=== PATIENT | male | born 1955 | race Caucasian/White ===

== ENCOUNTER 2016-08-04 17:09 | Inpatient (IN) | payer MEDICARE, OTHER ==
[~2016-08-04] VITALS: Ht 185.4 cm; Wt 84.8 kg
[~2016-08-04 17:09] MED LIST: CLIN150 PO; DIABETIC SHOES; LISI2.5T55 PO; LORA-474 PO; METF500 PO; [UNRECOGNIZED DRUG - SUPPLY]
[2016-08-04 18:15] VITALS: BP 148/81; PULSE 92; RESP 17; TEMP 97.8; O2SAT 97
[2016-08-04 18:53] LABS: AUTOMATED NEUTROPHIL # 4.1 TH/MM3 (1.8-7.7); BASOPHIL # 0.1 TH/MM3 (0-0.2); BASOPHIL % 1.7 % (0.0-2.0); EOSINOPHIL # 0.1 TH/MM3 (0-0.4); EOSINOPHIL % 1.7 % (0.0-4.0); HEMATOCRIT 39.1 % (39.0-51.0); HEMO FLAGS DIFF FINAL; LYMPH % 12.2 % (9.0-44.0); LYMPHOCYTE # 0.8 TH/MM3 (1.0-4.8); MEAN CELL VOLUME 94.2 FL (80.0-100.0); MEAN CORPUSCULAR HEMOGLOBIN 32.7 PG (27.0-34.0); MEAN CORPUSCULAR HGB CONC 34.7 % (32.0-36.0); MONO % 18.4 % (0.0-8.0); PLATELET COUNT 149 TH/MM3 (150-450); RED BLOOD COUNT 4.15 MIL/MM3 (4.50-5.90); RED CELL DISTRIBUTION WIDTH 15.3 % (11.6-17.2); WHITE BLOOD COUNT 6.2 TH/MM3 (4.0-11.0)
[2016-08-04 18:57] LABS: AMPHETAMINE, URINE NEG (NEG); BARBITURATES, URINE NEG (NEG); COCAINE, URINE NEG (NEG)
[2016-08-04 19:15] LABS: ANION GAP 9 MEQ/L (5-15)
[2016-08-04 19:20] LABS: ALKALINE PHOSPHATASE 64 U/L (45-117); ALT (GPT) 87 U/L (12-78); AST (GOT) 135 U/L (15-37); BICARBONATE 30.9 MEQ/L (21.0-32.0); BLOOD UREA NITROGEN 19 MG/DL (7-18); CHLORIDE 99 MEQ/L (98-107); GLOMERULAR FILTRATION RATE 84 ML/MIN (>89); POTASSIUM 4.2 MEQ/L (3.5-5.1); SODIUM (NA) 139 MEQ/L (136-145); TOTAL BILIRUBIN ADULT 0.4 MG/DL (0.2-1.0)
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
[2016-08-04 22:42] VITALS: BP 161/78; PULSE 101; RESP 18; O2SAT 97
[2016-08-05] VITALS (10 sets, daily range): BP systolic 123–193; BP diastolic 78–97; PULSE 104–117; RESP 16–20; TEMP 98.2–99; O2SAT 94–98
[2016-08-05] MEDS ORDERED: LORazepam 2 MG/ML VIAL IM ONE (05:45)
[2016-08-05] MEDS ORDERED: LORazepam 2 MG/ML VIAL IV PUSH ONE (06:00)
[2016-08-05] MEDS ORDERED: SODIUM CHLOR 0.9% 1000 ML INJ 1,000 ML IV ONE (06:00)
--- NOTE | 2016-08-05 06:10 | PD ---
Physical Exam Date Seen by Provider: Aug 05, 2016 Time Seen by Provider: 06:07 Narrative GENERAL: This is a well-nourished, well-developed patient, in no apparent distress. SKIN: No rashes, ecchymoses or lesions. Patient was mildly diaphoretic. HEAD: Patient has a small soft tissue hematoma to the right posterior occiput. No bony step off. EYES: PERRL, EOMI, no discharge or injection. No scleral icterus. EARS: Clear NOSE: Nasal turbinates appear normal. THROAT: Mucosa pink and moist. Airway patent. NECK: Trachea midline. supple, moves head freely. LUNGS: Clear to auscultation. CV: Regular in rhythm. Mildly tacky. ABDOMEN: Soft nontender. EXT: No clubbing cyanosis or edema. Neuro: Patient alert and oriented 3. He is not recall the precipitating event. He is moving all extremities well and according fashion. No evidence of incontinence. No pain. No postictal state. Data Data Last Documented VS Vital Signs Date Time Temp Pulse Resp B/P Pulse Ox O2 Delivery O2 Flow Rate FiO2 08/05/16 06:32 107 20 123/80 95 Room Air 08/04/16 18:15 97.8 Orders Complete Blood Count With Diff (08/04/16 18:27) Comprehensive Metabolic Panel (08/04/16 18:27) Drug Screen, Random Urine (08/04/16 18:27) Alcohol (Ethanol) (08/04/16 18:27) Psych Screen (08/04/16 18:27) Diet Diabetic (08/05/16 Breakfast) Lorazepam Inj (Ativan Inj) (08/05/16 05:45) Iv Access Insert/Monitor (08/05/16 05:49) Ecg Monitoring (08/05/16 05:49) Sodium Chlor 0.9% 1000 Ml Inj (Ns 1000 M (08/05/16 06:00) Lorazepam Inj (Ativan Inj) (08/05/16 06:00) Alcohol Withdrawal Asmt-Ciwa ONCE (08/05/16 06:14) Flumazenil Inj (Romazicon Inj) (08/05/16 06:15) Lorazepam (Ativan) (08/05/16 06:15) Lorazepam Inj (Ativan Inj) (08/05/16 06:15) Lorazepam (Ativan) (08/05/16 06:15) Lorazepam Inj (Ativan Inj) (08/05/16 06:15) Lorazepam Inj (Ativan Inj) (08/05/16 06:15) Lorazepam Inj (Ativan Inj) (08/05/16 06:15) Ct Brain W/O Iv Contrast(Rout) (08/05/16 06:14) Labs Laboratory Tests Test 08/04/16 08/04/16 18:20 18:30 White Blood Count 6.2 TH/MM3 Red Blood Count 4.15 MIL/MM3 Hemoglobin 13.6 GM/DL Hematocrit 39.1 % Mean Corpuscular Volume 94.2 FL Mean Corpuscular Hemoglobin 32.7 PG Mean Corpuscular Hemoglobin 34.7 % Concent Red Cell Distribution Width 15.3 % Platelet Count 149 TH/MM3 Mean Platelet Volume 7.7 FL Neutrophils (%) (Auto) 66.0 % Lymphocytes (%) (Auto) 12.2 % Monocytes (%) (Auto) 18.4 % Eosinophils (%) (Auto) 1.7 % Basophils (%) (Auto) 1.7 % Neutrophils # (Auto) 4.1 TH/MM3 Lymphocytes # (Auto) 0.8 TH/MM3 Monocytes # (Auto) 1.1 TH/MM3 Eosinophils # (Auto) 0.1 TH/MM3 Basophils # (Auto) 0.1 TH/MM3 CBC Comment DIFF FINAL Differential Comment Sodium Level 139 MEQ/L Potassium Level 4.2 MEQ/L Chloride Level 99 MEQ/L Carbon Dioxide Level 30.9 MEQ/L Anion Gap 9 MEQ/L Blood Urea Nitrogen 19 MG/DL Creatinine 0.91 MG/DL Estimat Glomerular Filtration 84 ML/MIN Rate Random Glucose 128 MG/DL Calcium Level 9.0 MG/DL Total Bilirubin 0.4 MG/DL Aspartate Amino Transf 135 U/L (AST/SGOT) Alanine Aminotransferase 87 U/L (ALT/SGPT) Alkaline Phosphatase 64 U/L Total Protein 8.6 GM/DL Albumin 3.5 GM/DL Urine Opiates Screen NEG Urine Barbiturates Screen NEG Urine Amphetamines Screen NEG Urine Benzodiazepines Screen NEG Urine Cocaine Screen NEG Urine Cannabinoids Screen NEG Ethyl Alcohol Level 290 MG/DL [facility] Medical Record Reviewed: Yes Supervised Visit with ANGEL: Yes Interpretation(s) CT brain: Negative for acute bony injury. No acute intracerebral injury. Chronic ischemic changes Laboratory Tests Test 08/04/16 08/04/16 18:20 18:30 White Blood Count 6.2 TH/MM3 Red Blood Count 4.15 MIL/MM3 Hemoglobin 13.6 GM/DL Hematocrit 39.1 % Mean Corpuscular Volume 94.2 FL Mean Corpuscular Hemoglobin 32.7 PG Mean Corpuscular Hemoglobin 34.7 % Concent Red Cell Distribution Width 15.3 % Platelet Count 149 TH/MM3 Mean Platelet Volume 7.7 FL Neutrophils (%) (Auto) 66.0 % Lymphocytes (%) (Auto) 12.2 % Monocytes (%) (Auto) 18.4 % Eosinophils (%) (Auto) 1.7 % Basophils (%) (Auto) 1.7 % Neutrophils # (Auto) 4.1 TH/MM3 Lymphocytes # (Auto) 0.8 TH/MM3 Monocytes # (Auto) 1.1 TH/MM3 Eosinophils # (Auto) 0.1 TH/MM3 Basophils # (Auto) 0.1 TH/MM3 CBC Comment DIFF FINAL Differential Comment Sodium Level 139 MEQ/L Potassium Level 4.2 MEQ/L Chloride Level 99 MEQ/L Carbon Dioxide Level 30.9 MEQ/L Anion Gap 9 MEQ/L Blood Urea Nitrogen 19 MG/DL Creatinine 0.91 MG/DL Estimat Glomerular Filtration 84 ML/MIN Rate Random Glucose 128 MG/DL Calcium Level 9.0 MG/DL Total Bilirubin 0.4 MG/DL Aspartate Amino Transf 135 U/L (AST/SGOT) Alanine Aminotransferase 87 U/L (ALT/SGPT) Alkaline Phosphatase 64 U/L Total Protein 8.6 GM/DL Albumin 3.5 GM/DL Urine Opiates Screen NEG Urine Barbiturates Screen NEG Urine Amphetamines Screen NEG Urine Benzodiazepines Screen NEG Urine Cocaine Screen NEG Urine Cannabinoids Screen NEG Ethyl Alcohol Level 290 MG/DL Differential Diagnosis Differential diagnoses: Alcohol intoxication, substance abuse, electrolyte abnormality, malingering, withdrawal seizure Narrative Course This is a 61-year-old white male with a history of alcoholism and alcohol withdrawal seizures. He came to the emergency department under Mathias act over 12 hours ago. At that time he had a blood alcohol over 290. He subsequently went into the bathroom this morning approximately 30 minutes ago and had what appears to be a alcohol withdrawal seizure. The patient was noted to be having an active tonic seizure in the bathroom. This lasted for less than a minute. The patient only had a very momentary postictal state. No evidence of tongue bite. He did sustain a small posterior occiput contusion. The patient now is alert and oriented. He does not complain of any pain. No numbness, tingling or focal weakness. IV access is obtained. He is given a liter bolus of normal saline, 1 mg of Ativan IV. CIWA protocol is initiated. The case has been discussed with who has requested a CT of the brain. CT of the brain is negative for acute intercranial injury or bony injury. The patient has been resting comfortable. He is consider medically cleared. This is alcohol dependence, alcohol withdrawal seizure Diagnosis Primary Impression: Alcohol dependence Qualified Code: F10.24 - Alcohol dependence with alcohol-induced mood disorder Additional Impression: Alcohol withdrawal seizure Qualified Code: F10.239 - Alcohol withdrawal seizure, with unspecified complication Condition: Stable Alex Vasquez Aug 05, 2016 06:10
[2016-08-05] MEDS ORDERED: FLUMAZENIL 1 MG/10 ML VIAL IV PUSH PRN (06:15)
[2016-08-05] MEDS ORDERED: LORazepam 2 MG/ML VIAL IV PUSH PRN (06:15)
--- NOTE | 2016-08-05 06:59 | RADRPT ---
EXAM DATE/TIME: 08/05/2016 06:38 [facility] COMPARISON: CT BRAIN W/O CONTRAST, December 23, 2013, 19:55. INDICATIONS : Post ictal; posterior occipital laceration RADIATION DOSE: 56.35 CTDIvol (mGy) MEDICAL HISTORY : Seizures. Hypertension. Prior head trauma. SURGICAL HISTORY : None. ENCOUNTER: Initial ACUITY: 1 day PAIN SCALE: 5/10 LOCATION: occipital TECHNIQUE: Multiple contiguous axial images were obtained of the head. Using automated exposure control and adj ustment of the mA and/or kV according to patient size, radiation dose was kept as low as reasonably a chievable to obtain optimal diagnostic quality images. FINDINGS: CEREBRUM: Scattered areas of low attenuation throughout the white matter. 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 T he ventricles are normal for age. No evidence of midline shift, mass lesion, hemorrhage or acute inf arction. No extra-axial fluid collections are seen. POSTERIOR FOSSA: The cerebellum is intact. Chronic ischemic changes left terrie. The 4th ventricle is midline. The cer ebellopontine angle is unremarkable. EXTRACRANIAL: The visualized portion of the orbits is intact. SKULL: The calvaria is intact. No evidence of skull fracture. CONCLUSION: Chronic ischemic changes. No acute intracranial abnormality. Oscar Dominique MD on August 05, 2016 at 6:56 Board Certified Radiologist. This report was verified electronically.
[2016-08-05] MEDS: LORazepam 2 MG/ML VIAL IV PUSH PRN ×5 (08:52→18:28)
[2016-08-05] MEDS ORDERED: LORazepam 2 MG/ML VIAL ONE (11:26)
[2016-08-05] MEDS ORDERED: MAGNESIUM HYDROXIDE SUSP 30 ML CUP PO PRN (16:15)
[2016-08-05] MEDS ORDERED: ACETAMINOPHEN 325 MG TAB PO PRN (16:15)
[2016-08-05] MEDS ORDERED: PILL SPLITTER OTHER PRN (16:30)
[2016-08-05] MEDS ORDERED: metFORMIN HCL 500 MG TAB PO SCH (18:00)
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
[2016-08-05] MEDS: INSULIN ASPART SUPPLEMENTAL SCALE SQ SCH (20:42)
[2016-08-06] MEDS: LORazepam 2 MG/ML VIAL IV PUSH PRN ×2 (00:52→16:43)
[2016-08-06 01:34] VITALS: BP 187/100; PULSE 111; RESP 17; TEMP 98.4; O2SAT 95
[2016-08-06] MEDS ORDERED: ENALAPRILAT 1.25 MG/ML VIAL IV PRN (03:15)
[2016-08-06] MEDS ORDERED: cloNIDine HCL 0.1 MG TAB PO PRN (03:30)
[2016-08-06] MEDS: TEMAZEPAM 15 MG CAP PO PRN ×2 (03:38→23:30)
[2016-08-06 05:47] VITALS: BP 142/82; PULSE 97; RESP 20; TEMP 98.1; O2SAT 96
[2016-08-06] MEDS: INSULIN ASPART SUPPLEMENTAL SCALE SQ SCH ×4 (06:16→20:30)
[2016-08-06 08:05] LABS: ALKALINE PHOSPHATASE 62 U/L (45-117); ALT (GPT) 79 U/L (12-78); ANION GAP 9 MEQ/L (5-15); AST (GOT) 108 U/L (15-37); BICARBONATE 30.2 MEQ/L (21.0-32.0); BLOOD UREA NITROGEN 20 MG/DL (7-18); CHLORIDE 98 MEQ/L (98-107); GLOMERULAR FILTRATION RATE 93 ML/MIN (>89); HDL CHOLESTEROL 157.4 MG/DL (40.0-60.0); LDL CHOLESTEROL 82 MG/DL (0-99); POTASSIUM 3.1 MEQ/L (3.5-5.1); SODIUM (NA) 137 MEQ/L (136-145); TOTAL BILIRUBIN ADULT 0.9 MG/DL (0.2-1.0)
[2016-08-06] MEDS: NICOTINE 21 MG/24 HR PATCH T-DERMAL SCH (09:00)
[2016-08-06] MEDS: REMOVE OLD NICOTINE PATCH T-DERMAL SCH (09:00)
[2016-08-06] MEDS ORDERED: chlordiazePOXIDE 25 MG CAP PO SCH (09:00)
[2016-08-06] MEDS ORDERED: LISINOPRIL 5 MG TAB PO SCH (09:00)
[2016-08-06] MEDS: THIAMINE HCL 100 MG TAB PO SCH (09:45)
[2016-08-06] MEDS: MULTIVITAMIN TAB PO SCH (09:45)
[2016-08-06 10:48] LABS: HEMOGLOBIN A1a 1.4 %; HEMOGLOBIN A1b 0.8 %; HEMOGLOBIN Ao 83.7 %; HEMOGLOBIN F 0.8 %; HEMOGLOBIN LA1C 2.3 %; HEMOGLOBIN P3 3.9 %
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
[2016-08-06] MEDS: chlordiazePOXIDE 25 MG CAP PO SCH ×3 (12:00→23:31)
--- NOTE | 2016-08-06 12:05 | HHI.HP ---
Provisional Diagnosis Admission Date Aug 05, 2016 at 15:38 [place] I. Alcohol-induced mood disorder, alcohol use disorder, rule out major depressive disorder [place] II. Deferred [place] III. DM, HTN, history of DT [place] IV. Poor family support, continuous use of alcohol [place] V. 45 Certification of Person's Competence To Provide Express and Informed Consent I have personally examined Sheng Light , a person being served at [facility] on, Aug 06, 2016 11:45. Express and informed consent means consent voluntarily given in writing, by a competent person, after sufficient explanation and disclosure of the subject matter involved to enable the person to make a knowing and willful decision without any element of force, fraud, deceit, duress, or other form of constraint or coercion. This person is 18 years of age or older, is not now known to be incompetent to consent to treatment with a guardian advocate, and does not have a health care surrogate or proxy currently making medical treatment decisions. I have found this person to be one of the following: [] Competent to provide express and informed consent, as defined above, for voluntary admission to this facility and is competent to provide express and informed consent for treatment. He/she has the consistent capacity to make well reasoned, willful, and knowing decisions concerning his or her medical or mental health treatment. The person fully and consistently understands the purpose of the admission for examination/placement and is fully capable of personally exercising all rights assured under [place] [] Incompetent to provide express and informed consent to voluntary admission, and this is incompetent to provide express and informed consent to treatment. The person must be transferred to involuntary status and a petition for a guardian advocate filed with the Circuit Court. [X] Refusing to provide express and informed consent to voluntary admission but is competent to provide express and informed consent for treatment. The person must be discharged or transferred to involuntary status. Form shall be completed within 24 hours of a person's arrival at the receiving facility and filed in the clinical record of each person: 1. Admitted on a voluntary basis 2. Permitted to provide express and informed consent to his/her own treatment 3. Allowed to transfer from involuntary to voluntary status 4. Prior to permitting a person to consent to his or her own treatment after having been previously found incompetent to consent to treatment. History of Present Illness Capacity: Has Capacity HPI The patient is 61-year-old man, , domiciled alone, he has 4 adult kids, he is retired, with past psychiatric history of depression, anxiety, alcohol related disorders, history of withdrawal, known by this service, multiple psychiatric hospitalizations in the past, suicidal attempts, medical history of diabetes mellitus, hypertension, who presents to the emergency department under a Mathias act for psychiatric evaluation. As per Er note "Patient states that he has prefers and they were making a lot of noise so he went outside and yelled at them. He states that they contact the police an alleged that he pointed a gun at them. In the ER patient had a breakthrough seizure. Chart was extensively review, no collateral information available at this moment, the case was discussed with nursing in charge who states that patient has been mostly sleeping in the unit. On psychiatric evaluation today patient was found sleeping, but easily arousable, he was superficially cooperative, distant and detached, he states that he doesn't know where he is in the hospital, he remembered that he had a seizure in the ER, but he doesn't remember the circumstances that brought into the hospital, when he was confronted about this stating of the police in Mathias act document history often an added "I was drunk remember". Patient reports sad mood since his a year ago, also reports several financial and social stressors, not being in the moment with his kids. He reports feeling alone, empty appetite, with no reasons to live, however he denies suicidal or homicidal ideation. Patient says that the way he cope with his depression is drinking alcohol, he says that he drink alcohol almost every day, 1 or 2 pints of whisky. He has history of seizures before, and DTs. Patient denies visual and auditory hallucinations, confusion, paranoia , delusions. No aggressive behavior, agitation, poor cognitive impairment is observed at this moment. Patient is oriented 3. Patient is unable to provide any information from collateral at this moment. He reports daily use of alcohol , but denies illicit drugs. Patient denies withdrawal symptoms at this moment such as nausea, vomiting, tremors, anxiety. Review of Systems Constitutional: DENIES: Diaphoretic episodes, Fatigue, Fever, Weight gain, Weight loss, Chills, Dizziness, Change in appetite, Night Sweats Endocrine: DENIES: Heat/cold intolerance, Polydipsia, Polyuria, Polyphagia Eyes: DENIES: Blurred vision, Diplopia, Eye inflammation, Eye pain, Vision loss , Photosensitivity, Double Vision Ears, nose, mouth, throat: DENIES: Tinnitus, Hearing loss, Vertigo, Nasal discharge, Oral lesions, Throat pain, Hoarseness, Ear Pain, Running Nose, Epistaxis, Sinus Pain, Toothache, Odynophagia Respiratory: DENIES: Apneas, Cough, Snoring, Wheezing, Hemoptysis, Sputum production, Shortness of breath Cardiovascular: DENIES: Chest pain, Palpitations, Syncope, Dyspnea on Exertion , PND, Lower Extremity Edema, Orthopnea, Claudication Gastrointestinal: DENIES: Abdominal pain, Black stools, Bloody stools, Constipation, Diarrhea, Nausea, Vomiting, Difficulty Swallowing, Anorexia Musculoskeletal: DENIES: Joint pain, Muscle aches, Stiffness, Joint Swelling, Back pain, Neck pain Integumentary: DENIES: Abnormal pigmentation, Nail changes, Pruritus, Rash Hematologic/lymphatic: DENIES: Bruising, Lymphadenopathy Immunologic/allergic: DENIES: Eczema, Urticaria Neurologic: DENIES: Abnormal gait, Headache, Localized weakness, Paresthesias, Seizures, Speech Problems, Tremor, Poor Balance Psychiatric: COMPLAINS OF: Mood changes, Depression Past Psych History Violence risk - self (6 mos) Slightly elevated Substance Abuse History Drugs/Alcohol past 12 months Daily use of alcohol, 1-2 pints per day of whiskey, he denies illicit drugs Past Family Social History Coded Allergies: Sulfa (Verified Allergy, Intermediate, MADE FINGERS SWELL, 05/15/16) Keflex (Verified Allergy, Mild, Diarrhea, 05/15/16) Tetracyclines (Verified Allergy, Unknown, TROUBLE BREATHING?, 05/15/16) Active Scripts [Diabetic shoe insert] No Conflict Check #3 Units Please dispense three pairs of diabetic shoe inserts Prov:Sonia Sanchez MD 04/27/16 [Diabetic shoes] No Conflict Check #1 Units Please dispense one pair of custom-fitted diabetic shoes Prov:Sonia Sanchez MD 04/27/16 Lorazepam (Ativan)1 Mg Tab1 Mg PO Q6H #5 TAB Ref 0 Prov:Sonia Sanchez MD 04/27/16 Metformin 500 mg (Glucophage 500 mg)500 Mg Sts999 Mg PO BIDPC #60 TAB Ref 5 Prov:Sonia Sanchez MD 04/27/16 Reported Medications Lisinopril 2.5 mg 2.5 Mg TabUnknown Dose PO DAILY 01/03/16 Discontinued Scripts Clindamycin Hcl (Cleocin)150 Mg Gix837 Mg PO Q6 #28 CAP Ref 0 Prov:Cinda Rivas MD R3 05/15/16 Current Medications Medications (Trade) Dose Ordered Sig/Kiran Route Start Time Stop Time Status Last Admin (Ativan) 1 mg Q4H PRN PO 08/05/16 06:15 (Ativan Inj) 1 mg Q4H PRN IV PUSH 08/05/16 06:15 08/05/16 15:46 (Ativan) 2 mg Q2H PRN PO 08/05/16 06:15 (Ativan Inj) 2 mg Q2H PRN IV PUSH 08/05/16 06:15 08/06/16 00:52 (Ativan Inj) 2 mg Q1H PRN IV PUSH 08/05/16 06:15 08/05/16 14:17 (Ativan Inj) 2 mg Q15M PRN IV PUSH 08/05/16 06:15 (Tylenol) 650 mg Q4H PRN PO 08/05/16 16:15 (Milk Of Magnesia Liq) 30 ml DAILY PRN PO 08/05/16 16:15 (Mag-Al Plus Susp Liq) 30 ml Q6H PRN PO 08/05/16 16:15 (Habitrol 21 Mg Patch.24 Hr) 1 patch DAILY T-DERMAL 08/06/16 09:00 Miscellaneous Information 1 DAILY T-DERMAL 08/06/16 09:00 (Pill Splitter) 1 ea UNSCH PRN OTHER 08/05/16 16:30 (Librium) 25 mg TID PO 08/06/16 09:00 08/06/16 09:45 (Vitamin B1) 100 mg DAILY PO 08/06/16 09:00 08/06/16 09:45 (Theragran) 1 tab DAILY PO 08/06/16 09:00 08/06/16 09:45 (Restoril) 30 mg HS PRN PO 08/05/16 16:30 08/06/16 03:38 (Catapres) 0.1 mg Q6H PRN PO 08/06/16 03:30 08/06/16 03:38 (Prinivil) 20 mg DAILY PO 08/07/16 09:00 Family History He denies Social History Patient was born and raised in [place], he has been living in [place] for 4 years, he is , his a year ago, he has 4 adult kids, they all live in [place], he is retired, used to work for the city [employer], his highest level of education is high school Patient's Strengths (min. 2) Verbal communication Physical Exam Vital Signs Vital Signs Date Time Temp Pulse Resp B/P Pulse Ox O2 Delivery O2 Flow Rate FiO2 08/06/16 05:47 98.1 97 20 142/82 96 08/05/16 15:05 Room Air I/O 08/05/16 08/05/16 08/06/16 08:00 16:00 00:00 Intake Total 180 ml Balance 180 ml Mental Status Examination Appearance man, what appears older than his stated age, disheveled, superficially cooperative, distant Speech: Hesitant, Slow Orientation: x3 Memory: Unremarkable Thought Process: Logical Thought Content: Unremarkable Attention and Concentration: Good Suicidal Ideation: No Previous Suicide Attempts: Yes Homicidal Ideation: No Previous Homicide Attempts: No Insight: Fair Judgement: Poor Affect: Sad Mood: Sad Motor Activity: Normal gait Assessment & Plan Problem List: (1) Alcohol abuse with alcohol-induced mood disorder Assessment & Plan: The patient is 61-year-old man, with past psychiatric history of depression, anxiety, alcohol related disorders, history of withdrawal , known by this service, multiple psychiatric hospitalizations in the past, suicidal attempts, medical history of diabetes mellitus, hypertension, who presents to the emergency department under a Mathias act for psychiatric evaluation for erratic behavior. On psychiatric evaluation today the patient presents superficially cooperative, distant, visibly vulnerable, endorses sad mood since his , continues sense of emptiness, generalized pessimism, inability to enjoy life and keep relationships, continues use of alcohol as a coping mechanism, but denies suicidal or homicidal ideation, denies visual and auditory hallucinations. At the moment of this evaluation no gross cognitive impairment is observed. No withdrawal symptoms are present at this time. He is unable to remember and clarify circumstances that brought into the hospital, no collateral information is available at this moment to complete psychiatric assessment, so patient will be Kept for psychiatric admission for safety and stabilization of depressive symptoms. Since patient represented a high risk for withdrawal and DTs, we'll start CIWA protocol and we'll start Librium 25 mg 4 times a day, to be tapered down by 25% per day as patient-controlled. Also will start Effexor 37.5 mg for depression. Extensive support, motivation and psychoeducation provided. mission worker intervention for counseling and to start discharge planning. ICD Code: F10.14 Assessment & Plan Estimated LOS: days Obey Davila MD Aug 06, 2016 12:05
--- NOTE | 2016-08-06 16:19 | HHI.FPPN ---
Subjective Subjective Patient seen and examined. Case reviewed and discussed Please refer to resident H&P for further details regarding HPI, ROS, PMH, SurgHx , FH and SocHx In summary, patient is a 61yoM with a history of DM, HTN, alcohol dependence presenting under Mathias Act. He was admitted to the med psych floor and the Family Medicine Service was consulted for assistance with medical management. Patient is seen sitting in a chair in the hallway. Currently offers no complaints. He denies chest pain, shortness of breath, LE edema, tremulousness, hallucinations currently. [facility] Objective Objective Last Impressions Head CT 08/05/16613 Signed Impressions: Service Date/Time: Wednesday, August 05, 2016 06:38 - CONCLUSION: Chronic ischemic changes. No acute intracranial abnormality. Oscar Dominique MD Laboratory Tests - Abnormals Test 08/06/16 06:55 Erythrocyte Sedimentation Rate 63 mm/hr Potassium Level 3.1 MEQ/L Blood Urea Nitrogen 20 MG/DL Random Glucose 137 MG/DL Aspartate Amino Transf 108 U/L (AST/SGOT) Alanine Aminotransferase 79 U/L (ALT/SGPT) Albumin 3.1 GM/DL Cholesterol Level 254 MG/DL HDL Cholesterol 157.4 MG/DL Vitamin B12 Level 1492 PG/ML Folate 19.5 NG/ML Vital Signs 08/05/16 08/05/16 08/05/16 08/06/16 16:47 19:19 22:53 01:34 Temp 99.0 98.3 98.3 98.4 Pulse 115 113 109 111 Resp 16 16 17 17 B/P 142/90 164/89 172/94 187/100 Pulse Ox 94 94 95 08/06/16 05:47 Temp 98.1 Pulse 97 Resp 20 B/P 142/82 Pulse Ox 96 INTAKE & OUTPUT 08/06/16 06:59 Intake Total 420 ml Balance 420 ml Physical exam GENERAL: Disheveled male, sitting up in chair. wdwn, NAD SKIN: Warm and dry. No rashes. HEAD: Normocephalic. AT EYES: No scleral icterus. No injection or drainage. ENT: OP Clear. MMM NECK: Supple, trachea midline. No JVD or lymphadenopathy. CARDIOVASCULAR: Regular rate and rhythm without audible murmurs, gallops, or rubs. RESPIRATORY: Breath sounds equal and clear to auscultation bilaterally. No accessory muscle use. GASTROINTESTINAL: Abdomen soft, non-tender, nondistended. Hepatic edge palpable 1cm below costal margin. MUSCULOSKELETAL: No cyanosis, or edema. No calf tenderness BACK: Nontender without obvious deformity. No CVA tenderness. NEURO: Awake and alert. Normal speech. Mild tremulousness. Assessment Assessment 61yoM admitted with: Mathias Act Alcohol withdrawal seizure Alcohol dependence HTN DM Hypokalemia Transaminitis- suspect alcoholic hepatitis Thrombocytopenia Hx TBI PLAN PLAN CIVT protocol Seizure precautions Neuro checks Further care by psychiatry Resume home metformin Titrate anti-hypertensive therapy as needed Replete electrolytes as needed Trend CMP, obtain RUQ ultrasound if persists Accu-checks, A1c, SSI as needed Patient seen and examined. Case reviewed and discussed Agree with plan of care as discussed with me and documented in the resident note. Vanna Mares MD Aug 06, 2016 16:19
[2016-08-06] MEDS ORDERED: POTASSIUM CHLORIDE 20 MEQ CONTROLLED RELEASE TAB PO ONE (17:30)
[2016-08-06 18:02] VITALS: BP 127/75; PULSE 103; RESP 18; TEMP 97.9; O2SAT 96
[2016-08-06 21:00] VITALS: BP 102/56; PULSE 99; TEMP 99.5; O2SAT 97
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
[2016-08-06] MEDS: LORazepam 1 MG TAB PO PRN (23:30)
[2016-08-07 01:08] VITALS: BP 122/72; PULSE 92; TEMP 99.2; O2SAT 95
[2016-08-07] MEDS: LORazepam 2 MG/ML VIAL IV PUSH PRN ×3 (06:21→23:38)
[2016-08-07] MEDS: INSULIN ASPART SUPPLEMENTAL SCALE SQ SCH (06:21)
[2016-08-07 06:27] VITALS: BP 141/82; PULSE 103; RESP 17; TEMP 99.1; O2SAT 96
[2016-08-07 07:46] LABS: BICARBONATE 31.9 MEQ/L (21.0-32.0); POTASSIUM 3.6 MEQ/L (3.5-5.1)
[2016-08-07] MEDS: NICOTINE 21 MG/24 HR PATCH T-DERMAL SCH (09:00)
[2016-08-07] MEDS: VENLAFAXINE HCL XR 37.5 MG CAP PO SCH (09:00)
[2016-08-07] MEDS: REMOVE OLD NICOTINE PATCH T-DERMAL SCH (09:00)
--- NOTE | 2016-08-07 09:25 | HHI.FPPN ---
Subjective Remarks Patient seen this morning. No acute events overnight. SBP up to the 140s with pulses in the 110s. Other vitals WNL. Per nursing, patient remains confused but not combative overnight. Patient says he is not in any pain. Appetite good. Denies N/V. He denies visual or auditory hallucination. (Jorge Crockett MD R3) Objective Vitals Vital Signs Date Time Temp Pulse Resp B/P Pulse Ox O2 Delivery O2 Flow Rate FiO2 08/07/16 06:27 99.1 103 17 141/82 96 08/07/16 01:08 99.2 92 122/72 95 08/06/16 21:00 99.5 99 102/56 97 08/06/16 18:02 97.9 103 18 127/75 96 I/O 08/06/16 08/06/16 08/06/16 08/07/16 08/07/16 08/07/16 07:00 15:00 23:00 07:00 15:00 23:00 Intake Total 240 ml 1920 ml 240 ml Balance 240 ml 1920 ml 240 ml Intake Oral 240 ml 1920 ml 240 ml # Voids 2 4 1 # Bowel Movements 0 (Jorge Crockett MD R3) Result Diagram: 08/04/16 1820 08/07/16 0705 Objective Remarks Gen.: No acute distress. Mildly tremulous. In NAD. Cardiovascular: Regular rate and rhythm. No murmurs, rubs or gallops. Respiratory: Lungs clear to auscultation bilaterally. No wheezes or rhonchi. Abdomen: Soft, nontender, nondistended. No peritoneal signs. Musculoskeletal: No gross deformities. No edema. Skin: No obvious rashes or erythema. Neuro: Sensory and motor grossly intact. Patient awake and alert. Oriented to self only. Mild, fine tremor in both hands, improved compared to yesterday. Doesn't appear to be responding to internal stimuli at present. (Jorge Crockett MD R3) A/P Assessment and Plan 61-year-old male with a past medical history significant for diabetes admitted under Mathias act and status post alcohol withdrawal seizure. 1. Alcohol withdrawal Patient on scheduled Librium and CIWA protocol per psychiatry Transaminitis improving and likely secondary to alcohol ingestion, continue to monitor 2. Diabetes mellitus relatively well controlled. Fasting sugar was 196 this morning. Patient refused insulin. Restart metformin 1000mg BID at this time. A1c 6.0 3. Hypertension control improving. SBP in the 140s. -continue lisinopril to 20mg daily -PRN clonidine 4. Mathias act Per psychiatry 5. FEN Fluids: Hep-Lock IV Nutrition: Regular diet Electrolytes: potassium 3.1 yesterday. Improved to 3.6 today. Dispo - likely DC to psych facility today. (Jorge Crockett MD R3) Attending Attestation Patient seen and examined. Case reviewed and discussed with Dr. Crockett, resident physician. Agree with plan of care as discussed with me and documented in the resident note. (Vanna Mares MD) Problem List: (1) Diabetes mellitus, type 2 Status: Chronic (2) Alcohol withdrawal seizure Status: Acute (3) HTN (hypertension) Status: Chronic (Jorge Crockett MD R3) Problem Qualifiers (1) Alcohol withdrawal seizure: Qualified Code: F10.239 - Alcohol withdrawal seizure, with unspecified complication Jorge Crockett MD R3 Aug 07, 2016 09:25 Vanna Mares MD Aug 10, 2016 09:31
[2016-08-07] MEDS: metFORMIN HCL 500 MG TAB PO SCH ×2 (09:45→18:00)
[2016-08-07] MEDS: LORazepam 2 MG TAB PO PRN ×2 (10:07→14:54)
[2016-08-07] MEDS: MULTIVITAMIN TAB PO SCH (10:08)
[2016-08-07] MEDS: THIAMINE HCL 100 MG TAB PO SCH (10:09)
[2016-08-07] MEDS: LISINOPRIL 20 MG TAB PO SCH (10:09)
[2016-08-07] MEDS: chlordiazePOXIDE 25 MG CAP PO SCH ×2 (12:00→18:00)
[2016-08-07 19:35] VITALS: BP 110/61; PULSE 83; RESP 18; TEMP 97.7; O2SAT 96
[2016-08-08] MEDS: LORazepam 2 MG/ML VIAL IV PUSH PRN ×2 (04:54)
[2016-08-08] MEDS: chlordiazePOXIDE 25 MG CAP PO SCH ×4 (05:25→21:15)
[2016-08-08 06:13] VITALS: BP 143/90; PULSE 100; RESP 18; TEMP 97.1; O2SAT 97
[2016-08-08] MEDS: REMOVE OLD NICOTINE PATCH T-DERMAL SCH (09:00)
[2016-08-08] MEDS: NICOTINE 21 MG/24 HR PATCH T-DERMAL SCH (09:00)
[2016-08-08] MEDS: VENLAFAXINE HCL XR 37.5 MG CAP PO SCH ×2 (09:00→09:27)
[2016-08-08] MEDS: MULTIVITAMIN TAB PO SCH (09:26)
[2016-08-08] MEDS: THIAMINE HCL 100 MG TAB PO SCH (09:27)
[2016-08-08] MEDS: LORazepam 2 MG TAB PO PRN ×2 (09:27→14:46)
[2016-08-08] MEDS: metFORMIN HCL 500 MG TAB PO SCH ×2 (09:27→18:37)
[2016-08-08] MEDS: LISINOPRIL 20 MG TAB PO SCH (09:27)
[2016-08-08 09:33] LABS: POTASSIUM 3.3 MEQ/L (3.5-5.1)
[2016-08-08] MEDS: TEMAZEPAM 15 MG CAP PO PRN (21:15)
[2016-08-09 05:55] VITALS: BP 110/52; PULSE 95; RESP 18; TEMP 97.4; O2SAT 96
[2016-08-09] MEDS: metFORMIN HCL 500 MG TAB PO SCH ×2 (09:00→17:40)
[2016-08-09] MEDS: NICOTINE 21 MG/24 HR PATCH T-DERMAL SCH (09:00)
[2016-08-09] MEDS: THIAMINE HCL 100 MG TAB PO SCH (09:00)
[2016-08-09] MEDS: MULTIVITAMIN TAB PO SCH (09:00)
[2016-08-09] MEDS: REMOVE OLD NICOTINE PATCH T-DERMAL SCH (09:00)
[2016-08-09] MEDS: LISINOPRIL 20 MG TAB PO SCH (09:00)
[2016-08-09] MEDS: chlordiazePOXIDE 25 MG CAP PO SCH (09:00)
--- NOTE | 2016-08-09 10:38 | HHI.FPPN ---
Subjective Remarks Patient seen this morning. No acute events overnight. Vitals overnight essentially WNL. Per nursing, patient improving clinically. No reports of behavior issues overnight. Patient denies any pain. Denies any visual/auditory hallucination. Objective Vitals Vital Signs Date Time Temp Pulse Resp B/P Pulse Ox O2 Delivery O2 Flow Rate FiO2 08/09/16 05:55 97.4 95 18 110/52 96 I/O 08/08/16 08/08/16 08/08/16 08/09/16 08/09/16 08/09/16 07:00 15:00 23:00 07:00 15:00 23:00 Intake Total 480 ml 1200 ml 0 ml Balance 480 ml 1200 ml 0 ml Intake Oral 480 ml 1200 ml 0 ml # Voids 1 2 1 # Bowel Movements 2 Result Diagram: 08/08/16 0826 Objective Remarks Gen.: No acute distress. Mildly tremulous. In NAD. Cardiovascular: Regular rate and rhythm. No murmurs, rubs or gallops. Respiratory: Lungs clear to auscultation bilaterally. No wheezes or rhonchi. Abdomen: Soft, nontender, nondistended. No peritoneal signs. Musculoskeletal: No gross deformities. No edema. Skin: No obvious rashes or erythema. Neuro: Sensory and motor grossly intact. Patient awake and much more alert compared to previous exam. Oriented to self only. Mild, fine tremor in both hands, improved compared to yesterday. Doesn't appear to be responding to internal stimuli at present. A/P Assessment and Plan 61-year-old male with a past medical history significant for diabetes admitted under Mathias act and status post alcohol withdrawal seizure. 1. Alcohol withdrawal Patient on scheduled Librium and CIWA protocol per psychiatry 2. Diabetes mellitus metformin 1000mg BID at this time. A1c 6.0 3. Hypertension control improving. SBP WNL. -continue lisinopril to 20mg daily -PRN clonidine 4. Mathias act Per psychiatry 5. FEN Fluids: Hep-Lock IV Nutrition: Regular diet Electrolytes: potassium 3.3 yesterday. Replace with 40 MeQ today and repeat lab tomorrow. Dispo - per psych. *Family Medicine teaching service will sign off today. Please do not hesitate to re-consult if any issues.* Problem List: (1) Diabetes mellitus, type 2 Status: Chronic (2) Alcohol withdrawal seizure Status: Acute (3) HTN (hypertension) Status: Chronic Problem Qualifiers (1) Alcohol withdrawal seizure: Qualified Code: F10.239 - Alcohol withdrawal seizure, with unspecified complication Jorge Crockett MD R3 Aug 09, 2016 10:38
[2016-08-09] MEDS ORDERED: POTASSIUM CHLORIDE 20 MEQ CONTROLLED RELEASE TAB PO ONE (11:00)
[2016-08-09 18:00] VITALS: BP 115/61; PULSE 82; RESP 18; TEMP 98.2; O2SAT 96
[2016-08-10 05:46] VITALS: BP 126/68; PULSE 85; RESP 18; TEMP 98.2; O2SAT 97
[2016-08-10 08:09] LABS: BICARBONATE 26.6 MEQ/L (21.0-32.0); POTASSIUM 3.9 MEQ/L (3.5-5.1)
[2016-08-10] MEDS: ESCITALOPRAM OXALATE 10 MG TAB PO SCH (08:18)
[2016-08-10] MEDS: LISINOPRIL 20 MG TAB PO SCH (08:18)
[2016-08-10] MEDS: metFORMIN HCL 500 MG TAB PO SCH ×2 (08:18→18:00)
[2016-08-10] MEDS: THIAMINE HCL 100 MG TAB PO SCH (08:19)
[2016-08-10] MEDS: REMOVE OLD NICOTINE PATCH T-DERMAL SCH (08:19)
[2016-08-10] MEDS: NICOTINE 21 MG/24 HR PATCH T-DERMAL SCH (08:19)
[2016-08-10] MEDS: MULTIVITAMIN TAB PO SCH (08:19)
[2016-08-10 12:40] VITALS: BP 127/60; PULSE 78; RESP 18; TEMP 98
[2016-08-10 18:35] VITALS: BP 105/58; PULSE 85; RESP 18; TEMP 98.7; O2SAT 98
[2016-08-11 06:41] VITALS: BP 92/52; PULSE 89; RESP 18; TEMP 97.6
[2016-08-11] MEDS: ESCITALOPRAM OXALATE 10 MG TAB PO SCH (09:00)
[2016-08-11] MEDS: REMOVE OLD NICOTINE PATCH T-DERMAL SCH (09:00)
[2016-08-11] MEDS: MULTIVITAMIN TAB PO SCH (09:00)
[2016-08-11] MEDS: metFORMIN HCL 500 MG TAB PO SCH ×2 (09:00→18:00)
[2016-08-11] MEDS: LISINOPRIL 20 MG TAB PO SCH (09:00)
[2016-08-11] MEDS: THIAMINE HCL 100 MG TAB PO SCH (09:00)
[2016-08-11] MEDS: NICOTINE 21 MG/24 HR PATCH T-DERMAL SCH (09:00)
--- NOTE | 2016-08-11 13:46 | HHI.FPPN ---
Objective Vitals Vital Signs Date Time Temp Pulse Resp B/P Pulse Ox O2 Delivery O2 Flow Rate FiO2 08/11/16 06:41 97.6 89 18 92/52 08/10/16 18:35 98.7 85 18 105/58 98 I/O 08/10/16 08/10/16 08/10/16 08/11/16 08/11/16 08/11/16 07:00 15:00 23:00 07:00 15:00 23:00 Intake Total 0 ml 840 ml 960 ml 600 ml Balance 0 ml 840 ml 960 ml 600 ml Intake Oral 0 ml 840 ml 960 ml 600 ml # Voids 2 2 1 1 # Bowel Movements 0 Result Diagram: 08/10/16 0702 Objective Remarks Gen.: No acute distress. not tremulous. In NAD. Cardiovascular: Regular rate and rhythm. No murmurs, rubs or gallops. Respiratory: Lungs clear to auscultation bilaterally. No wheezes or rhonchi. Abdomen: Soft, nontender, nondistended. No peritoneal signs. Musculoskeletal: No gross deformities. No edema. Skin: No obvious rashes or erythema. Neuro: Sensory and motor grossly intact. Patient awake and alert . Oriented to situation only. 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 1. Alcohol withdrawal Patient on scheduled Librium and CIWA protocol per psychiatry, doing well 2. Diabetes mellitus metformin 1000mg BID at this time. A1c 6.0, glucoses adequately controlled in the hospital. he reports eating a different diet in the hospital where "they give me too much bread" 3. Hypertension control improving. SBP WNL. -continue lisinopril to 20mg daily -PRN clonidine 4. Mathias act Per psychiatry 5. FEN Fluids: Hep-Lock IV Nutrition: Regular diet Electrolytes: potassium was low but replaced. he is eating well now. Dispo - per psych. *Family Medicine teaching service will sign off today. Please do not hesitate to re-consult if any issues.* Discharge Planning He states he has his meds at home for DM and HTN however, he is not the most reliable historian. Problem List: (1) Diabetes mellitus, type 2 Status: Chronic (2) Alcohol withdrawal seizure Status: Acute (3) HTN (hypertension) Status: Chronic Problem Qualifiers (1) Diabetes mellitus, type 2: Qualified Code: E11.42 - Type 2 diabetes mellitus with diabetic polyneuropathy , unspecified buttermilk drier operator insulin use status (2) Alcohol withdrawal seizure: Qualified Code: F10.239 - Alcohol withdrawal seizure, with unspecified complication (3) HTN (hypertension): Qualified Code: I10 - Essential hypertension Jessica Noe MD Aug 11, 2016 13:46
[2016-08-11 19:31] VITALS: BP 101/56; PULSE 76; RESP 18; TEMP 98.7; O2SAT 98
[2016-08-11] MEDS ORDERED: LORazepam 2 MG/ML VIAL IV PUSH PRN (21:45)
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
[2016-08-12] MEDS: levETIRAcetam 500 MG TAB PO SCH ×3 (00:01→20:56)
[2016-08-12 06:04] VITALS: BP 106/57; PULSE 78; RESP 18; TEMP 98.5
[2016-08-12] MEDS: NICOTINE 21 MG/24 HR PATCH T-DERMAL SCH (09:00)
[2016-08-12] MEDS: REMOVE OLD NICOTINE PATCH T-DERMAL SCH (09:00)
[2016-08-12] MEDS: LISINOPRIL 20 MG TAB PO SCH (09:13)
[2016-08-12] MEDS: metFORMIN HCL 500 MG TAB PO SCH ×2 (09:13→18:04)
[2016-08-12] MEDS: MULTIVITAMIN TAB PO SCH (09:13)
[2016-08-12] MEDS: ESCITALOPRAM OXALATE 10 MG TAB PO SCH (09:13)
[2016-08-12] MEDS: THIAMINE HCL 100 MG TAB PO SCH (09:14)
[2016-08-12] MEDS: LORazepam 1 MG TAB PO PRN (11:15)
--- NOTE | 2016-08-12 11:59 | RADRPT ---
EXAM DATE/TIME: 08/12/2016 11:28 [facility] COMPARISON: CT BRAIN W/O CONTRAST, August 05, 2016, 6:38. MRI BRAIN W/O CONTRAST, December 26, 2013, 12:22. INDICATIONS : Seizures. MEDICAL HISTORY : Diabetes mellitus type 2. Hypertension. SURGICAL HISTORY : Cataract sx ENCOUNTER: Subsequent ACUITY: 1 week PAIN SCORE: 0/10 LOCATION: cranial TECHNIQUE: Multiplanar, multisequence MRI of the brain was performed without contrast. FINDINGS: CEREBRUM: The ventricles are normal for age. No evidence of midline shift, mass lesion, hemorrha ge or acute infarction. No extraaxial fluid collections are seen. The pituitary gland and suprasell ar cistern are normal in configuration. WHITE MATTER: Stable areas of multifocal increased signal within the white matter with a focal ar ea of new encephalomalacia within the frontal lobe on series 6 image 19. Stable old lacunar infarcts identified within the region of the terrie. No areas of restricted diffusion. POSTERIOR FOSSA: The cerebellum and brainstem are intact. The 4th ventricle is midline. The cere bellopontine angle is unremarkable. The cerebellar tonsils are normal in position. DIFFUSION IMAGING: No focal areas of restricted diffusion are seen. No evidence of acute infarct ion. EXTRACRANIAL: The visualized portions of the orbits and paranasal sinuses are unremarkable. CONCLUSION: No evidence of acute abnormality. Alaina Lott MD on August 12, 2016 at 11:51 Board Certified Radiologist. This report was verified electronically.
--- NOTE | 2016-08-12 18:09 | HHI.PR ---
Review/Management Diagnosis history of head injury with post traumatic sz Plan cherelle murray will follow up EEG Diagnosis/Plan: Subjective Subjective Comments No acute events reported No sz reported Active Medications Current Medications Medications (Trade) Dose Ordered Sig/Kiran Route Start Time Stop Time Status Last Admin (Ativan) 1 mg Q4H PRN PO 08/05/16 06:15 08/12/16 11:15 (Ativan Inj) 1 mg Q4H PRN IV PUSH 08/05/16 06:15 08/06/16 16:43 (Ativan) 2 mg Q2H PRN PO 08/05/16 06:15 08/08/16 14:46 (Ativan Inj) 2 mg Q2H PRN IV PUSH 08/05/16 06:15 08/07/16 23:38 (Ativan Inj) 2 mg Q1H PRN IV PUSH 08/05/16 06:15 08/05/16 14:17 (Ativan Inj) 2 mg Q15M PRN IV PUSH 08/05/16 06:15 (Tylenol) 650 mg Q4H PRN PO 08/05/16 16:15 (Milk Of Magnesia Liq) 30 ml DAILY PRN PO 08/05/16 16:15 (Mag-Al Plus Susp Liq) 30 ml Q6H PRN PO 08/05/16 16:15 (Habitrol 21 Mg Patch.24 Hr) 1 patch DAILY T-DERMAL 08/06/16 09:00 08/08/16 09:00 Miscellaneous Information 1 DAILY T-DERMAL 08/06/16 09:00 (Pill Splitter) 1 ea UNSCH PRN OTHER 08/05/16 16:30 (Vitamin B1) 100 mg DAILY PO 08/06/16 09:00 08/12/16 09:14 (Theragran) 1 tab DAILY PO 08/06/16 09:00 08/12/16 09:13 (Restoril) 30 mg HS PRN PO 08/05/16 16:30 08/08/16 21:15 (Catapres) 0.1 mg Q6H PRN PO 08/06/16 03:30 08/06/16 03:38 (Prinivil) 20 mg DAILY PO 08/07/16 09:00 08/12/16 09:13 (Glucophage) 1,000 mg BIDPC PO 08/07/16 09:45 08/12/16 18:04 (Lexapro) 10 mg DAILY PO 08/10/16 09:00 08/12/16 09:13 (Keppra) 500 mg Q12HR PO 08/11/16 21:45 08/12/16 09:13 (Ativan Inj) 1 mg Q4H PRN IV PUSH 08/11/16 21:45 Allergies Allergies Coded Allergies Sulfa (Verified Allergy, Intermediate, MADE FINGERS SWELL, 05/15/16) Keflex (Verified Allergy, Mild, Diarrhea, 05/15/16) Tetracyclines (Verified Allergy, Unknown, TROUBLE BREATHING?, 05/15/16) Exam I&O / VS 08/11/16 08/11/16 08/12/16 15:00 23:00 07:00 Intake Total 600 ml 1560 ml Balance 600 ml 1560 ml Intake Oral 600 ml 1560 ml # Voids 4 1 # Bowel Movements 1 Vital Signs Date Time Temp Pulse Resp B/P Pulse Ox O2 Delivery O2 Flow Rate FiO2 08/12/16 06:04 98.5 78 18 106/57 08/11/16 19:31 98.7 76 18 101/56 98 Exam Comments exam without change Objective Radiology Results mri brain normal Diagnostic Tests EEG--pending Nitesh Tovar PhD Aug 12, 2016 18:09
[2016-08-12 19:02] VITALS: BP 106/64; PULSE 88; RESP 16; TEMP 98.2; O2SAT 97
--- NOTE | 2016-08-12 20:21 | MG ---
cc: MERCED VELEZ MD Lab No: Date: 08/12/2016 Age: Sex: M Race: ELECTROENCEPHALOGRAM RECORD NUMBER [id number] DATE OF 1955 INDICATION A 61-year-old history of Mathias Act, psychosis. DESCRIPTION OF RECORDING 8-9 frequency EEG with beta, alpha frequencies in the background, 8-13 Hz, 10-40 microvolts. Good EEG variability reactivity. On and off mild frontal myogenic artifact noted. Attenuation generalized slowing of background suggestive of drowsy state. Driving with photic stimulation. Single lead EKG showing sinus rhythm. INTERPRETATION Normal awake, drowsy EEG. Excessive beta frequencies likely secondary to psychotropic medication effect. Clinical correlation. Merced Velez MD MG/KK /8:11 PM /8:17 PM MTDD
[2016-08-12] MEDS: ALUMINUM/MAGNESIUM/SIMETH 30 ML CUP PO PRN (21:06)
[2016-08-13] MEDS: TEMAZEPAM 15 MG CAP PO PRN (01:30)
[2016-08-13 06:33] VITALS: BP 119/74; PULSE 81; RESP 16; TEMP 97.6; O2SAT 100
[2016-08-13] MEDS: THIAMINE HCL 100 MG TAB PO SCH (09:00)
[2016-08-13] MEDS: metFORMIN HCL 500 MG TAB PO SCH ×2 (09:00→18:00)
[2016-08-13] MEDS: ESCITALOPRAM OXALATE 10 MG TAB PO SCH (09:00)
[2016-08-13] MEDS: NICOTINE 21 MG/24 HR PATCH T-DERMAL SCH (09:00)
[2016-08-13] MEDS: LISINOPRIL 20 MG TAB PO SCH (09:00)
[2016-08-13] MEDS: MULTIVITAMIN TAB PO SCH (09:00)
[2016-08-13] MEDS: REMOVE OLD NICOTINE PATCH T-DERMAL SCH (09:00)
[2016-08-13] MEDS: levETIRAcetam 500 MG TAB PO SCH ×2 (09:00→20:28)
[2016-08-13 18:58] VITALS: BP 93/55; PULSE 82; RESP 18; TEMP 98.6; O2SAT 98
[2016-08-13 19:37] VITALS: BP 93/55; PULSE 82; RESP 18; TEMP 98.6; O2SAT 98
[2016-08-13] MEDS: ALUMINUM/MAGNESIUM/SIMETH 30 ML CUP PO PRN (20:33)
[2016-08-14 06:41] VITALS: BP 107/55; PULSE 82; RESP 20; TEMP 97.2; O2SAT 98
[2016-08-14] MEDS: LISINOPRIL 20 MG TAB PO SCH (08:56)
[2016-08-14] MEDS: MULTIVITAMIN TAB PO SCH (08:57)
[2016-08-14] MEDS: levETIRAcetam 500 MG TAB PO SCH (08:57)
[2016-08-14] MEDS: THIAMINE HCL 100 MG TAB PO SCH (08:57)
[2016-08-14] MEDS: ESCITALOPRAM OXALATE 10 MG TAB PO SCH (08:57)
[2016-08-14] MEDS: metFORMIN HCL 500 MG TAB PO SCH (08:57)
[2016-08-14] MEDS: REMOVE OLD NICOTINE PATCH T-DERMAL SCH (09:00)
[2016-08-14] MEDS: NICOTINE 21 MG/24 HR PATCH T-DERMAL SCH (09:00)
[2016-08-14] MEDS ORDERED: METF500 PO (13:22)
[2016-08-14] MEDS ORDERED: ESCI10TA PO (13:22)
[2016-08-14] MEDS ORDERED: LEVE500 PO (13:22)
[2016-08-14] MEDS ORDERED: LISI-515 PO (13:30)
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
[2016-08-25] MEDS ORDERED: LISI-515 PO (16:39)
[2016-10-13] MEDS ORDERED: LISI2.5T3 PO (13:35)
[2016-12-31] MEDS ORDERED: METF500T PO (16:07)
== END 2016-08-14 16:30 | disposition home or self-care (01) | DRG 882 ==
LOC: NEPJ 17:09 → NEDA 08-05 15:38 → H250 08-05 16:45 → H4EA 08-05 17:45 → H250 08-07 13:55
PROVIDERS: ADMIT Psychiatry & Neurology Psychiatry; ATTEND Psychiatry & Neurology Psychiatry
DX: F43.23 Adjustment disorder with mixed anxiety and depressed mood (principal); E11.42 Type 2 diabetes mellitus with diabetic polyneuropathy; D69.6 Thrombocytopenia, unspecified; R56.9 Unspecified convulsions; F32.1 Major depressive disorder, single episode, moderate; F10.24 Alcohol dependence with alcohol-induced mood disorder; I10 Essential (primary) hypertension; F60.9 Personality disorder, unspecified; F60.89 Other specific personality disorders; Z87.820 Personal history of traumatic brain injury; E87.6 Hypokalemia; G47.00 Insomnia, unspecified; Y90.8 Blood alcohol level of 240 mg/100 ml or more; Z79.4 Long term (current) use of insulin; Z87.891 Personal history of nicotine dependence; Z91.19 Patient's noncompliance with other medical treatment and regimen
CPT/HCPCS: 70450; 70551; 80048; 80053; 80061; 80307; 80320; 82607; 82652; 82746; 82948; 83036; 83520; 85025; 85652; 95819; 96361; 96374; 96376; J1815; J2060; J7030

== ENCOUNTER 2016-09-03 21:47 | Inpatient (IN) | payer MEDICARE ==
[~2016-09-03] VITALS: Ht 182.9 cm; Wt 83.0 kg
[~2016-09-03 21:47] MED LIST changes: -CLIN150 PO; +ESCI10TA PO; +LEVE500 PO; +LISI-515 PO; -LISI2.5T55 PO; -LORA-474 PO
[2016-09-03 21:52] VITALS: BP 102/56; PULSE 96; RESP 16; TEMP 98.8; O2SAT 97
[2016-09-03] MEDS ORDERED: TYLETAB34 PO (22:49)
[2016-09-03] MEDS ORDERED: LORA1TAB12 PO (22:49)
[2016-09-03] MEDS ORDERED: LISI2.5T3 PO (22:49)
[2016-09-03] MEDS ORDERED: CLIN1CAP5 PO (22:49)
[2016-09-03] MEDS ORDERED: METF500T PO (22:49)
[2016-09-03] MEDS ORDERED: VANCOMYCIN INJ 1,500 MG in SODIUM CHLORID 0.9% 500 ML INJ 500 ML IV ONE (23:00)
[2016-09-03 23:54] LABS: AUTOMATED NEUTROPHIL # 15.8 TH/MM3 (1.8-7.7); BASOPHIL # 0.2 TH/MM3 (0-0.2); BASOPHIL % 1.1 % (0.0-2.0); EOSINOPHIL # 0.5 TH/MM3 (0-0.4); EOSINOPHIL % 2.7 % (0.0-4.0); HEMATOCRIT 32.8 % (39.0-51.0); LYMPH % 4.1 % (9.0-44.0); LYMPHOCYTE # 0.8 TH/MM3 (1.0-4.8); MEAN CELL VOLUME 94.7 FL (80.0-100.0); MEAN CORPUSCULAR HEMOGLOBIN 32.2 PG (27.0-34.0); MEAN CORPUSCULAR HGB CONC 33.9 % (32.0-36.0); MONO % 10.3 % (0.0-8.0); NEUT % 81.8 % (16.0-70.0); PLATELET COUNT 188 TH/MM3 (150-450); RED BLOOD COUNT 3.46 MIL/MM3 (4.50-5.90); RED CELL DISTRIBUTION WIDTH 13.1 % (11.6-17.2); WHITE BLOOD COUNT 19.4 TH/MM3 (4.0-11.0)
[2016-09-03 23:55] LABS: HEMO FLAGS AUTO DIFF
[2016-09-04] VITALS (8 sets, daily range): BP systolic 101–125; BP diastolic 45–72; PULSE 78–94; RESP 16–18; TEMP 98.4–99.1; O2SAT 94–100
[2016-09-04 00:17] LABS: ALT (GPT) 31 U/L (12-78); ANION GAP 10 MEQ/L (5-15); AST (GOT) 23 U/L (15-37); BICARBONATE 25.2 MEQ/L (21.0-32.0); BLOOD UREA NITROGEN 53 MG/DL (7-18); CHLORIDE 102 MEQ/L (98-107); GLOMERULAR FILTRATION RATE 35 ML/MIN (>89); POTASSIUM 3.7 MEQ/L (3.5-5.1); SODIUM (NA) 137 MEQ/L (136-145)
[2016-09-04 00:19] LABS: ALKALINE PHOSPHATASE 58 U/L (45-117); TOTAL BILIRUBIN ADULT 0.4 MG/DL (0.2-1.0)
[2016-09-04 00:22] LABS: BANDS 17 % (0-6); BASOPHILS 1 % (0-2); EOSINOPHILS 3 % (0-4); NEUTROPHIL # MANUAL DIFF 15.9 TH/MM3 (1.8-7.7); POLYS (SEG NEUTROPHILS) 65 % (16-70); WBC DIFF SAMPLE 100
[2016-09-04 00:23] LABS: SCAN/DIFF FINAL DIFF MANUAL
--- NOTE | 2016-09-04 00:23 | PD ---
HPI Chief Complaint: Skin Problem Time Seen by Provider: 22:14 Travel History International Travel<30 days: No Contact w/Intl Traveler<30days: No Traveled to known affect area: No History of Present Illness HPI Is a 61-year-old man who presents to the emergency department complaining of worsening left leg pain redness and swelling. States he first noticed any pain in the left knee, anterior skin, L4 5 days ago. 7 aggressive pain redness swelling of the leg and knee since that time. He saw his primary physician yesterday who gave him a shot of clindamycin pills. It is not improved any worsening symptoms today and so he was referred to the emergency department. His a history of diabetes. He otherwise has been feeling well and healthy. He has several other small skin scrape sedative gotten minor infections but nothing this severe. No fevers or chills. No other associated symptoms. No other complaints. History Past Medical History Narrative Medical Diabetes Tetanus Vaccination: Unknown Influenza Vaccination: Yes Social History Alcohol Use: Yes (occasionally) Tobacco Use: No Allergies-Medications (Allergen,Severity, Reaction): Coded Allergies: Escitalopram Oxalate (Verified Allergy, Severe, ITCHY, TREMORS, CONFUSION , 09/03/16) Keppra (Verified Allergy, Intermediate, DIARRHEA, 09/03/16) Sulfa (Verified Allergy, Intermediate, MADE FINGERS SWELL, 09/03/16) Keflex (Verified Allergy, Mild, Diarrhea, 09/03/16) Tetracyclines (Verified Allergy, Unknown, TROUBLE BREATHING?, 09/03/16) Reported Meds & Prescriptions Reported Meds & Active Scripts Active [Diabetic shoe insert] Units Please dispense three pairs of diabetic shoe inserts [Diabetic shoes] Units Please dispense one pair of custom-fitted diabetic shoes Reported Lorazepam 1 Mg Tab 1 Mg PO Q6H PRN Tylenol-Codeine #3 (Acetaminophen-Codeine) 300-30 mg Tab 1-2 Tab PO Q6H PRN Clindamycin (Clindamycin HCl) 150 Mg Cap 150 Mg PO Q6H Lisinopril 2.5 Mg Tab 2.5 Mg PO DAILY Metformin (Metformin HCl) 500 Mg Tab 500 Mg PO TIDPC With meals Review of Systems Except as stated in HPI: all other systems reviewed are Neg Physical Exam Narrative GENERAL: Well-appearing 61-year-old man, no acute distress. SKIN: Warm and dry. NECK: Trachea midline. No JVD. CARDIOVASCULAR: Regular rate and rhythm. No murmur appreciated. RESPIRATORY: No accessory muscle use. Clear to auscultation. Breath sounds equal bilaterally. GASTROINTESTINAL: Abdomen soft, non-tender, nondistended. Hepatic and splenic margins not palpable. MUSCULOSKELETAL: No obvious deformities. Pain redness swelling to the anterior knee into the skin radiating up to the proximal thigh about midway, more on the medial side, as well as somewhat down the calf. There is no obvious fluctuance to the knee itself. He is able to range the knee to about 45 with some discomfort. No micromotion tenderness, effusion, evidence of obvious septic arthritis. NEUROLOGICAL: Awake and alert. No obvious cranial nerve deficits. Motor grossly within normal limits. Normal speech. Data Data Last Documented VS Vital Signs Date Time Temp Pulse Resp B/P Pulse Ox O2 Delivery O2 Flow Rate FiO2 09/03/16 21:52 98.8 96 16 102/56 97 Room Air Orders Complete Blood Count With Diff (09/03/16 22:58) Comprehensive Metabolic Panel (09/03/16 22:58) Lactic Acid Sepsis Protocol (09/03/16 22:58) Blood Culture (09/03/16 22:58) Blood Glucose (09/03/16 22:58) Ecg Monitoring (09/03/16 22:58) Iv Access Insert/Monitor (09/03/16 22:58) Oximetry (09/03/16 22:58) Oxygen Administration (09/03/16 22:58) Vancomycin Inj (Vancomycin Inj) (09/03/16 23:00) Admit Order (Ed Use Only) (09/04/16 ) Labs Laboratory Tests Test 09/03/16 23:35 White Blood Count 19.4 TH/MM3 Red Blood Count 3.46 MIL/MM3 Hemoglobin 11.1 GM/DL Hematocrit 32.8 % Mean Corpuscular Volume 94.7 FL Mean Corpuscular Hemoglobin 32.2 PG Mean Corpuscular Hemoglobin 33.9 % Concent Red Cell Distribution Width 13.1 % Platelet Count 188 TH/MM3 Mean Platelet Volume 8.5 FL Neutrophils (%) (Auto) 81.8 % Lymphocytes (%) (Auto) 4.1 % Monocytes (%) (Auto) 10.3 % Eosinophils (%) (Auto) 2.7 % Basophils (%) (Auto) 1.1 % Neutrophils # (Auto) 15.8 TH/MM3 Lymphocytes # (Auto) 0.8 TH/MM3 Monocytes # (Auto) 2.0 TH/MM3 Eosinophils # (Auto) 0.5 TH/MM3 Basophils # (Auto) 0.2 TH/MM3 CBC Comment AUTO DIFF Sodium Level 137 MEQ/L Potassium Level 3.7 MEQ/L Chloride Level 102 MEQ/L Carbon Dioxide Level 25.2 MEQ/L Anion Gap 10 MEQ/L Blood Urea Nitrogen 53 MG/DL Creatinine 1.94 MG/DL Estimat Glomerular Filtration 35 ML/MIN Rate Random Glucose 118 MG/DL Calcium Level 9.3 MG/DL Total Bilirubin 0.4 MG/DL Aspartate Amino Transf 23 U/L (AST/SGOT) Alanine Aminotransferase 31 U/L (ALT/SGPT) Alkaline Phosphatase 58 U/L Total Protein 7.0 GM/DL Albumin 2.8 GM/DL [facility] Medical Decision Making Medical Screen Exam Complete: Yes Emergency Medical Condition: Yes Interpretation(s) LABS: CBC remarkable for leukocytosis. CMP remarkable for elevated BUN and creatinine Differential Diagnosis Cellulitis, abscess, septic arthritis, DVT, other Narrative Course Medical decision-making new 61-year-old man with worsening left leg cellulitis and infection. I don't think he has actual joint infection. He received parenteral clindamycin without improvement over 24 hours. He said worsening pain redness and swelling. We'll recommend IV antibiotics, labs, fluids, and admission. Diagnosis Primary Impression: Left leg cellulitis Miky Sue MD Sep 04, 2016 00:23
[2016-09-04 00:24] LABS: DOHLE BODIES PRESENT (NONE SEEN); PLATELET ESTIMATE SMEAR NORMAL (NORMAL); PLATELET MORPHOLOGY NORMAL (NORMAL)
[2016-09-04] MEDS ORDERED: Vancomycin Consult Pharmacy 1 EA OTHER SCH (01:00)
[2016-09-04] MEDS ORDERED: BISACODYL 10 MG SUPP PR PRN (01:00)
[2016-09-04] MEDS ORDERED: SODIUM CHLORIDE 0.9% FLUSH 5 ML FLUSH FLUSH PRN (01:00)
[2016-09-04] MEDS ORDERED: NALOXONE HCL 0.4 MG/ML AMP IV PRN (01:00)
[2016-09-04] MEDS ORDERED: ENOXAPARIN SODIUM 30 MG/0.3 ML SYRINGE SQ SCH (01:00)
[2016-09-04] MEDS ORDERED: ONDANSETRON HCL 4 MG/2 ML VIAL IVP PRN (01:00)
[2016-09-04] MEDS ORDERED: ACETAMINOPHEN/CODEINE 300 MG/30 MG TAB PO PRN (01:00)
[2016-09-04 04:19] LABS: AUTOMATED NEUTROPHIL # 16.4 TH/MM3 (1.8-7.7); BASOPHIL # 0.1 TH/MM3 (0-0.2); BASOPHIL % 0.5 % (0.0-2.0); EOSINOPHIL # 0.6 TH/MM3 (0-0.4); EOSINOPHIL % 3.3 % (0.0-4.0); HEMATOCRIT 30.2 % (39.0-51.0); HEMO FLAGS DIFF FINAL; LYMPH % 4.8 % (9.0-44.0); LYMPHOCYTE # 0.9 TH/MM3 (1.0-4.8); MEAN CELL VOLUME 93.7 FL (80.0-100.0); MEAN CORPUSCULAR HEMOGLOBIN 32.4 PG (27.0-34.0); MEAN CORPUSCULAR HGB CONC 34.6 % (32.0-36.0); MONO % 7.4 % (0.0-8.0); PLATELET COUNT 185 TH/MM3 (150-450); RED BLOOD COUNT 3.23 MIL/MM3 (4.50-5.90); RED CELL DISTRIBUTION WIDTH 13.1 % (11.6-17.2); WHITE BLOOD COUNT 19.5 TH/MM3 (4.0-11.0)
[2016-09-04 04:45] LABS: ALT (GPT) 28 U/L (12-78); ANION GAP 13 MEQ/L (5-15); AST (GOT) 22 U/L (15-37); BICARBONATE 21.8 MEQ/L (21.0-32.0); BLOOD UREA NITROGEN 46 MG/DL (7-18); CHLORIDE 104 MEQ/L (98-107); GLOMERULAR FILTRATION RATE 49 ML/MIN (>89); POTASSIUM 3.5 MEQ/L (3.5-5.1); SODIUM (NA) 139 MEQ/L (136-145)
[2016-09-04 04:47] LABS: ALKALINE PHOSPHATASE 70 U/L (45-117); TOTAL BILIRUBIN ADULT 0.5 MG/DL (0.2-1.0)
[2016-09-04] MEDS ORDERED: SODIUM CHLORIDE 0.9% FLUSH 5 ML FLUSH IV PRN (07:00)
[2016-09-04] MEDS ORDERED: ACETAMINOPHEN 500 MG CPLT PO PRN (07:00)
[2016-09-04] MEDS ORDERED: DEXTROSE 50% IN WATER 50 ML VIAL(D50) IV PUSH PRN (07:30)
[2016-09-04] MEDS ORDERED: GLUCAGON 1 MG/ML VIAL OTHER PRN (07:30)
[2016-09-04] MEDS ORDERED: LORazepam 1 MG TAB PO PRN (07:30)
[2016-09-04] MEDS ORDERED: LORazepam 2 MG TAB PO PRN (07:30)
[2016-09-04] MEDS ORDERED: FLUMAZENIL 0.5 MG/5 ML VIAL IV PUSH PRN (07:30)
[2016-09-04] MEDS ORDERED: LORazepam 2 MG/ML VIAL IV PUSH PRN ×4 (07:30)
[2016-09-04] MEDS ORDERED: ONDANSETRON HCL 4 MG/2 ML VIAL IV PRN (07:45)
[2016-09-04] MEDS ORDERED: DOCUSATE SODIUM 50 MG/SENNA 8.6 MG TAB PO PRN (07:45)
--- NOTE | 2016-09-04 07:46 | HHI.HP ---
[facility] Service Family Medicine Primary Care Physician Non-Staff Admission Diagnosis Cellulitis, Sepsis Diagnoses: International Travel<30 Days: No Contact w/Intl Traveler<30days: No Known Affected Area: No History of Present Illness 61-year-old male with past medical history of diabetes, several admissions for alcohol intoxication, seizure without need for antiseizure medication presenting with erythema and swelling of the left knee beginning on Wednesday. After symptoms hold resolved, he sought urgent care was given clindamycin. After 2 days of therapy with clindamycin, symptoms failed to resolve prompting visit to ER. He had fevers when the rash first started, but no fevers or chills since that time. The swelling is associated with some pain and difficulty bearing weight, especially difficulty bending his knee (keeping it straight relieves pain). He denies recent sexual activity or IV drug use. Review of systems otherwise negative. Review of Systems Constitutional: COMPLAINS OF: Fever, DENIES: Chills Endocrine: DENIES: Polyuria Eyes: DENIES: Blurred vision Ears, nose, mouth, throat: DENIES: Hearing loss Respiratory: DENIES: Cough, Shortness of breath Cardiovascular: DENIES: Chest pain Gastrointestinal: DENIES: Abdominal pain, Constipation, Diarrhea, Nausea Genitourinary: DENIES: Urinary frequency Musculoskeletal: COMPLAINS OF: Joint pain, Joint Swelling Integumentary: COMPLAINS OF: Nail changes (onychomycosis), Rash Hematologic/lymphatic: DENIES: Bruising Immunologic/allergic: DENIES: Eczema Neurologic: DENIES: Headache, Seizures (none in last 72 hours) Psychiatric: DENIES: Mood changes Past Family Social History Past Medical History Diabetes Hypertension-resolved after weight loss and quitting cigarette smoking Seizures Alcohol-induced mood disorder Neuropathy Cataracts Past Surgical History Left eye cataract surgery Reported Medications Reported Meds & Active Scripts Active [Diabetic shoe insert] Units Please dispense three pairs of diabetic shoe inserts [Diabetic shoes] Units Please dispense one pair of custom-fitted diabetic shoes Reported Lorazepam 1 Mg Tab 1 Mg PO Q6H PRN Clindamycin (Clindamycin HCl) 150 Mg Cap 150 Mg PO Q6H Metformin (Metformin HCl) 500 Mg Tab 500 Mg PO TIDPC With meals Also takes many dietary supplements, uncertain specific names Allergies: Coded Allergies: Escitalopram Oxalate (Verified Allergy, Severe, ITCHY, TREMORS, CONFUSION , 09/03/16) Keppra (Verified Allergy, Intermediate, DIARRHEA, 09/03/16) Sulfa (Verified Allergy, Intermediate, MADE FINGERS SWELL, 09/03/16) Keflex (Verified Allergy, Mild, Diarrhea, 09/03/16) Tetracyclines (Verified Allergy, Unknown, TROUBLE BREATHING?, 09/03/16) Family History Mother at 96, had dementia Father at 55 from heart attack Social History Tobacco: [id number] smoking history, quit 2012 Alcohol: No use since previous "nervous breakdown" Other drugs: Used any different substances in the 70s, but nothing since then Other social: , lives alone in a house Physical Exam Vital Signs Vital Signs Date Time Temp Pulse Resp B/P Pulse Ox O2 Delivery O2 Flow Rate FiO2 09/04/16 06:49 94 18 106/53 94 Room Air 09/04/16 04:30 78 18 101/62 98 Room Air 09/04/16 00:31 82 18 108/55 98 Room Air 09/03/16 21:52 98.8 96 16 102/56 97 Room Air Physical Exam GENERAL: Well-developed, well-nourished adult white male resting comfortably in no acute distress SKIN: No rashes, ecchymoses or lesions. Cool and dry. HEAD: NC/AT EYES: PERRL. EOMI. No conjunctival injection or drainage. ENT: MMM, OP without erythema, tonsillar swelling, or exudate. NECK: Supple, no lymphadenopathy. No JVD. CARDIOVASCULAR: NRRR. Normal S1/S2. Blowing holosystolic 2/6 murmur heard best in the aortic area. 1-2/6 systolic murmur also heard in mitral area. RESPIRATORY: CTAB. No crackles or wheezes. GASTROINTESTINAL: Abdomen soft, non-distended, non-tender. No hepato- splenomegaly or palpable masses. MUSCULOSKELETAL: Extremities without clubbing, cyanosis. Left knee with significant erythema extending to just above the ankle and about 6 cm above the knee. Left knee joint effusion is noted. Active and passive range of motion fall of left knee though somewhat painful. NEUROLOGICAL: Awake and alert. Cranial nerves II through XII grossly intact. Moves all extremities without difficulty. Normal speech. Laboratory Laboratory Tests Test 09/03/16 09/04/16 23:35 04:04 White Blood Count 19.4 19.5 Red Blood Count 3.46 3.23 Hemoglobin 11.1 10.5 Hematocrit 32.8 30.2 Mean Corpuscular Volume 94.7 93.7 Mean Corpuscular Hemoglobin 32.2 32.4 Mean Corpuscular Hemoglobin 33.9 34.6 Concent Red Cell Distribution Width 13.1 13.1 Platelet Count 188 185 Mean Platelet Volume 8.5 8.3 Neutrophils (%) (Auto) 81.8 84.0 Lymphocytes (%) (Auto) 4.1 4.8 Monocytes (%) (Auto) 10.3 7.4 Eosinophils (%) (Auto) 2.7 3.3 Basophils (%) (Auto) 1.1 0.5 Neutrophils # (Auto) 15.8 16.4 Lymphocytes # (Auto) 0.8 0.9 Monocytes # (Auto) 2.0 1.5 Eosinophils # (Auto) 0.5 0.6 Basophils # (Auto) 0.2 0.1 CBC Comment AUTO DIFF DIFF FINAL Differential Total Cells 100 Counted Neutrophils % (Manual) 65 Band Neutrophils % 17 Lymphocytes % 6 Monocytes % 8 Eosinophils % 3 Basophils % 1 Neutrophils # (Manual) 15.9 Differential Comment FINAL DIFF MANUAL Dohle Bodies PRESENT Platelet Estimate NORMAL Platelet Morphology Comment NORMAL Red Cell Morphology Comment NORMAL Sodium Level 137 139 Potassium Level 3.7 3.5 Chloride Level 102 104 Carbon Dioxide Level 25.2 21.8 Anion Gap 10 13 Blood Urea Nitrogen 53 46 Creatinine 1.94 1.47 Estimat Glomerular Filtration 35 49 Rate Random Glucose 118 121 Lactic Acid Level 1.0 Calcium Level 9.3 9.3 Total Bilirubin 0.4 0.5 Aspartate Amino Transf 23 22 (AST/SGOT) Alanine Aminotransferase 31 28 (ALT/SGPT) Alkaline Phosphatase 58 70 Total Protein 7.0 6.7 Albumin 2.8 2.5 Date/Time Procedure Status Source Growth 09/03/16 23:40 Aerobic Blood Culture Received Blood Peripheral Pending 09/03/16 23:40 Anaerobic Blood Culture Received Blood Peripheral Pending Result Diagram: 09/04/1640309/04/16403 Assessment and Plan Assessment and Plan 61-year-old male with history of diabetes presenting with: #1 cellulitis left knee Extensive cellulitis in the setting of diabetic patient with associated knee effusion. Recent antibiotic use of clindamycin for 2 days. Meeting sepsis criteria due to leukocytosis and initial tachycardia Leukocytosis 19.5 * Vancomycin 20 mg/kg with pharmacy consult * Levaquin 750 mg IV every day * Knee x-ray to assess for presence of osteomyelitis * ESR * Lactic acid * Pain control with Tylenol and [place] #2 acute kidney injury Likely due to some dehydration versus infection. * Normal saline at 125 ML per hour * Creatinine clearance greater than 50, no need at this time to renal dose medications * Monitor renal function #3 diabetes mellitus Stable * Hold home metformin, start medium dose sliding scale #4 history of alcohol use/abuse Denies current use * [facility]WA protocol #5 unspecified seizure disorder not on antiseizure medication * Monitor clinically #6 Cataract left eye s/p surgery Dispo: Admit to inpatient sdw Dr. Kimi Jolly Code Status Full Code Problem List: (1) Left leg cellulitis Status: Acute (2) Diabetes mellitus, type 2 Status: Chronic (3) Fungal nail infection Status: Acute (4) Cataract Status: Resolved (5) Seizure Status: Acute Physician Certification 2 Midnight Certification Type: Admission for Inpatient Services Order for Inpatient Services The services are ordered in accordance with Medicare regulations or non- Medicare payer requirements, as applicable. In the case of services not specified as inpatient-only, they are appropriately provided as inpatient services in accordance with the 2-midnight benchmark. Estimated LOS (days): 2 days is the estimated time the patient will need to remain in the hospital, assuming treatment plan goals are met and no additional complications. Post-Hospital Plan: Home Problem Qualifiers (1) Diabetes mellitus, type 2: Qualified Code: E11.9 - Type 2 diabetes mellitus without complication, without long-term current use of insulin (2) Cataract: Qualified Code: H25.9 - Senile cataract of left eye, unspecified age-related cataract type Ambrocio Hernandez MD R1 Sep 04, 2016 07:46
[2016-09-04] MEDS: LEVOFLOXACIN 750 MG TAB PO SCH (08:42)
[2016-09-04] MEDS: SODIUM CHLOR 0.9% 1000 ML INJ 1,000 ML IV SCH ×3 (08:42→20:51)
[2016-09-04] MEDS: HEPARIN SODIUM - SQ 10,000 UNITS/ML VIAL SQ SCH ×3 (08:42→22:54)
[2016-09-04] MEDS ORDERED: SODIUM CHLORIDE 0.9% FLUSH 5 ML FLUSH IV SCH (09:00)
[2016-09-04] MEDS ORDERED: LISINOPRIL 5 MG TAB PO SCH (09:00)
[2016-09-04] MEDS ORDERED: SODIUM CHLORIDE 0.9% FLUSH 5 ML FLUSH FLUSH SCH (09:00)
--- NOTE | 2016-09-04 09:55 | RADRPT ---
EXAM DATE/TIME: 09/04/2016 07:56 [place] COMPARISON: No previous studies available for comparison. INDICATIONS: Pain and swelling. MEDICAL HISTORY: Diabetes mellitus type II. SURGICAL HISTORY: None. ENCOUNTER: Initial ACUITY: 4 - 6 days PAIN SCORE: 5/10 LOCATION: Left knee. FINDINGS: Mild to moderate osteoarthritis is noted involving the femoral tibial joint particularly medially. M ild to moderate osteoarthritis is also noted involving the patellofemoral joint. There is soft tissu e anterior to the patella. No acute fracture or dislocation is noted. Spurring is noted at the inse rtion of the quadriceps tendon on the patella as well as the origin of insertion of the patella ligam ent. No knee joint effusion is noted. CONCLUSION: 1. Mild to moderate osteoarthritis involving the medial femoral tibial joint and the patellofemoral joint. 2. Prepatellar soft tissue swelling. 3. Osteophytic spurring at the insertion of the quadriceps tendon in the origin and insertion of the patella ligament. 4. No acute fracture, dislocation or knee joint effusion. Rafi Mireles MD on September 04, 2016 at 9:49 Board Certified Radiologist. This report was verified electronically.
[2016-09-04] MEDS: INSULIN ASPART SUPPLEMENTAL SCALE SQ SCH ×3 (11:00→20:53)
--- NOTE | 2016-09-04 11:09 | HHI.HP ---
[facility] Service Family Medicine Primary Care Physician Non-Staff Admission Diagnosis Cellulitis, Sepsis Diagnoses: (1) Left leg cellulitis Diagnosis: [place] (2) Diabetes mellitus, type 2 Diagnosis: Principal (3) Fungal nail infection Diagnosis: Principal (4) Cataract Diagnosis: Principal (5) Seizure Diagnosis: Secondary International Travel<30 Days: No Contact w/Intl Traveler<30days: No Known Affected Area: No History of Present Illness Mr Light is a 61-year-old male with past medical history of diabetes, several admissions for alcohol intoxication, seizure without need for antiseizure medication presenting with erythema and swelling of the left knee beginning on Wednesday. After symptoms hold resolved, he sought urgent care and was given clindamycin. After 2 days of therapy with clindamycin, symptoms failed to resolve prompting visit to ER. He had fevers when the rash first started for two days, but no fevers or chills since that time. The swelling is associated with some pain and difficulty bearing weight, especially difficulty bending his knee (keeping it straight relieves pain). He denies recent sexual activity or IV drug use. Review of systems otherwise negative. Review of Systems Constitutional: COMPLAINS OF: Fever, DENIES: Weight gain Respiratory: DENIES: Shortness of breath Cardiovascular: DENIES: Chest pain Gastrointestinal: DENIES: Abdominal pain Musculoskeletal: COMPLAINS OF: Joint pain, Muscle aches, Stiffness, Joint Swelling Integumentary: COMPLAINS OF: Rash (cellulitis) Psychiatric: COMPLAINS OF: Depression, DENIES: Suicidal Ideation, Homicidal Ideation, Delusions Other Constitutional: COMPLAINS OF: Fever, DENIES: Chills Endocrine: DENIES: Polyuria Eyes: DENIES: Blurred vision Ears, nose, mouth, throat: DENIES: Hearing loss Respiratory: DENIES: Cough, Shortness of breath Cardiovascular: DENIES: Chest pain Gastrointestinal: DENIES: Abdominal pain, Constipation, Diarrhea, Nausea Genitourinary: DENIES: Urinary frequency Musculoskeletal: COMPLAINS OF: Joint pain, Joint Swelling Integumentary: COMPLAINS OF: Nail changes (onychomycosis), Rash Hematologic/lymphatic: DENIES: Bruising Immunologic/allergic: DENIES: Eczema Neurologic: DENIES: Headache, Seizures (none in last 72 hours) Psychiatric: DENIES: Mood changes Past Family Social History Past Medical History Diabetes Hypertension-resolved after weight loss and quitting cigarette smoking Seizures Alcohol-induced mood disorder Neuropathy Cataracts multiple Psychiatric admissions Past Surgical History Left eye cataract surgery Allergies: Coded Allergies: Escitalopram Oxalate (Verified Allergy, Severe, ITCHY, TREMORS, CONFUSION , 09/03/16) Keppra (Verified Allergy, Intermediate, DIARRHEA, 09/03/16) Sulfa (Verified Allergy, Intermediate, MADE FINGERS SWELL, 09/03/16) Keflex (Verified Allergy, Mild, Diarrhea, 09/03/16) Tetracyclines (Verified Allergy, Unknown, TROUBLE BREATHING?, 09/03/16) Family History Mother at 96, had dementia Father at 55 from heart attack Social History Tobacco: [id number] smoking history, quit 2012 Alcohol: No use since previous "nervous breakdown" Other drugs: Used many different substances in the 70s, but nothing since then Other social: , lives alone in a house Physical Exam Vital Signs Vital Signs Date Time Temp Pulse Resp B/P Pulse Ox O2 Delivery O2 Flow Rate FiO2 09/04/16 08:52 80 18 125/69 98 Room Air 09/04/16 07:28 88 09/04/16 06:49 94 18 106/53 94 Room Air 09/04/16 04:30 78 18 101/62 98 Room Air 09/04/16 00:31 82 18 108/55 98 Room Air 09/03/16 21:52 98.8 96 16 102/56 97 Room Air Physical Exam GENERAL: Well-developed, well-nourished adult white male resting comfortably in no acute distress SKIN: No rashes, ecchymoses or lesions. Cool and dry. HEAD: NC/AT EYES: PERRL. EOMI. No conjunctival injection or drainage. ENT: MMM, OP without erythema, tonsillar swelling, or exudate. NECK: Supple, no lymphadenopathy. No JVD. CARDIOVASCULAR: NRRR. Normal S1/S2. Blowing holosystolic 2/6 murmur heard best in the aortic area. 1-2/6 systolic murmur also heard in mitral area. RESPIRATORY: CTAB. No crackles or wheezes. GASTROINTESTINAL: Abdomen soft, non-distended, non-tender. No hepato- splenomegaly or palpable masses. MUSCULOSKELETAL: Extremities without clubbing, cyanosis. Left knee with significant erythema extending to just above the ankle and about 6 cm above the knee. Left knee joint effusion is noted. Active and passive range of motion full of left knee though somewhat painful. Not able to appreciate any abscess. NEUROLOGICAL: Awake and alert. Cranial nerves II through XII grossly intact. Moves all extremities without difficulty. Normal speech. Laboratory Laboratory Tests Test 09/03/16 09/04/16 09/04/16 23:35 04:04 04:40 White Blood Count 19.4 19.5 Red Blood Count 3.46 3.23 Hemoglobin 11.1 10.5 Hematocrit 32.8 30.2 Mean Corpuscular Volume 94.7 93.7 Mean Corpuscular Hemoglobin 32.2 32.4 Mean Corpuscular Hemoglobin 33.9 34.6 Concent Red Cell Distribution Width 13.1 13.1 Platelet Count 188 185 Mean Platelet Volume 8.5 8.3 Neutrophils (%) (Auto) 81.8 84.0 Lymphocytes (%) (Auto) 4.1 4.8 Monocytes (%) (Auto) 10.3 7.4 Eosinophils (%) (Auto) 2.7 3.3 Basophils (%) (Auto) 1.1 0.5 Neutrophils # (Auto) 15.8 16.4 Lymphocytes # (Auto) 0.8 0.9 Monocytes # (Auto) 2.0 1.5 Eosinophils # (Auto) 0.5 0.6 Basophils # (Auto) 0.2 0.1 CBC Comment AUTO DIFF DIFF FINAL Differential Total Cells 100 Counted Neutrophils % (Manual) 65 Band Neutrophils % 17 Lymphocytes % 6 Monocytes % 8 Eosinophils % 3 Basophils % 1 Neutrophils # (Manual) 15.9 Differential Comment FINAL DIFF MANUAL Dohle Bodies PRESENT Platelet Estimate NORMAL Platelet Morphology Comment NORMAL Red Cell Morphology Comment NORMAL Sodium Level 137 139 Potassium Level 3.7 3.5 Chloride Level 102 104 Carbon Dioxide Level 25.2 21.8 Anion Gap 10 13 Blood Urea Nitrogen 53 46 Creatinine 1.94 1.47 Estimat Glomerular Filtration 35 49 Rate Random Glucose 118 121 Lactic Acid Level 1.0 Calcium Level 9.3 9.3 Total Bilirubin 0.4 0.5 Aspartate Amino Transf 23 22 (AST/SGOT) Alanine Aminotransferase 31 28 (ALT/SGPT) Alkaline Phosphatase 58 70 Total Protein 7.0 6.7 Albumin 2.8 2.5 Ethyl Alcohol Level LESS THAN 3 Erythrocyte Sedimentation Rate 74 Date/Time Procedure Status Source Growth 09/03/16 23:40 Aerobic Blood Culture Received Blood Peripheral Pending 09/03/16 23:40 Anaerobic Blood Culture Received Blood Peripheral Pending Result Diagram: 09/04/1640309/04/16403 Septic Shock Reassessment Heart: Regular rate and rhythm Lungs: Clear Skin: Warm, Dry, [place] Assessment and Plan Assessment and Plan 61-year-old male with history of diabetes presenting with: #1 cellulitis left knee Extensive cellulitis in the setting of diabetic patient with associated knee effusion. Recent antibiotic use of clindamycin for 2 days. Meeting sepsis criteria due to leukocytosis and initial tachycardia Leukocytosis 19.5 * Vancomycin 20 mg/kg with pharmacy consult * Levaquin 750 mg IV every day * Knee x-ray to assess for presence of osteomyelitis * ESR * Lactic acid * Pain control with Tylenol and [place] #2 acute kidney injury Likely due to some dehydration versus infection. * Normal saline at 125 ML per hour * Creatinine clearance greater than 50, no need at this time to renal dose medications * Monitor renal function #3 diabetes mellitus Stable * Hold home metformin, start medium dose sliding scale #4 history of alcohol use/abuse Denies current use * [facility] protocol #5 unspecified seizure disorder not on antiseizure medication * Monitor clinically #6 Cataract left eye s/p surgery Dispo: Admit to inpatient Problem List: (1) Left leg cellulitis Status: Acute (2) Diabetes mellitus, type 2 Status: Chronic (3) Fungal nail infection Status: Acute (4) Cataract Status: Resolved (5) Seizure Status: Acute Physician Certification 2 Midnight Certification Type: Admission for Inpatient Services Order for Inpatient Services The services are ordered in accordance with Medicare regulations or non- Medicare payer requirements, as applicable. In the case of services not specified as inpatient-only, they are appropriately provided as inpatient services in accordance with the 2-midnight benchmark. Estimated LOS (days): 3 3 days is the estimated time the patient will need to remain in the hospital, assuming treatment plan goals are met and no additional complications. Post-Hospital Plan: Not yet determined Problem Qualifiers (1) Diabetes mellitus, type 2: Qualified Code: E11.9 - Type 2 diabetes mellitus without complication, without long-term current use of insulin (2) Cataract: Qualified Code: H25.9 - Senile cataract of left eye, unspecified age-related cataract type Jessica Noe MD Sep 04, 2016 11:09
[2016-09-04] MEDS: ACETAMINOPHEN/HYDROcodone 325 MG/7.5 MG TAB PO PRN ×2 (14:30→20:51)
[2016-09-04 19:16] LABS: AMPHETAMINE, URINE NEG (NEG); BARBITURATES, URINE NEG (NEG); COCAINE, URINE NEG (NEG)
[2016-09-04] MEDS ORDERED: LISI2.5T3 PO (20:50)
[2016-09-04] MEDS: LORazepam 1 MG TAB PO PRN (20:50)
[2016-09-04] MEDS: VANCOMYCIN INJ 1,500 MG in SODIUM CHLORID 0.9% 500 ML INJ 500 ML IV SCH (22:55)
[2016-09-05] VITALS: BP 106/65; PULSE 86; RESP 17; TEMP 99.2; O2SAT 97
[2016-09-05] MEDS: LORazepam 1 MG TAB PO PRN ×2 (02:44→16:43)
[2016-09-05] MEDS: ACETAMINOPHEN/HYDROcodone 325 MG/7.5 MG TAB PO PRN ×2 (02:44→16:44)
[2016-09-05 05:05] LABS: AUTOMATED NEUTROPHIL # 12.9 TH/MM3 (1.8-7.7); BASOPHIL # 0.1 TH/MM3 (0-0.2); BASOPHIL % 0.5 % (0.0-2.0); EOSINOPHIL # 0.5 TH/MM3 (0-0.4); EOSINOPHIL % 2.9 % (0.0-4.0); HEMATOCRIT 29.4 % (39.0-51.0); HEMO FLAGS DIFF FINAL; LYMPH % 9.2 % (9.0-44.0); LYMPHOCYTE # 1.5 TH/MM3 (1.0-4.8); MEAN CELL VOLUME 94.2 FL (80.0-100.0); MEAN CORPUSCULAR HEMOGLOBIN 31.8 PG (27.0-34.0); MEAN CORPUSCULAR HGB CONC 33.8 % (32.0-36.0); MONO % 10.1 % (0.0-8.0); NEUT % 77.3 % (16.0-70.0); PLATELET COUNT 198 TH/MM3 (150-450); RED BLOOD COUNT 3.12 MIL/MM3 (4.50-5.90); WHITE BLOOD COUNT 16.7 TH/MM3 (4.0-11.0)
[2016-09-05 05:24] LABS: BICARBONATE 22.8 MEQ/L (21.0-32.0); POTASSIUM 3.4 MEQ/L (3.5-5.1)
[2016-09-05] MEDS: INSULIN ASPART SUPPLEMENTAL SCALE SQ SCH ×4 (05:31→21:00)
[2016-09-05 05:43] LABS: WESTERGREN SEDIMENTATION RATE 79 mm/hr (0-20)
[2016-09-05 08:00] VITALS: BP 105/55; PULSE 79; RESP 17; TEMP 97.6; O2SAT 96
[2016-09-05] MEDS ORDERED: POTASSIUM CHLORIDE 20 MEQ CONTROLLED RELEASE TAB PO ONE (08:00)
[2016-09-05] MEDS: HEPARIN SODIUM - SQ 10,000 UNITS/ML VIAL SQ SCH ×2 (08:48→16:43)
[2016-09-05] MEDS: LEVOFLOXACIN 750 MG TAB PO SCH (08:48)
[2016-09-05] MEDS: SODIUM CHLOR 0.9% 1000 ML INJ 1,000 ML IV SCH (08:49)
--- NOTE | 2016-09-05 09:02 | HHI.FPPN ---
Subjective Remarks Patient seen and examined. No acute events overnight. VSS. Afebrile. Patient denies any complaints this morning. Thinks that redness and swelling in his left knee/leg has improved slightly. States that his knee feels better when he keeps it bent. He is able to ambulate around the room. Tolerating diet. No diarrhea. (Cinda Rivas MD R3) Objective Vitals Vital Signs Date Time Temp Pulse Resp B/P Pulse Ox O2 Delivery O2 Flow Rate FiO2 09/05/16 08:00 97.6 79 17 105/55 96 09/05/16 00:00 99.2 86 17 106/65 97 09/04/16 20:00 98.4 81 16 117/45 100 09/04/16 15:30 16 09/04/16 14:45 99.1 79 16 111/60 99 09/04/16 14:30 92 16 114/72 98 Room Air 09/04/16 11:28 90 16 115/56 99 Room Air I/O 09/04/16 09/04/16 09/04/16 09/05/16 09/05/16 09/05/16 07:00 15:00 23:00 07:00 15:00 23:00 Intake Total 1692 ml Balance 1692 ml Intake Oral 600 ml IV Total 1092 ml # Voids 2 # Bowel Movements 0 (Cinda Rivas MD R3) Result Diagram: 09/05/16 0340 09/05/16 0340 Imaging Knee X-Ray 09/04/16 0000 Signed Impressions: Service Date/Time: Sunday, September 04, 2016 07:56 - CONCLUSION: 1. Mild to moderate osteoarthritis involving the medial femoral tibial joint and the patellofemoral joint. 2. Prepatellar soft tissue swelling. 3. Osteophytic spurring at the insertion of the quadriceps tendon in the origin and insertion of the patella ligament. 4. No acute fracture, dislocation or knee joint effusion. Rafi Mireles MD Objective Remarks GENERAL: Well-developed, well-nourished male resting comfortably in no acute distress. SKIN: Left leg and knee with significant erythema, somewhat improved since admission. However there is also significant effusion of left knee. Active and passive range of motion full of left knee though somewhat painful. HEAD: NC/AT EYES: PERRL. EOMI. No conjunctival injection or drainage. ENT: MMM, OP without erythema, tonsillar swelling, or exudate. NECK: Supple, no lymphadenopathy. No JVD. CARDIOVASCULAR: NRRR. Normal S1/S2. Blowing holosystolic 2/6 murmur heard best in the aortic area. 1-2/6 systolic murmur also heard in mitral area. RESPIRATORY: CTAB. No crackles or wheezes. GASTROINTESTINAL: Abdomen soft, non-distended, non-tender. No hepato- splenomegaly or palpable masses. MUSCULOSKELETAL: See above NEUROLOGICAL: Awake and alert. Cranial nerves II through XII grossly intact. Moves all extremities without difficulty. Normal speech. (Cinda Rivas MD R3) A/P Assessment and Plan 61-year-old male with history of diabetes presenting with left leg cellulitis/ knee abscess and failed outpatient antibiotics Discharge Planning Discharge timeframe unclear pending further workup. (Cinda Rivas MD R3) Attending Attestation Patient seen and examined. Case reviewed and discussed with the resident team. Agree with plan of care as discussed with me and documented in the resident note. his leg overall is improved. the warmth is much less than yesterday and the erythema is less. He does have a yellow pocket of fluid very superficially that I poked with a sterile needle after wiping the skin with alcohol. A culture was sent. It did not look like pus it was more yellow and clearer. Pt agreed to the very minor puncture after examining the needle. He does have good movement in his knee today. (Jessica Noe MD) Problem List: (1) Left leg cellulitis Status: Acute Plan: -Extensive cellulitis of left leg and knee in the setting of diabetic patient. -Leukocytosis 19.5 on admission but trending down to 16.7. ESR 74-->79. -Knee x-ray prepatellar soft tissue swelling. Mild to moderate osteoarthritis involving medial for moral tibial joint and patellofemoral joint. Osteophytic spurring at the insertion of quadriceps in the origin and insertion of the patellar ligament. No fracture, dislocation, or knee joint effusion -Concern for underlying abscess vs. osteomyelitis Plan: -Orthopedic consult for further evaluation and possible I/D. Appreciate assistance -MRI pending. If osteomyelitis, will consult ID -Pain control with Tylenol and [place] -BCx 09/03: NGTD -Wound culture of left knee pending (2) Diabetes mellitus, type 2 Status: Chronic Plan: Stable -Hold home metformin -Low dose SSI (3) ENRRIQUE (acute kidney injury) Status: Resolved Plan: Likely due to some dehydration versus infection. ENRRIQUE resolved s/p IVF -Decrease IVFs as patient is tolerating po -Continue to monitor renal function (4) Seizure Status: Chronic Plan: Unspecified seizure disorder not on antiseizure medication. No seizure activity noted since admission -Monitor clinically -Seizure precaution (5) Alcohol dependence Status: Acute Plan: History of alcohol use/abuse Denies current use -WA protocol (6) Nutrition, metabolism, and development symptoms Status: Acute Plan: Diet: Diabetic Fluid: NS at 90mls/hr. Can discontinue as long as patient can tolerate po Electrolytes: K 3.4. Will replete. Check Mg level. (7) Prophylactic measure Status: Acute Plan: Heparin 5000 units Q8hrs (Cinda Rivas MD R3) Problem Qualifiers (1) Diabetes mellitus, type 2: Qualified Code: E11.9 - Type 2 diabetes mellitus without complication, without long-term current use of insulin Cinda Rivas MD R3 Sep 05, 2016 09:02 Jessica Noe MD Sep 05, 2016 12:05
[2016-09-05] MEDS: LACTOBACILLUS ACIDOPHILUS TAB PO SCH ×2 (10:03→21:54)
[2016-09-05 12:00] VITALS: BP 112/53; PULSE 83; RESP 17; TEMP 97.5; O2SAT 97
--- NOTE | 2016-09-05 13:04 | PD.CONS ---
cc: Castro Casas MD [facility] Service Orthopedic Surgeons Consult Requested By Dr. Rivas Reason for Consult "Abscess of left knee" Primary Care Physician Non-Staff Admission Diagnosis Cellulitis, Sepsis Diagnoses: (1) Septic prepatellar bursitis of left knee (2) Left leg cellulitis (3) HTN (hypertension) (4) Alcoholism (5) Hx of seizure disorder (6) Diabetes mellitus, type 2 Chief Complaint: Left leg pain and swelling History of Present Illness 61-year-old male with past medical history of diabetes, several admissions for alcohol intoxication, seizure without need for antiseizure medication presenting with erythema and swelling of the left knee beginning on Wednesday. After symptoms hold resolved, he sought urgent care was given clindamycin. After 2 days of therapy with clindamycin, symptoms failed to resolve prompting visit to ER. He had fevers when the rash first started, but no fevers or chills since that time. The swelling is associated with some pain and difficulty bearing weight, especially difficulty bending his knee (keeping it straight relieves pain). He denies recent sexual activity or IV drug use. The patient was placed on vancomycin and Levaquin. According to nursing staff and physicians also punctured an area of swelling over the anterior aspect of the knee with mild drainage present. Cultures were sent. An MRI has been ordered. The patient does feel some improvement since admission. Review of Systems Reviewed and well outlined in the medical record Past Family Social History Past Medical History Past Family Social History Past Medical History Diabetes Hypertension-resolved after weight loss and quitting cigarette smoking Seizures Alcohol-induced mood disorder Neuropathy Cataracts Past Surgical History Left eye cataract surgery Reported Medications Reported Meds & Active Scripts Active [Diabetic shoe insert] Units Please dispense three pairs of diabetic shoe inserts [Diabetic shoes] Units Please dispense one pair of custom-fitted diabetic shoes Reported Lorazepam 1 Mg Tab 1 Mg PO Q6H PRN Clindamycin (Clindamycin HCl) 150 Mg Cap 150 Mg PO Q6H Metformin (Metformin HCl) 500 Mg Tab 500 Mg PO TIDPC With meals Also takes many dietary supplements, uncertain specific names Allergies: Coded Allergies: Escitalopram Oxalate (Verified Allergy, Severe, ITCHY, TREMORS, CONFUSION , 09/03/16) Keppra (Verified Allergy, Intermediate, DIARRHEA, 09/03/16) Sulfa (Verified Allergy, Intermediate, MADE FINGERS SWELL, 09/03/16) Keflex (Verified Allergy, Mild, Diarrhea, 09/03/16) Tetracyclines (Verified Allergy, Unknown, TROUBLE BREATHING?, 09/03/16) Family History Mother at 96, had dementia Father at 55 from heart attack Social History Tobacco: [id number] smoking history, quit 2012 Alcohol: No use since previous "nervous breakdown" Other drugs: Used any different substances in the 70s, but nothing since then Other social: , lives alone in a house Allergies: Coded Allergies: Escitalopram Oxalate (Verified Allergy, Severe, ITCHY, TREMORS, CONFUSION , 09/03/16) Keppra (Verified Allergy, Intermediate, DIARRHEA, 09/03/16) Sulfa (Verified Allergy, Intermediate, MADE FINGERS SWELL, 09/03/16) Keflex (Verified Allergy, Mild, Diarrhea, 09/03/16) Tetracyclines (Verified Allergy, Unknown, TROUBLE BREATHING?, 09/03/16) Active Ordered Medications Current Medications Medications (Trade) Dose Ordered Sig/Kiran Route Start Time Stop Time Status Last Admin (Vancomycin Consult Pharmacy) 0 ml @ 0 mls/hr UNSCH OTHER 09/04/16 01:00 (Ativan) 1 mg Q6H PRN PO 09/04/16 01:00 09/05/16 02:44 (Tylenol) 500 mg Q4H PRN PO 09/04/16 07:00 ([place] 5-325 Mg) 1 tab Q4H PRN PO 09/04/16 07:00 ([place] 7.5-325 Mg) 1 tab Q4H PRN PO 09/04/16 07:00 09/05/16 02:44 (Heparin Inj) 5,000 units Q8H SQ 09/04/16 08:00 09/05/16 08:48 (Levaquin) 750 mg DAILY PO 09/04/16 09:00 09/05/16 08:48 (Romazicon Inj) 0.2 mg Q1M PRN IV PUSH 09/04/16 07:30 (Ativan) 1 mg Q4H PRN PO 09/04/16 07:30 (Ativan Inj) 1 mg Q4H PRN IV PUSH 09/04/16 07:30 (Ativan) 2 mg Q2H PRN PO 09/04/16 07:30 (Ativan Inj) 2 mg Q2H PRN IV PUSH 09/04/16 07:30 (Ativan Inj) 2 mg Q1H PRN IV PUSH 09/04/16 07:30 (Ativan Inj) 2 mg Q15M PRN IV PUSH 09/04/16 07:30 (D50w (Vial) Inj) 25 ml UNSCH PRN IV PUSH 09/04/16 07:30 Glucagon 1 mg 1 mg UNSCH PRN OTHER 09/04/16 07:30 (Vancomycin Inj/ NS 500 ml Inj) 515 ml @ 257.5 mls/ hr Q24H IV 09/04/16 23:00 09/04/16 22:55 (Zofran Inj) 4 mg Q6H PRN IV 09/04/16 07:45 Senna/Docusate Sodium 1 tab 1 tab BID PRN PO 09/04/16 07:45 09/05/16 08:51 (NS 1000 ml Inj) 1,000 ml @ 90 mls/hr Q11H7M IV 09/04/16 08:00 09/05/16 08:49 (Lactinex) 1 tab Q12HR PO 09/05/16 10:00 09/05/16 10:03 Reported Meds & Active Scripts Active [Diabetic shoe insert] Units Please dispense three pairs of diabetic shoe inserts [Diabetic shoes] Units Please dispense one pair of custom-fitted diabetic shoes Reported Lisinopril 2.5 Mg Tab 2.5 Mg PO DAILY Lorazepam 1 Mg Tab 1 Mg PO Q6H PRN Clindamycin (Clindamycin HCl) 150 Mg Cap 150 Mg PO Q6H Metformin (Metformin HCl) 500 Mg Tab 500 Mg PO TIDPC With meals Physical Exam Vital Signs Vital Signs Date Time Temp Pulse Resp B/P Pulse Ox O2 Delivery O2 Flow Rate FiO2 09/05/16 12:00 97.5 83 17 112/53 97 09/05/16 08:00 97.6 79 17 105/55 96 09/05/16 00:00 99.2 86 17 106/65 97 09/04/16 20:00 98.4 81 16 117/45 100 09/04/16 15:30 16 09/04/16 14:45 99.1 79 16 111/60 99 09/04/16 14:30 92 16 114/72 98 Room Air Physical Exam Upon entering the room and the patient is sitting on the couch across the room. He is fully closed. He is able to ambulate back to the hospital bed for examination. He has a slight antalgic gait. The left lower extremity has markings to determine erythematous change. There is mild swelling. There is slight wrinkling of the skin consistent with decreasing swelling. He has a fullness of the prepatellar bursa with mild erythema. There is no fluctuance. There is a Vaseline over the knee limiting any drainage. There is a small effusion. There is no erythema medially laterally or posteriorly. He has restricted active range of motion although painless from 0-90. There is no instability. He has satisfactory mobility of the hip without pain. He moves his ankle freely. There is no calf discomfort. He has a negative Homans sign. Laboratory Laboratory Tests Test 09/04/16 09/05/16 18:50 03:40 Urine Opiates Screen POS Urine Barbiturates Screen NEG Urine Amphetamines Screen NEG Urine Benzodiazepines Screen NEG Urine Cocaine Screen NEG Urine Cannabinoids Screen NEG White Blood Count 16.7 Red Blood Count 3.12 Hemoglobin 9.9 Hematocrit 29.4 Mean Corpuscular Volume 94.2 Mean Corpuscular Hemoglobin 31.8 Mean Corpuscular Hemoglobin 33.8 Concent Red Cell Distribution Width 13.0 Platelet Count 198 Mean Platelet Volume 8.5 Neutrophils (%) (Auto) 77.3 Lymphocytes (%) (Auto) 9.2 Monocytes (%) (Auto) 10.1 Eosinophils (%) (Auto) 2.9 Basophils (%) (Auto) 0.5 Neutrophils # (Auto) 12.9 Lymphocytes # (Auto) 1.5 Monocytes # (Auto) 1.7 Eosinophils # (Auto) 0.5 Basophils # (Auto) 0.1 CBC Comment DIFF FINAL Differential Comment Erythrocyte Sedimentation Rate 79 Sodium Level 139 Potassium Level 3.4 Chloride Level 106 Carbon Dioxide Level 22.8 Anion Gap 10 Blood Urea Nitrogen 31 Creatinine 0.99 Estimat Glomerular Filtration 77 Rate Random Glucose 113 Calcium Level 8.6 Magnesium Level 1.3 Date/Time Procedure Status Source Growth 09/05/16 10:15 Gram Stain Received Wound Knee Pending 09/05/16 10:15 Wound Culture Received Wound Knee Pending 09/03/16 23:40 Aerobic Blood Culture - Preliminary Resulted Blood Peripheral NO GROWTH IN 2 DAYS 09/03/16 23:40 Anaerobic Blood Culture - Preliminary Resulted Blood Peripheral NO GROWTH IN 2 DAYS Result Diagram: 09/05/16 0340 09/05/16 0340 Imaging Last 48 hours Impressions Knee X-Ray 09/04/16 0000 Signed Impressions: Service Date/Time: Sunday, September 04, 2016 07:56 - CONCLUSION: 1. Mild to moderate osteoarthritis involving the medial femoral tibial joint and the patellofemoral joint. 2. Prepatellar soft tissue swelling. 3. Osteophytic spurring at the insertion of the quadriceps tendon in the origin and insertion of the patella ligament. 4. No acute fracture, dislocation or knee joint effusion. Rafi Mireles MD Assessment & Plan Problem List: (1) Septic prepatellar bursitis of left knee (2) Left leg cellulitis (3) Diabetes mellitus, type 2 (4) Alcoholism (5) HTN (hypertension) (6) Hx of seizure disorder Assessment and Plan The findings were discussed. Apparently a MRI scan is pending. The patient appears to be improving slowly clinically with IV antibiotics. The most likely course will be to continue same. It does not appear that he has a septic arthritic knee however the possibility was discussed t as well as the implications of same. If not, recommendations will be for continuation of IV antibiotics and monitor his clinical course. The possibility of surgical management for the prepatellar bursitis was also discussed. I will follow the patient with you until orthopedic disposition completed. Castro Casas MD Sep 05, 2016 13:04
[2016-09-05] MEDS ORDERED: GADODIAMIDE PF 287 MG/ML 20 ML VIAL (for RAD MRI) IV ONE (15:16)
[2016-09-05 16:00] VITALS: BP 122/58; PULSE 78; RESP 16; TEMP 98.7; O2SAT 96
--- NOTE | 2016-09-05 16:31 | RADRPT ---
EXAM DATE/TIME: 09/05/2016 14:59 [facility] COMPARISON: No previous studies available for comparison. INDICATIONS : Abscess. CONTRAST: 17 cc Omniscan (gadodiamide) IV MEDICAL HISTORY : Diabetes mellitus type 2. Seizures. SURGICAL HISTORY : None. ENCOUNTER: Subsequent ACUITY: 2 day PAIN SCORE: 2/10 LOCATION: Left knee TECHNIQUE: Multiplanar multisequence MRI examination of the knee was performed with and without contrast. FINDINGS: There is a rim enhancing pre-patella fluid collection extending over a length of about 3.8 cm with a thickness of about 1 cm. This could represent an infected prepatellar bursitis or a subcutaneous absc ess. There is surrounding cellulitis and edema. A small knee joint effusion is also present. The patella tendon appears intact. Anterior and posterio r cruciate ligaments and lateral and medial collateral ligaments appear intact. There is a linear tea r posterior horn medial meniscus, nondisplaced. No acute bony abnormality. CONCLUSION: 1. Rim-enhancing prepatellar fluid collection characteristic of either an infected bursitis or subcut aneous abscess with surrounding cellulitis. Small knee joint effusion. 2. Cruciate and collateral ligaments intact. Nondisplaced linear tear posterior horn medial meniscus. Alex Krause MD on September 05, 2016 at 16:26 Board Certified Radiologist. This report was verified electronically.
[2016-09-05 20:00] VITALS: BP 128/60; PULSE 77; RESP 19; TEMP 99.3; O2SAT 98
[2016-09-05] MEDS: ACETAMINOPHEN/HYDROcodone 325 MG/5 MG TAB PO PRN (21:54)
[2016-09-06] VITALS: BP 109/51; PULSE 76; RESP 21; TEMP 98.2; O2SAT 98
[2016-09-06] MEDS: VANCOMYCIN INJ 1,500 MG in SODIUM CHLORID 0.9% 500 ML INJ 500 ML IV SCH (00:51)
[2016-09-06] MEDS: HEPARIN SODIUM - SQ 10,000 UNITS/ML VIAL SQ SCH ×3 (00:51→16:39)
[2016-09-06] MEDS: ACETAMINOPHEN/HYDROcodone 325 MG/5 MG TAB PO PRN (05:36)
[2016-09-06] MEDS: INSULIN ASPART SUPPLEMENTAL SCALE SQ SCH ×4 (05:41→21:00)
[2016-09-06 07:04] LABS: AUTOMATED NEUTROPHIL # 10.3 TH/MM3 (1.8-7.7); BASOPHIL # 0.2 TH/MM3 (0-0.2); BASOPHIL % 1.1 % (0.0-2.0); EOSINOPHIL # 0.6 TH/MM3 (0-0.4); HEMATOCRIT 31.4 % (39.0-51.0); LYMPH % 12.5 % (9.0-44.0); LYMPHOCYTE # 1.8 TH/MM3 (1.0-4.8); MEAN CELL VOLUME 93.9 FL (80.0-100.0); MEAN CORPUSCULAR HEMOGLOBIN 31.7 PG (27.0-34.0); MEAN CORPUSCULAR HGB CONC 33.8 % (32.0-36.0); MONO % 11.8 % (0.0-8.0); NEUT % 70.6 % (16.0-70.0); PLATELET COUNT 223 TH/MM3 (150-450); RED BLOOD COUNT 3.34 MIL/MM3 (4.50-5.90); WHITE BLOOD COUNT 14.6 TH/MM3 (4.0-11.0)
[2016-09-06 07:11] LABS: HEMO FLAGS AUTO DIFF
[2016-09-06 07:30] LABS: BICARBONATE 25.4 MEQ/L (21.0-32.0); POTASSIUM 3.8 MEQ/L (3.5-5.1)
[2016-09-06] MEDS ORDERED: MAGNESIUM SULFATE 1 GM PREMIX 100 ML IV ONE (07:45)
[2016-09-06 08:00] VITALS: BP 131/72; PULSE 69; RESP 18; TEMP 97; O2SAT 97
[2016-09-06 08:33] LABS: BASOPHILS 1 % (0-2); EOSINOPHILS 4 % (0-4); METAMYELOCYTES 2 % (0-1); MYELOCYTES 3 % (0-0); NEUTROPHIL # MANUAL DIFF 11.4 TH/MM3 (1.8-7.7); PLATELET ESTIMATE SMEAR NORMAL (NORMAL); PLATELET MORPHOLOGY NORMAL (NORMAL); POLYS (SEG NEUTROPHILS) 73 % (16-70); SCAN/DIFF FINAL DIFF MANUAL; WBC DIFF SAMPLE 100
--- NOTE | 2016-09-06 08:44 | HHI.FPPN ---
Subjective Remarks Patient seen and examined. No acute events overnight. VSSAF. Endorses burning sensation and pain in left leg and knee when he ambulates. States that swelling is also a little bit worse compared to yesterday. (Cinda Rivas MD R3) Objective Vitals Vital Signs Date Time Temp Pulse Resp B/P Pulse Ox O2 Delivery O2 Flow Rate FiO2 09/06/16 00:00 98.2 76 21 109/51 98 09/05/16 20:00 99.3 77 19 128/60 98 09/05/16 16:00 98.7 78 16 122/58 96 09/05/16 12:00 97.5 83 17 112/53 97 I/O 09/05/16 09/05/16 09/05/16 09/06/16 09/06/16 09/06/16 07:00 15:00 23:00 07:00 15:00 23:00 Intake Total 1692 ml 720 ml 240 ml 240 ml Balance 1692 ml 720 ml 240 ml 240 ml Intake Oral 600 ml 480 ml 240 ml 240 ml IV Total 1092 ml 240 ml 0 ml # Voids 2 4 1 2 # Bowel Movements 0 0 0 0 (Cinda Rivas MD R3) Result Diagram: 09/06/16 0537 09/06/16 0537 Imaging Knee MRI 09/05/16 0000 Signed Impressions: Service Date/Time: Monday, September 05, 2016 14:59 - CONCLUSION: 1. Rim-enhancing prepatellar fluid collection characteristic of either an infected bursitis or subcutaneous abscess with surrounding cellulitis. Small knee joint effusion. 2. Cruciate and collateral ligaments intact. Nondisplaced linear tear posterior horn medial meniscus. Alex Krause MD Knee X-Ray 09/04/16 0000 Signed Impressions: Service Date/Time: Sunday, September 04, 2016 07:56 - CONCLUSION: 1. Mild to moderate osteoarthritis involving the medial femoral tibial joint and the patellofemoral joint. 2. Prepatellar soft tissue swelling. 3. Osteophytic spurring at the insertion of the quadriceps tendon in the origin and insertion of the patella ligament. 4. No acute fracture, dislocation or knee joint effusion. Rafi Mireles MD Objective Remarks GENERAL: Well-developed, well-nourished male resting comfortably in no acute distress. SKIN: Left leg and knee with significant erythema, improved since admission. HEAD: NC/AT EYES: PERRL. EOMI. No conjunctival injection or drainage. ENT: MMM, OP without erythema, tonsillar swelling, or exudate. NECK: Supple, no lymphadenopathy. No JVD. CARDIOVASCULAR: NRRR. Normal S1/S2. Blowing holosystolic 2/6 murmur heard best in the aortic area. 1-2/6 systolic murmur also heard in mitral area. RESPIRATORY: CTAB. No crackles or wheezes. GASTROINTESTINAL: Abdomen soft, non-distended, non-tender. No hepato- splenomegaly or palpable masses. MUSCULOSKELETAL: 2+ pitting edema of of left LE, small amount of effusion of left knee. Active and passive range of motion full of left knee though somewhat painful. No calf tenderness. NEUROLOGICAL: Awake and alert. Cranial nerves II through XII grossly intact. Moves all extremities without difficulty. Normal speech. (Cinda Rivas MD R3) A/P Assessment and Plan 61-year-old male with history of diabetes presenting with left leg cellulitis that failed outpatient antibiotics. Discharge Planning Discharge timeframe unclear pending further workup. (Cinda Rivas MD R3) Attending Attestation Patient seen and examined. Case reviewed and discussed with the resident team. Agree with plan of care as discussed with me and documented in the resident note. his wound culture was done after he was on abx for a few days. he was improving so it may be sterile despite his infection and cellulitis. However, there was nothing to culture earlier as he had no abscess or break in the skin (Jessica Noe MD) Problem List: (1) Left leg cellulitis Status: Acute Plan: -Extensive cellulitis of left leg and knee in the setting of diabetic patient. -Leukocytosis 19.5 on admission but trending down. ESR 74-->79. Imaging: -Knee x-ray: prepatellar soft tissue swelling. Mild to moderate osteoarthritis involving medial for moral tibial joint and patellofemoral joint. Osteophytic spurring at the insertion of quadriceps in the origin and insertion of the patellar ligament. No fracture, dislocation, or knee joint effusion -MRI: Rim enhancing prepatellar fluid collection of either infected bursitis or subcutaneous abscess with surrounding cellulitis. Small joint effusion. Displaced linear tear posterior horn medial meniscus Plan: -Orthopedic consult. Appreciate assistance * Continue IV antibiotics * Possibility of surgical management were prepatellar bursitis discussed with patient. -Pain control with Tylenol and [place] -BCx 09/03: NGTD -Wound culture of left knee pending (2) Lower extremity edema Status: Acute Plan: Likely secondary to underlying cellulitis; however will obtain Doppler u/ s to rule out DVT -Keep leg elevated (3) Diabetes mellitus, type 2 Status: Chronic Plan: Stable -Hold home metformin -Low dose SSI (4) ENRRIQUE (acute kidney injury) Status: Resolved Plan: Likely due to some dehydration versus infection. ENRRIQUE resolved s/p IVF -Continue to monitor renal function (5) Seizure Status: Chronic Plan: Unspecified seizure disorder not on antiseizure medication. No seizure activity noted since admission -Monitor clinically -Seizure precaution (6) Alcohol dependence Status: Acute Plan: History of alcohol use/abuse Denies current use -WA protocol (7) Nutrition, metabolism, and development symptoms Status: Acute Plan: Diet: Diabetic Fluid: HLIV. Encourage oral fluid hydationa Electrolytes: Mg 1.3. Will replete. Continue to monitor (8) Prophylactic measure Status: Acute Plan: Heparin 5000 units Q8hrs (Cinda Rivas MD R3) Problem Qualifiers (1) Diabetes mellitus, type 2: Qualified Code: E11.9 - Type 2 diabetes mellitus without complication, without long-term current use of insulin Cinda Rivas MD R3 Sep 06, 2016 08:44 Jessica Noe MD Sep 07, 2016 12:28
[2016-09-06] MEDS: LACTOBACILLUS ACIDOPHILUS TAB PO SCH ×2 (08:57→20:26)
[2016-09-06] MEDS: LEVOFLOXACIN 750 MG TAB PO SCH (08:57)
[2016-09-06] MEDS: ACETAMINOPHEN/HYDROcodone 325 MG/7.5 MG TAB PO PRN ×2 (11:06→20:30)
--- NOTE | 2016-09-06 11:13 | RADRPT ---
EXAM DATE/TIME: 09/06/2016 09:59 [facility] COMPARISON: No previous studies available for comparison. INDICATIONS : Left leg edema. MEDICAL HISTORY : Skin cancer. Seizure. Closed head injury. Diabetes. Depression. Anxiety. Substance use. Anticoagulant therapy. SURGICAL HISTORY : None. Left cataract surgery. Skin cancer removed. ENCOUNTER: Initial ACUITY: 4 - 6 days PAIN SCORE: 9/10 LOCATION: Left leg. TECHNIQUE: Venous ultrasound of the leg was performed from the inguinal ligament to the proximal calf. Real-halie e, color Doppler and spectral tracing, compression and augmentation techniques were used. FINDINGS: There is normal compressibility of the deep venous system from the inguinal region to the proximal ca lf. No echogenic clot is seen in the lumen of the common femoral, femoral, popliteal, and posterior tibial veins. There is a normal response of the venous system to proximal and distal augmentation an d respiration. There is a benign-appearing lymph node in the left groin measuring 2.8 cm. There is s ome edema in the subcutaneous tissues. CONCLUSION: No evidence of DVT. Richard Bowling MD on September 06, 2016 at 11:10 Board Certified Radiologist. This report was verified electronically.
[2016-09-06 12:00] VITALS: BP 130/73; PULSE 53; RESP 17; TEMP 97.3; O2SAT 98
[2016-09-06 16:00] VITALS: BP 136/73; PULSE 61; RESP 18; TEMP 95.4; O2SAT 98
[2016-09-06] MEDS: LORazepam 1 MG TAB PO PRN (16:44)
[2016-09-06 20:00] VITALS: BP 123/56; PULSE 83; RESP 20; TEMP 99.3; O2SAT 98
[2016-09-07] VITALS: BP 107/51; PULSE 96; RESP 20; TEMP 99.4; O2SAT 93
[2016-09-07] MEDS: HEPARIN SODIUM - SQ 10,000 UNITS/ML VIAL SQ SCH ×4 (00:28→22:40)
[2016-09-07] MEDS: VANCOMYCIN INJ 1,500 MG in SODIUM CHLORID 0.9% 500 ML INJ 500 ML IV SCH ×2 (00:29→22:41)
[2016-09-07 05:05] LABS: AUTOMATED NEUTROPHIL # 9.4 TH/MM3 (1.8-7.7); BASOPHIL # 0.2 TH/MM3 (0-0.2); BASOPHIL % 1.3 % (0.0-2.0); EOSINOPHIL # 0.5 TH/MM3 (0-0.4); EOSINOPHIL % 3.8 % (0.0-4.0); HEMATOCRIT 31.8 % (39.0-51.0); LYMPH % 15.7 % (9.0-44.0); LYMPHOCYTE # 2.2 TH/MM3 (1.0-4.8); MEAN CELL VOLUME 93.3 FL (80.0-100.0); MEAN CORPUSCULAR HEMOGLOBIN 31.9 PG (27.0-34.0); MEAN CORPUSCULAR HGB CONC 34.2 % (32.0-36.0); MONO % 11.4 % (0.0-8.0); NEUT % 67.8 % (16.0-70.0); PLATELET COUNT 271 TH/MM3 (150-450); RED BLOOD COUNT 3.41 MIL/MM3 (4.50-5.90); RED CELL DISTRIBUTION WIDTH 13.3 % (11.6-17.2); WHITE BLOOD COUNT 13.8 TH/MM3 (4.0-11.0)
[2016-09-07 05:09] LABS: HEMO FLAGS AUTO DIFF
[2016-09-07 05:24] LABS: MAGNESIUM 1.5 MG/DL (1.5-2.5); POTASSIUM 4.3 MEQ/L (3.5-5.1)
[2016-09-07] MEDS: ACETAMINOPHEN/HYDROcodone 325 MG/7.5 MG TAB PO PRN ×4 (06:09→22:40)
[2016-09-07] MEDS: INSULIN ASPART SUPPLEMENTAL SCALE SQ SCH ×4 (06:09→21:00)
--- NOTE | 2016-09-07 07:06 | HHI.FPPN ---
Subjective Remarks Patient seen and examined. No acute events overnight. VSSAF. Endorses pain when he walks but otherwise feels comfortable. Edema is slightly better. No other complaints (Cinda Rivas MD R3) Objective Vitals Vital Signs Date Time Temp Pulse Resp B/P Pulse Ox O2 Delivery O2 Flow Rate FiO2 09/07/16 00:00 99.4 96 20 107/51 93 09/06/16 20:00 99.3 83 20 123/56 98 09/06/16 16:00 95.4 61 18 136/73 98 09/06/16 12:00 97.3 53 17 130/73 98 09/06/16 08:00 97.0 69 18 131/72 97 I/O 09/06/16 09/06/16 09/06/16 09/07/16 09/07/16 09/07/16 07:00 15:00 23:00 07:00 15:00 23:00 Intake Total 240 ml 841 ml 240 ml 740 ml Output Total 700 ml Balance 240 ml 141 ml 240 ml 740 ml Intake Oral 240 ml 240 ml 240 ml 240 ml IV Total 0 ml 601 ml 0 ml 500 ml Output Urine Total 700 ml # Voids 2 1 2 # Bowel Movements 0 1 0 0 (Cinda Rivas MD R3) Result Diagram: 09/07/16 0353 09/07/16 0353 Imaging Lower Extremity Ultrasound 09/06/16 0000 Signed Impressions: Service Date/Time: Tuesday, September 06, 2016 09:59 - CONCLUSION: No evidence of DVT. Richard Bowling MD Knee MRI 09/05/16 0000 Signed Impressions: Service Date/Time: Monday, September 05, 2016 14:59 - CONCLUSION: 1. Rim-enhancing prepatellar fluid collection characteristic of either an infected bursitis or subcutaneous abscess with surrounding cellulitis. Small knee joint effusion. 2. Cruciate and collateral ligaments intact. Nondisplaced linear tear posterior horn medial meniscus. Alex Krause MD Knee X-Ray 09/04/16 0000 Signed Impressions: Service Date/Time: Sunday, September 04, 2016 07:56 - CONCLUSION: 1. Mild to moderate osteoarthritis involving the medial femoral tibial joint and the patellofemoral joint. 2. Prepatellar soft tissue swelling. 3. Osteophytic spurring at the insertion of the quadriceps tendon in the origin and insertion of the patella ligament. 4. No acute fracture, dislocation or knee joint effusion. Rafi Mireles MD Objective Remarks GENERAL: Well-developed, well-nourished male resting comfortably in no acute distress. SKIN: Left leg and knee with significant erythema, improved since admission. HEAD: NC/AT EYES: PERRL. EOMI. No conjunctival injection or drainage. ENT: MMM, OP without erythema, tonsillar swelling, or exudate. NECK: Supple, no lymphadenopathy. No JVD. CARDIOVASCULAR: RRR. Blowing holosystolic 2/6 murmur heard best in the aortic area. 1-2/6 systolic murmur also heard in mitral area. RESPIRATORY: CTAB. No crackles or wheezes. GASTROINTESTINAL: Abdomen soft, non-distended, non-tender. No hepato- splenomegaly or palpable masses. MUSCULOSKELETAL: 2+ pitting edema of of left LE, small amount of effusion of left knee. Active and passive range of motion full of left knee though somewhat painful. No calf tenderness. NEUROLOGICAL: Awake and alert. Cranial nerves II through XII grossly intact. Moves all extremities without difficulty. Normal speech. (Cinda Rivas MD R3) A/P Assessment and Plan 61-year-old male with history of diabetes presenting with left leg cellulitis that failed outpatient antibiotics. Discharge Planning Discharge timeframe unclear pending further workup. (Cinda Rivas MD R3) Attending Attestation Patient seen and examined. Case reviewed and discussed with the resident team. Agree with plan of care as discussed with me and documented in the resident note. will make sure he has some hemorrhoid cream at bedside as that is his main complaint today and he considered leaving AMA to go home and get his cream. ( Jessica Noe MD) Problem List: (1) Left leg cellulitis Status: Acute Plan: -Extensive cellulitis of left leg and knee in the setting of diabetic patient. -Leukocytosis 19.5 on admission but trending down. ESR 74-->79. Imaging: -Knee x-ray: prepatellar soft tissue swelling. Mild to moderate osteoarthritis involving medial for moral tibial joint and patellofemoral joint. Osteophytic spurring at the insertion of quadriceps in the origin and insertion of the patellar ligament. No fracture, dislocation, or knee joint effusion -MRI: Rim enhancing prepatellar fluid collection of either infected bursitis or subcutaneous abscess with surrounding cellulitis. Small joint effusion. Displaced linear tear posterior horn medial meniscus Plan: -Orthopedic consult. Appreciate assistance * Continue IV antibiotics * Possibility of surgical management were prepatellar bursitis discussed with patient. -Pain control with Tylenol and [place] -BCx 09/03: NGTD -Wound culture of left knee pending (2) Lower extremity edema Status: Acute Plan: Likely secondary to underlying cellulitis -Keep leg elevated and compression stocking -U/S: Negative for DVT (3) Diabetes mellitus, type 2 Status: Chronic Plan: Stable -Hold home metformin -Low dose SSI (4) ENRRIQUE (acute kidney injury) Status: Resolved Plan: Likely due to some dehydration versus infection. ENRRIQUE resolved s/p IVF -Continue to monitor renal function (5) Seizure Status: Chronic Plan: Unspecified seizure disorder not on antiseizure medication. No seizure activity noted since admission -Monitor clinically -Seizure precaution (6) Alcohol dependence Status: Acute Plan: History of alcohol use/abuse Denies current use -[facility] protocol (7) Nutrition, metabolism, and development symptoms Status: Acute Plan: Diet: Diabetic Fluid: HLIV. Encourage oral fluid hydration Electrolytes: WNL. Continue to monitor (8) Prophylactic measure Status: Acute Plan: Heparin 5000 units Q8hrs (Cinda Rivas MD R3) Problem Qualifiers (1) Diabetes mellitus, type 2: Qualified Code: E11.9 - Type 2 diabetes mellitus without complication, without long-term current use of insulin Cinda Rivas MD R3 Sep 07, 2016 07:06 Jessica Noe MD Sep 07, 2016 12:31
[2016-09-07 07:11] LABS: BANDS 17 % (0-6); EOSINOPHILS 3 % (0-4); METAMYELOCYTES 1 % (0-1); MYELOCYTES 2 % (0-0); NEUTROPHIL # MANUAL DIFF 8.7 TH/MM3 (1.8-7.7); POLYS (SEG NEUTROPHILS) 43 % (16-70); WBC DIFF SAMPLE 100
[2016-09-07 07:12] LABS: PLATELET ESTIMATE SMEAR NORMAL (NORMAL); PLATELET MORPHOLOGY NORMAL (NORMAL); SCAN/DIFF FINAL DIFF MANUAL
[2016-09-07 07:31] VITALS: BP 121/61; PULSE 97; RESP 20; TEMP 98.6; O2SAT 93
[2016-09-07] MEDS: LEVOFLOXACIN 750 MG TAB PO SCH (09:10)
[2016-09-07] MEDS: LACTOBACILLUS ACIDOPHILUS TAB PO SCH ×2 (09:10→21:00)
--- NOTE | 2016-09-07 09:39 | PD.ORT.PN ---
Subjective Subjective Remarks Patient is sitting upright at the end of his bed, fully clothed. He admits his left knee pain and redness has improved. He states it continues to cause controlled pain with standings. No new complaints. Objective Vitals Vital Signs Date Time Temp Pulse Resp B/P Pulse Ox O2 Delivery O2 Flow Rate FiO2 09/07/16 07:31 98.6 97 20 121/61 93 09/07/16 00:00 99.4 96 20 107/51 93 09/06/16 20:00 99.3 83 20 123/56 98 09/06/16 16:00 95.4 61 18 136/73 98 09/06/16 12:00 97.3 53 17 130/73 98 I/O 09/06/16 09/06/16 09/06/16 09/07/16 09/07/16 09/07/16 07:00 15:00 23:00 07:00 15:00 23:00 Intake Total 240 ml 841 ml 240 ml 740 ml Output Total 700 ml Balance 240 ml 141 ml 240 ml 740 ml Intake Oral 240 ml 240 ml 240 ml 240 ml IV Total 0 ml 601 ml 0 ml 500 ml Output Urine Total 700 ml # Voids 2 1 2 # Bowel Movements 0 1 0 0 Result Diagram: 09/07/16 0353 09/07/16 0353 Imaging Last 48 hours Impressions Lower Extremity Ultrasound 09/06/16 0000 Signed Impressions: Service Date/Time: Tuesday, September 06, 2016 09:59 - CONCLUSION: No evidence of DVT. Richard Bowling MD Objective Remarks He is able to ambulate back and stand on the extremity without significant pain. He has a slight antalgic gait. The left lower extremity has markings to determine erythematous change. There is mild swelling. There is slight wrinkling of the skin consistent with decreasing swelling. He has a fullness of the prepatellar bursa with mild erythema, upon palpation it is soft. There is no fluctuance. There is a Vaseline and dressing over the knee limiting any drainage. There is a small effusion. There is no erythema medially laterally or posteriorly. He has restricted active range of motion although painless from 0-90. There is no instability. He has satisfactory mobility of the hip without pain. He moves his ankle freely. There is no calf discomfort. He has a negative Hom[place] sign. Assessment & Plan Problem List: (1) Septic prepatellar bursitis of left knee (2) Left leg cellulitis (3) Diabetes mellitus, type 2 (4) Alcoholism (5) HTN (hypertension) (6) Hx of seizure disorder Assessment and Plan The findings were discussed. MRI showed pre patellar bursitis vs abscess, as expected. Culture, G/S continues to show no growth. The patient appears to be improving slowly clinically with IV antibiotics. The most likely course will be to continue same. It does not appear that he has a septic arthritic knee however the possibility was discussed t as well as the implications of same. If not, recommendations will be for continuation of IV antibiotics and monitor his clinical course. The possibility of surgical management for the prepatellar bursitis was also discussed. Ortho status stable at this point. Orthopedic will continue to follow. Stacey Orellana Sep 07, 2016 09:39
[2016-09-07 12:00] VITALS: BP 112/57; PULSE 76; RESP 18; TEMP 98.9; O2SAT 97
[2016-09-07] MEDS ORDERED: PETROLEUM/SHARK LIVER OIL 60 GM TUBE RECTAL PRN (13:00)
[2016-09-07 16:00] VITALS: BP 113/58; PULSE 72; RESP 22; TEMP 97.7; O2SAT 96
[2016-09-07 20:00] VITALS: BP 116/60; PULSE 70; RESP 20; TEMP 88; O2SAT 95
[2016-09-07] MEDS: LORazepam 1 MG TAB PO PRN (22:40)
[2016-09-07] MEDS ORDERED: PHARMACY ORDERED LAB XX ONE (22:45)
[2016-09-08] VITALS: BP 112/64; PULSE 66; RESP 18; TEMP 97.4; O2SAT 96
[2016-09-08] MEDS: INSULIN ASPART SUPPLEMENTAL SCALE SQ SCH ×4 (05:22→19:46)
[2016-09-08 07:07] LABS: AUTOMATED NEUTROPHIL # 10.1 TH/MM3 (1.8-7.7); BASOPHIL # 0.2 TH/MM3 (0-0.2); BASOPHIL % 1.2 % (0.0-2.0); EOSINOPHIL # 0.5 TH/MM3 (0-0.4); EOSINOPHIL % 3.2 % (0.0-4.0); HEMATOCRIT 33.5 % (39.0-51.0); LYMPH % 15.7 % (9.0-44.0); LYMPHOCYTE # 2.3 TH/MM3 (1.0-4.8); MEAN CELL VOLUME 93.8 FL (80.0-100.0); MEAN CORPUSCULAR HEMOGLOBIN 31.8 PG (27.0-34.0); MEAN CORPUSCULAR HGB CONC 33.9 % (32.0-36.0); MONO % 9.9 % (0.0-8.0); PLATELET COUNT 308 TH/MM3 (150-450); RED BLOOD COUNT 3.57 MIL/MM3 (4.50-5.90); RED CELL DISTRIBUTION WIDTH 13.3 % (11.6-17.2); WHITE BLOOD COUNT 14.4 TH/MM3 (4.0-11.0)
[2016-09-08 07:12] LABS: HEMO FLAGS AUTO DIFF
[2016-09-08 08:00] VITALS: BP 118/60; PULSE 81; RESP 17; TEMP 97.2; O2SAT 93
[2016-09-08] MEDS: LACTOBACILLUS ACIDOPHILUS TAB PO SCH ×2 (08:25→19:45)
[2016-09-08] MEDS: HEPARIN SODIUM - SQ 10,000 UNITS/ML VIAL SQ SCH ×2 (08:25→16:00)
[2016-09-08] MEDS: LEVOFLOXACIN 750 MG TAB PO SCH (08:25)
[2016-09-08] MEDS: ACETAMINOPHEN/HYDROcodone 325 MG/7.5 MG TAB PO PRN ×3 (08:28→21:45)
[2016-09-08 09:07] LABS: BANDS 2 % (0-6); BASOPHILS 1 % (0-2); EOSINOPHILS 4 % (0-4); METAMYELOCYTES 1 % (0-1); MYELOCYTES 3 % (0-0); NEUTROPHIL # MANUAL DIFF 9.8 TH/MM3 (1.8-7.7); POLYS (SEG NEUTROPHILS) 62 % (16-70); SCAN/DIFF FINAL DIFF MANUAL; WBC DIFF SAMPLE 100
[2016-09-08 09:09] LABS: PLATELET ESTIMATE SMEAR NORMAL (NORMAL); PLATELET MORPHOLOGY NORMAL (NORMAL)
--- NOTE | 2016-09-08 09:46 | HHI.FPPN ---
Subjective Remarks Patient seen and examined. No acute events overnight. VSSAF. Patient reports severe pain in his left leg last night but pain is better this morning. Has some worsening edema in left foot because he was up and walking more yesterday. No other complaints. Denies diarrhea, nausea, vomiting, or chest pain. (Cinda Rivas MD R3) Objective Vitals Vital Signs Date Time Temp Pulse Resp B/P Pulse Ox O2 Delivery O2 Flow Rate FiO2 09/08/16 00:00 97.4 66 18 112/64 96 09/07/16 20:00 88.0 70 20 116/60 95 09/07/16 16:00 97.7 72 22 113/58 96 09/07/16 12:00 98.9 76 18 112/57 97 I/O 09/07/16 09/07/16 09/07/16 09/08/16 09/08/16 09/08/16 07:00 15:00 23:00 07:00 15:00 23:00 Intake Total 740 ml 600 ml 340 ml 714 ml Output Total 500 ml 550 ml Balance 740 ml 600 ml -160 ml 164 ml Intake Oral 240 ml 600 ml 340 ml 360 ml IV Total 500 ml 354 ml Output Urine Total 500 ml 550 ml # Voids 2 6 # Bowel Movements 0 0 0 0 (Cinda Rivas MD R3) Result Diagram: 09/08/16 0432 09/07/16 0353 Imaging Lower Extremity Ultrasound 09/06/16 0000 Signed Impressions: Service Date/Time: Tuesday, September 06, 2016 09:59 - CONCLUSION: No evidence of DVT. Richard Bowling MD Knee MRI 09/05/16 0000 Signed Impressions: Service Date/Time: Monday, September 05, 2016 14:59 - CONCLUSION: 1. Rim-enhancing prepatellar fluid collection characteristic of either an infected bursitis or subcutaneous abscess with surrounding cellulitis. Small knee joint effusion. 2. Cruciate and collateral ligaments intact. Nondisplaced linear tear posterior horn medial meniscus. Alex Krause MD Knee X-Ray 09/04/16 0000 Signed Impressions: Service Date/Time: Sunday, September 04, 2016 07:56 - CONCLUSION: 1. Mild to moderate osteoarthritis involving the medial femoral tibial joint and the patellofemoral joint. 2. Prepatellar soft tissue swelling. 3. Osteophytic spurring at the insertion of the quadriceps tendon in the origin and insertion of the patella ligament. 4. No acute fracture, dislocation or knee joint effusion. Rafi Mireles MD Objective Remarks GENERAL: Well-developed, well-nourished male resting comfortably in no acute distress. SKIN: Left leg and knee with significant erythema, improved since admission. Ecchymosis on left knee HEAD: NC/AT EYES:No conjunctival injection or drainage. ENT: MMM, OP without erythema, tonsillar swelling, or exudate. NECK: Supple, no lymphadenopathy. CARDIOVASCULAR: RRR. Blowing holosystolic 2/6 murmur heard best in the aortic area. 1-2/6 systolic murmur also heard in mitral area. RESPIRATORY: CTAB. No crackles or wheezes. GASTROINTESTINAL: Abdomen soft, non-distended, non-tender. No hepato- splenomegaly or palpable masses. MUSCULOSKELETAL: 2+ pitting edema of of left LE, especially left foot. Small amount of effusion of left knee. Active and passive range of motion full of left knee though somewhat painful. No calf tenderness. NEUROLOGICAL: Awake and alert. Moves all extremities without difficulty. Normal speech. (Cinda Rivas MD R3) A/P Assessment and Plan 61-year-old male with history of diabetes presenting with left leg cellulitis and knee bursitis that failed outpatient antibiotics with Clindamycin. Discharge Planning Discharge pending clinical improvement, likely in 2-3 days. (Cinda Rivas MD R3) Attending Attestation Patient seen and examined. Case reviewed and discussed Agree with plan of care as discussed with me and documented in the resident note. (Vanna Mares MD) Problem List: (1) Left leg cellulitis Status: Acute Plan: -Extensive cellulitis of left leg and knee in the setting of diabetic patient. -Leukocytosis 19.5 on admission but trending down. ESR 74-->79. Imaging: -Knee x-ray: prepatellar soft tissue swelling. Mild to moderate osteoarthritis involving medial for moral tibial joint and patellofemoral joint. Osteophytic spurring at the insertion of quadriceps in the origin and insertion of the patellar ligament. No fracture, dislocation, or knee joint effusion -MRI: Rim enhancing prepatellar fluid collection of either infected bursitis or subcutaneous abscess with surrounding cellulitis. Small joint effusion. Displaced linear tear posterior horn medial meniscus Plan: -Vancomycin 1.25g IV BID and Levaquin 750mg po daily (09/04-). -Consider ID consult given slow improvement of symptoms -Orthopedic consulted. Appreciate assistance * Continue IV antibiotics * Possibility of surgical management were prepatellar bursitis discussed with patient. -Pain control with Tylenol and [place] -BCx 09/03: NGTD -Wound culture: negative (2) Lower extremity edema Status: Acute Plan: Likely secondary to underlying cellulitis -Keep leg elevated and compression stocking -U/S: Negative for DVT (3) Diabetes mellitus, type 2 Status: Chronic Plan: Stable -Hold home metformin -Low dose SSI (4) ENRRIQUE (acute kidney injury) Status: Resolved Plan: Likely due to some dehydration versus infection. ENRRIQUE resolved s/p IVF -Continue to monitor renal function (5) Seizure Status: Chronic Plan: Unspecified seizure disorder not on antiseizure medication. No seizure activity noted since admission -Monitor clinically -Seizure precaution (6) Alcohol dependence Status: Acute Plan: History of alcohol use/abuse Denies current use -[facility] protocol (7) Nutrition, metabolism, and development symptoms Status: Acute Plan: Diet: Diabetic Fluid: HLIV. Encourage oral fluid hydration Electrolytes: WNL. Continue to monitor (8) Prophylactic measure Status: Acute Plan: Heparin 5000 units Q8hrs (Cinda Rivas MD R3) Problem Qualifiers (1) Diabetes mellitus, type 2: Qualified Code: E11.9 - Type 2 diabetes mellitus without complication, without long-term current use of insulin Cinda Rivas MD R3 Sep 08, 2016 09:45 Vanna Mares MD Sep 08, 2016 17:09
[2016-09-08] MEDS: VANCOMYCIN INJ 1,250 MG in SODIUM CHLOR 0.9% 250 ML INJ 250 ML IV SCH ×2 (10:10→21:45)
[2016-09-08 12:00] VITALS: BP 112/61; PULSE 73; RESP 16; TEMP 97.5; O2SAT 98
[2016-09-08 16:00] VITALS: BP 123/59; PULSE 77; RESP 17; TEMP 96.8; O2SAT 96
[2016-09-08] MEDS: LORazepam 1 MG TAB PO PRN (19:45)
[2016-09-08 20:00] VITALS: BP 118/58; PULSE 74; RESP 20; TEMP 98; O2SAT 96
[2016-09-09] VITALS: BP 120/62; PULSE 68; RESP 20; TEMP 97.4; O2SAT 97
[2016-09-09] MEDS: HEPARIN SODIUM - SQ 10,000 UNITS/ML VIAL SQ SCH ×4 (01:07→22:03)
[2016-09-09] MEDS: INSULIN ASPART SUPPLEMENTAL SCALE SQ SCH ×4 (05:38→21:00)
[2016-09-09] MEDS: ACETAMINOPHEN/HYDROcodone 325 MG/7.5 MG TAB PO PRN ×5 (05:41→23:11)
[2016-09-09 08:00] VITALS: BP 112/55; PULSE 73; RESP 18; TEMP 96.9; O2SAT 93
[2016-09-09] MEDS: LACTOBACILLUS ACIDOPHILUS TAB PO SCH ×2 (09:10→22:02)
[2016-09-09] MEDS: LEVOFLOXACIN 750 MG TAB PO SCH (09:10)
[2016-09-09] MEDS ORDERED: PHARMACY ORDERED LAB XX ONE (09:45)
[2016-09-09] MEDS ORDERED: EUCERIN CREAM 120 GM JAR TOPICAL PRN (10:00)
--- NOTE | 2016-09-09 10:01 | HHI.FPPN ---
Subjective Remarks Patient seen and examined. No acute events overnight. Vital signs stable. Afebrile. Patient denies any specific complaints this morning. Pain is controlled. Has not ambulated much because of swelling in his left leg but is able to get to and from the bathroom without difficulties. (Cinda Rivas MD R3) Objective Vitals Vital Signs Date Time Temp Pulse Resp B/P Pulse Ox O2 Delivery O2 Flow Rate FiO2 09/09/16 00:00 97.4 68 20 120/62 97 09/08/16 22:45 18 09/08/16 20:00 98.0 74 20 118/58 96 09/08/16 16:00 96.8 77 17 123/59 96 09/08/16 12:00 97.5 73 16 112/61 98 I/O 09/08/16 09/08/16 09/08/16 09/09/16 09/09/16 09/09/16 07:00 15:00 23:00 07:00 15:00 23:00 Intake Total 714 ml 2140 ml 640 ml 480 ml Output Total 550 ml 700 ml 700 ml Balance 164 ml 2140 ml -60 ml -220 ml Intake Oral 360 ml 2140 ml 640 ml 480 ml IV Total 354 ml Output Urine Total 550 ml 700 ml 700 ml # Voids 6 # Bowel Movements 0 1 0 0 (Cinda Rivas MD R3) Result Diagram: 09/08/16 0432 09/09/16 0630 Imaging Last Impressions Lower Extremity Ultrasound 09/06/16 0000 Signed Impressions: Service Date/Time: Tuesday, September 06, 2016 09:59 - CONCLUSION: No evidence of DVT. Richard Bowling MD Knee MRI 09/05/16 0000 Signed Impressions: Service Date/Time: Monday, September 05, 2016 14:59 - CONCLUSION: 1. Rim-enhancing prepatellar fluid collection characteristic of either an infected bursitis or subcutaneous abscess with surrounding cellulitis. Small knee joint effusion. 2. Cruciate and collateral ligaments intact. Nondisplaced linear tear posterior horn medial meniscus. Alex Krause MD Knee X-Ray 09/04/16 0000 Signed Impressions: Service Date/Time: Sunday, September 04, 2016 07:56 - CONCLUSION: 1. Mild to moderate osteoarthritis involving the medial femoral tibial joint and the patellofemoral joint. 2. Prepatellar soft tissue swelling. 3. Osteophytic spurring at the insertion of the quadriceps tendon in the origin and insertion of the patella ligament. 4. No acute fracture, dislocation or knee joint effusion. Rafi Mireles MD Objective Remarks GENERAL: Well-developed, well-nourished male resting comfortably in no acute distress. SKIN: Left leg and knee with significant erythema, improved since admission. Ecchymosis on left knee. Erythematous papules on both temples and side of nose HEAD: NC/AT EYES:No conjunctival injection or drainage. ENT: MMM, OP without erythema, tonsillar swelling, or exudate. NECK: Supple, no lymphadenopathy. CARDIOVASCULAR: RRR. Blowing holosystolic 2/6 murmur heard best in the aortic area. 1-2/6 systolic murmur also heard in mitral area. RESPIRATORY: CTAB. No crackles or wheezes. GASTROINTESTINAL: Abdomen soft, non-distended, non-tender. No hepato- splenomegaly or palpable masses. MUSCULOSKELETAL: 2+ pitting edema of of left LE, especially left foot ( unchanged from yesterday) Small amount of effusion of left knee. Active and passive range of motion full of left knee though somewhat painful. No calf tenderness. NEUROLOGICAL: Awake and alert. Moves all extremities without difficulty. Normal speech. (Cinda Rivas MD R3) A/P Assessment and Plan 61-year-old male with history of diabetes presenting with left leg cellulitis and knee bursitis that failed outpatient antibiotics with Clindamycin. Slowly improving with Levaquin and Vancomycin. ID has been consulted for further assistance. d/w Dr. Mares Discharge Planning Discharge pending clinical improvement, likely in 2-3 days. (Cinda Rivas MD R3) Attending Attestation Patient seen and examined. Case reviewed and discussed with the resident team Agree with plan of care as discussed with me and documented in the resident note. Appreciate antibiotic adjustments by ID (Vanna Mares MD) Problem List: (1) Left leg cellulitis Status: Acute Plan: -Extensive cellulitis of left leg and knee in the setting of diabetic patient. -Leukocytosis 19.5 on admission but trending down. ESR 74-->79. Imaging: -Knee x-ray: prepatellar soft tissue swelling. Mild to moderate osteoarthritis involving medial for moral tibial joint and patellofemoral joint. Osteophytic spurring at the insertion of quadriceps in the origin and insertion of the patellar ligament. No fracture, dislocation, or knee joint effusion -MRI: Rim enhancing prepatellar fluid collection of either infected bursitis or subcutaneous abscess with surrounding cellulitis. Small joint effusion. Displaced linear tear posterior horn medial meniscus Plan: -Vancomycin 1.25g IV BID and Levaquin 750mg po daily (09/04-). -ID consulted given slow improvement of symptoms. Appreciate expertise. -Orthopedic consulted. Appreciate assistance * Continue IV antibiotics * Possibility of surgical management were prepatellar bursitis discussed with patient. -Pain control with Tylenol and [place] -BCx 09/03: negative -Wound culture: negative (2) Lower extremity edema Status: Acute Plan: Likely secondary to underlying cellulitis -Keep leg elevated and compression stocking -U/S: Negative for DVT (3) Diabetes mellitus, type 2 Status: Chronic Plan: Stable -Hold home metformin -Low dose SSI (4) ENRRIQUE (acute kidney injury) Status: Resolved Plan: Likely due to some dehydration versus infection. ENRRIQUE resolved s/p IVF -Continue to monitor renal function while on antibiotics (5) Dermatitis Status: Acute Plan: Patient with area of erythematous rash on both temples as well as side of his nose. States that he intermittently gets a similar rash at home. ? atrophic dermatitis -Eucerin cream -If no improvement, will try Hydrocortisone topical cream (6) Seizure Status: Chronic Plan: Unspecified seizure disorder not on antiseizure medication. No seizure activity noted since admission -Monitor clinically -Seizure precaution (7) Alcohol dependence Status: Acute Plan: History of alcohol use/abuse Denies current use -[facility] protocol (8) Nutrition, metabolism, and development symptoms Status: Acute Plan: Diet: Diabetic Fluid: HLIV. Encourage oral fluid hydration Electrolytes: WNL. Continue to monitor (9) Prophylactic measure Status: Acute Plan: Heparin 5000 units Q8hrs (Cinda Rivas MD R3) Problem Qualifiers (1) Diabetes mellitus, type 2: Qualified Code: E11.9 - Type 2 diabetes mellitus without complication, without long-term current use of insulin Cinda Rivas MD R3 Sep 09, 2016 10:01 Vanna Mares MD Sep 10, 2016 15:21
[2016-09-09] MEDS: VANCOMYCIN INJ 1,250 MG in SODIUM CHLOR 0.9% 250 ML INJ 250 ML IV SCH (10:54)
[2016-09-09 12:00] VITALS: BP 120/59; PULSE 75; RESP 17; TEMP 97.8; O2SAT 100
[2016-09-09 13:02] LABS: AUTOMATED NEUTROPHIL # 12.4 TH/MM3 (1.8-7.7); BASOPHIL # 0.2 TH/MM3 (0-0.2); EOSINOPHIL # 0.2 TH/MM3 (0-0.4); EOSINOPHIL % 1.5 % (0.0-4.0); HEMATOCRIT 35.1 % (39.0-51.0); LYMPH % 13.1 % (9.0-44.0); LYMPHOCYTE # 2.1 TH/MM3 (1.0-4.8); MEAN CELL VOLUME 94.1 FL (80.0-100.0); MEAN CORPUSCULAR HEMOGLOBIN 32.5 PG (27.0-34.0); MEAN CORPUSCULAR HGB CONC 34.5 % (32.0-36.0); MONO % 7.2 % (0.0-8.0); NEUT % 77.2 % (16.0-70.0); PLATELET COUNT 368 TH/MM3 (150-450); RED BLOOD COUNT 3.73 MIL/MM3 (4.50-5.90); RED CELL DISTRIBUTION WIDTH 13.1 % (11.6-17.2); WHITE BLOOD COUNT 16.1 TH/MM3 (4.0-11.0)
[2016-09-09 13:13] LABS: HEMO FLAGS AUTO DIFF
[2016-09-09 14:11] LABS: BANDS 10 % (0-6); BASOPHILS 2 % (0-2); EOSINOPHILS 1 % (0-4); MYELOCYTES 2 % (0-0); POLYS (SEG NEUTROPHILS) 69 % (16-70); TOXIC GRANULATION 1+ (NORMAL); WBC DIFF SAMPLE 100
[2016-09-09 14:12] LABS: PLATELET ESTIMATE SMEAR NORMAL (NORMAL); PLATELET MORPHOLOGY NORMAL (NORMAL); SCAN/DIFF FINAL DIFF MANUAL
[2016-09-09 16:00] VITALS: BP 113/56; PULSE 82; RESP 17; TEMP 98.2; O2SAT 100
--- NOTE | 2016-09-09 17:22 | MB ---
cc: CHERI DONATO MD DATE OF CONSULTATION 09/09/[address] Rivas. REASON FOR CONSULTATION Left leg cellulitis with left knee bursitis. Please assist with antibiotic treatment. The patient slow to respond to antibiotics. HISTORY OF PRESENT ILLNESS This is a 61-year-old white male who presented to the emergency department on 09/04 with worsening left leg redness and swelling and also left knee swelling and redness as well. This began approximately 5 days prior. The patient's left knee was markedly swollen. He was evaluated by his primary physician and was given clindamycin and it was not improving and therefore he was sent to the emergency department for evaluation. After evaluation the left knee was aspirated and the culture was sent. The gram stain showed no white cells and no organisms and the culture was negative at 72 hours. Blood cultures have no growth. The patient was given antibiotics in the form of Levaquin and vancomycin. The swelling of the knee has improved, but he still has very significant redness involving the knee and also the left leg. He denies chills and denies nausea or vomiting. He states that the pain is worse when he gets up and tries to ambulate. PAST MEDICAL HISTORY 1. Diabetes mellitus. 2. Hypertension. 3. Seizure disorder. 4. Neuropathy. 5. History of cataract surgery. ALLERGIES KEFLEX, TETRACYCLINE, SULFA, KEPPRA, ESCITALOPRAM OXYLATE. MEDICATIONS 1. Vancomycin. 2. Levaquin. 3. Lactinex. 4. Shark liver oil. 5. Insulin. 6. Sumi-Colace. 7. [place] 5 p.r.n. 8. Ativan. SOCIAL HISTORY No tobacco use. Occasional alcohol. No illicit drugs. FAMILY HISTORY Noncontributory. The patient's mother had dementia and his father of a heart attack. REVIEW OF SYSTEMS Negative on 10-point review except for pain in the left knee and the left leg. PHYSICAL EXAMINATION GENERAL: This is a well-developed male who is in no acute distress. He is awake and alert and oriented. VITAL SIGNS: Include a temperature of 97.8, blood pressure 120/59, respiratory rate 18, heart rate 75. HEENT: The head is atraumatic. Extraocular movements grossly intact. Pupils are reactive to light without icterus. Oropharynx no visible lesions. NECK: Supple. No adenopathy. LUNGS: Clear breath sounds. HEART: Regular rate and rhythm without any murmurs, rubs, or gallops. ABDOMEN: Flat, soft. Nontender. Bowel sounds present. RECTAL: Not performed. EXTREMITIES: The left leg is markedly swollen and so is the left knee. There is an area of flattened, shaggy area of skin over the anterior knee with yellowish discoloration and surrounding redness. There is a streak of serous yellow fluid down the anterior tibia which appeared to have originated from the anterior aspect of the knee. The left leg has approximately 2+ edema and is very warm to touch and the redness courses down the entire left tibia to the ankle region. There is also redness at the lateral aspect of the left foot just beneath the ankle and 2+ edema of the left foot. The other extremities have no clubbing, cyanosis or edema. SKIN: The patient has a macular rash at the nasolabial area and also the bilateral temporal areas of the face. NEUROLOGICAL: Nonfocal. PSYCHIATRIC: The patient is calm and cooperative. LABORATORY DATA WBC 16.1, platelets 368, hemoglobin 12.1, 77% neutrophils, 13% lymphocytes, 10% bands. Creatinine 0.89, BUN 22, sodium 137. Vancomycin trough 15.6. IMAGING MRI of the knee reveals a nondisplaced linear tear at the posterior horn of the medial meniscus. And also rim enhancing prepatellar fluid collection characteristic of either an abscess or infected bursitis with surrounding cellulitis at the knee. Ultrasound of the left leg showed no evidence of DVT. IMPRESSION 1. Severe left lower extremity cellulitis, slow to respond to current IV antibiotics. 2. Left knee bursitis. 3. Leukocytosis secondary to infection. 4. Multiple antibiotic allergies. RECOMMENDATIONS 1. Discontinue vancomycin. 2. Begin daptomycin to cover possible MRSA or other gram-positive organisms. 3. Continue Levaquin. 4. Elevate the left leg on at least three pillow level. 5. Monitor white blood cell count. 6. Monitor response to antibiotic treatment. Thank you for this consultation. I will follow the patient's progress and make further recommendations on followup if necessary. Cheri Donato MD FD/ILDA /4:33 PM /4:56 PM MICHAEL
[2016-09-09] MEDS: DAPTOmycin INJ 500 MG in SODIUM CHLORIDE 0.9% INJ 100 ML IV SCH (18:08)
[2016-09-09 20:00] VITALS: BP 126/55; PULSE 90; RESP 18; TEMP 99.4; O2SAT 97
[2016-09-09] MEDS ORDERED: VANCOMYCIN 1,000 MG/NS 250 ML IV SCH ×2 (22:00)
[2016-09-09] MEDS: LORazepam 1 MG TAB PO PRN (23:11)
[2016-09-10] VITALS: BP 115/56; PULSE 81; RESP 16; TEMP 97.9; O2SAT 96
[2016-09-10] MEDS: ACETAMINOPHEN/HYDROcodone 325 MG/7.5 MG TAB PO PRN ×5 (04:31→21:16)
[2016-09-10] MEDS: INSULIN ASPART SUPPLEMENTAL SCALE SQ SCH ×4 (04:37→20:32)
[2016-09-10 05:47] LABS: AUTOMATED NEUTROPHIL # 11.6 TH/MM3 (1.8-7.7); BASOPHIL # 0.2 TH/MM3 (0-0.2); BASOPHIL % 1.1 % (0.0-2.0); EOSINOPHIL # 0.2 TH/MM3 (0-0.4); EOSINOPHIL % 1.3 % (0.0-4.0); HEMATOCRIT 32.7 % (39.0-51.0); LYMPH % 14.4 % (9.0-44.0); LYMPHOCYTE # 2.2 TH/MM3 (1.0-4.8); MEAN CELL VOLUME 94.4 FL (80.0-100.0); MEAN CORPUSCULAR HEMOGLOBIN 31.9 PG (27.0-34.0); MEAN CORPUSCULAR HGB CONC 33.8 % (32.0-36.0); MONO % 8.1 % (0.0-8.0); NEUT % 75.1 % (16.0-70.0); PLATELET COUNT 367 TH/MM3 (150-450); RED BLOOD COUNT 3.46 MIL/MM3 (4.50-5.90); RED CELL DISTRIBUTION WIDTH 13.2 % (11.6-17.2); WHITE BLOOD COUNT 15.4 TH/MM3 (4.0-11.0)
[2016-09-10 05:49] LABS: HEMO FLAGS AUTO DIFF
[2016-09-10 06:21] LABS: BICARBONATE 26.1 MEQ/L (21.0-32.0); POTASSIUM 4.4 MEQ/L (3.5-5.1)
[2016-09-10] MEDS: LEVOFLOXACIN 750 MG TAB PO SCH (07:59)
[2016-09-10] MEDS: LACTOBACILLUS ACIDOPHILUS TAB PO SCH ×2 (07:59→20:29)
[2016-09-10] MEDS: HEPARIN SODIUM - SQ 10,000 UNITS/ML VIAL SQ SCH ×3 (07:59→22:59)
[2016-09-10 08:00] VITALS: BP 97/54; PULSE 66; RESP 16; TEMP 96.8; O2SAT 97
[2016-09-10 08:01] LABS: BANDS 17 % (0-6); EOSINOPHILS 1 % (0-4); METAMYELOCYTES 4 % (0-1); NEUTROPHIL # MANUAL DIFF 12.3 TH/MM3 (1.8-7.7); PLATELET ESTIMATE SMEAR NORMAL (NORMAL); PLATELET MORPHOLOGY NORMAL (NORMAL); POLYS (SEG NEUTROPHILS) 59 % (16-70); WBC DIFF SAMPLE 100
[2016-09-10 08:02] LABS: SCAN/DIFF FINAL DIFF MANUAL
[2016-09-10] MEDS: LORazepam 1 MG TAB PO PRN ×3 (08:42→21:15)
--- NOTE | 2016-09-10 09:27 | HHI.FPPN ---
Subjective Remarks Patient seen and examined. No acute events overnight. VSSAF. No complaints this morning. States that redness and swelling have improved slightly since yesterday. Tolerating Daptomycin. Denies diarrhea. (Cinda Rivas MD R3) Objective Vitals Vital Signs Date Time Temp Pulse Resp B/P Pulse Ox O2 Delivery O2 Flow Rate FiO2 09/10/16 08:00 96.8 66 16 97/54 97 09/10/16 00:00 97.9 81 16 115/56 96 09/09/16 20:00 99.4 90 18 126/55 97 09/09/16 16:00 98.2 82 17 113/56 100 09/09/16 12:00 97.8 75 17 120/59 100 I/O 09/09/16 09/09/16 09/09/16 09/10/16 09/10/16 09/10/16 07:00 15:00 23:00 07:00 15:00 23:00 Intake Total 480 ml 2160 ml 883 ml 240 ml Output Total 700 ml Balance -220 ml 2160 ml 883 ml 240 ml Intake Oral 480 ml 2160 ml 480 ml 240 ml IV Total 403 ml Output Urine Total 700 ml # Voids 8 2 1 # Bowel Movements 0 1 0 0 (Cinda Rivas MD R3) Result Diagram: 09/10/16 0430 09/10/16 0430 Imaging Lower Extremity Ultrasound 09/06/16 0000 Signed Impressions: Service Date/Time: Tuesday, September 06, 2016 09:59 - CONCLUSION: No evidence of DVT. Richard Bowling MD Knee MRI 09/05/16 0000 Signed Impressions: Service Date/Time: Monday, September 05, 2016 14:59 - CONCLUSION: 1. Rim-enhancing prepatellar fluid collection characteristic of either an infected bursitis or subcutaneous abscess with surrounding cellulitis. Small knee joint effusion. 2. Cruciate and collateral ligaments intact. Nondisplaced linear tear posterior horn medial meniscus. Alex Krause MD Knee X-Ray 09/04/16 0000 Signed Impressions: Service Date/Time: Sunday, September 04, 2016 07:56 - CONCLUSION: 1. Mild to moderate osteoarthritis involving the medial femoral tibial joint and the patellofemoral joint. 2. Prepatellar soft tissue swelling. 3. Osteophytic spurring at the insertion of the quadriceps tendon in the origin and insertion of the patella ligament. 4. No acute fracture, dislocation or knee joint effusion. Rafi Mireles MD Objective Remarks GENERAL: Well-developed, well-nourished male resting comfortably in no acute distress. SKIN: Left leg and knee some erythema, improving. Erythematous papules on both temples and side of nose HEAD: NC/AT EYES:No conjunctival injection or drainage. ENT: MMM, OP without erythema, tonsillar swelling, or exudate. NECK: Supple, no lymphadenopathy. CARDIOVASCULAR: RRR. Blowing holosystolic 2/6 murmur heard best in the aortic area. 1-2/6 systolic murmur also heard in mitral area. RESPIRATORY: CTAB. No crackles or wheezes. GASTROINTESTINAL: Abdomen soft, non-distended, non-tender. No hepato- splenomegaly or palpable masses. MUSCULOSKELETAL: 2+ pitting edema of of left LE, especially left foot, improving. Small amount of effusion of left knee. Active and passive range of motion full of left knee though somewhat painful. No calf tenderness. NEUROLOGICAL: Awake and alert. Moves all extremities without difficulty. Normal speech. (Cinda Rivas MD R3) A/P Assessment and Plan 61-year-old male with history of diabetes presenting with left leg cellulitis and knee bursitis that failed outpatient antibiotics with Clindamycin. Currently on Levaquin and Daptomycin per ID. Clinically improving. d/w Dr. Mares Discharge Planning Discharge pending clinical improvement, likely in 2-3 days. (Cinda Rivas MD R3) Attending Attestation Patient seen and examined. Case reviewed and discussed Agree with plan of care as discussed with me and documented in the resident note. (Vanna Mares MD) Problem List: (1) Left leg cellulitis Status: Acute Plan: -Extensive cellulitis of left leg and knee in the setting of diabetic patient. -Still has leukocytosis but it is trending down. VSSAF. ESR 74-->79. Imaging: -Knee x-ray: prepatellar soft tissue swelling. Mild to moderate osteoarthritis involving medial for moral tibial joint and patellofemoral joint. Osteophytic spurring at the insertion of quadriceps in the origin and insertion of the patellar ligament. No fracture, dislocation, or knee joint effusion -MRI: Rim enhancing prepatellar fluid collection of either infected bursitis or subcutaneous abscess with surrounding cellulitis. Small joint effusion. Displaced linear tear posterior horn medial meniscus Plan: -ID consulted. Appreciate expertise. * Discontinue Vancomycin. Start Daptomycin 500mg daily (09/09-). Continue Levaquin 750mg po daily (09/04-) -Orthopedic consulted. Appreciate assistance * Continue antibiotics * Possibility of surgical management were prepatellar bursitis discussed with patient. -Pain control with Tylenol and [place] -BCx 09/03: negative -Wound culture: negative (2) Lower extremity edema Status: Acute Plan: Likely secondary to underlying cellulitis -Keep leg elevated and compression stocking -U/S: Negative for DVT (3) Diabetes mellitus, type 2 Status: Chronic Plan: Stable -Hold home metformin -Low dose SSI -Continue Lisinopril 2.5mg (4) ENRRIQUE (acute kidney injury) Status: Resolved Plan: Likely due to some dehydration versus infection. ENRRIQUE resolved s/p IVF -Continue to monitor renal function while on antibiotics (5) Dermatitis Status: Resolved Plan: Patient with area of erythematous rash on both temples as well as side of his nose. States that he intermittently gets a similar rash at home. ? atrophic dermatitis -Eucerin cream -If no improvement, will try Hydrocortisone topical cream (6) Seizure Status: Chronic Plan: Unspecified seizure disorder not on antiseizure medication. No seizure activity noted since admission -Monitor clinically -Seizure precaution (7) Alcohol dependence Status: Chronic Plan: History of alcohol use/abuse Denies current use -[facility] protocol (8) Nutrition, metabolism, and development symptoms Status: Acute Plan: Diet: Diabetic Fluid: HLIV. Encourage oral fluid hydration Electrolytes: WNL. Continue to monitor (9) Prophylactic measure Status: Acute Plan: Heparin 5000 units Q8hrs (Cinda Rivas MD R3) Problem Qualifiers (1) Diabetes mellitus, type 2: Qualified Code: E11.9 - Type 2 diabetes mellitus without complication, without long-term current use of insulin Cinda Rivas MD R3 Sep 10, 2016 09:27 Vanna Mares MD Sep 14, 2016 09:12
[2016-09-10] MEDS ORDERED: PILL SPLITTER OTHER PRN (09:45)
[2016-09-10] MEDS: LISINOPRIL 5 MG TAB PO SCH (10:35)
[2016-09-10 12:00] VITALS: BP 108/53; PULSE 67; RESP 17; TEMP 97.5; O2SAT 96
--- NOTE | 2016-09-10 13:44 | HHI.IDPN ---
Note Infectious Disease Note Patient feels a little better from standpoint of pain. Still with significant erythema at the LLE. Knee still swollen. PAST MEDICAL HISTORY 1. Diabetes mellitus. 2. Hypertension. 3. Seizure disorder. 4. Neuropathy. 5. History of cataract surgery. ALLERGIES KEFLEX, TETRACYCLINE, SULFA, KEPPRA, ESCITALOPRAM OXYLATE. MEDICATIONS 1. daptomycin. 2. Levaquin. OBJECTIVE: Vital Signs Date Time Temp Pulse Resp B/P Pulse Ox O2 Delivery O2 Flow Rate FiO2 09/10/16 12:00 97.5 67 17 108/53 96 09/10/16 08:00 96.8 66 16 97/54 97 09/10/16 00:00 97.9 81 16 115/56 96 09/09/16 20:00 99.4 90 18 126/55 97 09/09/16 16:00 98.2 82 17 113/56 100 09/09/16 09/09/16 09/10/16 15:00 23:00 07:00 Intake Total 2160 ml 883 ml 240 ml Balance 2160 ml 883 ml 240 ml Intake Oral 2160 ml 480 ml 240 ml IV Total 403 ml # Voids 8 2 1 # Bowel Movements 1 0 0 Laboratory Tests Test 09/09/16 09/10/16 12:25 04:30 White Blood Count 16.1 TH/MM3 15.4 TH/MM3 Red Blood Count 3.73 MIL/MM3 3.46 MIL/MM3 Hemoglobin 12.1 GM/DL 11.0 GM/DL Hematocrit 35.1 % 32.7 % Mean Corpuscular Volume 94.1 FL 94.4 FL Mean Corpuscular Hemoglobin 32.5 PG 31.9 PG Mean Corpuscular Hemoglobin 34.5 % 33.8 % Concent Red Cell Distribution Width 13.1 % 13.2 % Platelet Count 368 TH/MM3 367 TH/MM3 Mean Platelet Volume 8.2 FL 8.6 FL Neutrophils (%) (Auto) 77.2 % 75.1 % Lymphocytes (%) (Auto) 13.1 % 14.4 % Monocytes (%) (Auto) 7.2 % 8.1 % Eosinophils (%) (Auto) 1.5 % 1.3 % Basophils (%) (Auto) 1.0 % 1.1 % Neutrophils # (Auto) 12.4 TH/MM3 11.6 TH/MM3 Lymphocytes # (Auto) 2.1 TH/MM3 2.2 TH/MM3 Monocytes # (Auto) 1.2 TH/MM3 1.2 TH/MM3 Eosinophils # (Auto) 0.2 TH/MM3 0.2 TH/MM3 Basophils # (Auto) 0.2 TH/MM3 0.2 TH/MM3 CBC Comment AUTO DIFF AUTO DIFF Differential Total Cells 100 100 Counted Neutrophils % (Manual) 69 % 59 % Band Neutrophils % 10 % 17 % Lymphocytes % 10 % 13 % Monocytes % 6 % 6 % Eosinophils % 1 % 1 % Basophils % 2 % Neutrophils # (Manual) 13.0 TH/MM3 12.3 TH/MM3 Myelocytes 2 % Differential Comment FINAL DIFF FINAL DIFF MANUAL MANUAL Toxic Granulation 1+ Platelet Estimate NORMAL NORMAL Platelet Morphology Comment NORMAL NORMAL Metamyelocytes 4 % Atypical Lymphocytes % Red Cell Morphology Comment NORMAL Laboratory Tests Test 09/09/16 09/10/16 06:30 04:30 Creatinine 1.07 MG/DL 1.05 MG/DL Estimat Glomerular Filtration 70 ML/MIN 72 ML/MIN Rate Sodium Level 140 MEQ/L Potassium Level 4.4 MEQ/L Chloride Level 106 MEQ/L Carbon Dioxide Level 26.1 MEQ/L Anion Gap 8 MEQ/L Blood Urea Nitrogen 26 MG/DL Random Glucose 102 MG/DL Calcium Level 8.3 MG/DL PHYSICAL EXAMINATION GENERAL: No acute distress. . HEENT: No icterus. Oropharynx no visible lesions. LUNGS: Clear breath sounds. HEART: Regular rate and rhythm without any murmurs, rubs, or gallops. ABDOMEN: Flat, soft. Nontender. Bowel sounds present. RECTAL: Not performed. EXTREMITIES: The left leg is markedly swollen and so is the left knee. There is an area of flattened, shaggy area of skin over the anterior knee with yellowish discoloration and surrounding redness. 2+ edema. SKIN: Macular rash at the nasolabial area and also the bilateral temporal areas of the face. NEUROLOGICAL: Nonfocal. PSYCHIATRIC: The patient is calm and cooperative. IMAGING: Lower Extremity Ultrasound 09/06/16 0000 Signed Impressions: Service Date/Time: Tuesday, September 06, 2016 09:59 - CONCLUSION: No evidence of DVT. Richard Bowling MD Knee MRI 09/05/16 0000 Signed Impressions: Service Date/Time: Monday, September 05, 2016 14:59 - CONCLUSION: 1. Rim-enhancing prepatellar fluid collection characteristic of either an infected bursitis or subcutaneous abscess with surrounding cellulitis. Small knee joint effusion. 2. Cruciate and collateral ligaments intact. Nondisplaced linear tear posterior horn medial meniscus. Alex Krause MD Knee X-Ray 09/04/16 0000 Signed Impressions: Service Date/Time: Sunday, September 04, 2016 07:56 - CONCLUSION: 1. Mild to moderate osteoarthritis involving the medial femoral tibial joint and the patellofemoral joint. 2. Prepatellar soft tissue swelling. 3. Osteophytic spurring at the insertion of the quadriceps tendon in the origin and insertion of the patella ligament. 4. No acute fracture, dislocation or knee joint effusion. Rafi Mireles MD IMPRESSION 1. Severe left lower extremity cellulitis, slow to respond to IV antibiotics. 2. Left knee bursitis. 3. Leukocytosis secondary to infection. 4. Multiple antibiotic allergies. RECOMMENDATIONS 1. Continue daptomycin to cover possible MRSA or other gram-positive organisms. 2. Continue Levaquin. 3. Elevate the left leg. 4. Monitor white blood cell count. Omero Jean MD Sep 10, 2016 13:44
[2016-09-10 16:00] VITALS: BP 113/62; PULSE 75; RESP 17; TEMP 97; O2SAT 97
[2016-09-10] MEDS: DAPTOmycin INJ 500 MG in SODIUM CHLORIDE 0.9% INJ 100 ML IV SCH (16:50)
[2016-09-10 20:00] VITALS: BP 119/58; PULSE 82; RESP 14; TEMP 97.1; O2SAT 100
[2016-09-11] VITALS: BP 101/50; PULSE 71; RESP 16; TEMP 97.4; O2SAT 96
[2016-09-11] MEDS: ACETAMINOPHEN/HYDROcodone 325 MG/7.5 MG TAB PO PRN ×4 (03:57→22:24)
[2016-09-11] MEDS: INSULIN ASPART SUPPLEMENTAL SCALE SQ SCH ×4 (04:01→19:37)
[2016-09-11] MEDS: LORazepam 1 MG TAB PO PRN ×3 (04:01→19:36)
[2016-09-11 05:16] LABS: AUTOMATED NEUTROPHIL # 8.1 TH/MM3 (1.8-7.7); BASOPHIL # 0.1 TH/MM3 (0-0.2); BASOPHIL % 0.8 % (0.0-2.0); EOSINOPHIL # 0.2 TH/MM3 (0-0.4); EOSINOPHIL % 1.6 % (0.0-4.0); HEMATOCRIT 32.7 % (39.0-51.0); LYMPH % 17.5 % (9.0-44.0); MEAN CELL VOLUME 94.4 FL (80.0-100.0); MEAN CORPUSCULAR HGB CONC 33.9 % (32.0-36.0); MONO % 8.4 % (0.0-8.0); NEUT % 71.7 % (16.0-70.0); PLATELET COUNT 347 TH/MM3 (150-450); RED BLOOD COUNT 3.47 MIL/MM3 (4.50-5.90); RED CELL DISTRIBUTION WIDTH 13.4 % (11.6-17.2); WHITE BLOOD COUNT 11.3 TH/MM3 (4.0-11.0)
[2016-09-11 05:36] LABS: HEMO FLAGS AUTO DIFF
[2016-09-11 07:04] LABS: BANDS 5 % (0-6); BASOPHILS 3 % (0-2); EOSINOPHILS 1 % (0-4); METAMYELOCYTES 3 % (0-1); MYELOCYTES 2 % (0-0); NEUTROPHIL # MANUAL DIFF 7.8 TH/MM3 (1.8-7.7); PLATELET ESTIMATE SMEAR NORMAL (NORMAL); PLATELET MORPHOLOGY NORMAL (NORMAL); POLYS (SEG NEUTROPHILS) 59 % (16-70); WBC DIFF SAMPLE 100
[2016-09-11 07:05] LABS: SCAN/DIFF FINAL DIFF MANUAL
[2016-09-11 08:00] VITALS: BP 91/50; PULSE 65; RESP 16; TEMP 95.8; O2SAT 98
[2016-09-11] MEDS: LISINOPRIL 5 MG TAB PO SCH (09:30)
[2016-09-11] MEDS: LACTOBACILLUS ACIDOPHILUS TAB PO SCH ×2 (09:30→20:11)
[2016-09-11] MEDS: LEVOFLOXACIN 750 MG TAB PO SCH (09:30)
[2016-09-11] MEDS: HEPARIN SODIUM - SQ 10,000 UNITS/ML VIAL SQ SCH ×3 (09:30→23:27)
--- NOTE | 2016-09-11 09:48 | HHI.FPPN ---
Subjective Remarks Patient seen and examined. No acute events overnight. VSSAF. Patient denies any complaints this morning. Had more pain in his left leg yesterday but it is controlled this morning. Ambulating and tolerating regular diet. Denies diarrhea. (Cinda Rivas MD R3) Objective Vitals Vital Signs Date Time Temp Pulse Resp B/P Pulse Ox O2 Delivery O2 Flow Rate FiO2 09/11/16 08:00 95.8 65 16 91/50 98 09/11/16 00:00 97.4 71 16 101/50 96 09/10/16 20:00 97.1 82 14 119/58 100 09/10/16 16:00 97.0 75 17 113/62 97 09/10/16 12:00 97.5 67 17 108/53 96 I/O 09/10/16 09/10/16 09/10/16 09/11/16 09/11/16 09/11/16 07:00 15:00 23:00 07:00 15:00 23:00 Intake Total 240 ml 240 ml 480 ml 365 ml Balance 240 ml 240 ml 480 ml 365 ml Intake Oral 240 ml 240 ml 480 ml 240 ml IV Total 125 ml # Voids 1 3 2 1 # Bowel Movements 0 0 0 0 (Cinda Rivas MD R3) Result Diagram: 09/11/16 0341 09/11/16 0341 Imaging Lower Extremity Ultrasound 09/06/16 0000 Signed Impressions: Service Date/Time: Tuesday, September 06, 2016 09:59 - CONCLUSION: No evidence of DVT. Richard Bowling MD Knee MRI 09/05/16 0000 Signed Impressions: Service Date/Time: Monday, September 05, 2016 14:59 - CONCLUSION: 1. Rim-enhancing prepatellar fluid collection characteristic of either an infected bursitis or subcutaneous abscess with surrounding cellulitis. Small knee joint effusion. 2. Cruciate and collateral ligaments intact. Nondisplaced linear tear posterior horn medial meniscus. Alex Krause MD Knee X-Ray 09/04/16 0000 Signed Impressions: Service Date/Time: Sunday, September 04, 2016 07:56 - CONCLUSION: 1. Mild to moderate osteoarthritis involving the medial femoral tibial joint and the patellofemoral joint. 2. Prepatellar soft tissue swelling. 3. Osteophytic spurring at the insertion of the quadriceps tendon in the origin and insertion of the patella ligament. 4. No acute fracture, dislocation or knee joint effusion. Rafi Mireles MD Objective Remarks GENERAL: Well-developed, well-nourished male resting comfortably in no acute distress. SKIN: Left leg and knee some erythema, improving. Desquamation of the skin around his left knee. HEAD: NC/AT EYES:No conjunctival injection or drainage. ENT: MMM, OP without erythema, tonsillar swelling, or exudate. NECK: Supple, no lymphadenopathy. CARDIOVASCULAR: RRR. Blowing holosystolic 2/6 murmur heard best in the aortic area. 1-2/6 systolic murmur also heard in mitral area. RESPIRATORY: CTAB. No crackles or wheezes. GASTROINTESTINAL: Abdomen soft, non-distended, non-tender. No hepato- splenomegaly or palpable masses. MUSCULOSKELETAL: 1+ pitting edema of of left LE, especially left foot, improving. Moderate amount of effusion of left knee. Active and passive range of motion full of left knee though somewhat painful. No calf tenderness. NEUROLOGICAL: Awake and alert. Moves all extremities without difficulty. Normal speech. (Cinda Rivas MD R3) A/P Assessment and Plan 61-year-old male with history of diabetes presenting with left leg cellulitis and knee bursitis that failed outpatient antibiotics with Clindamycin. Currently on Levaquin and Daptomycin per ID. Clinically improving. d/w Dr. Mares Discharge Planning Discharge pending clinical improvement, likely in 2-3 days. Still on IV antibiotics. (Cinda Rivas MD R3) Attending Attestation Patient seen and examined. Case reviewed and discussed with the resident physician, Dr. Rivas and ID, Dr. Jean. Agree with plan of care as discussed with me and documented in the resident note. (Vanna Mares MD) Problem List: (1) Left leg cellulitis Status: Acute Plan: -Extensive cellulitis of left leg and knee in the setting of diabetic patient. ESR 74-->79. -Leukocytosis trending down. VSSAF. Imaging: -Knee x-ray: prepatellar soft tissue swelling. Mild to moderate osteoarthritis involving medial for moral tibial joint and patellofemoral joint. Osteophytic spurring at the insertion of quadriceps in the origin and insertion of the patellar ligament. No fracture, dislocation, or knee joint effusion -MRI: Rim enhancing prepatellar fluid collection of either infected bursitis or subcutaneous abscess with surrounding cellulitis. Small joint effusion. Displaced linear tear posterior horn medial meniscus Plan: -ID consulted. Appreciate expertise. * Daptomycin 500mg daily (09/09-). Continue Levaquin 750mg po daily (09/04-) -Orthopedic consulted. Appreciate assistance * Continue antibiotics * No plans for surgical intervention -Pain control with Tylenol and [place] -BCx 09/03: negative -Wound culture: negative (2) Lower extremity edema Status: Acute Plan: Likely secondary to underlying cellulitis -Keep leg elevated and compression stocking -U/S: Negative for DVT (3) Diabetes mellitus, type 2 Status: Chronic Plan: Stable -Hold home metformin -Low dose SSI -Continue Lisinopril 2.5mg (4) ENRRIQUE (acute kidney injury) Status: Resolved Plan: Likely due to some dehydration versus infection. ENRRIQUE resolved s/p IVF -Continue to monitor renal function while on antibiotics (5) Dermatitis Status: Resolved Plan: Patient with area of erythematous rash on both temples as well as side of his nose. States that he intermittently gets a similar rash at home. ? atrophic dermatitis -Eucerin cream (6) Seizure Status: Chronic Plan: Unspecified seizure disorder not on antiseizure medication. No seizure activity noted since admission -Monitor clinically -Seizure precaution (7) Alcohol dependence Status: Chronic Plan: History of alcohol use/abuse Denies current use -[facility] protocol (8) Nutrition, metabolism, and development symptoms Status: Acute Plan: Diet: Diabetic Fluid: HLIV. Encourage oral fluid hydration Electrolytes: WNL. Continue to monitor (9) Prophylactic measure Status: Acute Plan: Heparin 5000 units Q8hrs (Cinda Rivas MD R3) Problem Qualifiers (1) Diabetes mellitus, type 2: Qualified Code: E11.9 - Type 2 diabetes mellitus without complication, without long-term current use of insulin Cinda Rivas MD R3 Sep 11, 2016 09:48 Vanna Mares MD Sep 11, 2016 13:43
[2016-09-11 12:00] VITALS: BP 99/56; PULSE 71; RESP 17; TEMP 96.8; O2SAT 98
--- NOTE | 2016-09-11 12:19 | HHI.IDPN ---
Note Infectious Disease Note Patient notes severe pain in the L. knee. Still with significant erythema at the left knee. Afebrile. No chills. PAST MEDICAL HISTORY 1. Diabetes mellitus. 2. Hypertension. 3. Seizure disorder. 4. Neuropathy. 5. History of cataract surgery. ALLERGIES KEFLEX, TETRACYCLINE, SULFA, KEPPRA, ESCITALOPRAM OXYLATE. MEDICATIONS 1. daptomycin. 2. Levaquin. OBJECTIVE: Vital Signs Date Time Temp Pulse Resp B/P Pulse Ox O2 Delivery O2 Flow Rate FiO2 09/11/16 08:00 95.8 65 16 91/50 98 09/11/16 00:00 97.4 71 16 101/50 96 09/10/16 20:00 97.1 82 14 119/58 100 09/10/16 16:00 97.0 75 17 113/62 97 09/10/16 09/10/16 09/11/16 15:00 23:00 07:00 Intake Total 240 ml 480 ml 365 ml Balance 240 ml 480 ml 365 ml Intake Oral 240 ml 480 ml 240 ml IV Total 125 ml # Voids 3 2 1 # Bowel Movements 0 0 0 Laboratory Tests Test 09/09/16 09/10/16 09/11/16 12:25 04:30 03:41 White Blood Count 16.1 TH/MM3 15.4 TH/MM3 11.3 TH/MM3 Red Blood Count 3.73 MIL/MM3 3.46 MIL/MM3 3.47 MIL/MM3 Hemoglobin 12.1 GM/DL 11.0 GM/DL 11.1 GM/DL Hematocrit 35.1 % 32.7 % 32.7 % Mean Corpuscular Volume 94.1 FL 94.4 FL 94.4 FL Mean Corpuscular Hemoglobin 32.5 PG 31.9 PG 32.0 PG Mean Corpuscular Hemoglobin 34.5 % 33.8 % 33.9 % Concent Red Cell Distribution Width 13.1 % 13.2 % 13.4 % Platelet Count 368 TH/MM3 367 TH/MM3 347 TH/MM3 Mean Platelet Volume 8.2 FL 8.6 FL 8.6 FL Neutrophils (%) (Auto) 77.2 % 75.1 % 71.7 % Lymphocytes (%) (Auto) 13.1 % 14.4 % 17.5 % Monocytes (%) (Auto) 7.2 % 8.1 % 8.4 % Eosinophils (%) (Auto) 1.5 % 1.3 % 1.6 % Basophils (%) (Auto) 1.0 % 1.1 % 0.8 % Neutrophils # (Auto) 12.4 TH/MM3 11.6 TH/MM3 8.1 TH/MM3 Lymphocytes # (Auto) 2.1 TH/MM3 2.2 TH/MM3 2.0 TH/MM3 Monocytes # (Auto) 1.2 TH/MM3 1.2 TH/MM3 0.9 TH/MM3 Eosinophils # (Auto) 0.2 TH/MM3 0.2 TH/MM3 0.2 TH/MM3 Basophils # (Auto) 0.2 TH/MM3 0.2 TH/MM3 0.1 TH/MM3 CBC Comment AUTO DIFF AUTO DIFF AUTO DIFF Differential Total Cells 100 100 100 Counted Neutrophils % (Manual) 69 % 59 % 59 % Band Neutrophils % 10 % 17 % 5 % Lymphocytes % 10 % 13 % 22 % Monocytes % 6 % 6 % 5 % Eosinophils % 1 % 1 % 1 % Basophils % 2 % 3 % Neutrophils # (Manual) 13.0 TH/MM3 12.3 TH/MM3 7.8 TH/MM3 Myelocytes 2 % 2 % Differential Comment FINAL DIFF FINAL DIFF FINAL DIFF MANUAL MANUAL MANUAL Toxic Granulation 1+ Platelet Estimate NORMAL NORMAL NORMAL Platelet Morphology Comment NORMAL NORMAL NORMAL Metamyelocytes 4 % 3 % Atypical Lymphocytes % Red Cell Morphology Comment NORMAL NORMAL Laboratory Tests Test 09/10/16 09/11/16 04:30 03:41 Sodium Level 140 MEQ/L Potassium Level 4.4 MEQ/L Chloride Level 106 MEQ/L Carbon Dioxide Level 26.1 MEQ/L Anion Gap 8 MEQ/L Blood Urea Nitrogen 26 MG/DL Creatinine 1.05 MG/DL 1.00 MG/DL Estimat Glomerular Filtration 72 ML/MIN 76 ML/MIN Rate Random Glucose 102 MG/DL Calcium Level 8.3 MG/DL PHYSICAL EXAMINATION GENERAL: No acute distress. . LUNGS: Clear breath sounds. HEART: Regular rate and rhythm without murmurs, rubs, or gallops. ABDOMEN: Flat, soft. Nontender. Bowel sounds present. EXTREMITIES: The left leg remains swollen but erythema is improved. The left knee remain swollen and has more erythema. There is an area of flattened, shaggy area of skin over the anterior knee with yellowish discoloration and surrounding redness. 2+ edema at the left leg. SKIN: Macular rash at the nasolabial area and also the bilateral temporal areas of the face. NEUROLOGICAL: Nonfocal. PSYCHIATRIC: Calm and cooperative. IMAGING: Lower Extremity Ultrasound 09/06/16 0000 Signed Impressions: Service Date/Time: Tuesday, September 06, 2016 09:59 - CONCLUSION: No evidence of DVT. Richard Bowling MD Knee MRI 09/05/16 0000 Signed Impressions: Service Date/Time: Monday, September 05, 2016 14:59 - CONCLUSION: 1. Rim-enhancing prepatellar fluid collection characteristic of either an infected bursitis or subcutaneous abscess with surrounding cellulitis. Small knee joint effusion. 2. Cruciate and collateral ligaments intact. Nondisplaced linear tear posterior horn medial meniscus. Alex Krause MD Knee X-Ray 09/04/16 0000 Signed Impressions: Service Date/Time: Sunday, September 04, 2016 07:56 - CONCLUSION: 1. Mild to moderate osteoarthritis involving the medial femoral tibial joint and the patellofemoral joint. 2. Prepatellar soft tissue swelling. 3. Osteophytic spurring at the insertion of the quadriceps tendon in the origin and insertion of the patella ligament. 4. No acute fracture, dislocation or knee joint effusion. Rafi Mireles MD IMPRESSION 1. Severe left lower extremity cellulitis, slow to respond to IV antibiotics. 2. Left knee bursitis, May have effusion. 3. Leukocytosis secondary to infection. 4. Multiple antibiotic allergies. RECOMMENDATIONS 1. Continue daptomycin to cover possible MRSA or other gram-positive organisms. 2. Continue Levaquin. 3. Elevate the left leg. 4. Monitor white blood cell count. 5. Agree with orthopedic evaluation. 6. May wrap left leg with alejo wrap to the mid tibia. Omero Jean MD Sep 11, 2016 12:19
[2016-09-11] MEDS ORDERED: HYDROmorphone HCL PF 1 MG/ML VIAL IV PUSH ONE (14:00)
--- NOTE | 2016-09-11 14:31 | HHI.FPPN ---
Addendum to progress note ADDENDUM Reason for addendum: Additonal documentation Additional information Primary performer: Angelo Rivas Supervising attending: Dr. Mares After the risks and benefits were discussed the following procedure was performed: INCISION AND DRAINAGE LEFT KNEE PREPATELLAR BURSITIS: The area was prepped and sterilely cleaned with Betadine. A number 15 scalpel was used to make a 0.5 cm incision across the area. Moderate amount of bloody fluid was expressed from the area. Dressing applied. Patient tolerated procedure well. EBL<20cc (Cinda Rivas MD R3) Cinda Rivas MD R3 Sep 11, 2016 14:31 Vanna Mares MD Sep 14, 2016 09:14
--- NOTE | 2016-09-11 15:00 | HHI.FPPN ---
Addendum to progress note ADDENDUM Reason for addendum: Additonal documentation Additional information FPTS OFF SERVICE NOTE: Mr. Light is a 61 year old male who was admitted on 09/04/16 for sepsis secondary left leg cellulitis. Vancomycin and Levaquin were started on admission. Knee x-ray showed mild to moderate osteoarthritis and prepatellar soft tissue swelling. MRI was negative for osteomyelitis but showed prepatellar fluid collection consistent with either infected bursitis or subcutaneous abscess with surrounding cellulitis as well as nondisplaced linear tear in posterior horn of medial meniscus. Orthopedic was consulted and recommended medical management and deferred surgical intervention. Wound culture and blood cultures were negative. Infectious disease was consulted on 09/09/16 given slow response to Vanc/Levaquin. Patient was switched to Daptomycin per ID. He is currently on day 8 of Levaquin (09/04-) and day 3 of Daptomycin (09/09-). Medicine team also performed bedside I&D of bursitis on 09/11. Moderate amount of bloody fluid was expressed from the knee. Patient tolerated procedure well. Per ID, patient will likely be able to go home on Wednesday pending further clinical improvement. (Cinda Rivas MD R3) Cinda Rivas MD R3 Sep 11, 2016 15:00 Vanna Mares MD Sep 14, 2016 09:14
[2016-09-11 16:00] VITALS: BP 92/51; PULSE 60; RESP 17; TEMP 94.3; O2SAT 98
[2016-09-11] MEDS: DAPTOmycin INJ 500 MG in SODIUM CHLORIDE 0.9% INJ 100 ML IV SCH (17:38)
[2016-09-11 20:00] VITALS: BP 118/58; PULSE 78; RESP 20; TEMP 97.8; O2SAT 100
[2016-09-12] VITALS: BP 120/64; PULSE 80; RESP 20; TEMP 98.2; O2SAT 97
[2016-09-12] MEDS: ACETAMINOPHEN/HYDROcodone 325 MG/7.5 MG TAB PO PRN ×5 (02:38→22:56)
[2016-09-12] MEDS: LORazepam 1 MG TAB PO PRN ×4 (02:44→21:05)
[2016-09-12 05:06] LABS: AUTOMATED NEUTROPHIL # 6.9 TH/MM3 (1.8-7.7); BASOPHIL # 0.1 TH/MM3 (0-0.2); BASOPHIL % 0.8 % (0.0-2.0); EOSINOPHIL # 0.2 TH/MM3 (0-0.4); HEMATOCRIT 31.9 % (39.0-51.0); HEMO FLAGS DIFF FINAL; LYMPH % 21.3 % (9.0-44.0); LYMPHOCYTE # 2.2 TH/MM3 (1.0-4.8); MEAN CELL VOLUME 94.3 FL (80.0-100.0); MEAN CORPUSCULAR HEMOGLOBIN 32.1 PG (27.0-34.0); MEAN CORPUSCULAR HGB CONC 34.1 % (32.0-36.0); MONO % 9.7 % (0.0-8.0); NEUT % 66.2 % (16.0-70.0); PLATELET COUNT 387 TH/MM3 (150-450); RED BLOOD COUNT 3.39 MIL/MM3 (4.50-5.90); WHITE BLOOD COUNT 10.5 TH/MM3 (4.0-11.0)
[2016-09-12] MEDS: INSULIN ASPART SUPPLEMENTAL SCALE SQ SCH ×4 (07:00→21:00)
[2016-09-12 08:00] VITALS: BP 110/58; PULSE 62; RESP 19; TEMP 97.2; O2SAT 97
[2016-09-12] MEDS: LACTOBACILLUS ACIDOPHILUS TAB PO SCH ×2 (08:29→21:04)
[2016-09-12] MEDS: LEVOFLOXACIN 750 MG TAB PO SCH (08:29)
[2016-09-12] MEDS: LISINOPRIL 5 MG TAB PO SCH (08:30)
[2016-09-12] MEDS: HEPARIN SODIUM - SQ 10,000 UNITS/ML VIAL SQ SCH ×3 (08:31→22:55)
--- NOTE | 2016-09-12 10:44 | HHI.FPPN ---
Subjective Remarks Mr. Light is doing well over the past 24 hours. He is status post left knee incision and drainage on 09/11/2016. He tolerated this procedure well. He denies any worsening pain, erythema, or warmth in the joint. He denies any chest pain, shortness breath, fevers or chills. He reports that his left knee pain has gotten better after switching antibiotics to gentamicin. He has been afebrile, vital signs have been stable over the past 24 hours. (Sandor Bobby MD R2) Objective Vitals Vital Signs Date Time Temp Pulse Resp B/P Pulse Ox O2 Delivery O2 Flow Rate FiO2 09/12/16 08:00 97.2 62 19 110/58 97 09/12/16 00:00 98.2 80 20 120/64 97 09/11/16 20:00 97.8 78 20 118/58 100 09/11/16 19:36 18 09/11/16 16:00 94.3 60 17 92/51 98 09/11/16 12:00 96.8 71 17 99/56 98 I/O 09/11/16 09/11/16 09/11/16 09/12/16 09/12/16 09/12/16 07:00 15:00 23:00 07:00 15:00 23:00 Intake Total 365 ml 200 ml 480 ml 240 ml 120 ml Output Total 550 ml 450 ml Balance 365 ml 200 ml -70 ml -210 ml 120 ml Intake Oral 240 ml 200 ml 480 ml 240 ml 120 ml IV Total 125 ml 0 ml Output Urine Total 550 ml 450 ml # Voids 1 3 # Bowel Movements 0 0 0 0 (Sandor Bobby MD R2) Result Diagram: 09/12/16 0415 09/11/16 0341 Objective Remarks GENERAL: Well-developed, well-nourished male resting comfortably in no acute distress. SKIN: Left leg and knee some erythema, improving. Desquamation of the skin around his left knee. HEAD: NC/AT EYES:No conjunctival injection or drainage. ENT: MMM, OP without erythema, tonsillar swelling, or exudate. NECK: Supple, no lymphadenopathy. CARDIOVASCULAR: RRR. Blowing holosystolic 2/6 murmur heard best in the aortic area. 1-2/6 systolic murmur also heard in mitral area. RESPIRATORY: CTAB. No crackles or wheezes. GASTROINTESTINAL: Abdomen soft, non-distended, non-tender. No hepato- splenomegaly or palpable masses. MUSCULOSKELETAL: 1+ pitting edema of of left LE, especially left foot, improving. Minimal amount of effusion of left knee approximately 3 cm round x 0.5 cm height. Active and passive range of motion full of left knee though somewhat painful. No calf tenderness. NEUROLOGICAL: Awake and alert. Moves all extremities without difficulty. Normal speech. (Sandor Bobby MD R2) A/P Assessment and Plan 61-year-old male with history of diabetes presenting with left leg cellulitis and knee bursitis that failed outpatient antibiotics with Clindamycin. Currently on Levaquin and Daptomycin per ID. Clinically improving. d/w Dr. Mares Discharge Planning Discharge pending clinical improvement, likely in 2-3 days. Still on IV antibiotics. (Sandor Bobby MD R2) Attending Attestation Patient seen and examined. Case reviewed and discussed Agree with plan of care as discussed with me and documented in the resident note. (Vanna Mares MD) Problem List: (1) Left leg cellulitis Status: Acute Plan: -Extensive cellulitis of left leg and knee in the setting of diabetic patient. ESR 74-->79. -Leukocytosis trending down. VSSAF. Imaging: -Knee x-ray: prepatellar soft tissue swelling. Mild to moderate osteoarthritis involving medial for moral tibial joint and patellofemoral joint. Osteophytic spurring at the insertion of quadriceps in the origin and insertion of the patellar ligament. No fracture, dislocation, or knee joint effusion -MRI: Rim enhancing prepatellar fluid collection of either infected bursitis or subcutaneous abscess with surrounding cellulitis. Small joint effusion. Displaced linear tear posterior horn medial meniscus Plan: -ID consulted. Appreciate expertise. * Daptomycin 500mg daily (09/09-). Continue Levaquin 750mg po daily (09/04-) -Orthopedic consulted. Appreciate assistance * Continue antibiotics * No plans for surgical intervention -Pain control with Tylenol and [place] -BCx 09/03: negative -Wound culture: negative (2) Lower extremity edema Status: Acute Plan: Likely secondary to underlying cellulitis -Keep leg elevated and compression stocking -U/S: Negative for DVT (3) Diabetes mellitus, type 2 Status: Chronic Plan: Stable -Hold home metformin -Low dose SSI -Continue Lisinopril 2.5mg (4) ENRRIQUE (acute kidney injury) Status: Resolved Plan: Likely due to some dehydration versus infection. ENRRIQUE resolved s/p IVF -Continue to monitor renal function while on antibiotics (5) Dermatitis Status: Resolved Plan: Patient with area of erythematous rash on both temples as well as side of his nose. States that he intermittently gets a similar rash at home. ? atrophic dermatitis -Eucerin cream (6) Seizure Status: Chronic Plan: Unspecified seizure disorder not on antiseizure medication. No seizure activity noted since admission -Monitor clinically -Seizure precaution (7) Alcohol dependence Status: Chronic Plan: History of alcohol use/abuse Denies current use -[facility] protocol (8) Nutrition, metabolism, and development symptoms Status: Acute Plan: Diet: Diabetic Fluid: HLIV. Encourage oral fluid hydration Electrolytes: WNL. Continue to monitor (9) Prophylactic measure Status: Acute Plan: Heparin 5000 units Q8hrs (Sandor Bobby MD R2) Problem Qualifiers (1) Diabetes mellitus, type 2: Qualified Code: E11.9 - Type 2 diabetes mellitus without complication, without long-term current use of insulin Sandor Bobby MD R2 Sep 12, 2016 10:43 Vanna Mares MD Sep 14, 2016 09:14
[2016-09-12 11:46] VITALS: BP 92/53; PULSE 62; RESP 19; TEMP 97.8; O2SAT 96
[2016-09-12 16:00] VITALS: BP 122/60; PULSE 73; RESP 19; TEMP 97.4; O2SAT 98
[2016-09-12] MEDS: DAPTOmycin INJ 500 MG in SODIUM CHLORIDE 0.9% INJ 100 ML IV SCH (17:41)
[2016-09-12 20:23] VITALS: BP 114/56; PULSE 60; RESP 17; TEMP 97.6; O2SAT 97
[2016-09-13 00:08] VITALS: BP 121/56; PULSE 79; RESP 17; TEMP 98.9; O2SAT 97
[2016-09-13] MEDS: ACETAMINOPHEN/HYDROcodone 325 MG/7.5 MG TAB PO PRN (04:59)
[2016-09-13] MEDS: LORazepam 1 MG TAB PO PRN ×5 (04:59→23:48)
[2016-09-13] MEDS: INSULIN ASPART SUPPLEMENTAL SCALE SQ SCH ×4 (05:00→21:00)
[2016-09-13 08:00] VITALS: BP 91/55; PULSE 66; RESP 18; TEMP 96.6; O2SAT 96
--- NOTE | 2016-09-13 08:31 | HHI.FPPN ---
Subjective Remarks Sheng was resting comfortably on the sofa. Overall he feels well. He reports worsening left knee pain, mostly at nighttime. He says it takes him 5- 10 minutes to use the restroom, secondary to his pain. He is concerned that at discharge the pain will be too much to bear. He also says it will be difficult to ambulate because his bathroom is on the other side of the house. He also says that he will have difficulty obtaining transportation. He did have an episode of sweating through the covers last night, however did not feel like he had a fever at that time. He says that his leg "looks much better." He denies any chest pain, new cough, or abdominal pain. (Sandor Bobby MD R2) Objective Vitals Vital Signs Date Time Temp Pulse Resp B/P Pulse Ox O2 Delivery O2 Flow Rate FiO2 09/13/16 00:08 98.9 79 17 121/56 97 09/12/16 20:23 97.6 60 17 114/56 97 09/12/16 16:00 97.4 73 19 122/60 98 09/12/16 11:46 97.8 62 19 92/53 96 I/O 09/12/16 09/12/16 09/12/16 09/13/16 09/13/16 09/13/16 07:00 15:00 23:00 07:00 15:00 23:00 Intake Total 240 ml 1520 ml 580 ml 480 ml Output Total 450 ml 900 ml Balance -210 ml 620 ml 580 ml 480 ml Intake Oral 240 ml 1520 ml 380 ml 480 ml IV Total 200 ml Output Urine Total 450 ml 900 ml # Voids 2 2 # Bowel Movements 0 0 (Sandor Bobby MD R2) Result Diagram: 09/12/16 0415 09/13/16 0457 Objective Remarks GENERAL: Well-developed, well-nourished male resting comfortably in no acute distress. SKIN: Left leg and knee some erythema, improving. Desquamation of the skin around his left knee. HEAD: NC/AT EYES:No conjunctival injection or drainage. ENT: MMM, OP without erythema, tonsillar swelling, or exudate. NECK: Supple, no lymphadenopathy. CARDIOVASCULAR: RRR. Blowing holosystolic 2/6 murmur heard best in the aortic area. 1-2/6 systolic murmur also heard in mitral area. RESPIRATORY: CTAB. No crackles or wheezes. GASTROINTESTINAL: Abdomen soft, non-distended, non-tender. No hepato- splenomegaly or palpable masses. MUSCULOSKELETAL: 1+ pitting edema of of left LE, especially left foot, improving. Minimal amount of effusion of left knee approximately 3 cm round x 0.5 cm height. Active and passive range of motion full of left knee though somewhat painful. No calf tenderness. NEUROLOGICAL: Awake and alert. Moves all extremities without difficulty. Normal speech. (Sandor Bobby MD R2) A/P Assessment and Plan 61-year-old male with history of diabetes presenting with left leg cellulitis and knee bursitis that failed outpatient antibiotics with Clindamycin. Currently on Levaquin and Daptomycin per ID. Clinically improving. d/w Dr. Mares Discharge Planning Discharge pending clinical improvement, likely in 2-3 days. Still on IV antibiotics. (Sandor Bobby MD R2) Problem List: (1) Left leg cellulitis Status: Acute Plan: -Extensive cellulitis of left leg and knee in the setting of diabetic patient. ESR 74-->79. -Leukocytosis trending down. VSSAF. Imaging: -Knee x-ray: prepatellar soft tissue swelling. Mild to moderate osteoarthritis involving medial for moral tibial joint and patellofemoral joint. Osteophytic spurring at the insertion of quadriceps in the origin and insertion of the patellar ligament. No fracture, dislocation, or knee joint effusion -MRI: Rim enhancing prepatellar fluid collection of either infected bursitis or subcutaneous abscess with surrounding cellulitis. Small joint effusion. Displaced linear tear posterior horn medial meniscus Plan: -ID consulted. Appreciate expertise. * Daptomycin 500mg daily (09/09-). Continue Levaquin 750mg po daily (09/04-) -Orthopedic consulted. Appreciate assistance * Continue antibiotics * No plans for surgical intervention -Pain control with Tylenol and [place] -BCx 09/03: negative -Wound culture: negative (2) Lower extremity edema Status: Acute Plan: Likely secondary to underlying cellulitis -Keep leg elevated and compression stocking -U/S: Negative for DVT (3) Diabetes mellitus, type 2 Status: Chronic Plan: Stable -Hold home metformin -Low dose SSI -Continue Lisinopril 2.5mg (4) ENRRIQUE (acute kidney injury) Status: Resolved Plan: Likely due to some dehydration versus infection. ENRRIQUE resolved s/p IVF -Continue to monitor renal function while on antibiotics (5) Dermatitis Status: Resolved Plan: Patient with area of erythematous rash on both temples as well as side of his nose. States that he intermittently gets a similar rash at home. ? atrophic dermatitis -Eucerin cream (6) Seizure Status: Chronic Plan: Unspecified seizure disorder not on antiseizure medication. No seizure activity noted since admission -Monitor clinically -Seizure precaution (7) Alcohol dependence Status: Chronic Plan: History of alcohol use/abuse Denies current use -[facility] protocol (8) Nutrition, metabolism, and development symptoms Status: Acute Plan: Diet: Diabetic Fluid: HLIV. Encourage oral fluid hydration Electrolytes: WNL. Continue to monitor (9) Prophylactic measure Status: Acute Plan: Heparin 5000 units Q8hrs (Sandor Bobby MD R2) Problem Qualifiers (1) Diabetes mellitus, type 2: Qualified Code: E11.9 - Type 2 diabetes mellitus without complication, without long-term current use of insulin Sandor Bobby MD R2 Sep 13, 2016 08:31 Vanna Mares MD Sep 14, 2016 17:10 long-term current use of insulin Sandor Bobby MD R2 Sep 13, 2016 08:31 Vanna Mares MD Sep 14, 2016 17:10
[2016-09-13] MEDS: LISINOPRIL 5 MG TAB PO SCH (08:33)
[2016-09-13] MEDS: LEVOFLOXACIN 750 MG TAB PO SCH (08:34)
[2016-09-13] MEDS: HEPARIN SODIUM - SQ 10,000 UNITS/ML VIAL SQ SCH ×3 (08:35→23:49)
[2016-09-13] MEDS: LACTOBACILLUS ACIDOPHILUS TAB PO SCH ×2 (08:37→19:57)
[2016-09-13] MEDS: ACETAMINOPHEN/HYDROcodone 325 MG/10 MG TAB PO PRN ×4 (10:49→23:48)
[2016-09-13 12:00] VITALS: BP 100/50; PULSE 68; RESP 17; TEMP 97.6; O2SAT 98
[2016-09-13 16:00] VITALS: BP 101/54; PULSE 79; RESP 18; TEMP 96.7; O2SAT 99
[2016-09-13] MEDS: DAPTOmycin INJ 500 MG in SODIUM CHLORIDE 0.9% INJ 100 ML IV SCH (17:24)
[2016-09-13 20:28] VITALS: BP 105/56; PULSE 84; RESP 20; TEMP 97.8; O2SAT 94
[2016-09-14 00:33] VITALS: BP 95/51; PULSE 72; RESP 18; TEMP 97.3; O2SAT 94
[2016-09-14] MEDS: INSULIN ASPART SUPPLEMENTAL SCALE SQ SCH ×4 (06:04→20:52)
[2016-09-14 06:12] LABS: AUTOMATED NEUTROPHIL # 4.4 TH/MM3 (1.8-7.7); BASOPHIL # 0.1 TH/MM3 (0-0.2); BASOPHIL % 0.8 % (0.0-2.0); EOSINOPHIL # 0.1 TH/MM3 (0-0.4); EOSINOPHIL % 1.5 % (0.0-4.0); HEMATOCRIT 32.2 % (39.0-51.0); HEMO FLAGS DIFF FINAL; LYMPH % 31.4 % (9.0-44.0); LYMPHOCYTE # 2.5 TH/MM3 (1.0-4.8); MEAN CORPUSCULAR HEMOGLOBIN 32.4 PG (27.0-34.0); MEAN CORPUSCULAR HGB CONC 34.4 % (32.0-36.0); MONO % 11.1 % (0.0-8.0); NEUT % 55.2 % (16.0-70.0); PLATELET COUNT 407 TH/MM3 (150-450); RED BLOOD COUNT 3.42 MIL/MM3 (4.50-5.90); RED CELL DISTRIBUTION WIDTH 13.4 % (11.6-17.2); WHITE BLOOD COUNT 7.9 TH/MM3 (4.0-11.0)
[2016-09-14 06:35] LABS: BICARBONATE 26.6 MEQ/L (21.0-32.0); POTASSIUM 4.2 MEQ/L (3.5-5.1)
[2016-09-14] MEDS: HEPARIN SODIUM - SQ 10,000 UNITS/ML VIAL SQ SCH ×2 (07:54→16:19)
[2016-09-14] MEDS: LISINOPRIL 5 MG TAB PO SCH (07:54)
[2016-09-14] MEDS: LACTOBACILLUS ACIDOPHILUS TAB PO SCH ×2 (07:54→20:50)
[2016-09-14] MEDS: ACETAMINOPHEN/HYDROcodone 325 MG/10 MG TAB PO PRN ×3 (07:54→20:50)
[2016-09-14] MEDS: LEVOFLOXACIN 750 MG TAB PO SCH (07:54)
[2016-09-14] MEDS: LORazepam 1 MG TAB PO PRN (07:54)
[2016-09-14 08:00] VITALS: BP 87/51; PULSE 70; RESP 16; TEMP 97.2; O2SAT 98
--- NOTE | 2016-09-14 10:26 | HHI.FPPN ---
Subjective Remarks Pt seen and examined this morning. AFVSS. No acute events overnight. Patient reports pain is improving on [place] 10 and finds it easier to get up and go on his left leg. Denies drainage from his knee, chest pain, SOB, cough, abdominal pain, N/V. He is agreeable to tapering the Ativan and starting something daily for his anxiety/depression. He states he was unaware of the addictive properties of Ativan and thought it would help him heal if he felt more calm. (Sonia Sanchez MD) Objective Vitals Vital Signs Date Time Temp Pulse Resp B/P Pulse Ox O2 Delivery O2 Flow Rate FiO2 09/14/16 08:00 97.2 70 16 87/51 98 09/14/16 00:33 97.3 72 18 95/51 94 09/13/16 20:28 97.8 84 20 105/56 94 09/13/16 16:00 96.7 79 18 101/54 99 09/13/16 12:00 97.6 68 17 100/50 98 I/O 09/13/16 09/13/16 09/13/16 09/14/16 09/14/16 09/14/16 07:00 15:00 23:00 07:00 15:00 23:00 Intake Total 480 ml 670 ml 780 ml 360 ml Balance 480 ml 670 ml 780 ml 360 ml Intake Oral 480 ml 670 ml 780 ml 360 ml IV Total 0 ml # Voids 2 10 2 2 # Bowel Movements 1 0 (Sonia Sanchez MD) Result Diagram: 09/14/16 0505 09/14/16 0505 Objective Remarks GENERAL: WN, WD male sitting on side of bed in [facility]. SKIN: Warm and dry. HEENT: AT/NC. Pupils equal and round. MMM. NECK: Supple, no JVD. HEART: RRR with 2/6 systolic murmur. LUNGS: CTAB without wheezes or crackles. EXTREMITIES: Left knee with erythema and swelling and a 4-5 cm area of dark scabbing over the anterior knee with no drainage. Erythema distally has improved from area of demarcation. Desquamation of the skin around his left knee. Bilateral calves are supple. NEURO: Awake and alert. Normal speech. PSYCH: Poor eye contact. Flat affect. (Sonia Sanchez MD) A/P Assessment and Plan 61-year-old male with well-controlled DM and depression admitted for left leg cellulitis and left knee bursitis that failed outpatient treatment with Clindamycin. He is currently on Levaquin and Daptomycin. Infectious disease is following the patient. He is clinically improving and if ID changes him to PO antibiotics today then he will be clear for discharge. Discharge Planning Pending recommendation by ID; if switched to PO antibiotics today then can go home today. (Sonia Sanchez MD) Attending Attestation Patient seen and examined. Case reviewed and discussed Agree with plan of care as discussed with me and documented in the resident note. (Vanna Mares MD) Problem List: (1) Left leg cellulitis Status: Acute Plan: Patient admitted for L knee bursitis with associated cellulitis extending distally after failing outpatient treatment with Clindamycin. Initially he had a white count of 19.4 with elevated ESR of 74. Lactic acid WNL. - AFVSS - Leukocytosis resolved - Knee XR showed prepatellar soft tissue swelling and MRI showed rim-enhancing prepatellar fluid collection of either infected bursitis or subcutaneous abscess with surrounding cellulitis and small joint effusion - ID consulted. Appreciate expertise. * Daptomycin 500mg daily (09/09-). Continue Levaquin 750mg po daily (09/04-) * Will await recommendations today to see if patient can be discharged on PO medications - Orthopedic consulted. Appreciate assistance * Continue antibiotics * No plans for surgical intervention - Pain control with Tylenol and [place] - BCx 09/03: negative - Wound culture: negative (2) Septic prepatellar bursitis of left knee Status: Acute Plan: See plan above. (3) Depression Status: Chronic Plan: Patient has been getting Ativan every 6 hours but discussed with him this medication should be reserved for just when needed and we should try and taper off. He is allergic to Escitalopram (SSRI) and did not like Effexor (SNRI) . He has a history of alcohol associated seizure so will avoid Wellbutrin. Will start on Amitriptyline 25 mg PO at bedtime. Decrease Ativan to Q8H but avoid abrupt discontinuation since patient has been getting it around the clock. (4) Diabetes mellitus, type 2 Status: Chronic Plan: Well-controlled. Holding home metformin. - Low-dose SSI per protocol - Continue Lisinopril 2.5 mg (5) Alcohol dependence Status: Chronic Plan: History of alcohol abuse with associated mood disorder. Denies current use. No signs of withdrawal. - [facility] protocol (6) Nutrition, metabolism, and development symptoms Status: Acute Plan: - Fluids: Tolerating PO - Electrolytes: WNL - Nutrition: Diabetic diet - DVT prophylaxis: Heparin [address] Mares (Sonia Sanchez MD) Problem Qualifiers (1) Diabetes mellitus, type 2: Qualified Code: E11.9 - Type 2 diabetes mellitus without complication, without long-term current use of insulin Sonia Sanchez MD Sep 14, 2016 10:26 Vanna Mares MD Sep 14, 2016 17:10
--- NOTE | 2016-09-14 10:32 | HHI.IDPN ---
Note Infectious Disease Note Patient notes severe pain in the L. knee when he ambulates. Still has erythema at the left knee. Afebrile. No chills. PAST MEDICAL HISTORY 1. Diabetes mellitus. 2. Hypertension. 3. Seizure disorder. 4. Neuropathy. 5. History of cataract surgery. ALLERGIES KEFLEX, TETRACYCLINE, SULFA, KEPPRA, ESCITALOPRAM OXYLATE. MEDICATIONS 1. daptomycin. 2. Levaquin. OBJECTIVE: Vital Signs Date Time Temp Pulse Resp B/P Pulse Ox O2 Delivery O2 Flow Rate FiO2 09/14/16 08:00 97.2 70 16 87/51 98 09/14/16 00:33 97.3 72 18 95/51 94 09/13/16 20:28 97.8 84 20 105/56 94 09/13/16 16:00 96.7 79 18 101/54 99 09/13/16 12:00 97.6 68 17 100/50 98 09/13/16 09/13/16 09/14/16 15:00 23:00 07:00 Intake Total 670 ml 780 ml 360 ml Balance 670 ml 780 ml 360 ml Intake Oral 670 ml 780 ml 360 ml IV Total 0 ml # Voids 10 2 2 # Bowel Movements 1 0 Laboratory Tests Test 09/14/16 05:05 White Blood Count 7.9 TH/MM3 Red Blood Count 3.42 MIL/MM3 Hemoglobin 11.1 GM/DL Hematocrit 32.2 % Mean Corpuscular Volume 94.0 FL Mean Corpuscular Hemoglobin 32.4 PG Mean Corpuscular Hemoglobin 34.4 % Concent Red Cell Distribution Width 13.4 % Platelet Count 407 TH/MM3 Mean Platelet Volume 8.0 FL Neutrophils (%) (Auto) 55.2 % Lymphocytes (%) (Auto) 31.4 % Monocytes (%) (Auto) 11.1 % Eosinophils (%) (Auto) 1.5 % Basophils (%) (Auto) 0.8 % Neutrophils # (Auto) 4.4 TH/MM3 Lymphocytes # (Auto) 2.5 TH/MM3 Monocytes # (Auto) 0.9 TH/MM3 Eosinophils # (Auto) 0.1 TH/MM3 Basophils # (Auto) 0.1 TH/MM3 CBC Comment DIFF FINAL Differential Comment Laboratory Tests Test 09/13/16 09/14/16 04:57 05:05 Creatinine 1.20 MG/DL 1.35 MG/DL Estimat Glomerular Filtration 61 ML/MIN 54 ML/MIN Rate Sodium Level 137 MEQ/L Potassium Level 4.2 MEQ/L Chloride Level 103 MEQ/L Carbon Dioxide Level 26.6 MEQ/L Anion Gap 7 MEQ/L Blood Urea Nitrogen 35 MG/DL Random Glucose 106 MG/DL Calcium Level 8.5 MG/DL PHYSICAL EXAMINATION GENERAL: No acute distress. LUNGS: Breath sounds clear. HEART: Regular rate and rhythm without murmurs, rubs, or gallops. ABDOMEN: Flat, soft. Nontender. Bowel sounds present. EXTREMITIES: The left leg erythema is improved. The left knee remain swollen and has erythema. Scab at the anterior knee.Decreased edema at the left leg. 2+ at the R. ankle. SKIN: Macular rash at the nasolabial area and also the bilateral temporal areas of the face looks better. NEUROLOGICAL: Nonfocal. PSYCHIATRIC: Calm and cooperative. IMAGING: Lower Extremity Ultrasound 09/06/16 0000 Signed Impressions: Service Date/Time: Tuesday, September 06, 2016 09:59 - CONCLUSION: No evidence of DVT. Richard Bowling MD Knee MRI 09/05/16 0000 Signed Impressions: Service Date/Time: Monday, September 05, 2016 14:59 - CONCLUSION: 1. Rim-enhancing prepatellar fluid collection characteristic of either an infected bursitis or subcutaneous abscess with surrounding cellulitis. Small knee joint effusion. 2. Cruciate and collateral ligaments intact. Nondisplaced linear tear posterior horn medial meniscus. Alex Krause MD Knee X-Ray 09/04/16 0000 Signed Impressions: Service Date/Time: Sunday, September 04, 2016 07:56 - CONCLUSION: 1. Mild to moderate osteoarthritis involving the medial femoral tibial joint and the patellofemoral joint. 2. Prepatellar soft tissue swelling. 3. Osteophytic spurring at the insertion of the quadriceps tendon in the origin and insertion of the patella ligament. 4. No acute fracture, dislocation or knee joint effusion. Rafi Mireles MD IMPRESSION 1. Severe left lower extremity cellulitis. Improving. 2. Left knee bursitis, May have effusion. 3. Leukocytosis secondary to infection. Improved. 4. Multiple antibiotic allergies. RECOMMENDATIONS 1. Continue Daptomycin another 3 days. 2. Continue Levaquin x 7 days more. 3. Elevate the left leg. I will sign off now. Please reconsult if further input is needed. Omero Jean MD Sep 14, 2016 10:32
[2016-09-14 12:00] VITALS: BP 83/54; PULSE 81; RESP 16; TEMP 96.1; O2SAT 97
[2016-09-14 16:00] VITALS: BP 101/55; PULSE 69; RESP 17; TEMP 97.5; O2SAT 99
[2016-09-14] MEDS ORDERED: LORazepam 1 MG TAB PO PRN (16:00)
[2016-09-14] MEDS: DAPTOmycin INJ 500 MG in SODIUM CHLORIDE 0.9% INJ 100 ML IV SCH (17:52)
[2016-09-14 20:00] VITALS: BP 121/64; PULSE 77; RESP 20; TEMP 98.3; O2SAT 97
[2016-09-14] MEDS ORDERED: AMITRIPTYLINE HCL 25 MG TAB PO SCH (21:00)
[2016-09-15] VITALS: BP 96/55; PULSE 70; RESP 20; TEMP 97.7; O2SAT 97
[2016-09-15] MEDS: HEPARIN SODIUM - SQ 10,000 UNITS/ML VIAL SQ SCH ×3 (00:46→15:24)
[2016-09-15 04:00] VITALS: BP 97/50; PULSE 64; RESP 20; TEMP 97.8; O2SAT 98
[2016-09-15] MEDS: INSULIN ASPART SUPPLEMENTAL SCALE SQ SCH ×4 (06:21→20:20)
[2016-09-15] MEDS: LEVOFLOXACIN 750 MG TAB PO SCH (07:57)
[2016-09-15] MEDS: LISINOPRIL 5 MG TAB PO SCH (07:57)
[2016-09-15] MEDS: LACTOBACILLUS ACIDOPHILUS TAB PO SCH ×2 (07:57→20:16)
[2016-09-15] MEDS: ACETAMINOPHEN/HYDROcodone 325 MG/10 MG TAB PO PRN ×3 (07:58→20:16)
[2016-09-15 08:00] VITALS: BP 115/56; PULSE 63; RESP 17; TEMP 97; O2SAT 97
--- NOTE | 2016-09-15 08:31 | PD.ORT.PN ---
Subjective Pain Scale: 4 Subjective Remarks Patient seen while ambulating in hallway. He is utilizing a cane and walking with an alternating gait. He is somewhat vague about his complaints. It is uncomfortable. Objective Vitals Vital Signs Date Time Temp Pulse Resp B/P Pulse Ox O2 Delivery O2 Flow Rate FiO2 09/15/16 04:00 97.8 64 20 97/50 98 09/15/16 00:00 97.7 70 20 96/55 97 09/14/16 20:00 98.3 77 20 121/64 97 09/14/16 16:00 97.5 69 17 101/55 99 09/14/16 12:00 96.1 81 16 83/54 97 I/O 09/14/16 09/14/16 09/14/16 09/15/16 09/15/16 09/15/16 07:00 15:00 23:00 07:00 15:00 23:00 Intake Total 360 ml 240 ml 580 ml 240 ml Balance 360 ml 240 ml 580 ml 240 ml Intake Oral 360 ml 240 ml 480 ml 240 ml IV Total 100 ml 0 ml # Voids 2 3 2 3 # Bowel Movements 0 0 Result Diagram: 09/14/16 0505 09/15/16 0412 Imaging Last 48 hours Impressions Lower Extremity Ultrasound 09/06/16 0000 Signed Impressions: Service Date/Time: Tuesday, September 06, 2016 09:59 - CONCLUSION: No evidence of DVT. Richard Bowling MD Objective Remarks The left knee prepatellar bursa has more swelling than previously noted. There is erythema. There is a fullness to the bursal tissue. There is no active drainage. There is an eschar over the anterior aspect. He has a painless range of motion. He is angling forward weightbearing. There is moderate edema distally although appears improved. He has no calf discomfort and a negative Homans sign. Neurologically no focal deficit. Assessment & Plan Problem List: (1) Septic prepatellar bursitis of left knee (2) Left leg cellulitis (3) Diabetes mellitus, type 2 (4) Alcoholism (5) HTN (hypertension) (6) Hx of seizure disorder Assessment and Plan The findings were discussed. The patient's examination of the prepatellar bursa reveals what appears to worsening of the bursitis. Recommendation is given for surgical management. This would include irrigation and debridement. The nature of the procedure, risks, benefits, and postoperative expectations were discussed with him in detail. It was explained I do feel this would improve his clinical course faster. Given this alternative however the patient refused. It was explained it could be treated successfully with antibiotics although less predictable. Since the patient is refusing my recommendation, he can continue medical management. I will sign off. Reconsult as needed. Castro Casas MD Sep 15, 2016 08:30
--- NOTE | 2016-09-15 10:23 | HHI.FPPN ---
Subjective Remarks Pt seen and examined this morning. AFVSS. No acute events overnight. Pt reports he is ready to get out of the hospital and wants to go to a rehab facility. He is ambulating with a cane and working with PT. His pain is controlled on Lortab and he reports the swelling of his L knee has improved. Denies fever, chills, or drainage. Ortho reevaluated patient today and recommended irrigation and debridement in the OR but the patient adamantly refuses. He also states he no longer wants to take the Amitriptyline that was started yesterday evening; yesterday the patient was agreeable and willing to start something for his anxiety/depression but today he states "I'm not depressed" and doesn't want to take anything. (Sonia Sanchez MD) Objective Vitals Vital Signs Date Time Temp Pulse Resp B/P Pulse Ox O2 Delivery O2 Flow Rate FiO2 09/15/16 08:00 97.0 63 17 115/56 97 09/15/16 04:00 97.8 64 20 97/50 98 09/15/16 00:00 97.7 70 20 96/55 97 09/14/16 20:00 98.3 77 20 121/64 97 09/14/16 16:00 97.5 69 17 101/55 99 09/14/16 12:00 96.1 81 16 83/54 97 I/O 09/14/16 09/14/16 09/14/16 09/15/16 09/15/16 09/15/16 07:00 15:00 23:00 07:00 15:00 23:00 Intake Total 360 ml 240 ml 580 ml 240 ml Balance 360 ml 240 ml 580 ml 240 ml Intake Oral 360 ml 240 ml 480 ml 240 ml IV Total 100 ml 0 ml # Voids 2 3 2 3 # Bowel Movements 0 0 (Sonia Sanchez MD) Result Diagram: 09/14/16 0505 09/15/16 0412 Objective Remarks GENERAL: WN, WD male sitting on side of bed in NAD. SKIN: Warm and dry. HEENT: AT/NC. Pupils equal and round. MMM. HEART: RRR with 2/6 systolic murmur. LUNGS: CTAB without wheezes or crackles. EXTREMITIES: Left knee with erythema and swelling and a 4-5 cm area of dark scabbing over the anterior knee with no drainage. Erythema distally has improved from area of demarcation. Desquamation of the skin around his left knee. Bilateral calves are supple. LLE edematous. NEURO: Awake and alert. Normal speech. PSYCH: Poor eye contact. Flat affect. (Sonia Sanchez MD) A/P Assessment and Plan 61-year-old male with well-controlled DM and depression admitted for left leg cellulitis and left knee bursitis that failed outpatient treatment with Clindamycin. He is currently on Levaquin and Daptomycin. ID and orthopedic surgery consulted; ID recommending daptomycin until 09/16 and Levaquin until . Ortho recommended irrigation and debridement but patient refuses surgery. He is medically stable and if accepted into a rehab facility today he may be discharged home. Discharge Planning Patient will need two more days of IV daptomycin (last dose tomorrow evening). If accepted by a rehab facility he will be able to complete the IV antibiotics there. Case management assisting with D/C needs and patient may possibly be discharged today. (Sonia Sanchez MD) Attending Attestation Patient seen and examined. Case reviewed and discussed with the resident team. Agree with plan of care as discussed with me and documented in the resident note. he is doing very well and eager for D/C (Jessica Noe MD) Problem List: (1) Left leg cellulitis Status: Acute Plan: Patient admitted for L knee bursitis with associated cellulitis extending distally after failing outpatient treatment with Clindamycin. Initially he had a white count of 19.4 with elevated ESR of 74. Lactic acid WNL. - AFVSS - Leukocytosis resolved - Knee XR showed prepatellar soft tissue swelling and MRI showed rim-enhancing prepatellar fluid collection of either infected bursitis or subcutaneous abscess with surrounding cellulitis and small joint effusion - ID consulted. Appreciate expertise. * Daptomycin 500 mg IV daily (09/09-) with end date 09/16. Continue Levaquin 750 mg PO daily (09/04-) with end date 09/22. - Pain control with Tylenol and Anderson - BCx 09/03: negative - Wound culture: negative (2) Septic prepatellar bursitis of left knee Status: Acute Plan: Patient was reevaluated today by ortho who recommended surgical irrigation and debridement but the patient refused. Continue with antibiotics and plan as stated above. - PT recommending rehab vs. home health and case management assisting with D/C needs (3) Depression Status: Chronic Plan: Patient had been getting Ativan every 6 hours during this hospitalization but discussed with him this medication should be reserved for just when needed and we should try and taper off. He is allergic to Escitalopram (SSRI), did not like Effexor (SNRI), and has a history of alcohol associated seizure so Wellbutrin contraindicated. Yesterday it was agreed upon to start Amitriptyline 25 mg PO at bedtime but today patient states he is not depressed and doesn't want to be on anything. Ativan was decreased to Q8H yesterday and will decreased to Q12H today to avoid abrupt discontinuation. - Recommend outpatient psych follow-up (4) Diabetes mellitus, type 2 Status: Chronic Plan: Well-controlled. Holding home metformin. - Low-dose SSI per protocol - Continue Lisinopril 2.5 mg (5) Alcohol dependence Status: Chronic Plan: History of alcohol abuse with associated mood disorder. Denies current use. No signs of withdrawal. - CIWA protocol (6) Nutrition, metabolism, and development symptoms Status: Acute Plan: - Fluids: Tolerating PO - Electrolytes: WNL - Nutrition: Diabetic diet - DVT prophylaxis: Heparin [address] Noe (Sonia Sanchez MD) Problem Qualifiers (1) Diabetes mellitus, type 2: Qualified Code: E11.9 - Type 2 diabetes mellitus without complication, without long-term current use of insulin Sonia Sanchez MD Sep 15, 2016 10:23 Jessica Noe MD Sep 18, 2016 11:10
[2016-09-15] MEDS ORDERED: LORazepam 1 MG TAB PO PRN (10:30)
[2016-09-15] MEDS ORDERED: LEVA750T PO (10:53)
[2016-09-15] MEDS ORDERED: HYDR-3583 PO (10:53)
--- NOTE | 2016-09-15 10:54 | HHI.DCPOC ---
Discharge Care Plan Diagnosis: (1) Septic prepatellar bursitis of left knee (2) Left leg cellulitis Goals to Promote Your Health * To prevent worsening of your condition and complications * To maintain your health at the optimal level Directions to Meet Your Goals Take your medications as prescribed Follow your dietary instruction Follow activity as directed Keep your appointments as scheduled Take your immunizations and boosters as scheduled If your symptoms worsen call your PCP, if no PCP go to Urgent Care Center or Emergency Room Smoking is Dangerous to Your Health. Avoid second hand smoke Call the 24-hour hour crisis hotline for domestic abuse at Sonia Sanchez MD Sep 15, 2016 10:54
[2016-09-15 12:00] VITALS: BP 131/88; PULSE 101; RESP 18; TEMP 98; O2SAT 97
[2016-09-15 16:00] VITALS: BP 130/73; PULSE 93; RESP 17; TEMP 99; O2SAT 97
[2016-09-15] MEDS: DAPTOmycin INJ 500 MG in SODIUM CHLORIDE 0.9% INJ 100 ML IV SCH (18:26)
[2016-09-15 20:00] VITALS: BP 113/55; PULSE 82; RESP 17; TEMP 96.9; O2SAT 97
[2016-09-16] VITALS: BP 102/54; PULSE 75; RESP 17; TEMP 98.6; O2SAT 96
[2016-09-16] MEDS: HEPARIN SODIUM - SQ 10,000 UNITS/ML VIAL SQ SCH ×4 (01:15→23:28)
[2016-09-16] MEDS: INSULIN ASPART SUPPLEMENTAL SCALE SQ SCH ×4 (05:39→20:39)
[2016-09-16] MEDS: ACETAMINOPHEN/HYDROcodone 325 MG/5 MG TAB PO PRN (05:39)
[2016-09-16 08:00] VITALS: BP 104/53; PULSE 73; RESP 16; TEMP 98.4; O2SAT 100
[2016-09-16] MEDS: LACTOBACILLUS ACIDOPHILUS TAB PO SCH ×2 (09:00→20:38)
--- NOTE | 2016-09-16 09:46 | HHI.FF ---
Face to Face Verification Diagnosis: (1) Septic prepatellar bursitis of left knee (2) Left leg cellulitis Physical Therapy Order: Evaluate and Treat, Improve ambulation, Strength and gait training Home Health Nursing Order: Wound care and dressing changes Nursing assessment with vital signs I have seen patient Sheng Light on 09/16/16. My clinical findings support the need for the requested home health care services because: Deconditioned w/ increased weakness Limited ability to care for self High risk of falls I certify that my clinical findings support that this patient is homebound because: Unsteady gait/balance Sonia Sanchez MD Sep 16, 2016 09:46
--- NOTE | 2016-09-16 09:52 | HHI.FPPN ---
Subjective Remarks Pt seen and examined this morning. AFVSS. No acute events overnight. Case management found a SNF for patient to be discharged to yesterday per patient's request but got a "bad vibe" so refused going. He is agreeable to going home with home health but states he cannot get a ride until tomorrow morning. He states he cannot go home today after his last dose of daptomycin this evening because his house is out of order and there are boxes everywhere since he just moved in. His granddaughter will be picking him up tomorrow morning and helping him get situated. He reports his pain is well-controlled. Ambulating better. Denies fever, chills, CP, SOB. (Sonia Sanchez MD) Objective Vitals Vital Signs Date Time Temp Pulse Resp B/P Pulse Ox O2 Delivery O2 Flow Rate FiO2 09/16/16 08:00 98.4 73 16 104/53 100 09/16/16 00:00 98.6 75 17 102/54 96 09/15/16 20:00 96.9 82 17 113/55 97 09/15/16 16:00 99.0 93 17 130/73 97 09/15/16 12:00 98.0 101 18 131/88 97 I/O 09/15/16 09/15/16 09/15/16 09/16/16 09/16/16 09/16/16 07:00 15:00 23:00 07:00 15:00 23:00 Intake Total 240 ml 240 ml 580 ml 240 ml Output Total 900 ml Balance 240 ml -660 ml 580 ml 240 ml Intake Oral 240 ml 240 ml 480 ml 240 ml IV Total 0 ml 100 ml 0 ml Output Urine Total 900 ml # Voids 3 5 2 # Bowel Movements 0 (Sonia Sanchez MD) Result Diagram: 09/14/16 0505 09/15/16 0412 Objective Remarks GENERAL: WN, WD male laying comfortably in bed in note acute distress. SKIN: Warm and dry. HEENT: AT/NC. Pupils equal and round. MMM. HEART: RRR with 2/6 systolic murmur. LUNGS: CTAB without wheezes or crackles. EXTREMITIES: Left knee with erythema and swelling and a 4-5 cm area of dark scabbing over the anterior knee with no drainage. Erythema distally and proximally has improved from area of demarcation. Overall exam improved from yesterday. Bilateral calves are supple. LLE edematous but better than yesterday. NEURO: Awake and alert. Normal speech. PSYCH: Poor eye contact. Flat affect. (Sonia Sanchez MD) A/P Assessment and Plan 61-year-old male with well-controlled DM and depression admitted for left leg cellulitis and left knee bursitis that failed outpatient treatment with Clindamycin. He is currently on Levaquin and Daptomycin. ID and orthopedic surgery consulted; ID recommending daptomycin until 09/16 (today) and Levaquin until 09/21. Ortho recommended irrigation and debridement but patient refuses surgery. He is medically stable and can be discharged once last dose of daptomycin is complete. Discharge Planning Discharge home tomorrow with home health; case management assisting with D/C needs. (Sonia Sanchez MD) Attending Attestation Patient seen and examined. Case reviewed and discussed with the resident team. Agree with plan of care as discussed with me and documented in the resident note. Mr Light said, "I can see into people's souls and the woman from [facility] had something wrong." So unfortunately, he did not want to go there but does feel comfortable going home with [facility]. (Jessica Noe MD) Problem List: (1) Left leg cellulitis Status: Acute Plan: Patient admitted for L knee bursitis with associated cellulitis extending distally after failing outpatient treatment with Clindamycin. Initially he had a white count of 19.4 with elevated ESR of 74. Lactic acid WNL. - AFVSS - Leukocytosis resolved - Knee XR showed prepatellar soft tissue swelling and MRI showed rim-enhancing prepatellar fluid collection of either infected bursitis or subcutaneous abscess with surrounding cellulitis and small joint effusion - ID consulted. Appreciate expertise. * Daptomycin 500 mg IV daily (09/09-) with end date 09/16 (last dose this evening) . Continue Levaquin 750 mg PO daily (09/04-) with end date 09/22. - Pain control with Tylenol and Jesse - BCx 09/03: negative - Wound culture: negative (2) Septic prepatellar bursitis of left knee Status: Acute Plan: Patient was reevaluated yesterday by ortho who recommended surgical irrigation and debridement but the patient refused. Continue with antibiotics and plan as stated above. - PT recommending rehab vs. home health and case management assisting with D/C needs (3) Depression Status: Chronic Plan: Patient had been getting Ativan every 6 hours during this hospitalization but discussed with him this medication should be reserved for just when needed and we should try and taper off. He is allergic to Escitalopram (SSRI), did not like Effexor (SNRI), and has a history of alcohol associated seizure so Wellbutrin contraindicated. He agreed to start Amitriptyline 25 mg PO at bedtime but immediately after he took it he decided he was no longer depressed and didn't want to continue taking it. Ativan being weaned and since patient hasn't had any in the past two days will discontinue. - Recommend outpatient psych follow-up (4) Diabetes mellitus, type 2 Status: Chronic Plan: Well-controlled. Holding home metformin. - Low-dose SSI per protocol - Continue Lisinopril 2.5 mg (5) Alcohol dependence Status: Chronic Plan: History of alcohol abuse with associated mood disorder. Denies current use. No signs of withdrawal. - CIWA protocol (6) Nutrition, metabolism, and development symptoms Status: Acute Plan: - Fluids: Tolerating PO - Electrolytes: WNL - Nutrition: Diabetic diet - DVT prophylaxis: Heparin [address] Noe (Sonia Sanchez MD) Problem Qualifiers (1) Diabetes mellitus, type 2: Qualified Code: E11.9 - Type 2 diabetes mellitus without complication, without long-term current use of insulin Sonia Sanchez MD Sep 16, 2016 09:52 Jessica Noe MD Sep 18, 2016 11:13
[2016-09-16] MEDS: LISINOPRIL 5 MG TAB PO SCH (10:07)
[2016-09-16] MEDS: ACETAMINOPHEN/HYDROcodone 325 MG/10 MG TAB PO PRN ×3 (10:07→23:29)
[2016-09-16] MEDS: LEVOFLOXACIN 750 MG TAB PO SCH (10:08)
[2016-09-16 12:00] VITALS: BP 121/61; PULSE 79; RESP 17; TEMP 98.6; O2SAT 100
[2016-09-16 16:00] VITALS: BP 116/70; PULSE 99; RESP 17; TEMP 98.1; O2SAT 99
[2016-09-16] MEDS: DAPTOmycin INJ 500 MG in SODIUM CHLORIDE 0.9% INJ 100 ML IV SCH (18:47)
[2016-09-16 20:00] VITALS: BP 125/60; PULSE 83; RESP 17; TEMP 98.2; O2SAT 98
[2016-09-17] VITALS: BP 119/60; PULSE 80; RESP 17; TEMP 98; O2SAT 98
[2016-09-17] MEDS: INSULIN ASPART SUPPLEMENTAL SCALE SQ SCH ×2 (07:00→11:00)
[2016-09-17] MEDS: ACETAMINOPHEN/HYDROcodone 325 MG/10 MG TAB PO PRN (07:03)
[2016-09-17 08:00] VITALS: BP 109/61; PULSE 68; RESP 17; TEMP 98; O2SAT 98
[2016-09-17 08:03] VITALS: RESP 17
[2016-09-17] MEDS ORDERED: LEVO750T33 PO (08:28)
--- NOTE | 2016-09-17 08:31 | HHI.FPPN ---
Subjective Remarks Pt seen and examined this morning. AFVSS. No acute events overnight. Reports he is feeling well. He is anxious though ready to go home; requests one time dose of Ativan prior to discharge since he states he feels like he is going to be overwhelmed when he gets home since he just moved into his house prior to admission and there are unpacked boxes everywhere. He is ambulating and pain is well-controlled. States swelling of his knee has gone down since yesterday. Tolerating PO; denies N/V, abdominal pain, CP, SOB. (Sonia Sanchez MD) Objective Vitals Vital Signs Date Time Temp Pulse Resp B/P Pulse Ox O2 Delivery O2 Flow Rate FiO2 09/17/16 00:00 98.0 80 17 119/60 98 09/16/16 21:41 18 09/16/16 20:00 98.2 83 17 125/60 98 09/16/16 16:00 98.1 99 17 116/70 99 09/16/16 12:00 98.6 79 17 121/61 100 I/O 09/16/16 09/16/16 09/16/16 09/17/16 09/17/16 09/17/16 07:00 15:00 23:00 07:00 15:00 23:00 Intake Total 240 ml 1620 ml 240 ml 240 ml Output Total 60 ml Balance 240 ml 1560 ml 240 ml 240 ml Intake Oral 240 ml 1620 ml 240 ml 240 ml IV Total 0 ml Output Urine Total 60 ml # Voids 2 2 2 # Bowel Movements 1 (Sonia Sanchez MD) Result Diagram: 09/14/16 0505 09/17/16 0513 Objective Remarks GENERAL: WN, WD male laying comfortably in bed in note acute distress. SKIN: Warm and dry. HEENT: AT/NC. Pupils equal and round. MMM. HEART: RRR with 2/6 systolic murmur. LUNGS: CTAB without wheezes or crackles. EXTREMITIES: Left knee with mild erythema and swelling, much improved from prior exam. No fluctuance or abscess appreciated. Surrounding cellulitis nearly resolved. Bilateral calves are supple. Left ankle and pedal edema much improved with just trace swelling. NEURO: Awake and alert. Normal speech. PSYCH: Flat affect. (Sonia Sanchez MD) A/P Assessment and Plan 61-year-old male with well-controlled DM and depression admitted for left leg cellulitis and left knee bursitis that failed outpatient treatment with Clindamycin. ID and orthopedic surgery consulted; ID recommended IV daptomycin ( last dose yesterday evening) and Levaquin until 09/21. Ortho recommended irrigation and debridement but patient refuses surgery. His cellulitis and knee swelling/erythema has greatly improved. He is off IV antibiotics and is medically clear for discharge with home health. Discharge Planning Discharge home with home health; CM assisting with D/C needs. (Sonia Sanchez MD) Attending Attestation Patient seen and examined. Case reviewed and discussed with the resident team. Agree with plan of care as discussed with me and documented in the resident note. agree with D/C (Jessica Noe MD) Problem List: (1) Left leg cellulitis Status: Acute Plan: Patient admitted for L knee bursitis with associated cellulitis after failing outpatient treatment with Clindamycin. Initially he had a white count of 19.4 with elevated ESR of 74. Lactic acid WNL. - AFVSS - Leukocytosis resolved - Knee XR showed prepatellar soft tissue swelling and MRI showed rim-enhancing prepatellar fluid collection of either infected bursitis or subcutaneous abscess with surrounding cellulitis and small joint effusion - ID consulted. Appreciate expertise. * Completed Daptomycin 500 mg IV daily (09/09-09/16) * Continue Levaquin 750 mg PO daily (09/04-) until 09/22 - Pain control with Tylenol and [place] - BCx 09/03: negative - Wound culture: negative (2) Septic prepatellar bursitis of left knee Status: Acute Plan: Ortho recommended surgical irrigation and debridement but the patient refused. Continue with antibiotics and plan as stated above. - Medicine team also performed bedside I&D of bursitis on 09/11. Moderate amount of bloody fluid was expressed from the knee - PT home health and case management assisting with D/C needs (3) Depression Status: Chronic Plan: Patient had been getting Ativan every 6 hours during this hospitalization but discussed with him this medication should be reserved for just when needed. He is allergic to Escitalopram (SSRI), did not like Effexor ( SNRI), and has a history of alcohol associated seizure so Wellbutrin contraindicated. He agreed to start Amitriptyline 25 mg PO at bedtime but immediately after he took it he decided he was no longer depressed and didn't want to continue taking it. Ativan was weaned and the patient hasn't received any in the last three days. He requests one dose prior to discharge since he is overwhelmed with going home. - Recommend outpatient psych follow-up (4) Diabetes mellitus, type 2 Status: Chronic Plan: Well-controlled. Holding home metformin. - Low-dose SSI per protocol - Continue Lisinopril 2.5 mg (5) Alcohol dependence Status: Chronic Plan: History of alcohol abuse with associated mood disorder. Denies current use. No signs of withdrawal. - CIWA protocol (6) Nutrition, metabolism, and development symptoms Status: Acute Plan: - Fluids: Tolerating PO - Electrolytes: WNL - Nutrition: Diabetic diet dw Dr. Noe (Sonia Sanchez MD) Problem Qualifiers (1) Diabetes mellitus, type 2: Qualified Code: E11.9 - Type 2 diabetes mellitus without complication, without long-term current use of insulin Sonia Sanchez MD Sep 17, 2016 08:31 Jessica Noe MD Sep 18, 2016 11:13
[2016-09-17] MEDS: LACTOBACILLUS ACIDOPHILUS TAB PO SCH (09:00)
[2016-09-17] MEDS: HEPARIN SODIUM - SQ 10,000 UNITS/ML VIAL SQ SCH (09:03)
[2016-09-17] MEDS: LEVOFLOXACIN 750 MG TAB PO SCH (09:03)
[2016-09-17] MEDS: LISINOPRIL 5 MG TAB PO SCH (09:03)
--- NOTE | 2016-09-17 09:24 | HHI.DS ---
Discharge Summary Admission Date Sep 04, 2016 at 00:16 Discharge Date: Sep 17, 2016 Admitting Diagnosis Cellulitis, Sepsis (1) Left leg cellulitis Plan: Patient admitted for L knee bursitis with associated cellulitis after failing outpatient treatment with Clindamycin. Initially he had a white count of 19.4 with elevated ESR of 74. Lactic acid WNL. - AFVSS - Leukocytosis resolved - Knee XR showed prepatellar soft tissue swelling and MRI showed rim-enhancing prepatellar fluid collection of either infected bursitis or subcutaneous abscess with surrounding cellulitis and small joint effusion - ID consulted. Appreciate expertise. * Completed Daptomycin 500 mg IV daily (09/09-09/16) * Continue Levaquin 750 mg PO daily (09/04-) until 09/22 - Pain control with Tylenol and [place] - BCx 09/03: negative - Wound culture: negative (2) Septic prepatellar bursitis of left knee Plan: Ortho recommended surgical irrigation and debridement but the patient refused. Continue with antibiotics and plan as stated above. - Medicine team performed bedside I&D of bursitis on 09/11 yielding a moderate amount of bloody fluid - PT home health and case management assisting with D/C needs (3) Depression Plan: Patient had been getting Ativan every 6 hours during this hospitalization but discussed with him this medication should be reserved for just when needed. He is allergic to Escitalopram (SSRI), did not like Effexor ( SNRI), and has a history of alcohol associated seizure so Wellbutrin contraindicated. He agreed to start Amitriptyline 25 mg PO at bedtime but immediately after he took it he decided he was no longer depressed and didn't want to continue taking it. Ativan was weaned and the patient hasn't received any in the last three days. He requests one dose prior to discharge since he is overwhelmed with going home. - Recommend outpatient psych follow-up (4) Diabetes mellitus, type 2 Plan: Well-controlled. Holding home metformin. - Low-dose SSI per protocol - Continue Lisinopril 2.5 mg (5) Alcohol dependence Plan: History of alcohol abuse with associated mood disorder. Denies current use. No signs of withdrawal. - [facility] protocol Consultants Infectious disease (Dr. Jean) Orthopedic surgery (Dr. Casas) Procedures Bedside I&D 09/11/16 Brief History Mr Light is a 61-year-old male with past medical history of diabetes, several admissions for alcohol intoxication, seizure without need for antiseizure medication presenting with erythema and swelling of the left knee beginning on Wednesday. After symptoms hold resolved, he sought urgent care and was given clindamycin. After 2 days of therapy with clindamycin, symptoms failed to resolve prompting visit to ER. He had fevers when the rash first started for two days, but no fevers or chills since that time. The swelling is associated with some pain and difficulty bearing weight, especially difficulty bending his knee (keeping it straight relieves pain). He denies recent sexual activity or IV drug use. Review of systems otherwise negative. CBC/BMP: 09/14/16 0505 09/17/16 0513 Significant Findings Laboratory Tests Test 09/15/16 09/17/16 04:12 05:13 Estimat Glomerular Filtration 64 ML/MIN (>89) 76 ML/MIN (>89) Rate Imaging Lower Extremity Ultrasound 09/06/16 0000 Signed Impressions: Service Date/Time: Tuesday, September 06, 2016 09:59 - CONCLUSION: No evidence of DVT. Richard Bowling MD Knee MRI 09/05/16 0000 Signed Impressions: Service Date/Time: Monday, September 05, 2016 14:59 - CONCLUSION: 1. Rim-enhancing prepatellar fluid collection characteristic of either an infected bursitis or subcutaneous abscess with surrounding cellulitis. Small knee joint effusion. 2. Cruciate and collateral ligaments intact. Nondisplaced linear tear posterior horn medial meniscus. Alex Krause MD Knee X-Ray 09/04/16 0000 Signed Impressions: Service Date/Time: Sunday, September 04, 2016 07:56 - CONCLUSION: 1. Mild to moderate osteoarthritis involving the medial femoral tibial joint and the patellofemoral joint. 2. Prepatellar soft tissue swelling. 3. Osteophytic spurring at the insertion of the quadriceps tendon in the origin and insertion of the patella ligament. 4. No acute fracture, dislocation or knee joint effusion. Rafi Mireles MD PE at Discharge GENERAL: WN, WD male laying comfortably in bed in note acute distress. SKIN: Warm and dry. HEENT: AT/NC. Pupils equal and round. MMM. HEART: RRR with 2/6 systolic murmur. LUNGS: CTAB without wheezes or crackles. EXTREMITIES: Left knee with mild erythema and swelling, much improved from prior exam. No fluctuance or abscess appreciated. Surrounding cellulitis nearly resolved. Bilateral calves are supple. Left ankle and pedal edema much improved with just trace swelling. NEURO: Awake and alert. Normal speech. PSYCH: Flat affect. Hospital Course 61-year-old male with well-controlled DM and depression admitted on 09/04/16 for left leg cellulitis and left knee bursitis that failed outpatient treatment with Clindamycin. Vancomycin and Levaquin were started on admission. Knee x-ray showed mild to moderate osteoarthritis and prepatellar soft tissue swelling. MRI was negative for osteomyelitis but showed prepatellar fluid collection consistent with either infected bursitis or subcutaneous abscess with surrounding cellulitis. Orthopedic was consulted and initially recommended medical management but reevaluated patient at a later date and recommended surgical I&D which the patient refused. Infectious disease was consulted on 09/09 given slow response to Vanc/Levaquin. Patient was switched to Daptomycin per ID which was completed on 09/16. He was continued on Levaquin () with recommendation to discontinue on 09/22. Medicine team also performed bedside I&D of bursitis on 09/11. Moderate amount of bloody fluid was expressed from the knee. His infection greatly improved and he was discharged in stable condition on 09/17 with home health services. Pt Condition on Discharge: Stable Discharge Disposition: Disch w/ Home Health Serv Discharge Instructions DIET: Follow Instructions for: As Tolerated, No Restrictions Activities you can perform: Regular-No Restrictions Follow up Referrals: Physician - 1 Week with Sonia Sanchez MD New Medications: Levofloxacin (Levofloxacin) 750 Mg Tab 750 MG PO DAILY Infection #5 Ref 0 TAB Hydrocodone-Acetaminophen (Hydrocodone-Acetaminophen) 10-325 mg Tab 1 TAB PO Q4H PRN PAIN 6-10 #30 Ref 0 TAB Continued Medications: Lisinopril (Lisinopril) 2.5 Mg Tab 2.5 MG PO DAILY #30 Ref 0 TAB Metformin (Metformin) 500 Mg Tab 500 MG PO TIDPC With meals Blood Sugar Management #90 Ref 0 TAB ([Diabetic shoe insert]) UNITS Please dispense three pairs of diabetic shoe inserts #3 ([Diabetic shoes]) UNITS Please dispense one pair of custom-fitted diabetic shoes #1 Discontinued Medications: Clindamycin (Clindamycin) 150 Mg Cap 150 MG PO Q6H Infection Ref 0 CAP Lorazepam (Lorazepam) 1 Mg Tab 1 MG PO Q6H PRN ANXIETY Ref 0 TAB Sonia Sanchez MD Sep 17, 2016 09:24
[2016-09-17] MEDS ORDERED: LORazepam 1 MG TAB PO ONE (09:30)
[2016-10-13] MEDS ORDERED: LISI2.5T3 PO (13:35)
[2016-12-31] MEDS ORDERED: METF500T PO (16:07)
== END 2016-09-17 11:49 | disposition home health service (06) | DRG 872 ==
LOC: NEPC 21:47 → NEDA 09-04 00:16 → NEDH 09-04 04:16 → NEDA 09-04 12:39 → N07A 09-04 16:40
PROVIDERS: ADMIT Family Medicine; ATTEND Family Medicine
PROC: 0M9P3ZZ Drainage of Left Knee Bursa and Ligament, Percutaneous Approach (ICD-10-PCS; principal; 2016-09-11)
DX: A41.9 Sepsis, unspecified organism (principal); N17.9 Acute kidney failure, unspecified; E11.40 Type 2 diabetes mellitus with diabetic neuropathy, unspecified; L03.116 Cellulitis of left lower limb; M71.162 Other infective bursitis, left knee; E86.0 Dehydration; M17.12 Unilateral primary osteoarthritis, left knee; F10.20 Alcohol dependence, uncomplicated; L30.9 Dermatitis, unspecified; Z87.891 Personal history of nicotine dependence; Z79.84 Long term (current) use of oral hypoglycemic drugs
CPT/HCPCS: 73564; 73723; 80048; 80053; 80202; 80307; 80320; 82565; 82948; 83605; 83735; 85007; 85025; 85027; 85652; 87040; 87070; 87205; 93971; 99284; A9579; J0878; J1170; J1644; J1650; J1815; J3370; J3475; J7030; J7040; J7050

== ENCOUNTER 2017-03-18 10:41 | Emergency (ER) | payer MEDICARE ==
[~2017-03-18] VITALS: Ht 185.4 cm; Wt 90.0 kg
[~2017-03-18 10:41] MED LIST changes: -DIABETIC SHOES; -ESCI10TA PO; +HYDR-3583 PO; -LEVE500 PO; -LISI-515 PO; +LISI2.5T3 PO; -METF500 PO; +METF500T PO; -[UNRECOGNIZED DRUG - SUPPLY]
[2017-03-18 10:45] VITALS: BP 150/91; PULSE 113; RESP 15; TEMP 98.9; O2SAT 98
[2017-03-18] MEDS ORDERED: SODIUM CHLOR 0.9% 1000 ML INJ 1,000 ML IV ONE (11:13)
[2017-03-18] MEDS ORDERED: SODIUM CHLORIDE 0.9% FLUSH 10 ML FLUSH IVF PRN (11:15)
[2017-03-18 11:40] LABS: AUTOMATED NEUTROPHIL # 7.1 TH/MM3 (1.8-7.7); BASOPHIL % 0.3 % (0.0-2.0); EOSINOPHIL % 0.2 % (0.0-4.0); HEMATOCRIT 41.7 % (39.0-51.0); HEMO FLAGS DIFF FINAL; LYMPH % 8.7 % (9.0-44.0); LYMPHOCYTE # 0.8 TH/MM3 (1.0-4.8); MEAN CELL VOLUME 97.5 FL (80.0-100.0); MEAN CORPUSCULAR HEMOGLOBIN 32.8 PG (27.0-34.0); MEAN CORPUSCULAR HGB CONC 33.6 % (32.0-36.0); MONO % 14.5 % (0.0-8.0); NEUT % 76.3 % (16.0-70.0); PLATELET COUNT 138 TH/MM3 (150-450); RED BLOOD COUNT 4.27 MIL/MM3 (4.50-5.90); RED CELL DISTRIBUTION WIDTH 15.6 % (11.6-17.2); WHITE BLOOD COUNT 9.3 TH/MM3 (4.0-11.0)
[2017-03-18 12:00] VITALS: BP 161/78; PULSE 90; RESP 16; O2SAT 97
[2017-03-18 12:01] LABS: ALKALINE PHOSPHATASE 81 U/L (45-117); ALT (GPT) 75 U/L (12-78); ANION GAP 21 MEQ/L (5-15); AST (GOT) 92 U/L (15-37); BICARBONATE 27.3 MEQ/L (21.0-32.0); BLOOD UREA NITROGEN 25 MG/DL (7-18); CHLORIDE 84 MEQ/L (98-107); GLOMERULAR FILTRATION RATE 39 ML/MIN (>89); SODIUM (NA) 132 MEQ/L (136-145); TOTAL BILIRUBIN ADULT 1.6 MG/DL (0.2-1.0)
[2017-03-18 12:29] LABS: POTASSIUM 2.8 MEQ/L (3.5-5.1)
--- NOTE | 2017-03-18 12:39 | RADRPT ---
EXAM DATE/TIME: 03/18/2017 12:10 [place] COMPARISON: CT BRAIN W/O CONTRAST, August 05, 2016, 6:38. INDICATIONS : Seizure RADIATION DOSE: 56.4 CTDIvol (mGy) MEDICAL HISTORY : Seizures. SURGICAL HISTORY : None. ENCOUNTER: Initial ACUITY: 1 day PAIN SCALE: 0/10 LOCATION: cranial TECHNIQUE: Multiple contiguous axial images were obtained of the head. Using automated exposure control and adj ustment of the mA and/or kV according to patient size, radiation dose was kept as low as reasonably a chievable to obtain optimal diagnostic quality images. DICOM format image data is available electro nically for review and comparison. FINDINGS: CEREBRUM: Mild diffuse cerebral atrophy. Stable subinsular hypodensity on the right. Moderate periventricular a nd scattered white matter hypodensities consistent with ischemic white matter demyelination. The vent ricles are normal for degree of atrophy. No evidence of midline shift, mass lesion, hemorrhage or ac minto infarction. No extra-axial fluid collections are seen. POSTERIOR FOSSA: The cerebellum and brainstem are intact. The 4th ventricle is midline. The cerebellopontine angle i s unremarkable. EXTRACRANIAL: The visualized portion of the orbits is intact. SKULL: The calvaria is intact. No evidence of skull fracture. CONCLUSION: 1. Senescent changes with chronic small vessel ischemic periventricular white matter demyelination. 2. No acute intracranial abnormality. Zach Moncada MD on March 18, 2017 at 12:35 Board Certified Radiologist. This report was verified electronically.
[2017-03-18] MEDS ORDERED: PHEN100C PO (13:29)
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
[2017-03-18] MEDS ORDERED: FOSPHENYTOIN INJ 1,000 MGPE in SODIUM CHLORIDE 0.9% INJ 50 ML IV ONE (13:30)
[2017-03-18] MEDS ORDERED: THIAMINE INJ 100 MG in SODIUM CHLORIDE 0.9% INJ 100 ML IV ONE (13:30)
[2017-03-18] MEDS ORDERED: POTASSIUM CHLORIDE 20 MEQ CONTROLLED RELEASE TAB PO ONE (13:30)
[2017-03-18 15:08] LABS: BLOOD, URINE SMALL (NEG); GLUCOSE,URINE NEG (NEG); KETONE, URINE 10 mg/dL (NEG); NITRITE,URINE NEG (NEG); SQUAMOUS EPITHELIAL CELL URINE 1 /hpf (0-5); URINE COLOR YELLOW (YELLW/STRAW)
== END 2017-03-18 15:40 | disposition home or self-care (01) ==
LOC: NEPE 10:41
DX: R56.9 Unspecified convulsions (principal); E87.6 Hypokalemia; R00.0 Tachycardia, unspecified; N28.9 Disorder of kidney and ureter, unspecified; F41.9 Anxiety disorder, unspecified; F32.9 Major depressive disorder, single episode, unspecified; E11.9 Type 2 diabetes mellitus without complications; Z79.899 Other long term (current) drug therapy; Z88.2 Allergy status to sulfonamides
CPT/HCPCS: 70450; 80053; 81001; 85025; 96361; 96365; 96368; 99285; J3411; J7030; Q2009

== ENCOUNTER 2017-04-27 21:53 | Inpatient (IN) | payer MEDICARE ==
[~2017-04-27] VITALS: Ht 185.4 cm; Wt 66.5 kg
[~2017-04-27 21:53] MED LIST changes: +PHEN100C PO
[2017-04-27 22:01] VITALS: BP 165/112; PULSE 121; RESP 18; TEMP 98.6; O2SAT 100
[2017-04-27] MEDS ORDERED: SODIUM CHLOR 0.9% 1000 ML INJ 1,000 ML IV SCH (22:04)
[2017-04-27] MEDS ORDERED: SODIUM CHLOR 0.9% 1000 ML INJ 1,000 ML IV ONE (22:15)
[2017-04-27] MEDS ORDERED: SODIUM CHLORIDE 0.9% FLUSH 5 ML FLUSH IV FLUSH PRN (22:15)
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
[2017-04-27] MEDS ORDERED: LORazepam 2 MG/ML VIAL IV PUSH ONE (22:45)
--- NOTE | 2017-04-27 23:19 | RADRPT ---
EXAM DATE/TIME: 04/27/2017 22:10 [facility] COMPARISON: CHEST SINGLE AP, December 23, 2013, 23:23. INDICATIONS : Syncopal episode. MEDICAL HISTORY : Diabetes mellitus type II. Seizures. SURGICAL HISTORY : None. ENCOUNTER: Initial ACUITY: 1 day PAIN SCORE: 0/10 LOCATION: Bilateral chest FINDINGS: The heart size is normal. The lungs are free of focal consolidation. There is a focal density seen in the lateral left mid chest. This could be related to the left sixth rib. No effusion is seen. Spurs are seen in the thoracic spine. CONCLUSION: 1. No acute abnormality is seen. 2. Focal density seen in the lateral mid chest. A pulmonary nodule or abnormality related to the left sixth rib needs to be suspected. This area could be further evaluated with a noncontrast CT examinat ion of the chest. Sixto Harris MD on April 27, 2017 at 23:16 Board Certified Radiologist. This report was verified electronically.
[2017-04-27 23:27] LABS: AUTOMATED NEUTROPHIL # 10.6 TH/MM3 (1.8-7.7); BASOPHIL % 0.2 % (0.0-2.0); HEMO FLAGS DIFF FINAL; LYMPH % 4.1 % (9.0-44.0); LYMPHOCYTE # 0.5 TH/MM3 (1.0-4.8); MEAN CELL VOLUME 99.4 FL (80.0-100.0); MEAN CORPUSCULAR HEMOGLOBIN 33.3 PG (27.0-34.0); MEAN CORPUSCULAR HGB CONC 33.5 % (32.0-36.0); MONO % 13.3 % (0.0-8.0); NEUT % 82.4 % (16.0-70.0); PLATELET COUNT 136 TH/MM3 (150-450); RED BLOOD COUNT 4.53 MIL/MM3 (4.50-5.90); RED CELL DISTRIBUTION WIDTH 14.2 % (11.6-17.2); WHITE BLOOD COUNT 12.9 TH/MM3 (4.0-11.0)
[2017-04-27 23:45] LABS: APTT (PATIENT) 23.5 SEC (24.3-30.1); PROTHROMBIN TIME - PATIENT 11.5 SEC (9.8-11.6)
[2017-04-28] VITALS (12 sets, daily range): BP systolic 119–163; BP diastolic 67–100; PULSE 90–111; RESP 16–31; TEMP 98.3–99.1; O2SAT 96–100
[2017-04-28 00:01] LABS: ALKALINE PHOSPHATASE 91 U/L (45-117); ALT (GPT) 66 U/L (12-78); ANION GAP 18 MEQ/L (5-15); AST (GOT) 188 U/L (15-37); BICARBONATE 25.1 MEQ/L (21.0-32.0); BLOOD UREA NITROGEN 101 MG/DL (7-18); CHLORIDE 104 MEQ/L (98-107); CREATINE KINASE 6687 U/L (39-308); GLOMERULAR FILTRATION RATE 13 ML/MIN (>89); SODIUM (NA) 147 MEQ/L (136-145); TOTAL BILIRUBIN ADULT 2.2 MG/DL (0.2-1.0)
[2017-04-28 00:02] LABS: POTASSIUM 3.9 MEQ/L (3.5-5.1)
[2017-04-28 00:14] LABS: CKMB 17.1 NG/ML (0.5-3.6)
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
[2017-04-28 00:55] LABS: BACTERIA, URINE RARE /hpf; BLOOD, URINE MOD (NEG); GLUCOSE,URINE NEG (NEG); HYALINE CAST, URINE 4 /lpf (RARE); KETONE, URINE TRACE mg/dL (NEG); MUCUS URINE FEW /lpf (OCC); NITRITE,URINE NEG (NEG); URINE COLOR LIGHT-YELLOW (YELLW/STRAW)
[2017-04-28 01:03] LABS: COMMENT (UR) CATH-CULTURE IND; CULTURE IF INDICATED CATH CULTURE IND
[2017-04-28 01:04] LABS: SQUAMOUS EPITHELIAL CELL URINE 1 /hpf (0-5)
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
[2017-04-28 01:16] LABS: LACTIC ACID GHOST NOT REPORTABLE
[2017-04-28] MEDS ORDERED: ASPIRIN 300 MG SUPP RECTAL SCH (01:30)
[2017-04-28] MEDS ORDERED: ACETAMINOPHEN 325 MG TAB PO PRN (01:30)
[2017-04-28] MEDS ORDERED: ONDANSETRON HCL 4 MG/2 ML VIAL IV PUSH PRN (01:30)
[2017-04-28] MEDS ORDERED: SODIUM CHLORIDE 0.9% FLUSH 10 ML FLUSH IV FLUSH PRN (01:30)
[2017-04-28] MEDS ORDERED: D5-1/2 NS + KCL 20 MEQ INJ 1,000 ML IV SCH (01:38)
[2017-04-28] MEDS ORDERED: ACETAMINOPHEN/HYDROcodone 325 MG/10 MG TAB PO PRN (01:45)
[2017-04-28] MEDS ORDERED: Vancomycin Consult Pharmacy 1 EA OTHER SCH (01:45)
[2017-04-28] MEDS ORDERED: FLUMAZENIL 0.5 MG/5 ML VIAL IV PUSH PRN (01:45)
[2017-04-28] MEDS ORDERED: PIPERACIL-TAZO 3.375 GM PREMIX 50 ML IV SCH (01:45)
[2017-04-28] MEDS ORDERED: SODIUM CHLOR 0.9% 1000 ML INJ 1,000 ML IV ONE ×2 (01:45→02:00)
[2017-04-28] MEDS ORDERED: VANCOMYCIN INJ 1,000 MG in SODIUM CHLOR 0.9% 250 ML INJ 250 ML IV ONE (02:00)
[2017-04-28] MEDS ORDERED: GLUCAGON 1 MG/ML VIAL OTHER PRN (02:30)
[2017-04-28] MEDS ORDERED: hydrALAZINE HCL 20 MG/ML VIAL IV PUSH PRN (02:30)
[2017-04-28] MEDS ORDERED: DEXTROSE 50% IN WATER 50 ML VIAL(D50) IV PUSH PRN (02:30)
--- NOTE | 2017-04-28 02:30 | PD.CONS ---
HPI Service Critical Care Medicine Consult Requested By Primary Care Physician Physician [facility] History of Present Illness 62-year-old unfortunate gentleman with history of multiple psychiatric admissions and the past history of alcohol-induced psychosis diabetes neuropathy seizure disorder was found down in his home. The neighbors had not seen him for several days. They noticed that his mail was not emptying. They called the authorities and the patient was found down in the prone position in his living room. EVAC reports that the house was filthy. The patient had been incontinent of urine, probably on several occasions. They found him to be hypotensive and treated him in route with IV fluids. Review of Systems ROS Unobtainable due to altered mental status Past Family Social History Allergies: Coded Allergies: escitalopram (Unverified Allergy, Severe, ITCHY, TREMORS, CONFUSION, ) Sulfa (Sulfonamide Antibiotics) (Unverified Allergy, Intermediate, MADE FINGERS SWELL, 04/27/17) levetiracetam (Unverified Allergy, Intermediate, DIARRHEA, 04/27/17) cephalexin (Unverified Allergy, Mild, Diarrhea, 04/27/17) doxycycline (Unverified Allergy, Unknown, TROUBLE BREATHING?, 04/27/17) minocycline (Unverified Allergy, Unknown, TROUBLE BREATHING?, 04/27/17) tigecycline (Unverified Allergy, Unknown, TROUBLE BREATHING?, 04/27/17) Past Medical History Diabetes Hypertension-resolved after weight loss and quitting cigarette smoking Seizures Alcohol-induced mood disorder Neuropathy Cataracts multiple Psychiatric admissions Past Surgical History Left eye cataract surgery Reported Medications Reported Meds & Active Scripts Active Phenytoin Extended 100 Mg Cap 100 Mg PO TID Metformin (Metformin HCl) 500 Mg Tab 500 Mg PO TIDPC With meals Lisinopril 2.5 Mg Tab 2.5 Mg PO DAILY Hydrocodone-Acetaminophen 10-325 mg Tab 1 Tab PO Q4H PRN Active Ordered Medications Current Medications Medications (Trade) Dose Ordered Sig/Kiran Route PRN Reason Start Time Stop Time Status Last Admin Dose Admin Sodium Chloride (NS Flush) 2 ml BID IV FLUSH 04/28/17 09:00 Sodium Chloride (NS Flush) 2 ml UNSCH PRN IV FLUSH FLUSH AFTER USING IV ACCESS 04/28/17 01:30 Aspirin (Aspirin Supp) 300 mg NOW RECTAL 04/28/17 01:30 04/29/17 01:29 10/4/17 03:12 Acetaminophen (Tylenol) 650 mg Q6H PRN PO HEADACHE OR TEMP > 101 F 04/28/17 01:30 Ondansetron HCl (Zofran Inj) 4 mg Q6H PRN IV PUSH NAUSEA OR VOMITING 04/28/17 01:30 Pharmacy Profile Note 0 ml @ 0 mls/hr UNSCH OTHER 04/28/17 01:45 Pantoprazole Sodium (Protonix) 40 mg DAILY PO 04/28/17 09:00 Flumazenil (Romazicon Inj) 0.2 mg Q1M PRN IV PUSH SEE LABEL COMMENTS 04/28/17 01:45 Lorazepam (Ativan) 1 mg Q4H PRN PO CIWA 8 - 10 04/28/17 01:45 Lorazepam (Ativan Inj) 1 mg Q4H PRN IV PUSH CIWA 8 - 10 04/28/17 01:45 Lorazepam (Ativan) 2 mg Q2H PRN PO CIWA 11-14 04/28/17 01:45 Lorazepam (Ativan Inj) 2 mg Q2H PRN IV PUSH CIWA 11-14 04/28/17 01:45 Lorazepam (Ativan Inj) 2 mg Q1H PRN IV PUSH CIWA 15-20 04/28/17 01:45 Lorazepam (Ativan Inj) 2 mg Q15M PRN IV PUSH CIWA > 20 04/28/17 01:45 Heparin Sodium (Porcine) (Heparin Inj) 5,000 units Q8H SQ 04/28/17 02:00 04/28/17 03:11 Thiamine HCl 500 mg/Sodium Chloride 255 ml @ 62.5 mls/hr Q8H IV 04/28/17 02:00 04/30/17 01:59 04/28/17 03:10 Thiamine HCl 500 mg/Sodium Chloride 505 ml @ 62.5 mls/hr Q24H IV 04/30/17 02:00 05/05/17 01:59 Folic Acid (Folate) 1 mg DAILY PO 04/28/17 09:00 05/03/17 08:59 Thiamine HCl (Vitamin B1) 100 mg DAILY PO 05/06/17 09:00 Multivitamins/ Minerals Therapeutic (Theragran M Tab) 1 tab DAILY PO 04/28/17 09:00 05/03/17 08:59 Multivitamins 10 ml/Folic Acid 1 mg/Sodium Chloride 510.2 ml @ 125 mls/hr Q24H IV 04/28/17 02:00 05/03/17 01:59 04/28/17 03:09 Phenytoin (Dilantin) 100 mg TID PO 04/28/17 09:00 Sodium Bicarbonate 50 meq/Dextrose 1,050 ml @ 100 mls/hr [id number] IV 04/28/17 02:00 04/28/17 03:10 Piperacillin Sod/ Tazobactam Sod 50 ml @ 100 mls/hr Q8H IV 04/28/17 03:00 Dextrose (D50w (Vial) Inj) 50 ml UNSCH PRN IV PUSH HYPOGLYCEMIA-SEE COMMENTS 04/28/17 02:30 Glucagon (Glucagon Inj) 1 mg UNSCH PRN OTHER HYPOGLYCEMIA-SEE COMMENTS 04/28/17 02:30 Insulin Aspart (NovoLOG SUPPLEMENTAL SCALE) 1 ACHS SLIDING SCALE SQ 04/28/17 08:00 Hydralazine HCl (Apresoline Inj) 10 mg Q1H PRN IV PUSH SEE LABEL COMMENTS 04/28/17 02:30 Family History Mother at 96, had dementia Father at 55 from heart attack Social History Tobacco: [id number] smoking history, quit 2012 Alcohol: No use since previous "nervous breakdown" Other drugs: Used many different substances in the 70s, but nothing since then Other social: , lives alone in a house Physical Exam Vital Signs Vital Signs Date Time Temp Pulse Resp B/P (MAP) Pulse Ox O2 Delivery O2 Flow Rate FiO2 04/27/17 22:10 113 18 99 Room Air 04/27/17 22:01 98.6 121 18 165/112 (129) 100 Physical Exam GENERAL: Elderly disheveled gentleman with altered mental status. SKIN: Warm and dry. HEAD: Normocephalic. EYES: No scleral icterus. No injection or drainage. NECK: Supple, trachea midline. No JVD or lymphadenopathy. CARDIOVASCULAR: Regular rate and rhythm without murmurs, gallops, or rubs. RESPIRATORY: Breath sounds equal bilaterally. No accessory muscle use. GASTROINTESTINAL: Abdomen soft, non-tender, nondistended. MUSCULOSKELETAL: No cyanosis, or edema. BACK: Nontender without obvious deformity. NEURO EXAM: GCS: M6 V4 E4 Mental Status: The patient is confused with slurred speech. Cranial Nerves: Pupils are round, reactive to light. Reflexes: Biceps, patellar, and Achilles are 2/4 bilaterally. No clonus. Laboratory Laboratory Tests Test 04/27/17 23:05 04/28/17 00:30 04/28/17 01:50 White Blood Count 12.9 Red Blood Count 4.53 Hemoglobin 15.1 Hematocrit 45.0 Mean Corpuscular Volume 99.4 Mean Corpuscular Hemoglobin 33.3 Mean Corpuscular Hemoglobin Concent 33.5 Red Cell Distribution Width 14.2 Platelet Count 136 Mean Platelet Volume 9.2 Neutrophils (%) (Auto) 82.4 Lymphocytes (%) (Auto) 4.1 Monocytes (%) (Auto) 13.3 Eosinophils (%) (Auto) 0.0 Basophils (%) (Auto) 0.2 Neutrophils # (Auto) 10.6 Lymphocytes # (Auto) 0.5 Monocytes # (Auto) 1.7 Eosinophils # (Auto) 0.0 Basophils # (Auto) 0.0 CBC Comment DIFF FINAL Differential Comment Prothrombin Time 11.5 Prothromb Time International Ratio 1.0 Activated Partial Thromboplast Time 23.5 Blood Urea Nitrogen 101 Creatinine 4.46 Random Glucose 203 Total Protein 8.7 Albumin 3.6 Calcium Level 8.4 Alkaline Phosphatase 91 Aspartate Amino Transf (AST/SGOT) 188 Alanine Aminotransferase (ALT/SGPT) 66 Total Bilirubin 2.2 Sodium Level 147 Potassium Level 3.9 Chloride Level 104 Carbon Dioxide Level 25.1 Anion Gap 18 Estimat Glomerular Filtration Rate 13 Lactic Acid Level 2.8 1.5 Ammonia 39 Total Creatine Kinase 6687 Creatine Kinase MB 17.1 Creatine Kinase MB % 0.3 Troponin I 0.24 Ethyl Alcohol Level LESS THAN 3 Urine Color LIGHT-YELLOW Urine Turbidity CLEAR Urine pH 6.0 Urine Specific [place] 1.008 Urine Protein 30 Urine Glucose (UA) NEG Urine Ketones TRACE Urine Occult Blood MOD Urine Nitrite NEG Urine Bilirubin NEG Urine Urobilinogen LESS THAN 2.0 Urine Leukocyte Esterase NEG Urine RBC 1 Urine WBC 2 Urine Squamous Epithelial Cells 1 Urine Bacteria RARE Urine Hyaline Casts 4 Urine Mucus FEW Microscopic Urinalysis Comment CATH-CULTURE IND Urine Opiates Screen NEG Urine Barbiturates Screen NEG Urine Amphetamines Screen NEG Urine Benzodiazepines Screen NEG Urine Cocaine Screen NEG Urine Cannabinoids Screen NEG Date/Time Source Procedure Growth Status 04/27/17 23:05 Blood Peripheral Aerobic Blood Culture Pending Received 04/27/17 23:05 Blood Peripheral Anaerobic Blood Culture Pending Received 04/28/17 00:30 Urine Catheterized Urine Urine Culture Pending Received Result Diagram: 04/27/175 04/27/17 230 Imaging Last 24 hours Impressions Chest X-Ray 04/27/172203 Signed Impressions: Service Date/Time: Thursday, April 27, 2017 22:10 - CONCLUSION: 1. No acute abnormality is seen. 2. Focal density seen in the lateral mid chest. A pulmonary nodule or abnormality related to the left sixth rib needs to be suspected. This area could be further evaluated with a noncontrast CT examination of the chest. Sixto Harris MD Assessment and Plan Assessment and Plan Altered mental status - Metabolic toxic - CT head negative - History of seizure disorder - postictal?? - History of psychosis - Neuro checks per unit protocol - Supportive care Acute kidney injury - Dehydration - Hold lisinopril avoid nephrotoxins - Strict I's and O's - Monitor creatinine and electrolytes Rhabdomyolysis - Sodium bicarbonate drip for urine alkalinization - Monitor trend History of alcohol abuse - CIWA protocol - Thiamine and folate Seizure disorder - Continue Dilantin - Check Dilantin level Hypertension - Hold lisinopril due to acute kidney injury - Hydralazine when necessary to keep SBP less than 150 Diabetes mellitus - Hold metformin - Insulin sliding scale Elevated troponin - Troponin leak - EKG in the emergency department without significant ST changes - Monitor trend and series of EKGs Tachycardia fever and mild leukocytosis - Broad-spectrum antibiotics - Panculture - DC antibiotics if cultures negative DVT GI prophylaxis - Teds SCDs - Subcutaneous heparin - Pepcid Critical Care: The total critical care time was 35 minutes. Time to perform other separately billable procedures was not included in the critical care time. Ron Hernandez MD Apr 28, 2017 02:29
[2017-04-28 02:33] LABS: BLOOD GAS BASE EXCESS -0.5 mmol/L (-2-2); BLOOD GAS CARBOXYHEMOGLOBIN 1.5 % (0-4); BLOOD GAS HCO3 23 mmol/L (22-26); BLOOD GAS METHEMOGLOBIN 0.8 % (0-2); BLOOD GAS O2 HGB SATURATION 94 % (90-100); BLOOD GAS OXYGEN CONTENT 18.2 Vol % (12.0-20.0); BLOOD GAS PCO2 34 mmHg (38-42); BLOOD GAS PO2 87 mmHG (61-120); BLOOD GAS TOTAL HGB 13.7 G/DL (12.0-16.0); CRITICAL VALUE NO; DRAW SITE RT RADIAL; FIO2 21 %; NUMBER OF ARTERIAL PUNCTURES 1; OXYGEN DEVICE ROOM AIR; STAT YES; TEMP CORR TO 98.6; ULNAR PULSE PRESENT
[2017-04-28] MEDS: MULTIVITAMIN INJ 10 ML, FOLIC ACID INJ 1 MG in SODIUM CHLORID 0.9% 500 ML INJ 500 ML IV SCH (03:09)
[2017-04-28] MEDS: THIAMINE INJ 500 MG in SODIUM CHLOR 0.9% 250 ML INJ 250 ML IV SCH ×3 (03:10→17:01)
[2017-04-28] MEDS: SODIUM BICARBONATE 8.4% INJ 50 MEQ in DEXTROSE 5% IN WATE 1000ML INJ 1,000 ML IV SCH ×4 (03:10→15:39)
[2017-04-28] MEDS: HEPARIN SODIUM - SQ 10,000 UNITS/ML VIAL SQ SCH ×3 (03:11→16:59)
[2017-04-28] MEDS: PIPERACIL-TAZO 2.25 GM PREMIX 50 ML IV SCH ×3 (04:33→19:31)
[2017-04-28] MEDS ORDERED: CHLORHEXIDINE GLUCONATE 2 % 1 PACK (2 CLOTHS)(extra cloths) TOPICAL PRN (07:00)
[2017-04-28] MEDS: INSULIN ASPART SUPPLEMENTAL SCALE SQ SCH ×4 (08:00→19:37)
[2017-04-28] MEDS: PHENYTOIN SODIUM 100 MG CAP PO SCH ×3 (08:24→16:58)
[2017-04-28] MEDS: PANTOPRAZOLE SOD 40 MG DELAYED RELEASE TAB PO SCH (08:24)
[2017-04-28] MEDS: SODIUM CHLORIDE 0.9% FLUSH 10 ML FLUSH IV FLUSH SCH ×2 (08:25→19:35)
[2017-04-28] MEDS: FOLIC ACID 1 MG TAB PO SCH (08:25)
[2017-04-28] MEDS: MULTIVITAMINS/MINERALS THERAPEUTIC TAB PO SCH (08:25)
[2017-04-28] MEDS ORDERED: LACTULOSE SYRUP 20 GM/30 ML CUP PO SCH (09:00)
[2017-04-28] MEDS ORDERED: LISINOPRIL 5 MG TAB PO SCH (09:00)
--- NOTE | 2017-04-28 09:58 | EKG ---
Date Performed: 04/28/2017 Time Performed: 04:23:42 PTAGE: 62 years EKG: Sinus tachycardia with PAC(s). Normal ECG except for rate PREVIOUS TRACING : 04/27/2017 22.10 DOCTOR: Miky Calderon Interpretating Date/Time 04/28/2017 09:58:06
[2017-04-28] MEDS ORDERED: VANCOMYCIN 500 MG/NS 100 ML IV ONE ×2 (10:00)
--- NOTE | 2017-04-28 10:11 | EKG ---
Date Performed: 04/27/2017 Time Performed: 22:10:34 PTAGE: 62 years EKG: SINUS TACHYCARDIA WITH SHORT IN INTERVAL WITH OCCASIONAL SUPRAVENTRICULAR PREMATURE COMPLEX ES NONSPECIFIC ST & T-WAVE ABNORMALITY ABNORMAL RHYTHM ECG NO PREVIOUS TRACING DOCTOR: Miky Calderon Interpretating Date/Time 04/28/2017 10:10:32
[2017-04-28] MEDS: LORazepam 2 MG/ML VIAL IV PUSH PRN (21:28)
[2017-04-29] VITALS (14 sets, daily range): BP systolic 107–136; BP diastolic 64–81; PULSE 86–98; RESP 0–37; TEMP 98–99.2; O2SAT 95–100
[2017-04-29] MEDS: THIAMINE INJ 500 MG in SODIUM CHLOR 0.9% 250 ML INJ 250 ML IV SCH (02:27)
[2017-04-29] MEDS: MULTIVITAMIN INJ 10 ML, FOLIC ACID INJ 1 MG in SODIUM CHLORID 0.9% 500 ML INJ 500 ML IV SCH (02:28)
[2017-04-29] MEDS: PIPERACIL-TAZO 2.25 GM PREMIX 50 ML IV SCH ×3 (02:28→17:37)
[2017-04-29] MEDS: CHLORHEXIDINE GLUCONATE 2 % 1 PACK (2 CLOTHS)(taper/protocol) TOPICAL SCH (02:28)
[2017-04-29] MEDS: HEPARIN SODIUM - SQ 10,000 UNITS/ML VIAL SQ SCH ×3 (02:28→17:23)
[2017-04-29] MEDS: SODIUM BICARBONATE 8.4% INJ 50 MEQ in DEXTROSE 5% IN WATE 1000ML INJ 1,000 ML IV SCH ×2 (02:29)
[2017-04-29] MEDS: LORazepam 2 MG/ML VIAL IV PUSH PRN (04:53)
[2017-04-29] MEDS: MULTIVITAMINS/MINERALS THERAPEUTIC TAB PO SCH (07:45)
[2017-04-29] MEDS: PHENYTOIN SODIUM 100 MG CAP PO SCH ×3 (07:45→18:00)
[2017-04-29] MEDS: PANTOPRAZOLE SOD 40 MG DELAYED RELEASE TAB PO SCH (07:45)
[2017-04-29] MEDS: FOLIC ACID 1 MG TAB PO SCH (07:46)
[2017-04-29] MEDS: INSULIN ASPART SUPPLEMENTAL SCALE SQ SCH ×4 (08:00→20:49)
[2017-04-29] MEDS: LORazepam 2 MG TAB PO PRN ×4 (08:56→20:21)
[2017-04-29] MEDS: SODIUM CHLORIDE 0.9% FLUSH 10 ML FLUSH IV FLUSH SCH ×2 (09:00→20:22)
--- NOTE | 2017-04-29 09:11 | RADRPT ---
EXAM DATE/TIME: 04/29/2017 08:32 [place] COMPARISON: CHEST SINGLE AP, April 27, 2017, 22:10. INDICATIONS : Cough, congestion. Evaluate for fluid overload. MEDICAL HISTORY : Diabetes mellitus type II. Seizures. SURGICAL HISTORY : None. ENCOUNTER: Subsequent ACUITY: 2 days PAIN SCORE: 0/10 LOCATION: Bilateral chest FINDINGS: A single AP erect portable view of the chest was obtained. This demonstrates mild motion artifact. Th ere are no confluent infiltrates or effusions. The heart and mediastinal structures within normal huerta its. Previously noted nodular structure projected over the left chest wall is no longer visualized. T here overlying electrocardiogram leads. There is an adjacent old healed lateral rib fracture again no cel[place]. CONCLUSION: 1. No acute cardiopulmonary disease. 2. Previously noted nodular density is no longer visualized however there is no adjacent healing rib fracture with callus. There is no definite pulmonary nodule. Kelton Jacob MD on April 29, 2017 at 9:08 Board Certified Radiologist. This report was verified electronically.
[2017-04-29 10:01] LABS: AUTOMATED NEUTROPHIL # 4.6 TH/MM3 (1.8-7.7); BASOPHIL % 0.2 % (0.0-2.0); EOSINOPHIL # 0.1 TH/MM3 (0-0.4); EOSINOPHIL % 1.5 % (0.0-4.0); HEMATOCRIT 35.2 % (39.0-51.0); HEMO FLAGS DIFF FINAL; LYMPH % 17.9 % (9.0-44.0); LYMPHOCYTE # 1.3 TH/MM3 (1.0-4.8); MEAN CELL VOLUME 97.1 FL (80.0-100.0); MEAN CORPUSCULAR HEMOGLOBIN 33.3 PG (27.0-34.0); MEAN CORPUSCULAR HGB CONC 34.3 % (32.0-36.0); MONO % 15.4 % (0.0-8.0); PLATELET COUNT 134 TH/MM3 (150-450); RED BLOOD COUNT 3.62 MIL/MM3 (4.50-5.90); RED CELL DISTRIBUTION WIDTH 13.7 % (11.6-17.2); WHITE BLOOD COUNT 7.1 TH/MM3 (4.0-11.0)
[2017-04-29 10:39] LABS: ALKALINE PHOSPHATASE 70 U/L (45-117); ALT (GPT) 59 U/L (12-78); ANION GAP 8 MEQ/L (5-15); AST (GOT) 185 U/L (15-37); BICARBONATE 31.2 MEQ/L (21.0-32.0); BLOOD UREA NITROGEN 30 MG/DL (7-18); CHLORIDE 104 MEQ/L (98-107); GLOMERULAR FILTRATION RATE 56 ML/MIN (>89); MAGNESIUM 1.4 MG/DL (1.5-2.5); SODIUM (NA) 143 MEQ/L (136-145); TOTAL BILIRUBIN ADULT 1.3 MG/DL (0.2-1.0)
[2017-04-29 10:53] LABS: POTASSIUM 2.8 MEQ/L (3.5-5.1)
[2017-04-29] MEDS ORDERED: VANCOMYCIN INJ 1,000 MG in SODIUM CHLOR 0.9% 250 ML INJ 250 ML IV SCH (11:00)
[2017-04-29 11:05] LABS: CREATINE KINASE 5122 U/L (39-308)
[2017-04-29 11:06] LABS: CKMB 4.1 NG/ML (0.5-3.6)
[2017-04-29] MEDS: SODIUM BICARBONATE 8.4% INJ 100 MEQ in DEXTROSE 5% IN WATE 1000ML INJ 1,000 ML IV SCH ×4 (11:18→16:20)
--- NOTE | 2017-04-29 11:30 | HHI.FPPN ---
Subjective Remarks Patient seen and examined this morning. Temperature 98.7, pulse 88, respiratory rate 25, blood pressure 126/74, pulse ox 96. He is currently on CIWA protocol is scores been ranging between 2 and 9. He is receiving Ativan for treatment of his alcohol withdrawal most recent dosing was this morning 2 mg due to score. This morning he reports that he is doing fine, denies any visions or hallucinations. He did inform me that the nurses sodas sewed his clothes together last night is not happy about that, this hallucination due to his alcohol withdrawal. Endorses: None Denies: Fever, chills, nausea, vomiting, shortness of breath, chest pain, headache, abdominal pain, calf pain All other review of symptoms were negative (Chucky Velasquez MD, R3) Objective Vitals Vital Signs Date Time Temp Pulse Resp B/P (MAP) Pulse Ox O2 Delivery O2 Flow Rate FiO2 04/29/17 08:07 100 21 04/29/17 06:00 87 04/29/17 04:00 98.7 88 25 126/74 (91) 96 04/29/17 04:00 88 04/29/17 02:00 93 04/29/17 00:00 86 04/29/17 00:00 98.9 86 25 136/76 (96) 98 04/28/17 22:00 90 04/28/17 20:00 91 04/28/17 20:00 99.1 91 126/74 (91) 98 04/28/17 18:00 91 04/28/17 16:00 98.8 92 31 129/71 (90) 99 04/28/17 16:00 92 04/28/17 14:00 96 04/28/17 12:00 98.7 96 25 119/67 (84) 96 04/28/17 12:00 96 I/O 04/28/17 04/28/17 04/28/17 04/29/17 04/29/17 04/29/17 06:59 14:59 22:59 06:59 14:59 22:59 Intake Total 2300 ml 750 ml 1550 ml 2040 ml Output Total 1350 ml 1675 ml 2500 ml Balance 950 ml 750 ml -125 ml -460 ml Intake Oral 1550 ml 240 ml IV Total 2300 ml 750 ml 1800 ml Output Urine Total 1350 ml 1675 ml 2500 ml # Bowel Movements 1 (Chucky Velasquez MD, R3) Result Diagram: 04/29/17 0937 04/27/172304 Imaging Last Impressions Head CT 04/27/172203 Signed Impressions: Service Date/Time: Friday, April 28, 2017 00:01 - CONCLUSION: No bleed or other acute intracranial abnormality. Chronic white matter changes. Sixto Goel MD Chest X-Ray 04/27/172203 Signed Impressions: Service Date/Time: Thursday, April 27, 2017 22:10 - CONCLUSION: 1. No acute abnormality is seen. 2. Focal density seen in the lateral mid chest. A pulmonary nodule or abnormality related to the left sixth rib needs to be suspected. This area could be further evaluated with a noncontrast CT examination of the chest. Sixto Harris MD Cervical Spine CT 04/27/172203 Signed Impressions: Service Date/Time: Friday, April 28, 2017 00:01 - CONCLUSION: Intact cervical spine. Multilevel degenerative changes are again noted. Sixto Goel MD Objective Remarks GENERAL: Well-nourished, well-developed patient. No acute distress. Currently in restraints in bed. SKIN: Warm and dry. No rash. EYES: No scleral icterus. No injection or drainage. PERRLA. EOMI. HENT: Normocephalic. Atraumatic. MMM. NECK: No visible JVD or lymphadenopathy. CARDIOVASCULAR: Regular rate and rhythm RESPIRATORY: Clear to auscultation bilaterally GASTROINTESTINAL: Abdomen nondistended. MUSCULOSKELETAL: Strength grossly WNL. BACK: Without obvious deformity. NEURO/PSYCH: Afocal. Awake, alert, and oriented x2, patient is off on the date. Medications and IVs Current Medications Medications (Trade) Dose Ordered Sig/Kiran Route Start Time Stop Time Status Last Admin (NS Flush) 2 ml BID IV FLUSH 04/28/17 09:00 04/28/17 19:35 (NS Flush) 2 ml UNSCH PRN IV FLUSH 04/28/17 01:30 (Tylenol) 650 mg Q6H PRN PO 04/28/17 01:30 (Zofran Inj) 4 mg Q6H PRN IV PUSH 04/28/17 01:30 Pharmacy Profile Note 0 ml @ 0 mls/hr UNSCH OTHER 10/4/17 01:45 (Protonix) 40 mg DAILY PO 04/28/17 09:00 04/29/17 07:45 (Romazicon Inj) 0.2 mg Q1M PRN IV PUSH 04/28/17 01:45 (Ativan) 1 mg Q4H PRN PO 04/28/17 01:45 (Ativan Inj) 1 mg Q4H PRN IV PUSH 04/28/17 01:45 04/29/17 04:53 (Ativan) 2 mg Q2H PRN PO 04/28/17 01:45 04/29/17 08:56 (Ativan Inj) 2 mg Q2H PRN IV PUSH 04/28/17 01:45 (Ativan Inj) 2 mg Q1H PRN IV PUSH 04/28/17 01:45 (Ativan Inj) 2 mg Q15M PRN IV PUSH 04/28/17 01:45 (Heparin Inj) 5,000 units Q8H SQ 04/28/17 02:00 04/29/17 02:28 Thiamine HCl 500 mg/Sodium Chloride 255 ml @ 62.5 mls/hr Q8H IV 04/28/17 02:00 04/30/17 01:59 04/29/17 02:27 Thiamine HCl 500 mg/Sodium Chloride 505 ml @ 62.5 mls/hr Q24H IV 04/30/17 02:00 05/05/17 01:59 (Folate) 1 mg DAILY PO 04/28/17 09:00 05/03/17 08:59 04/29/17 07:46 (Vitamin B1) 100 mg DAILY PO 05/06/17 09:00 (Theragran M Tab) 1 tab DAILY PO 04/28/17 09:00 05/03/17 08:59 04/29/17 07:45 Multivitamins 10 ml/Folic Acid 1 mg/Sodium Chloride 510.2 ml @ 125 mls/hr Q24H IV 04/28/17 02:00 05/03/17 01:59 04/29/17 02:28 (Dilantin) 100 mg TID PO 04/28/17 09:00 04/29/17 07:45 Piperacillin Sod/ Tazobactam Sod 50 ml @ 100 mls/hr Q8H IV 04/28/17 03:00 04/29/17 02:28 (D50w (Vial) Inj) 50 ml UNSCH PRN IV PUSH 04/28/17 02:30 (Glucagon Inj) 1 mg UNSCH PRN OTHER 04/28/17 02:30 (NovoLOG SUPPLEMENTAL SCALE) 1 ACHS SLIDING SCALE SQ 04/28/17 08:00 04/28/17 19:37 (Apresoline Inj) 10 mg Q1H PRN IV PUSH 04/28/17 02:30 Miscellaneous Information Patient in critical care unit? Ass... [id number] .XX 04/28/17 07:00 (Chlorhexidine 2% Cloth) 3 pack DAILY@04 TOPICAL 04/29/17 04:00 05/03/17 04:01 04/29/17 02:28 (Chlorhexidine 2% Cloth) 3 pack UNSCH PRN TOPICAL 04/28/17 07:00 05/03/17 06:52 Sodium Bicarbonate 100 meq/Dextrose 1,100 ml @ 150 mls/hr Q7H20M IV 04/29/17 09:00 (Chucky Velasquez MD, R3) A/P Assessment and Plan Patient is a 62-year-old man with a history of DM and HTN, Seizures, Alcohol- induced mood disorder, multiple psychiatric admissions who was found down at his home and presented to the ED with rhabdo, ENRRIQUE, elevated troponin, elevated ammonia and AST, and altered mental status. Patient meet SIRS criteria with tachycardia and leukocytosis. Unclear source. Plan to treat with IV antibiotics with vancomycin and Zosyn until blood cultures return negative for 3 days. Plan to treat rhabdomyolysis and ENRRIQUE with IV fluids. Plan to treat altered mental status with supportive care, neuro checks, IV thiamine for possible Wernicke encephalopathy. Aircrewman consult appreciated. Discharge Planning Discharge to be determined upon completion of alcohol withdrawal. wdw: Dr. Noe (Chucky Velasquez MD, R3) Attending Attestation Patient seen and examined. Case reviewed and discussed with the resident team. Agree with plan of care as discussed with me and documented in the resident note. he has been doing very poorly at home. he stated he was not eating for "a long time" and he has lost a significant amount of weight. He has been living alone. He has multiple electrolyte abnormalities that could be related to his malnutrition. he is eating better here in the hospital. will correct his magnesium and K as well as giving him some po phos. he smelled like ketones yesterday and could have some combination of alcohol ketoacidosis or even starvation ketosis. will need to keep replacing his electrolytes until he normalizes. he is getting the vitamins needed for alcohol abuse as well. he is monitored in the [facility] so any problems will hopefully be detected early. (Jessica Noe MD) Problem List: (1) Alcohol withdrawal seizure ICD Codes: F10.239 - Alcohol dependence with withdrawal, unspecified; R56.9 - Unspecified convulsions Status: Acute Plan: Patient is currently going through alcohol withdrawal. He is on [facility] protocol. -Admit to ICU for close monitoring -[facility] protocol -Rally pack -Monitor vitals -library monitor/telemetry -Seizure precautions -Phenytoin low concern patient has not been taking medication (2) Sepsis ICD Codes: A41.9 - Sepsis, unspecified organism Status: Resolved Plan: Improving -Continue maintenance fluids with D5 + Bicarb -Lactic acid trended down -Empiric antibiotics with vancomycin and Zosyn (04/28- ) -Oxygen as needed (3) Rhabdomyolysis ICD Codes: M62.82 - Rhabdomyolysis Status: Acute Plan: -IVF as above -Trending CK (4) Acute renal failure ICD Codes: N17.9 - Acute kidney failure, unspecified Status: Acute Plan: -IVF as above (5) Altered mental status ICD Codes: R41.82 - Altered mental status, unspecified Plan: -Supportive care -Monitor vitals -Neuro checks -UDS, alcohol level -PT, OT, ST (6) Elevated troponin ICD Codes: R74.8 - Abnormal levels of other serum enzymes Status: Acute Plan: -Trend troponins and EKG every 6 hours: 0.42, 0.22, 0.17 -Aspirin 300 mg KS (7) Diabetes mellitus type 2, diet-controlled ICD Codes: E11.9 - Diabetes mellitus type 2, diet-controlled Status: Acute Plan: -Low-dose sliding scale insulin and glucose monitor -Hold home metformin (8) Hyperammonemia ICD Codes: E72.20 - Hyperammonemia Status: Acute Plan: Minimally elevated and unlikely to be the cause of his altered mental status. -Continue to monitor (9) HTN (hypertension) ICD Codes: I10 - Essential (primary) hypertension Status: Chronic Plan: -Hold SANA inhibitor given his ENRRIQUE -Hydralazine when necessary for hypertension (10) FEN Status: Acute Plan: Fluids: D5 with bicarbonate Electrolytes: Monitor and replete Nutrition: Diabetic Diet GI prophylaxis: Protonix (11) No contraindication to deep vein thrombosis (DVT) prophylaxis ICD Codes: Z78.9 - Other specified health status Plan: -Heparin 5000 every 8 -SCDs/TEDs bilaterally (Chucky Velasquez MD, R3) Problem Qualifiers (1) Rhabdomyolysis: Qualified Codes: M62.82 - Rhabdomyolysis (2) Acute renal failure: Qualified Codes: N17.9 - Acute kidney failure, unspecified Chucky Velasquez MD, R3 Apr 29, 2017 11:04 Jessica Neo MD Apr 29, 2017 13:59
[2017-04-29] MEDS: POTASSIUM CHLORIDE 10 MEQ CONTROLLED RELEASE TAB PO SCH ×2 (12:18→17:23)
[2017-04-29] MEDS: MAGNESIUM SULFATE 1 GM PREMIX 100 ML IV SCH ×2 (12:18→13:19)
--- NOTE | 2017-04-29 12:55 | HHI.CCPN ---
Subjective Remarks/Hospital Course 04/28: 62-year-old unfortunate gentleman with history of multiple psychiatric admissions and the past history of alcohol-induced psychosis diabetes neuropathy seizure disorder was found down in his home. The neighbors had not seen him for several days. They noticed that his mail was not emptying. They called the authorities and the patient was found down in the prone position in his living room. EVAC reports that the house was filthy. The patient had been incontinent of urine, probably on several occasions. They found him to be hypotensive and treated him in route with IV fluids. 04/29: Resting in bed comfortably. Knows he is at the hospital. Denies any shortness of breath or abdominal discomfort. Objective Vital Signs Date Time Temp Pulse Resp B/P (MAP) Pulse Ox O2 Delivery O2 Flow Rate FiO2 04/29/17 10:00 87 04/29/17 08:07 100 21 04/29/17 08:00 98.0 0 124/72 (89) 04/28/17 03:08 Room Air Intake and Output 04/29/17 04/29/17 04/30/17 08:00 16:00 00:00 Intake Total 2040 ml Output Total 2500 ml Balance -460 ml Result Diagram: 04/29/17 0937 04/29/17 0937 Imaging Last 24 hours Impressions Chest X-Ray 04/27/172203 Signed Impressions: Service Date/Time: Thursday, April 27, 2017 22:10 - CONCLUSION: 1. No acute abnormality is seen. 2. Focal density seen in the lateral mid chest. A pulmonary nodule or abnormality related to the left sixth rib needs to be suspected. This area could be further evaluated with a noncontrast CT examination of the chest. Sixto Harris MD Objective Remarks GENERAL: Elderly male laying in bed in no acute distress SKIN: Warm and dry. HEAD: Normocephalic. EYES: No scleral icterus. No injection or drainage. NECK: Supple, trachea midline. No JVD or lymphadenopathy. CARDIOVASCULAR: Regular rate and rhythm without murmurs, gallops, or rubs. RESPIRATORY: Breath sounds equal bilaterally. No accessory muscle use. GASTROINTESTINAL: Abdomen soft, non-tender, nondistended. MUSCULOSKELETAL: No cyanosis, or edema. BACK: Nontender without obvious deformity. NEURO EXAM: GCS: Awake and alert, knows he is at the hospital. Slightly confused. Moves all 4 extremities. Grossly nonfocal. A/P Assessment and Plan Altered mental status - Metabolic toxic - CT head negative - History of seizure disorder - postictal?? - History of psychosis - Neuro checks per unit protocol - Supportive care Acute kidney injury - Dehydration - Hold lisinopril avoid nephrotoxins - Strict I's and O's - Monitor creatinine and electrolytes Rhabdomyolysis - Sodium bicarbonate drip for urine alkalinization - Monitor trend History of alcohol abuse - CIKY protocol - Thiamine and folate Seizure disorder - Continue Dilantin - Check Dilantin level Hypertension - Hold lisinopril due to acute kidney injury - Hydralazine when necessary to keep SBP less than 150 Diabetes mellitus - Hold metformin - Insulin sliding scale Elevated troponin - Troponin leak - EKG in the emergency department without significant ST changes - Monitor trend and series of EKGs Tachycardia fever and mild leukocytosis - Broad-spectrum antibiotics - Panculture - DC antibiotics if cultures negative DVT GI prophylaxis - Teds SCDs - Subcutaneous heparin - Mike Hodges MD Apr 29, 2017 12:55
[2017-04-29] MEDS ORDERED: POTASSIUM CHLORIDE 10 MEQ CONTROLLED RELEASE TAB PO SCH (13:00)
[2017-04-29] MEDS: POTASSIUM PHOSPHATE MONOBASIC 500 MG TAB PO SCH ×2 (13:22→20:21)
--- NOTE | 2017-04-29 14:09 | EKG ---
Date Performed: 04/28/2017 Time Performed: 11:48:08 PTAGE: 62 years EKG: Sinus rhythm WITH OCCASIONAL SUPRAVENTRICULAR PREMATURE COMPLEXES NONSPECIFIC T-WAVE ABNORMALITY BORDERLINE ECG PREVIOUS TRACING : 04/28/2017 04.23 Since prior tracing, sinus rate is slightly slower. Nonspec ific changes are slightly more prominent. DOCTOR: Chucky Reilly Interpretating Date/Time 04/29/2017 14:07:07
--- NOTE | 2017-04-29 14:09 | EKG ---
Date Performed: 04/28/2017 Time Performed: 17:40:01 PTAGE: 62 years EKG: Sinus rhythm NONSPECIFIC T-WAVE ABNORMALITY BORDERLINE ECG PREVIOUS TRACING : 04/28/2017 11.48 Compared to prior tracing no significant change DOCTOR: Chucky Reilly Interpretating Date/Time 04/29/2017 14:07:17
--- NOTE | 2017-04-29 15:10 | MB ---
cc: KURT MARTINI MD DATE OF CONSULTATION: 04/29/2017 REASON FOR CONSULTATION Acute kidney injury with elevated BUN and creatinine. HISTORY OF PRESENT ILLNESS This is a 62-year-old male with past medical history of hypertension, seizure disorder, history of alcoholism, diabetes mellitus, also was admitted with altered mental status. I was called to see the patient because of elevated BUN and creatinine. The patient was found at home for several days, he was there and his neighbors had not seen him, so they called the EMS and he was found in his living room and he was incontinent of the urine. In the hospital he was found to have high blood pressure and the blood pressure was 165/112. There is no hypotensive episodes here. He was also found to have elevated creatinine kinase and it was 6600 and now it is improving. He has a Dodd catheter. He is passing urine. He came with a creatinine of 4.4 and now it is improving to 1.3. His potassium also went down to 2.8. The patient is not a very good historian. He has abrasion on his forehead and he is saying that this happened because he had seizure, although there is no documented seizures history here. He was taking Advil off and on at home and admits that he was not eating very well. He seems to be oriented x2 and not in acute distress and occasionally has been agitated. PAST MEDICAL HISTORY 1. Hypertension. 2. Diabetes mellitus. 3. History of seizure disorder. 4. Alcoholism. PAST SURGICAL HISTORY History of cataract surgery. REVIEW OF SYSTEMS Denies any headache, dizziness or blurring of vision or shortness of breath. No chest pain. He has been feeling weak and tired. There is no nausea or vomiting. No abdominal pain. No history of diarrhea. He wants to eat more food. Currently has Dodd catheter. SOCIAL HISTORY The patient is single. He has history of alcoholism in the past. He lives by himself. History of smoking, stopped in 2012. ALLERGIES Allergic to multiple medications including: SULFA, ESCITALOPRAM, LEVETIRACETAM, CEFPHALEXIN, MINOCYCLINE, TIGECYCLINE. MEDICATIONS Currently he is on the following medications: 1. IV fluids, he is getting Dextrose with sodium bicarb at 150 an hour. 2. Vancomycin, he just got one dose. 3. Protonix 40 mg once a day. 4. Folic acid 1 mg daily. 5. Thiamine 100 mg daily. 6. Theragran one tablet daily. 7. K-phos 1000 mg q.12 hours. 8. Heparin 5000 units q. 8-hours. 9. Zosyn 2.25 grams IV q.8 hours. 10. Insulin sliding scale. 11. Dilantin 100 mg t.i.d. PHYSICAL EXAMINATION GENERAL: The patient is awake, alert. He is not in acute distress. VITAL SIGNS: Last blood pressure is 124/72, temperature is 98, oxygen saturation 100% on room air. HEENT: Pupils are mid constricted. Nonicteric sclerae. Conjunctivae pale. He has abrasion zoila on his forehead on the left side. There is no bleeding. NECK: Neck is supple. JVD is not elevated. LUNGS: The patient has bilateral decreased air entry with occasional wheezing. HEART: S1, S2, regular rhythm. ABDOMEN: Soft, lax. There is no tenderness. Bowel sounds positive. EXTREMITIES: There is no pedal edema. INVESTIGATION WBC count is 7.1, hemoglobin 12.1, platelet count of 134, neutrophils 65%, sodium 143, potassium 2.8, chloride 104, bicarb 31.2, BUN 30, creatinine 1.3, glucose 180, calcium 7.5, phosphorus 1.2, magnesium 1.4, total bilirubin is 1.3, AST is 185, ALT is 59, creatinine kinase now is 5122. Troponin-I is 0.17, total protein is 6.7, albumin of 2.8, INR 1.0. Urinalysis showing protein of 30 with moderate blood, rare bacteria. Toxicology screen showing vancomycin level of 5.3. Ethyl alcohol level was 3. IMAGING STUDIES The patient had a chest x-ray done which shows no acute cardiopulmonary disease, no definite pulmonary nodules. ASSESSMENT/PLAN 1. Acute kidney injury. 2. Rhabdomyolysis. 3. Hypokalemia and hypophosphatemia. 4. Possible sepsis. 5. Dehydration. 6. History of seizure disorder. 7. Diabetes mellitus. 8. Elevated troponins. The patient has good urine output. The BUN and creatinine are improving. He has low phosphorus, magnesium and potassium, possibly related to some tubular injury. He has previously also on the low readings for phosphorus, magnesium and potassium, could have underlying tubular dysfunction and will need long-term supplement. I will check his urine potassium later on once his kidney function is slightly improved. Continue with IV fluid and the supplement of potassium, phosphorus and magnesium as needed. Avoid any nephrotoxins. Thank you for the consultation. I will check the ultrasound of the kidneys and follow the patient while he is in the hospital. MD NEIL Mckenzie/TLL /1:51 PM /2:43 PM
--- NOTE | 2017-04-29 17:46 | RADRPT ---
EXAM DATE/TIME: 04/29/2017 16:26 [facility] COMPARISON: No previous studies available for comparison. INDICATIONS : Increased BUN/creatinine. MEDICAL HISTORY : Hypertension. Seizures. Diabetes. Head trauma. Skin cancer. SURGICAL HISTORY : Skin cancer removal. ENCOUNTER: Initial ACUITY: 1 day PAIN SCORE: 0/10 LOCATION: Bilateral flank MEASUREMENTS: RIGHT KIDNEY: 13.1 x 5.0 x 5.4 cm LEFT KIDNEY: 11.3 x 4.8 x 5.0 cm FINDINGS: RIGHT KIDNEY: Renal cortex is normal in thickness and echotexture. No hydronephrosis, stone, or mass. LEFT KIDNEY: Renal cortex is normal in thickness and echotexture. No hydronephrosis, stone, or mass. BLADDER: Within normal limits given the degree of distension. Incidental note is made of gallstones. CONCLUSION: 1. No evidence hydronephrosis. 2. Incidental gallstones. Kelton Jacob MD on April 29, 2017 at 17:41 Board Certified Radiologist. This report was verified electronically.
[2017-04-30] VITALS (14 sets, daily range): BP systolic 102–170; BP diastolic 58–89; PULSE 76–95; RESP 0–24; TEMP 97.5–100; O2SAT 96–99
[2017-04-30] MEDS: SODIUM BICARBONATE 8.4% INJ 100 MEQ in DEXTROSE 5% IN WATE 1000ML INJ 1,000 ML IV SCH ×2 (01:22)
[2017-04-30] MEDS: HEPARIN SODIUM - SQ 10,000 UNITS/ML VIAL SQ SCH ×3 (01:24→16:57)
[2017-04-30] MEDS: PIPERACIL-TAZO 2.25 GM PREMIX 50 ML IV SCH ×3 (01:25→18:01)
[2017-04-30] MEDS ORDERED: THIAMINE INJ 500 MG in SODIUM CHLOR 0.9% 250 ML INJ 500 ML IV SCH (02:00)
[2017-04-30] MEDS: CHLORHEXIDINE GLUCONATE 2 % 1 PACK (2 CLOTHS)(taper/protocol) TOPICAL SCH ×2 (02:47→21:25)
[2017-04-30 05:27] LABS: HEMATOCRIT 36.2 % (39.0-51.0); MEAN CELL VOLUME 97.3 FL (80.0-100.0); MEAN CORPUSCULAR HEMOGLOBIN 33.6 PG (27.0-34.0); MEAN CORPUSCULAR HGB CONC 34.5 % (32.0-36.0); PLATELET COUNT 147 TH/MM3 (150-450); RED BLOOD COUNT 3.72 MIL/MM3 (4.50-5.90); RED CELL DISTRIBUTION WIDTH 13.5 % (11.6-17.2); REVIEW FLAG FINAL; WHITE BLOOD COUNT 6.8 TH/MM3 (4.0-11.0)
[2017-04-30 06:16] LABS: BICARBONATE 34.3 MEQ/L (21.0-32.0)
[2017-04-30 06:32] LABS: CALCIUM-PROTEIN CORRECTED 7.5 MG/DL (8.5-10.1); CKMB 1.8 NG/ML (0.5-3.6)
[2017-04-30] MEDS: INSULIN ASPART SUPPLEMENTAL SCALE SQ SCH ×4 (08:00→21:00)
--- NOTE | 2017-04-30 08:51 | HHI.CCPN ---
Subjective Remarks/Hospital Course 04/28: 62-year-old unfortunate gentleman with history of multiple psychiatric admissions and the past history of alcohol-induced psychosis diabetes neuropathy seizure disorder was found down in his home. The neighbors had not seen him for several days. They noticed that his mail was not emptying. They called the authorities and the patient was found down in the prone position in his living room. EVAC reports that the house was filthy. The patient had been incontinent of urine, probably on several occasions. They found him to be hypotensive and treated him in route with IV fluids. 04/29: Resting in bed comfortably. Knows he is at the hospital. Denies any shortness of breath or abdominal discomfort. 04/30: Resting in bed comfortably. Drowsy, easily arousable. Has some confusion as morning. Objective Vital Signs Date Time Temp Pulse Resp B/P (MAP) Pulse Ox O2 Delivery O2 Flow Rate FiO2 04/30/17 07:28 99 21 04/30/17 06:00 91 04/30/17 04:00 98.9 0 108/65 (79) 04/28/17 03:08 Room Air Intake and Output 04/30/17 04/30/17 05/01/17 08:00 16:00 00:00 Intake Total 1170 ml Output Total 825 ml Balance 345 ml Result Diagram: 04/30/17 0428 04/30/17 0428 Other Results Laboratory Tests Test 04/29/17 09:37 04/30/17 04:28 White Blood Count 7.1 TH/MM3 6.8 TH/MM3 Red Blood Count 3.62 MIL/MM3 3.72 MIL/MM3 Hemoglobin 12.1 GM/DL 12.5 GM/DL Hematocrit 35.2 % 36.2 % Mean Corpuscular Volume 97.1 FL 97.3 FL Mean Corpuscular Hemoglobin 33.3 PG 33.6 PG Mean Corpuscular Hemoglobin Concent 34.3 % 34.5 % Red Cell Distribution Width 13.7 % 13.5 % Platelet Count 134 TH/MM3 147 TH/MM3 Mean Platelet Volume 8.3 FL 8.9 FL Neutrophils (%) (Auto) 65.0 % Lymphocytes (%) (Auto) 17.9 % Monocytes (%) (Auto) 15.4 % Eosinophils (%) (Auto) 1.5 % Basophils (%) (Auto) 0.2 % Neutrophils # (Auto) 4.6 TH/MM3 Lymphocytes # (Auto) 1.3 TH/MM3 Monocytes # (Auto) 1.1 TH/MM3 Eosinophils # (Auto) 0.1 TH/MM3 Basophils # (Auto) 0.0 TH/MM3 CBC Comment DIFF FINAL Differential Comment Prothrombin Time 11.0 SEC Prothromb Time International Ratio 1.0 RATIO Blood Urea Nitrogen 30 MG/DL 20 MG/DL Creatinine 1.30 MG/DL 1.13 MG/DL Random Glucose 180 MG/DL 156 MG/DL Total Protein 6.7 GM/DL 6.9 GM/DL Albumin 2.8 GM/DL Calcium Level 7.5 MG/DL 7.4 MG/DL Phosphorus Level 1.2 MG/DL Magnesium Level 1.4 MG/DL Alkaline Phosphatase 70 U/L Aspartate Amino Transf (AST/SGOT) 185 U/L Alanine Aminotransferase (ALT/SGPT) 59 U/L Total Bilirubin 1.3 MG/DL Sodium Level 143 MEQ/L 141 MEQ/L Potassium Level 2.8 MEQ/L 3.0 MEQ/L Chloride Level 104 MEQ/L 99 MEQ/L Carbon Dioxide Level 31.2 MEQ/L 34.3 MEQ/L Anion Gap 8 MEQ/L 8 MEQ/L Estimat Glomerular Filtration Rate 56 ML/MIN 66 ML/MIN Total Creatine Kinase 5122 U/L 3544 U/L Creatine Kinase MB 4.1 NG/ML 1.8 NG/ML Creatine Kinase MB % 0.1 % 0.1 % Random Vancomycin Level 5.3 COMMENT 2.2 COMMENT Protein Corrected Calcium 7.5 MG/DL Imaging Last 24 hours Impressions Chest X-Ray 04/27/17 [id number] Signed Impressions: Service Date/Time: Thursday, April 27, 2017 22:10 - CONCLUSION: 1. No acute abnormality is seen. 2. Focal density seen in the lateral mid chest. A pulmonary nodule or abnormality related to the left sixth rib needs to be suspected. This area could be further evaluated with a noncontrast CT examination of the chest. Sixto Harris MD Objective Remarks GENERAL: Elderly male laying in bed in no acute distress SKIN: Warm and dry. HEAD: Normocephalic. EYES: No scleral icterus. No injection or drainage. NECK: Supple, trachea midline. No JVD or lymphadenopathy. CARDIOVASCULAR: Regular rate and rhythm without murmurs, gallops, or rubs. RESPIRATORY: Breath sounds equal bilaterally. No accessory muscle use. GASTROINTESTINAL: Abdomen soft, non-tender, nondistended. MUSCULOSKELETAL: No cyanosis, or edema. BACK: Nontender without obvious deformity. NEURO EXAM: Drowsy, easily arousable, Slightly confused. Moves all 4 extremities. Grossly nonfocal. A/P Assessment and Plan Altered mental status - Metabolic toxic - CT head negative - History of seizure disorder - postictal?? - History of psychosis - Neuro checks per unit protocol - Supportive care Acute kidney injury - Dehydration - Hold lisinopril avoid nephrotoxins - Strict I's and O's - Monitor creatinine and electrolytes Rhabdomyolysis - Sodium bicarbonate drip for urine alkalinization - Monitor trend History of alcohol abuse - [facility] protocol - Thiamine and folate Seizure disorder - Continue Dilantin - Check Dilantin level Hypertension - Hold lisinopril due to acute kidney injury - Hydralazine when necessary to keep SBP less than 150 Diabetes mellitus - Hold metformin - Insulin sliding scale Elevated troponin - Troponin leak - EKG in the emergency department without significant ST changes - Monitor trend and series of EKGs Tachycardia fever and mild leukocytosis - Broad-spectrum antibiotics - Panculture - DC antibiotics if cultures negative DVT GI prophylaxis - Teds SCDs - Subcutaneous heparin - Pepcid Patient being followed by family medicine team and nephrology. Creatinine normalized. CPK coming down. Critical care will sign off at this time, please reconsult if needed. Mike Delgado MD Apr 30, 2017 08:51
[2017-04-30] MEDS: MULTIVITAMINS/MINERALS THERAPEUTIC TAB PO SCH (09:00)
[2017-04-30] MEDS: SODIUM CHLORIDE 0.9% FLUSH 10 ML FLUSH IV FLUSH SCH ×2 (09:00→19:50)
[2017-04-30] MEDS: POTASSIUM PHOSPHATE MONOBASIC 500 MG TAB PO SCH ×2 (09:07→19:50)
[2017-04-30] MEDS: POTASSIUM CHLORIDE 10 MEQ CONTROLLED RELEASE TAB PO SCH ×3 (09:07→16:51)
[2017-04-30] MEDS: FOLIC ACID 1 MG TAB PO SCH (09:07)
[2017-04-30] MEDS: PHENYTOIN SODIUM 100 MG CAP PO SCH ×3 (09:08→16:52)
[2017-04-30] MEDS: MULTIVITAMIN TAB PO SCH (09:08)
[2017-04-30] MEDS: PANTOPRAZOLE SOD 40 MG DELAYED RELEASE TAB PO SCH (09:11)
[2017-04-30] MEDS: SODIUM CHLOR 0.9% 1000 ML INJ 1,000 ML IV SCH ×2 (12:57→18:25)
--- NOTE | 2017-04-30 13:54 | HHI.FPPN ---
Subjective Remarks Mr Light is more calm today but still pulled out his iv and everything he could. He declines any antidepressants or other meds. He did not have other complaints this am. His CIWA scores are vastly improved today. yesterday he was having hallucinations and delusions but today he denied any of these. he reportedly had his last drink about 5 days ago. Objective Vitals Vital Signs Date Time Temp Pulse Resp B/P (MAP) Pulse Ox O2 Delivery O2 Flow Rate FiO2 04/30/17 12:00 98.7 81 17 120/71 (87) 97 04/30/17 12:00 81 04/30/17 10:00 86 04/30/17 08:00 80 04/30/17 08:00 99.6 80 16 134/80 (98) 99 04/30/17 07:28 99 21 04/30/17 06:00 91 04/30/17 06:00 78 04/30/17 04:00 98.9 91 0 108/65 (79) 04/30/17 04:00 108/65 (79) 04/30/17 04:00 91 04/30/17 02:00 91 04/30/17 00:00 93 04/30/17 00:00 98.8 93 170/89 (116) 97 04/29/17 22:00 86 04/29/17 20:01 97 21 04/29/17 20:00 86 04/29/17 20:00 99.2 86 0 127/73 (91) 96 04/29/17 18:00 87 04/29/17 16:00 98.5 88 16 107/64 (78) 95 04/29/17 16:00 87 04/29/17 14:00 87 I/O 04/29/17 04/29/17 04/29/17 04/30/17 04/30/17 04/30/17 07:00 15:00 23:00 07:00 15:00 23:00 Intake Total 2040 ml 1510 ml 1270 ml 200 ml Output Total 2500 ml 1400 ml 825 ml Balance -460 ml 110 ml 445 ml 200 ml Intake Oral 240 ml 360 ml 120 ml IV Total 1800 ml 1150 ml 1150 ml 200 ml Output Urine Total 2500 ml 1400 ml 825 ml # Bowel Movements 1 Result Diagram: 04/30/17 0428 04/30/17 0428 Objective Remarks GENERAL: Well-nourished, well-developed patient. No acute distress. Currently in restraints in bed. alert and answers questions SKIN: Warm and dry. No rash. EYES: No scleral icterus. No injection or drainage. PERRLA. EOMI. HENT: Normocephalic. Atraumatic. MMM. NECK: No visible JVD or lymphadenopathy. CARDIOVASCULAR: Regular rate and rhythm RESPIRATORY: Clear to auscultation bilaterally GASTROINTESTINAL: Abdomen nondistended. MUSCULOSKELETAL: Strength grossly WNL. BACK: Without obvious deformity. NEURO/PSYCH: Afocal. Awake, alert. moves all extremities with no facial droop or apparent focal weakness Vascular Central Line Catheter: No A/P Assessment and Plan Patient is a 62-year-old man with a history of DM and HTN, Seizures, Alcohol- induced mood disorder, multiple psychiatric admissions who was found down at his home and presented to the ED with rhabdo, ENRRIQUE, elevated troponin, elevated ammonia and AST, and altered mental status. Patient meet SIRS criteria with tachycardia and leukocytosis. Unclear source. Plan to treat with IV antibiotics with vancomycin and Zosyn until blood cultures return negative for 3 days or the organism is known as he does have gram positive cocci in blood culture x 1. Plan to treat rhabdomyolysis and ENRRIQUE with IV fluids. Plan to treat altered mental status with supportive care, neuro checks, IV thiamine for possible Wernicke encephalopathy. Pyrotechnist consult appreciated, signed off today Discharge Planning Discharge to be determined upon completion of alcohol withdrawal. Problem List: (1) Alcohol withdrawal seizure ICD Codes: F10.239 - Alcohol dependence with withdrawal, unspecified; R56.9 - Unspecified convulsions Status: Acute Plan: Patient is currently going through alcohol withdrawal. He is on CIWA protocol. improved and is clearly better today with no hallucinations and little tremor -Admitted to ICU for close monitoring, can transfer once less nursing care is required -Rally pack -Monitor vitals -pvc monitor/telemetry -Seizure precautions -Phenytoin low - patient has not been taking medication his seizures are probably alcohol withdrawal related as he had them 2 days after he quit drinking (or maybe earlier than that as he is a poor historian) (2) Sepsis ICD Codes: A41.9 - Sepsis, unspecified organism Status: Resolved Plan: Improving -Continue maintenance fluids with D5 -Lactic acid fine now -Empiric antibiotics with vancomycin and Zosyn (04/28- ) culture not completely resulted but positive -Oxygen as needed (3) Rhabdomyolysis ICD Codes: M62.82 - Rhabdomyolysis Status: Acute Plan: -IVF as above -Trending CK (4) Acute renal failure ICD Codes: N17.9 - Acute kidney failure, unspecified Status: Acute Plan: -IVF as above from rhabdo probably (5) Altered mental status ICD Codes: R41.82 - Altered mental status, unspecified Plan: -Supportive care -Monitor vitals -Neuro checks -UDS, alcohol level -PT, OT, ST hope for placement at D/C as he is poor at caring for himself (6) Elevated troponin ICD Codes: R74.8 - Abnormal levels of other serum enzymes Status: Acute Plan: -Trend troponins and EKG every 6 hours: 0.42, 0.22, 0.17 -Aspirin 325 mg po once he is clearer mentally can discuss with pt his desire or need for more cardiac workup (7) Diabetes mellitus type 2, diet-controlled ICD Codes: E11.9 - Diabetes mellitus type 2, diet-controlled Status: Acute Plan: -Low-dose sliding scale insulin and glucose monitor -Hold home metformin (8) Hyperammonemia ICD Codes: E72.20 - Hyperammonemia Status: Acute Plan: Minimally elevated and unlikely to be the cause of his altered mental status. -Continue to monitor (9) HTN (hypertension) ICD Codes: I10 - Essential (primary) hypertension Status: Chronic Plan: -Hold SANA inhibitor given his ENRRIQUE -Hydralazine when necessary for hypertension (10) FEN Status: Acute Plan: Fluids: D5 Electrolytes: Monitor and replete Nutrition: Diabetic Diet GI prophylaxis: Protonix (11) No contraindication to deep vein thrombosis (DVT) prophylaxis ICD Codes: Z78.9 - Other specified health status Plan: -Heparin 5000 every 8 -SCDs/TEDs bilaterally (12) Malnutrition due to starvation ICD Codes: E46 - Unspecified protein-calorie malnutrition Status: Chronic Plan: he reports losing 30 lbs or so and eating very poorly for months before admission. watching for refeeding syndrome with phos, K and mag replacement and monitoring. Problem Qualifiers (1) Rhabdomyolysis: Qualified Codes: M62.82 - Rhabdomyolysis (2) Acute renal failure: Qualified Codes: N17.9 - Acute kidney failure, unspecified (3) Altered mental status: Qualified Codes: R41.0 - Disorientation, unspecified (4) HTN (hypertension): Qualified Codes: I10 - Essential (primary) hypertension Jessica Noe MD Apr 30, 2017 13:54
[2017-04-30 13:57] LABS: MAGNESIUM 1.8 MG/DL (1.5-2.5)
--- NOTE | 2017-04-30 15:38 | HHI.NPPN ---
Subjective History of Present Illness 62-year-old male with past medical history of hypertension, seizure disorder, history of alcoholism, diabetes mellitus, also was admitted with altered mental status. I was called to see the patient because of elevated BUN and creatinine. The patient was found at home for several days, he was there and his neighbors had not seen him, so they called the EMS and he was found in his living room and he was incontinent of the urine. Additional Remarks Patient is sleepy arousable, not fully oriented, not in distress. Review of Systems General Constitutional: Fatigue Cardiovascular Cardiac: SO Objective Data Data 04/30/17 05/01/17 19:00 07:00 Intake Total 200 ml Balance 200 ml IV Total 200 ml Vital Signs Date Time Temp Pulse Resp B/P (MAP) Pulse Ox O2 Delivery O2 Flow Rate FiO2 04/30/17 14:00 81 04/30/17 12:00 98.7 81 17 120/71 (87) 97 04/30/17 12:00 81 04/30/17 10:00 86 04/30/17 08:00 80 04/30/17 08:00 99.6 80 16 134/80 (98) 99 04/30/17 07:28 99 21 04/30/17 06:00 91 04/30/17 06:00 78 04/30/17 04:00 98.9 91 0 108/65 (79) 04/30/17 04:00 108/65 (79) 04/30/17 04:00 91 04/30/17 02:00 91 04/30/17 00:00 93 04/30/17 00:00 98.8 93 170/89 (116) 97 04/29/17 22:00 86 04/29/17 20:01 97 21 04/29/17 20:00 86 04/29/17 20:00 99.2 86 0 127/73 (91) 96 04/29/17 18:00 87 04/29/17 16:00 98.5 88 16 107/64 (78) 95 04/29/17 16:00 87 -: 04/30/17 0428 04/30/17 0428 Physical Exam General Appearance: No Acute Distress, Comfortable Eyes Eye Exam: Pupils Equal Pulmonary Resp Exam: Breath Sounds Equal, No Distress, Rhonchi, Decreased Bases Cardiology CV Exam: Regular, Normal Sinus Rhythm Gastrointestinal/Abdomen GI Exam: Soft, Non-Tender, Bowel Sounds Present Extremeties Extremities Exam: Trace Edema Neurologic Neuro Exam: Alert, Awake Psychiatric Psych Exam: Appropriate Responses Assessment/Plan Assessment Summary: ENRRIQUE/Acute Renal Failure Electrolyte Assessment: Hypocalcemia, Hypokalemia Problem List: (1) Altered mental status ICD Codes: R41.82 - Altered mental status, unspecified (2) HTN (hypertension) ICD Codes: I10 - Essential (primary) hypertension Status: Chronic (3) Seizure disorder ICD Codes: G40.909 - Seizure disorder Status: Acute (4) Alcohol dependence ICD Codes: F10.20 - Alcohol dependence Status: Chronic (5) Hypokalemia ICD Codes: E87.6 - Hypokalemia Status: Acute (6) Diabetes mellitus type 2, diet-controlled ICD Codes: E11.9 - Diabetes mellitus type 2, diet-controlled Status: Acute (7) Rhabdomyolysis ICD Codes: M62.82 - Rhabdomyolysis Status: Acute (8) Acute renal failure ICD Codes: N17.9 - Acute kidney failure, unspecified Status: Acute Plan Patient has been non oliguric. CPK level improving. Have ENRRIQUE possibly related to Rhabdo. or ATN. Has multiple electrolytes disorder, possibly has tubular damage due to ENRRIQUE. Continue replacement, K is better. Creatinine is improving. Continue IVF, Follow the V[facility]. level. Problem Qualifiers (1) Altered mental status: Qualified Codes: R41.0 - Disorientation, unspecified (2) HTN (hypertension): Qualified Codes: I10 - Essential (primary) hypertension (3) Rhabdomyolysis: Qualified Codes: M62.82 - Rhabdomyolysis (4) Acute renal failure: Qualified Codes: N17.9 - Acute kidney failure, unspecified Manuel Hector MD Apr 30, 2017 15:38
[2017-04-30] MEDS: VANCOMYCIN INJ 1,250 MG in SODIUM CHLOR 0.9% 250 ML INJ 250 ML IV SCH (16:49)
[2017-04-30] MEDS: LORazepam 2 MG TAB PO PRN ×2 (19:49→22:28)
[2017-05-01] VITALS (18 sets, daily range): BP systolic 123–149; BP diastolic 60–80; PULSE 74–96; RESP 16–29; TEMP 98.9–100; O2SAT 82–100
[2017-05-01] MEDS: SODIUM CHLOR 0.9% 1000 ML INJ 1,000 ML IV SCH ×4 (01:05→22:01)
[2017-05-01] MEDS: HEPARIN SODIUM - SQ 10,000 UNITS/ML VIAL SQ SCH ×4 (02:00→18:00)
[2017-05-01] MEDS: PIPERACIL-TAZO 2.25 GM PREMIX 50 ML IV SCH ×4 (02:20→22:00)
[2017-05-01 07:29] LABS: BATH SALTS (MDPV) UR NEG (NEG); ECSTASY (MDMA) UR NEG (NEG); GABAPENTIN UR NEG (NEG); HEROIN (6-ACETYLMORPHINE) UR NEG (NEG); HYDROMORPHONE U NEG (NEG); K2 SPICE UR NEG (NEG); OBMETHADONE UR NEG (NEG); PHENCYCLIDINE URINE NEG (NEG)
[2017-05-01] MEDS: INSULIN ASPART SUPPLEMENTAL SCALE SQ SCH ×4 (08:00→21:00)
[2017-05-01] MEDS: LORazepam 1 MG TAB PO PRN ×2 (08:26→15:06)
[2017-05-01] MEDS: MULTIVITAMINS/MINERALS THERAPEUTIC TAB PO SCH (09:00)
[2017-05-01 09:10] LABS: HEMATOCRIT 36.5 % (39.0-51.0); MEAN CELL VOLUME 98.2 FL (80.0-100.0); MEAN CORPUSCULAR HEMOGLOBIN 33.4 PG (27.0-34.0); PLATELET COUNT 185 TH/MM3 (150-450); RED BLOOD COUNT 3.72 MIL/MM3 (4.50-5.90); RED CELL DISTRIBUTION WIDTH 13.7 % (11.6-17.2); REVIEW FLAG FINAL; WHITE BLOOD COUNT 6.7 TH/MM3 (4.0-11.0)
[2017-05-01 09:46] LABS: BICARBONATE 29.8 MEQ/L (21.0-32.0); MAGNESIUM 1.8 MG/DL (1.5-2.5); POTASSIUM 3.9 MEQ/L (3.5-5.1)
[2017-05-01] MEDS: SODIUM CHLORIDE 0.9% FLUSH 10 ML FLUSH IV FLUSH SCH ×2 (10:07→22:01)
[2017-05-01] MEDS: VANCOMYCIN INJ 1,250 MG in SODIUM CHLOR 0.9% 250 ML INJ 250 ML IV SCH (10:07)
[2017-05-01] MEDS: POTASSIUM CHLORIDE 10 MEQ CONTROLLED RELEASE TAB PO SCH ×2 (10:15→21:00)
[2017-05-01] MEDS: PANTOPRAZOLE SOD 40 MG DELAYED RELEASE TAB PO SCH (10:16)
[2017-05-01] MEDS: PHENYTOIN SODIUM 100 MG CAP PO SCH ×3 (10:17→18:00)
[2017-05-01] MEDS: FOLIC ACID 1 MG TAB PO SCH (10:17)
[2017-05-01] MEDS: MULTIVITAMIN TAB PO SCH (10:27)
[2017-05-01] MEDS: POTASSIUM PHOSPHATE MONOBASIC 500 MG TAB PO SCH ×3 (10:27→23:16)
--- NOTE | 2017-05-01 10:32 | HHI.FPPN ---
Subjective Remarks Patient seen with Dr. Noe and nursing. Nursing reports CIWA score of 8 and giving ativan x1 around 8 am this morning. Patient has no complaints at this time. No f/c/n/v/d/cp. (Nitesh Xiao MD, R3) Objective Vitals Vital Signs Date Time Temp Pulse Resp B/P (MAP) Pulse Ox O2 Delivery O2 Flow Rate FiO2 05/01/17 08:00 98.9 05/01/17 07:15 99 21 05/01/17 06:00 81 05/01/17 04:00 83 05/01/17 04:00 100.0 83 29 123/63 (83) 90 05/01/17 02:00 77 05/01/17 00:00 74 05/01/17 00:00 99.2 74 134/61 (85) 98 04/30/17 22:00 76 04/30/17 20:00 100.0 77 24 102/58 (73) 97 04/30/17 20:00 85 04/30/17 19:24 99 04/30/17 18:00 79 04/30/17 16:00 97.5 79 12 106/59 (75) 96 04/30/17 16:00 79 04/30/17 14:00 81 04/30/17 12:00 98.7 81 17 120/71 (87) 97 04/30/17 12:00 81 I/O 04/30/17 04/30/17 04/30/17 05/01/17 05/01/17 05/01/17 06:59 14:59 22:59 06:59 14:59 22:59 Intake Total 1170 ml 300 ml 2210 ml 1300 ml Output Total 825 ml 550 ml 1150 ml Balance 345 ml 300 ml 1660 ml 150 ml Intake Oral 120 ml 1560 ml IV Total 1050 ml 300 ml 650 ml 1300 ml Output Urine Total 825 ml 550 ml 1150 ml # Bowel Movements 6 (Nitesh Xiao MD, R3) Result Diagram: 05/01/1780805/01/17808 Objective Remarks GENERAL: Well-nourished, well-developed patient. No acute distress. Currently in restraints in bed. alert and answers questions slowly and with effort SKIN: Warm and dry. No rash. EYES: No scleral icterus. No injection or drainage. PERRLA. EOMI. HENT: Normocephalic. Atraumatic. MMM. NECK: No visible JVD or lymphadenopathy. CARDIOVASCULAR: Regular rate and rhythm RESPIRATORY: Clear to auscultation bilaterally GASTROINTESTINAL: Abdomen nondistended. MUSCULOSKELETAL: Strength grossly WNL. BACK: Without obvious deformity. NEURO/PSYCH: Afocal. Awake, alert. moves all extremities with no facial droop or apparent focal weakness (Nitesh Xiao MD, R3) A/P Assessment and Plan Patient is a 62-year-old man with a history of DM and HTN, Seizures, Alcohol- induced mood disorder, multiple psychiatric admissions who was found down at his home and presented to the ED with rhabdo, ENRRIQUE, elevated troponin, elevated ammonia and AST, and altered mental status. continue treatment as below Discharge Planning Discharge to be determined upon completion of alcohol withdrawal. (Nitesh Xiao MD, R3) Attending Attestation Patient seen and examined. Case reviewed and discussed with the resident team. Agree with plan of care as discussed with me and documented in the resident note. Unfortunately, he worsened with his CIWA scores at a high of 11 last night. (Jessica Noe MD) Problem List: (1) Alcohol withdrawal seizure ICD Codes: F10.239 - Alcohol dependence with withdrawal, unspecified; R56.9 - Unspecified convulsions Status: Acute Plan: Patient is currently going through alcohol withdrawal. He is on CIWA protocol. -Admitted to ICU for close monitoring, can transfer once less nursing care is required -Rally pack -Monitor vitals -cycle repairer/telemetry -Seizure precautions -Phenytoin low - patient has not been taking medication his seizures are probably alcohol withdrawal related as he had them 2 days after he quit drinking (or maybe earlier than that as he is a poor historian) (2) Sepsis ICD Codes: A41.9 - Sepsis, unspecified organism Status: Resolved Plan: Improving -Continue maintenance fluids with D5 -Lactic acid fine now -Empiric antibiotics with vancomycin and Zosyn (04/28- ) culture not completely resulted but positive -Oxygen as needed (3) Rhabdomyolysis ICD Codes: M62.82 - Rhabdomyolysis Status: Acute Plan: -IVF as above - improved -Trending CK (4) Acute renal failure ICD Codes: N17.9 - Acute kidney failure, unspecified Status: Resolved Plan: -IVF as above from rhabdo probably (5) Altered mental status ICD Codes: R41.82 - Altered mental status, unspecified Plan: -Supportive care -Monitor vitals -Neuro checks -UDS, alcohol level -PT, OT, ST hope for placement at D/C as he is poor at caring for himself (6) Elevated troponin ICD Codes: R74.8 - Abnormal levels of other serum enzymes Status: Acute Plan: -Trend troponins and EKG every 6 hours: 0.42, 0.22, 0.17 -Aspirin 325 mg po once he is clearer mentally can discuss with pt his desire or need for more cardiac workup (7) Diabetes mellitus type 2, diet-controlled ICD Codes: E11.9 - Diabetes mellitus type 2, diet-controlled Status: Acute Plan: -Low-dose sliding scale insulin and glucose monitor -Hold home metformin (8) Hyperammonemia ICD Codes: E72.20 - Hyperammonemia Status: Acute Plan: Minimally elevated and unlikely to be the cause of his altered mental status. -Continue to monitor (9) HTN (hypertension) ICD Codes: I10 - Essential (primary) hypertension Status: Chronic Plan: -Hold SANA inhibitor given his ENRRIQUE -Hydralazine when necessary for hypertension (10) FEN Status: Acute Plan: Fluids: D5 Electrolytes: Monitor and replete Nutrition: Diabetic Diet GI prophylaxis: Protonix (11) No contraindication to deep vein thrombosis (DVT) prophylaxis ICD Codes: Z78.9 - Other specified health status Plan: -Heparin 5000 every 8 -SCDs/TEDs bilaterally (12) Malnutrition due to starvation ICD Codes: E46 - Unspecified protein-calorie malnutrition Status: Chronic Plan: he reports losing 30 lbs or so and eating very poorly for months before admission. watching for refeeding syndrome with phos, K and mag replacement and monitoring. (Nitesh Xiao MD, R3) Problem Qualifiers (1) Rhabdomyolysis: Qualified Codes: M62.82 - Rhabdomyolysis (2) Acute renal failure: Qualified Codes: N17.9 - Acute kidney failure, unspecified (3) Altered mental status: Qualified Codes: R41.0 - Disorientation, unspecified (4) HTN (hypertension): Qualified Codes: I10 - Essential (primary) hypertension Nitesh Xiao MD, R3 May 01, 2017 10:32 Jessica Noe MD May 01, 2017 11:13
--- NOTE | 2017-05-01 10:50 | HHI.NPPN ---
Subjective History of Present Illness 62-year-old male with past medical history of hypertension, seizure disorder, history of alcoholism, diabetes mellitus, also was admitted with altered mental status. I was called to see the patient because of elevated BUN and creatinine. The patient was found at home for several days, he was there and his neighbors had not seen him, so they called the EMS and he was found in his living room and he was incontinent of the urine. Additional Remarks Patient is sleepy arousable, not fully oriented, not in distress, clinically same. Review of Systems General Constitutional: Fatigue Cardiovascular Cardiac: SO Objective Data Data Vital Signs Date Time Temp Pulse Resp B/P (MAP) Pulse Ox O2 Delivery O2 Flow Rate FiO2 05/01/17 08:00 98.9 05/01/17 07:15 99 21 05/01/17 06:00 81 05/01/17 04:00 83 05/01/17 04:00 100.0 83 29 123/63 (83) 90 05/01/17 02:00 77 05/01/17 00:00 74 05/01/17 00:00 99.2 74 134/61 (85) 98 04/30/17 22:00 76 04/30/17 20:00 100.0 77 24 102/58 (73) 97 04/30/17 20:00 85 04/30/17 19:24 99 04/30/17 18:00 79 04/30/17 16:00 97.5 79 12 106/59 (75) 96 04/30/17 16:00 79 04/30/17 14:00 81 04/30/17 12:00 98.7 81 17 120/71 (87) 97 04/30/17 12:00 81 -: 05/01/17 0809 05/01/17 0809 Physical Exam General Appearance: No Acute Distress, Comfortable Eyes Eye Exam: Pupils Equal Pulmonary Resp Exam: Breath Sounds Equal, No Distress, Rhonchi, Decreased Bases Cardiology CV Exam: Regular, Normal Sinus Rhythm Gastrointestinal/Abdomen GI Exam: Soft, Non-Tender, Bowel Sounds Present Extremeties Extremities Exam: Trace Edema Neurologic Neuro Exam: Alert, Awake Psychiatric Psych Exam: Appropriate Responses Assessment/Plan Assessment Summary: ENRRIQUE/Acute Renal Failure Electrolyte Assessment: Hypocalcemia, Hypokalemia Problem List: (1) Altered mental status ICD Codes: R41.82 - Altered mental status, unspecified (2) HTN (hypertension) ICD Codes: I10 - Essential (primary) hypertension Status: Chronic (3) Seizure disorder ICD Codes: G40.909 - Seizure disorder Status: Acute (4) Alcohol dependence ICD Codes: F10.20 - Alcohol dependence Status: Chronic (5) Hypokalemia ICD Codes: E87.6 - Hypokalemia Status: Acute (6) Diabetes mellitus type 2, diet-controlled ICD Codes: E11.9 - Diabetes mellitus type 2, diet-controlled Status: Acute (7) Rhabdomyolysis ICD Codes: M62.82 - Rhabdomyolysis Status: Acute (8) Acute renal failure ICD Codes: N17.9 - Acute kidney failure, unspecified Status: Resolved Plan Patient has been non oliguric. CPK level improving. Have ENRRIQUE possibly related to Rhabdo. or ATN. Has multiple electrolytes disorder, possibly has tubular damage due to ENRRIQUE. Continue replacement, K is better. Creatinine is now normalized. CPK continue to improve. K is better, decrease K supplement and replace Po4. I will sign off from Nephrology, dolores again if needed. Problem Qualifiers (1) Altered mental status: Qualified Codes: R41.0 - Disorientation, unspecified (2) HTN (hypertension): Qualified Codes: I10 - Essential (primary) hypertension (3) Rhabdomyolysis: Qualified Codes: M62.82 - Rhabdomyolysis (4) Acute renal failure: Qualified Codes: N17.9 - Acute kidney failure, unspecified Manuel Hector MD May 01, 2017 10:50
[2017-05-02] VITALS (13 sets, daily range): BP systolic 110–143; BP diastolic 55–66; PULSE 75–92; RESP 14–16; TEMP 98.5–99.2; O2SAT 96–100
[2017-05-02] MEDS: CHLORHEXIDINE GLUCONATE 2 % 1 PACK (2 CLOTHS)(taper/protocol) TOPICAL SCH (04:00)
[2017-05-02] MEDS: HEPARIN SODIUM - SQ 10,000 UNITS/ML VIAL SQ SCH ×3 (04:20→18:44)
[2017-05-02] MEDS: SODIUM CHLOR 0.9% 1000 ML INJ 1,000 ML IV SCH (04:21)
[2017-05-02] MEDS: VANCOMYCIN INJ 1,250 MG in SODIUM CHLOR 0.9% 250 ML INJ 250 ML IV SCH (04:21)
[2017-05-02] MEDS: PIPERACIL-TAZO 2.25 GM PREMIX 50 ML IV SCH (04:21)
[2017-05-02] MEDS: LORazepam 2 MG TAB PO PRN (04:24)
[2017-05-02 05:16] LABS: AUTOMATED NEUTROPHIL # 3.2 TH/MM3 (1.8-7.7); BASOPHIL % 0.7 % (0.0-2.0); EOSINOPHIL # 0.2 TH/MM3 (0-0.4); EOSINOPHIL % 2.6 % (0.0-4.0); HEMATOCRIT 34.8 % (39.0-51.0); HEMO FLAGS DIFF FINAL; LYMPH % 18.2 % (9.0-44.0); LYMPHOCYTE # 1.1 TH/MM3 (1.0-4.8); MEAN CELL VOLUME 97.9 FL (80.0-100.0); MEAN CORPUSCULAR HEMOGLOBIN 32.7 PG (27.0-34.0); MEAN CORPUSCULAR HGB CONC 33.4 % (32.0-36.0); MONO % 24.8 % (0.0-8.0); NEUT % 53.7 % (16.0-70.0); PLATELET COUNT 243 TH/MM3 (150-450); RED BLOOD COUNT 3.56 MIL/MM3 (4.50-5.90); WHITE BLOOD COUNT 5.9 TH/MM3 (4.0-11.0)
[2017-05-02 05:36] LABS: ALT (GPT) 56 U/L (12-78); ANION GAP 7 MEQ/L (5-15); AST (GOT) 81 U/L (15-37); BICARBONATE 27.4 MEQ/L (21.0-32.0); BLOOD UREA NITROGEN 16 MG/DL (7-18); CHLORIDE 106 MEQ/L (98-107); GLOMERULAR FILTRATION RATE 98 ML/MIN (>89); MAGNESIUM 1.5 MG/DL (1.5-2.5); POTASSIUM 3.6 MEQ/L (3.5-5.1); SODIUM (NA) 140 MEQ/L (136-145)
[2017-05-02 05:39] LABS: ALKALINE PHOSPHATASE 80 U/L (45-117); CREATINE KINASE 586 U/L (39-308); TOTAL BILIRUBIN ADULT 0.6 MG/DL (0.2-1.0)
[2017-05-02 06:11] LABS: CKMB 1.9 NG/ML (0.5-3.6)
[2017-05-02] MEDS: INSULIN ASPART SUPPLEMENTAL SCALE SQ SCH ×4 (08:00→21:00)
[2017-05-02] MEDS: LORazepam 2 MG/ML VIAL IV PUSH PRN ×8 (08:48→21:57)
[2017-05-02] MEDS: PHENYTOIN SODIUM 100 MG CAP PO SCH ×3 (08:48→18:44)
[2017-05-02] MEDS: SODIUM CHLORIDE 0.9% FLUSH 10 ML FLUSH IV FLUSH SCH ×2 (08:52→21:08)
[2017-05-02] MEDS: POTASSIUM PHOSPHATE MONOBASIC 500 MG TAB PO SCH ×3 (09:00→21:18)
[2017-05-02] MEDS: PANTOPRAZOLE SOD 40 MG DELAYED RELEASE TAB PO SCH (09:00)
--- NOTE | 2017-05-02 09:22 | HHI.FPPN ---
Subjective Remarks Patient seen at 0815. Nursing reports patient fell approximately one hour ago. Mild cut over eye, no bleeding. No change in neurological status. Nurse requesting CT scan. CIWA scoring greater than 11, given 2 mg Ativan at 0400. Patient is pleasant on my interview. Reviewed of systems Limited secondary to mental state. He understands he is at [facility] and is here because of seizures. However, he does not recognize the seizures are related to alcohol use. Again, review of systems Limited secondary to mental state. (Nitesh Xiao MD, R3) Objective Vitals Vital Signs Date Time Temp Pulse Resp B/P (MAP) Pulse Ox O2 Delivery O2 Flow Rate FiO2 05/02/17 08:30 99.2 75 16 132/66 (88) 100 05/02/17 08:00 99.2 79 16 132/66 (88) 100 05/02/17 07:45 99.2 82 16 132/66 (88) 97 05/02/17 07:33 99 21 05/02/17 07:30 99.2 81 16 132/66 (88) 99 05/02/17 07:15 99.2 79 16 132/66 (88) 100 05/02/17 06:00 84 05/02/17 04:00 98.5 81 14 110/55 (73) 96 05/02/17 04:00 81 05/02/17 02:00 86 05/02/17 00:00 85 05/02/17 00:00 98.7 85 14 142/62 (88) 96 05/01/17 22:00 95 05/01/17 22:00 97 21 05/01/17 20:00 85 05/01/17 20:00 98.9 85 16 149/80 (103) 95 05/01/17 16:00 83 20 130/69 (89) 100 05/01/17 15:00 87 17 131/70 (90) 05/01/17 14:00 82 21 127/65 (85) 100 05/01/17 13:00 80 141/67 (91) 97 05/01/17 12:26 99.1 05/01/17 12:00 85 19 132/60 (84) 93 05/01/17 11:00 96 126/64 (84) 82 05/01/17 10:00 84 22 145/65 (91) 97 I/O 05/01/17 05/01/17 05/01/17 05/02/17 05/02/17 05/02/17 07:00 15:00 23:00 07:00 15:00 23:00 Intake Total 1300 ml 2150 ml 400 ml Output Total 1150 ml 2000 ml 1600 ml Balance 150 ml 150 ml -1200 ml Intake Oral 720 ml 400 ml IV Total 1300 ml 1430 ml Output Urine Total 1150 ml 2000 ml 1600 ml # Bowel Movements 6 2 0 (Nitesh Xiao MD, R3) Result Diagram: 05/02/1741205/02/17412 Objective Remarks GENERAL: Well-nourished, well-developed patient. No acute distress. Currently in restraints in bed. alert and answers questions slowly and with effort SKIN: Warm and dry. Mild cut over eye, no bleeding. EYES: No scleral icterus. No injection or drainage. PERRLA. EOMI. HENT: Normocephalic. Atraumatic. MMM. NECK: No visible JVD or lymphadenopathy. CARDIOVASCULAR: Regular rate and rhythm RESPIRATORY: Clear to auscultation bilaterally GASTROINTESTINAL: Abdomen nondistended. MUSCULOSKELETAL: Strength grossly WNL. BACK: Without obvious deformity. NEURO/PSYCH: Afocal. Awake, alert. moves all extremities with no facial droop or apparent focal weakness (Nietsh Xiao MD, R3) A/P Assessment and Plan Patient is a 62-year-old man with a history of DM and HTN, Seizures, Alcohol- induced mood disorder, multiple psychiatric admissions who was found down at his home and presented to the ED with rhabdo, ENRRIQUE, elevated troponin, elevated ammonia and AST, and altered mental status. continue treatment as below Discharge Planning Discharge to be determined upon completion of alcohol withdrawal. (Nitesh Xiao MD, R3) Attending Attestation Patient seen and examined. Case reviewed and discussed with the resident team. Agree with plan of care as discussed with me and documented in the resident note. Mr Light is unpredictable and is still having some alcohol withdrawal. Considered librium but he is in [facility] so he can be monitored well for CIWA plus he should be decreasing in his acuity as he has been here for days. librium has a very long half life. his electrolytes are improved. will give some iv fluids today and then stop as he is able to take good po. he pulls out his iv whenever he can so will minimize iv fluids and meds. his rhabdo is very much better. he may be ready to be transferred to the floor with a sitter tomorrow. His head CT did not show anything acute. (Jessica Noe MD) Problem List: (1) Fall ICD Codes: W19.XXXA - Unspecified fall, initial encounter Status: Acute Plan: No new focal neurological change. However, given altered mental status, will obtain CT scan head stat. Pending results will determine further action (2) Alcohol withdrawal seizure ICD Codes: F10.239 - Alcohol dependence with withdrawal, unspecified; R56.9 - Unspecified convulsions Status: Acute Plan: Patient is currently going through alcohol withdrawal. He is on CICO protocol. -Admitted to ICU for close monitoring, can transfer once less nursing care is required -Rally pack -Monitor vitals -monitor technician/telemetry -Seizure precautions -Phenytoin low - patient has not been taking medication his seizures are probably alcohol withdrawal related as he had them 2 days after he quit drinking (or maybe earlier than that as he is a poor historian) (3) Sepsis ICD Codes: A41.9 - Sepsis, unspecified organism Status: Resolved Plan: Improving -Continue maintenance fluids with D5 -Lactic acid fine now -Empiric antibiotics with vancomycin and Zosyn (04/28- ) culture not completely resulted but positive -Oxygen as needed (4) Rhabdomyolysis ICD Codes: M62.82 - Rhabdomyolysis Status: Resolved Plan: -IVF as above CK continues to improve (5) Acute renal failure ICD Codes: N17.9 - Acute kidney failure, unspecified Status: Resolved Plan: -IVF as above Likely from rhabdo Nephrology signed off (6) Altered mental status ICD Codes: R41.82 - Altered mental status, unspecified Status: Acute Plan: -Supportive care -Monitor vitals -Neuro checks -UDS, alcohol level -PT, OT, ST hope for placement at D/C as he is poor at caring for himself (7) Elevated troponin ICD Codes: R74.8 - Abnormal levels of other serum enzymes Status: Acute Plan: -Trend troponins and EKG every 6 hours: 0.42, 0.22, 0.17 -Aspirin 325 mg po once he is clearer mentally can discuss with pt his desire or need for more cardiac workup (8) Diabetes mellitus type 2, diet-controlled ICD Codes: E11.9 - Diabetes mellitus type 2, diet-controlled Status: Acute Plan: -Low-dose sliding scale insulin and glucose monitor -Hold home metformin (9) Hyperammonemia ICD Codes: E72.20 - Hyperammonemia Status: Acute Plan: Minimally elevated and unlikely to be the cause of his altered mental status. -Continue to monitor (10) HTN (hypertension) ICD Codes: I10 - Essential (primary) hypertension Status: Chronic Plan: -Hold SANA inhibitor given his ENRRIQUE -Hydralazine when necessary for hypertension (11) FEN Status: Acute Plan: Fluids: NS Electrolytes: Monitor and replete as needed Nutrition: Diabetic Diet GI prophylaxis: Protonix (12) No contraindication to deep vein thrombosis (DVT) prophylaxis ICD Codes: Z78.9 - Other specified health status Plan: -Heparin 5000 every 8 -SCDs/TEDs bilaterally (13) Malnutrition due to starvation ICD Codes: E46 - Unspecified protein-calorie malnutrition Status: Chronic Plan: he reports losing 30 lbs or so and eating very poorly for months before admission. watching for refeeding syndrome with phos, K and mag replacement and monitoring. (Nitesh Xiao MD, R3) Problem Qualifiers (1) Fall: Qualified Codes: W19.XXXA - Unspecified fall, initial encounter (2) Rhabdomyolysis: Qualified Codes: M62.82 - Rhabdomyolysis (3) Acute renal failure: Qualified Codes: N17.9 - Acute kidney failure, unspecified (4) Altered mental status: Qualified Codes: R41.0 - Disorientation, unspecified (5) HTN (hypertension): Qualified Codes: I10 - Essential (primary) hypertension Nitesh Xiao MD, R3 May 02, 2017 09:22 Jessica Noe MD May 02, 2017 12:50
[2017-05-02] MEDS ORDERED: INFLUENZA VIRUS VACCINE (QUADRIVALENT) 0.5 ML SYR IM ONE (10:00)
[2017-05-02] MEDS ORDERED: PNEUMOCOCCAL POLYVALENT INJ 25 MCG/0.5 ML SYR IM ONE (10:00)
--- NOTE | 2017-05-02 10:00 | RADRPT ---
EXAM DATE/TIME: 05/02/2017 09:29 [facility] COMPARISON: CT BRAIN W/O CONTRAST, April 28, 2017, 0:01. INDICATIONS : Trauma; closed head injury. RADIATION DOSE: 56.35 CTDIvol (mGy) MEDICAL HISTORY : Seizures. SURGICAL HISTORY : None. ENCOUNTER: Initial ACUITY: 1 day PAIN SCALE: 4/10 LOCATION: cranial TECHNIQUE: Multiple contiguous axial images were obtained of the head. Using automated exposure control and adj ustment of the mA and/or kV according to patient size, radiation dose was kept as low as reasonably a chievable to obtain optimal diagnostic quality images. DICOM format image data is available electro nically for review and comparison. FINDINGS: CEREBRUM: The ventricles are normal for age. No evidence of midline shift, mass lesion, hemorrhage or acute in farction. No extra-axial fluid collections are seen. POSTERIOR FOSSA: The cerebellum and brainstem are intact. The 4th ventricle is midline. The cerebellopontine angle i s unremarkable. EXTRACRANIAL: The visualized portion of the orbits is intact. SKULL: The calvaria is intact. No evidence of skull fracture. CONCLUSION: 1. No acute intracranial abnormality identified. Stable compared to previous examination. Mohan Gregory MD on May 02, 2017 at 9:57 Board Certified Radiologist. This report was verified electronically.
[2017-05-02] MEDS ORDERED: SODIUM CHLOR 0.45% 1000 ML INJ 1,000 ML IV SCH (11:15)
[2017-05-02] MEDS: MULTIVITAMIN TAB PO SCH (12:32)
[2017-05-02] MEDS: FOLIC ACID 1 MG TAB PO SCH (12:32)
[2017-05-02] MEDS: POTASSIUM CHLORIDE 10 MEQ CONTROLLED RELEASE TAB PO SCH ×2 (12:32→21:09)
[2017-05-02] MEDS ORDERED: PHARMACY ORDERED LAB ONE (19:45)
[2017-05-02] MEDS: HALOPERIDOL LACTATE 5 MG/ML AMP IM PRN (21:57)
[2017-05-03] VITALS (13 sets, daily range): BP systolic 98–156; BP diastolic 54–72; PULSE 82–94; RESP 14–24; TEMP 98.1–99.2; O2SAT 90–100
[2017-05-03] MEDS: HEPARIN SODIUM - SQ 10,000 UNITS/ML VIAL SQ SCH ×3 (02:40→17:58)
[2017-05-03] MEDS: CHLORHEXIDINE GLUCONATE 2 % 1 PACK (2 CLOTHS)(taper/protocol) TOPICAL SCH (02:43)
[2017-05-03] MEDS: HALOPERIDOL LACTATE 5 MG/ML AMP IM PRN (02:43)
[2017-05-03] MEDS: LORazepam 2 MG/ML VIAL IV PUSH PRN ×2 (04:50→16:32)
[2017-05-03 07:04] LABS: BASOPHIL # 0.1 TH/MM3 (0-0.2); BASOPHIL % 0.8 % (0.0-2.0); EOSINOPHIL # 0.1 TH/MM3 (0-0.4); EOSINOPHIL % 1.2 % (0.0-4.0); HEMATOCRIT 36.2 % (39.0-51.0); HEMO FLAGS DIFF FINAL; LYMPHOCYTE # 0.9 TH/MM3 (1.0-4.8); MEAN CELL VOLUME 97.5 FL (80.0-100.0); MEAN CORPUSCULAR HEMOGLOBIN 33.2 PG (27.0-34.0); PLATELET COUNT 311 TH/MM3 (150-450); RED BLOOD COUNT 3.72 MIL/MM3 (4.50-5.90); RED CELL DISTRIBUTION WIDTH 13.7 % (11.6-17.2); WHITE BLOOD COUNT 6.7 TH/MM3 (4.0-11.0)
[2017-05-03 07:23] LABS: ANION GAP 9 MEQ/L (5-15); AST (GOT) 87 U/L (15-37); BICARBONATE 25.2 MEQ/L (21.0-32.0); BLOOD UREA NITROGEN 14 MG/DL (7-18); CHLORIDE 104 MEQ/L (98-107); GLOMERULAR FILTRATION RATE 99 ML/MIN (>89); MAGNESIUM 1.5 MG/DL (1.5-2.5); SODIUM (NA) 138 MEQ/L (136-145)
[2017-05-03 07:25] LABS: ALT (GPT) 62 U/L (12-78)
[2017-05-03 07:27] LABS: ALKALINE PHOSPHATASE 88 U/L (45-117); TOTAL BILIRUBIN ADULT 0.6 MG/DL (0.2-1.0)
[2017-05-03] MEDS: INSULIN ASPART SUPPLEMENTAL SCALE SQ SCH ×4 (08:00→21:00)
--- NOTE | 2017-05-03 08:24 | HHI.FPPN ---
Subjective Remarks Mr Light is in 4 point restraints. He still is somewhat confused about what is going on around him and his recent actions. He remains a poor historian. He has received some haldol along with the ativan for alcohol withdrawal. Per report of his night nurse, he yelled and tried to climb out of bed "all night". Unfortunately he needs the restraints for a little longer until he improves mentally and can be a bit more cooperative or less of a danger to himself. He has no complaints today. Objective Vitals Vital Signs Date Time Temp Pulse Resp B/P (MAP) Pulse Ox O2 Delivery O2 Flow Rate FiO2 05/03/17 07:18 98 05/03/17 06:00 84 05/03/17 04:00 88 05/03/17 04:00 98.7 84 14 151/71 (97) 99 05/03/17 02:00 85 05/03/17 00:00 86 05/03/17 00:00 98.5 86 14 156/72 (100) 100 05/02/17 22:00 77 05/02/17 20:00 98.8 92 16 143/63 (89) 97 05/02/17 20:00 92 05/02/17 19:36 97 05/02/17 08:30 99.2 75 16 132/66 (88) 100 I/O 05/02/17 05/02/17 05/02/17 05/03/17 05/03/17 05/03/17 07:00 15:00 23:00 07:00 15:00 23:00 Intake Total 400 ml 1960 ml 120 ml Output Total 1600 ml 2000 ml Balance -1200 ml -40 ml 120 ml Intake Oral 400 ml 960 ml 120 ml IV Total 1000 ml Output Urine Total 1600 ml 2000 ml # Voids 4 # Bowel Movements 0 1 0 Result Diagram: 05/03/17 0526 05/03/17 06 Objective Remarks GENERAL: somewhat thin patient. No acute distress. Currently in 4 point restraints in bed. alert and answers questions slowly and with effort. he appears somewhat confused but not agitated this am SKIN: Warm and dry. Mild cut over eye, no bleeding. also cuts on knees, etc after multiple recent falls EYES: No scleral icterus. No injection or drainage. PERRLA. EOMI. HENT: Normocephalic. Atraumatic. MMM. NECK: No visible JVD or lymphadenopathy. CARDIOVASCULAR: Regular rate and rhythm RESPIRATORY: Clear to auscultation bilaterally GASTROINTESTINAL: Abdomen nondistended. MUSCULOSKELETAL: Strength grossly WNL. BACK: Without obvious deformity. NEURO/PSYCH: Afocal. Awake, alert. moves all extremities with no facial droop or apparent focal weakness A/P Assessment and Plan Patient is a 62-year-old man with a history of DM and HTN, Seizures, Alcohol- induced mood disorder, multiple psychiatric admissions who was found down at his home and presented to the ED with rhabdo, ENRRIQUE, elevated troponin, elevated ammonia and AST, and altered mental status. continue treatment as below Discharge Planning Discharge to be determined upon completion of alcohol withdrawal. Problem List: (1) Altered mental status ICD Codes: R41.82 - Altered mental status, unspecified Status: Acute Plan: -Supportive care -Monitor vitals -Neuro checks -UDS, alcohol level done -PT, OT, ST hope for placement at D/C as he is poor at caring for himself he is a big fall risk and will almost certainly need a sitter to move to the floor he should improve soon from all alcohol withdrawal and then will need to wean off benzos as those can make some people more confused (2) Fall ICD Codes: W19.XXXA - Unspecified fall, initial encounter Status: Acute Plan: No new focal neurological change. However, given altered mental status did CT scan head, no changes or injury would likely need sitter when transferred to floor will need SNF at D/C unless something drastically improves (3) Alcohol withdrawal seizure ICD Codes: F10.239 - Alcohol dependence with withdrawal, unspecified; R56.9 - Unspecified convulsions Status: Acute Plan: Patient is currently going through alcohol withdrawal. He is on CIWA protocol. -Admitted to ICU for close monitoring, can transfer once less nursing care is required -Rally pack -Monitor vitals -medical technologist clinical/telemetry -Seizure precautions -Phenytoin low - patient has not been taking medication. can check level his seizures are probably alcohol withdrawal related as he had them 2 days after he quit drinking (or maybe earlier than that as he is a poor historian) (4) Rhabdomyolysis ICD Codes: M62.82 - Rhabdomyolysis Status: Resolved Plan: po fluids as he repeatedly and daily pulls out his iv, his rhabdo is nearly 100% better CK continues to improve (5) Elevated troponin ICD Codes: R74.8 - Abnormal levels of other serum enzymes Status: Acute Plan: -Trend troponins and EKG every 6 hours: 0.42, 0.22, 0.17 -Aspirin 325 mg po once he is clearer mentally can discuss with pt his desire or need for more cardiac workup (6) Diabetes mellitus type 2, diet-controlled ICD Codes: E11.9 - Diabetes mellitus type 2, diet-controlled Status: Acute Plan: -Low-dose sliding scale insulin and glucose monitor -Hold home metformin his glucoses are not extremely high can consider cutting them down in frequency (7) Hyperammonemia ICD Codes: E72.20 - Hyperammonemia Status: Acute Plan: Minimally elevated and unlikely to be the cause of his altered mental status. -Continue to monitor (8) HTN (hypertension) ICD Codes: I10 - Essential (primary) hypertension Status: Chronic Plan: -Held SANA inhibitor given his ENRRIQUE but can restart now -Hydralazine when necessary for hypertension (9) FEN Status: Acute Plan: Fluids: NS Electrolytes: Monitor and replete as needed Nutrition: Diabetic Diet GI prophylaxis: Protonix with his alcohol history (10) No contraindication to deep vein thrombosis (DVT) prophylaxis ICD Codes: Z78.9 - Other specified health status Plan: -Heparin 5000 every 8 -SCDs/TEDs bilaterally (11) Malnutrition due to starvation ICD Codes: E46 - Unspecified protein-calorie malnutrition Status: Chronic Plan: he reports losing 30 lbs or so and eating very poorly for months before admission. refeeding syndrome with phos, K and mag replacement and monitoring. eating better and electrolytes stable so will stop these Problem Qualifiers (1) Altered mental status: Qualified Codes: R41.0 - Disorientation, unspecified (2) Fall: Qualified Codes: W19.XXXA - Unspecified fall, initial encounter (3) Alcohol withdrawal seizure: Qualified Codes: F10.231 - Alcohol dependence with withdrawal delirium (4) Rhabdomyolysis: Qualified Codes: M62.82 - Rhabdomyolysis (5) HTN (hypertension): Qualified Codes: I10 - Essential (primary) hypertension Jessica Noe MD May 03, 2017 08:24
[2017-05-03] MEDS: PANTOPRAZOLE SOD 40 MG DELAYED RELEASE TAB PO SCH (09:33)
[2017-05-03] MEDS: MULTIVITAMIN TAB PO SCH (09:33)
[2017-05-03] MEDS: PHENYTOIN SODIUM 100 MG CAP PO SCH ×3 (09:33→17:58)
[2017-05-03] MEDS: POTASSIUM CHLORIDE 10 MEQ CONTROLLED RELEASE TAB PO SCH ×2 (09:34→21:23)
[2017-05-03] MEDS: SODIUM CHLORIDE 0.9% FLUSH 10 ML FLUSH IV FLUSH SCH ×2 (09:34→21:22)
[2017-05-04] VITALS (21 sets, daily range): BP systolic 96–142; BP diastolic 54–80; PULSE 76–96; RESP 11–34; TEMP 97.8–100; O2SAT 95–99
[2017-05-04] MEDS: LORazepam 2 MG/ML VIAL IV PUSH PRN (02:15)
[2017-05-04] MEDS: HEPARIN SODIUM - SQ 10,000 UNITS/ML VIAL SQ SCH ×3 (02:15→18:16)
[2017-05-04 06:57] LABS: HEMATOCRIT 37.2 % (39.0-51.0); MEAN CELL VOLUME 98.4 FL (80.0-100.0); MEAN CORPUSCULAR HEMOGLOBIN 32.8 PG (27.0-34.0); MEAN CORPUSCULAR HGB CONC 33.3 % (32.0-36.0); PLATELET COUNT 381 TH/MM3 (150-450); RED BLOOD COUNT 3.78 MIL/MM3 (4.50-5.90); RED CELL DISTRIBUTION WIDTH 13.8 % (11.6-17.2); REVIEW FLAG FINAL; WHITE BLOOD COUNT 8.6 TH/MM3 (4.0-11.0)
[2017-05-04 07:25] LABS: BICARBONATE 26.5 MEQ/L (21.0-32.0); POTASSIUM 4.2 MEQ/L (3.5-5.1)
[2017-05-04 07:50] LABS: CKMB 3.1 NG/ML (0.5-3.6)
[2017-05-04] MEDS: INSULIN ASPART SUPPLEMENTAL SCALE SQ SCH ×4 (08:00→21:00)
[2017-05-04] MEDS: POTASSIUM CHLORIDE 10 MEQ CONTROLLED RELEASE TAB PO SCH (08:52)
[2017-05-04] MEDS: MULTIVITAMIN TAB PO SCH (08:52)
[2017-05-04] MEDS: PHENYTOIN SODIUM 100 MG CAP PO SCH ×3 (08:52→18:16)
[2017-05-04] MEDS: PANTOPRAZOLE SOD 40 MG DELAYED RELEASE TAB PO SCH (08:52)
[2017-05-04] MEDS: SODIUM CHLORIDE 0.9% FLUSH 10 ML FLUSH IV FLUSH SCH ×2 (08:53→21:32)
--- NOTE | 2017-05-04 09:56 | HHI.FPPN ---
Subjective Remarks Patient seen and examined this morning. Temperature 100.0, pulse 87, respiratory 21, blood pressure 125/59, pulse ox 98 room air. He is wishing to get out of the ICU and I am in agreement. He feels that his alcohol withdrawal is improving. He is not feeling as tremulous. He does admit to feeling week and currently is in agreement with going to a jail facility upon discharge. He is still on CIWA and requiring Ativan. Plan to transfer out of ICU with a sitter. Endorses: Mild left hand tremulous, agitated Denies: Fever, chills, nausea, vomiting, shortness of breath, chest pain, headache, abdominal pain, calf pain All other review of symptoms were negative (Chucky Velasquez MD, R3) Objective Vitals Vital Signs Date Time Temp Pulse Resp B/P (MAP) Pulse Ox O2 Delivery O2 Flow Rate FiO2 05/04/17 06:00 83 05/04/17 04:00 100.0 87 21 125/59 (81) 98 05/04/17 04:00 87 05/04/17 02:00 89 05/04/17 00:00 76 05/04/17 00:00 98.0 76 15 122/56 (78) 97 05/03/17 22:00 82 05/03/17 20:00 98.1 92 14 100/54 (69) 92 05/03/17 20:00 92 05/03/17 18:00 90 05/03/17 16:00 93 05/03/17 16:00 99.2 93 24 98/56 (70) 90 05/03/17 14:00 92 05/03/17 12:00 99.0 88 21 128/60 (82) 96 05/03/17 12:00 93 05/03/17 10:00 94 I/O 05/03/17 05/03/17 05/03/17 05/04/17 05/04/17 05/04/17 07:00 15:00 23:00 07:00 15:00 23:00 Intake Total 120 ml 480 ml Output Total 650 ml Balance 120 ml 480 ml -650 ml Intake Oral 120 ml 480 ml Output Urine Total 650 ml # Voids 4 2 1 # Bowel Movements 0 0 0 (Chucky Velasquez MD, R3) Result Diagram: 05/04/17 0543 05/04/17 0543 Imaging Last Impressions Head CT 05/02/17 0000 Signed Impressions: Service Date/Time: Tuesday, May 02, 2017 09:29 - CONCLUSION: 1. No acute intracranial abnormality identified. Stable compared to previous examination. Mohan Gregoyr MD Renal Ultrasound 04/29/17 0000 Signed Impressions: Service Date/Time: , April 29, 2017 16:26 - CONCLUSION: 1. No evidence hydronephrosis. 2. Incidental gallstones. Kelton Jacob MD Chest X-Ray 04/29/17 0000 Signed Impressions: Service Date/Time: , April 29, 2017 08:32 - CONCLUSION: 1. No acute cardiopulmonary disease. 2. Previously noted nodular density is no longer visualized however there is no adjacent healing rib fracture with callus. There is no definite pulmonary nodule. Kelton Jacob MD Cervical Spine CT 04/27/172203 Signed Impressions: Service Date/Time: Friday, April 28, 2017 00:01 - CONCLUSION: Intact cervical spine. Multilevel degenerative changes are again noted. Sixto Goel MD Objective Remarks GENERAL: thin patient. No acute distress. Currently in 4 point restraints in bed. alert and answers questions slowly and with effort. he appears somewhat agitated but not confused this am SKIN: Warm and dry. Mild cut over eye, no bleeding. also cuts on knees, etc after multiple recent falls EYES: No scleral icterus. No injection or drainage. PERRLA. EOMI. HENT: Normocephalic. Atraumatic. MMM. NECK: No visible JVD or lymphadenopathy. CARDIOVASCULAR: Regular rate and rhythm RESPIRATORY: Clear to auscultation bilaterally GASTROINTESTINAL: Abdomen nondistended. MUSCULOSKELETAL: Strength grossly WNL. BACK: Without obvious deformity. NEURO/PSYCH: Afocal. Awake, alert. moves all extremities with no facial droop or apparent focal weakness Medications and IVs Current Medications Medications (Trade) Dose Ordered Sig/Kiran Route Start Time Stop Time Status Last Admin (NS Flush) 2 ml BID IV FLUSH 04/28/17 09:00 05/04/17 08:53 (NS Flush) 2 ml UNSCH PRN IV FLUSH 04/28/17 01:30 (Tylenol) 650 mg Q6H PRN PO 04/28/17 01:30 (Zofran Inj) 4 mg Q6H PRN IV PUSH 04/28/17 01:30 (Protonix) 40 mg DAILY PO 04/28/17 09:00 05/04/17 08:52 (Romazicon Inj) 0.2 mg Q1M PRN IV PUSH 04/28/17 01:45 (Ativan) 1 mg Q4H PRN PO 04/28/17 01:45 05/01/17 15:06 (Ativan Inj) 1 mg Q4H PRN IV PUSH 04/28/17 01:45 05/03/17 16:32 (Ativan) 2 mg Q2H PRN PO 04/28/17 01:45 05/02/17 04:24 (Ativan Inj) 2 mg Q2H PRN IV PUSH 04/28/17 01:45 05/04/17 02:15 (Ativan Inj) 2 mg Q1H PRN IV PUSH 04/28/17 01:45 05/02/17 12:30 (Ativan Inj) 2 mg Q15M PRN IV PUSH 04/28/17 01:45 05/02/17 21:57 (Heparin Inj) 5,000 units Q8H SQ 04/28/17 02:00 05/04/17 08:53 (Vitamin B1) 100 mg DAILY PO 05/06/17 09:00 (Dilantin) 100 mg TID PO 04/28/17 09:00 05/04/17 08:52 (D50w (Vial) Inj) 50 ml UNSCH PRN IV PUSH 04/28/17 02:30 (Glucagon Inj) 1 mg UNSCH PRN OTHER 04/28/17 02:30 (NovoLOG SUPPLEMENTAL SCALE) 1 ACHS SLIDING SCALE SQ 04/28/17 08:00 05/03/17 21:00 (Apresoline Inj) 10 mg Q1H PRN IV PUSH 04/28/17 02:30 Miscellaneous Information Patient in critical care unit? Ass... Q361D .XX 04/28/17 07:00 (Theragran) 1 tab DAILY PO 04/30/17 09:00 05/04/17 08:52 (KCl) 40 meq Taper BID PO 05/01/17 21:00 05/07/17 20:59 05/04/17 08:52 (Haldol Inj) 2 mg Q4H PRN IM 05/02/17 21:45 05/03/17 02:43 (Chucky Velasquez MD, R3) A/P Assessment and Plan Patient is a 62-year-old man with a history of DM and HTN, Seizures, Alcohol- induced mood disorder, multiple psychiatric admissions who was found down at his home and presented to the ED with rhabdo, ENRRIQUE, elevated troponin, elevated ammonia and AST, and altered mental status. continue treatment as below Discharge Planning Anticipate discharge next 1-2 days to jail facility (Chucky Velasquez MD, R3) Attending Attestation Patient seen and examined. Case reviewed and discussed with the resident team. Agree with plan of care as discussed with me and documented in the resident note. It has taken awhile but he is finally getting over his alcohol withdrawal! (Jessica Noe MD) Problem List: (1) Altered mental status ICD Codes: R41.82 - Altered mental status, unspecified Status: Acute Plan: -Supportive care -Monitor vitals -Neuro checks -UDS, alcohol level done -Continue CIWA Protocol -PT, OT, ST -At time of discharge anticipate placement in jail facility as he is poor at caring for himself -Sitter placed as patient has a high risk for fall (2) Fall ICD Codes: W19.XXXA - Unspecified fall, initial encounter Status: Acute Plan: No new focal neurological change. However, given altered mental status did CT scan head, no changes or injury would likely need sitter when transferred to floor will need SNF at D/C unless something drastically improves (3) Alcohol withdrawal seizure ICD Codes: F10.239 - Alcohol dependence with withdrawal, unspecified; R56.9 - Unspecified convulsions Status: Acute Plan: Patient is currently going through alcohol withdrawal. He is on CIWA protocol. -Transferring out of the ICU to [facility] floor -Continue CIWA protocol patient is still requiring Ativan occasionally -Rally pack -Monitor vitals -monitoring analyst/telemetry -Seizure precautions -Phenytoin low - patient has not been taking medication. Recheck level tomorrow 05/05/17 (4) Rhabdomyolysis ICD Codes: M62.82 - Rhabdomyolysis Status: Resolved Plan: po fluids as he repeatedly and daily pulls out his iv, his rhabdo is nearly 100% better CK continues to improve (5) Elevated troponin ICD Codes: R74.8 - Abnormal levels of other serum enzymes Status: Resolved Plan: -Trend troponins and EKG every 6 hours: 0.42, 0.22, 0.17 -Aspirin 325 mg po (6) Diabetes mellitus type 2, diet-controlled ICD Codes: E11.9 - Diabetes mellitus type 2, diet-controlled Status: Acute Plan: -Low-dose sliding scale insulin and glucose monitor -Hold home metformin his glucoses are not extremely high can consider cutting them down in frequency (7) Hyperammonemia ICD Codes: E72.20 - Hyperammonemia Status: Acute Plan: Minimally elevated and unlikely to be the cause of his altered mental status. -Continue to monitor (8) HTN (hypertension) ICD Codes: I10 - Essential (primary) hypertension Status: Chronic Plan: -Held SANA inhibitor given his ENRRIQUE but can restart now -Hydralazine when necessary for hypertension (9) FEN Status: Acute Plan: Fluids: NS Electrolytes: Monitor and replete as needed Nutrition: Diabetic Diet GI prophylaxis: Protonix with his alcohol history (10) No contraindication to deep vein thrombosis (DVT) prophylaxis ICD Codes: Z78.9 - Other specified health status Plan: -Heparin 5000 every 8 -SCDs/TEDs bilaterally (Chucky Velasquez MD, R3) Problem Qualifiers (1) Altered mental status: Qualified Codes: R41.0 - Disorientation, unspecified (2) Fall: Qualified Codes: W19.XXXA - Unspecified fall, initial encounter (3) Alcohol withdrawal seizure: Qualified Codes: F10.231 - Alcohol dependence with withdrawal delirium (4) Rhabdomyolysis: Qualified Codes: M62.82 - Rhabdomyolysis (5) HTN (hypertension): Qualified Codes: I10 - Essential (primary) hypertension Chucky Velasquez MD, R3 May 04, 2017 09:56 Jessica Noe MD May 05, 2017 11:15
[2017-05-05] VITALS (7 sets, daily range): BP systolic 111–142; BP diastolic 62–76; PULSE 84–92; RESP 18–20; TEMP 98.1–99.5; O2SAT 95–98
[2017-05-05] MEDS: HEPARIN SODIUM - SQ 10,000 UNITS/ML VIAL SQ SCH ×3 (02:38→18:15)
[2017-05-05 07:32] LABS: HEMATOCRIT 36.9 % (39.0-51.0); MEAN CELL VOLUME 98.1 FL (80.0-100.0); MEAN CORPUSCULAR HEMOGLOBIN 33.6 PG (27.0-34.0); MEAN CORPUSCULAR HGB CONC 34.2 % (32.0-36.0); PLATELET COUNT 428 TH/MM3 (150-450); RED BLOOD COUNT 3.76 MIL/MM3 (4.50-5.90); RED CELL DISTRIBUTION WIDTH 13.7 % (11.6-17.2); REVIEW FLAG FINAL; WHITE BLOOD COUNT 7.8 TH/MM3 (4.0-11.0)
[2017-05-05 07:54] LABS: BICARBONATE 26.1 MEQ/L (21.0-32.0); POTASSIUM 4.2 MEQ/L (3.5-5.1)
[2017-05-05] MEDS: INSULIN ASPART SUPPLEMENTAL SCALE SQ SCH ×4 (08:00→21:00)
[2017-05-05] MEDS: PANTOPRAZOLE SOD 40 MG DELAYED RELEASE TAB PO SCH (08:50)
[2017-05-05] MEDS: SODIUM CHLORIDE 0.9% FLUSH 10 ML FLUSH IV FLUSH SCH ×2 (08:50→21:13)
[2017-05-05] MEDS: POTASSIUM CHLORIDE 10 MEQ CONTROLLED RELEASE TAB PO SCH (08:50)
[2017-05-05] MEDS: MULTIVITAMIN TAB PO SCH (08:50)
[2017-05-05] MEDS: PHENYTOIN SODIUM 100 MG CAP PO SCH ×3 (08:50→18:14)
--- NOTE | 2017-05-05 11:15 | HHI.FPPN ---
Subjective Remarks Patient seen and examined this morning. Afebrile vital signs stable. Patient is agreement with going to the alf facility. Have requested case management work with this placement. He denies any tremors. He understands that he was very sick and could have and feels that he needs further help. Endorses: None Denies: Fever, chills, nausea, vomiting, shortness of breath, chest pain, headache, abdominal pain, calf pain All other review of symptoms were negative (Chucky Velasquez MD, R3) Objective Vitals Vital Signs Date Time Temp Pulse Resp B/P (MAP) Pulse Ox O2 Delivery O2 Flow Rate FiO2 05/05/17 09:55 95 05/05/17 04:00 Room Air 05/05/17 04:00 99.1 86 20 140/65 (90) 95 05/05/17 00:00 99.5 87 20 119/62 (81) 97 05/05/17 00:00 Room Air 05/04/17 20:30 96 05/04/17 20:00 Room Air 05/04/17 20:00 97.8 92 20 115/63 (80) 98 05/04/17 17:30 99.1 88 20 142/80 (100) 95 05/04/17 16:29 98 05/04/17 16:00 91 05/04/17 16:00 98.2 91 16 114/68 (83) 96 05/04/17 15:00 83 21 106/60 (75) 05/04/17 14:00 90 25 117/65 (82) 05/04/17 14:00 90 05/04/17 13:22 92 25 110/59 (76) 05/04/17 13:15 97 21 05/04/17 13:00 93 34 05/04/17 13:00 93 05/04/17 12:00 98.0 81 21 115/58 (77) 96 05/04/17 12:00 81 I/O 05/04/17 05/04/17 05/04/17 05/05/17 05/05/17 05/05/17 07:00 15:00 23:00 07:00 15:00 23:00 Intake Total 800 ml Output Total 650 ml 1500 ml 420 ml Balance -650 ml -700 ml -420 ml Intake Oral 800 ml Output Urine Total 650 ml 1500 ml 420 ml # Voids 1 # Bowel Movements 0 0 0 (Chucky Velasquez MD, R3) Result Diagram: 05/05/17 0707 05/05/17 0707 Imaging Last Impressions Head CT 05/02/17 0000 Signed Impressions: Service Date/Time: Tuesday, May 02, 2017 09:29 - CONCLUSION: 1. No acute intracranial abnormality identified. Stable compared to previous examination. Mohan Gregory MD Renal Ultrasound 04/29/17 0000 Signed Impressions: Service Date/Time: April 16:26 - CONCLUSION: 1. No evidence hydronephrosis. 2. Incidental gallstones. Kelton Jacob MD Chest X-Ray 04/29/17 0000 Signed Impressions: Service Date/Time: April 08:32 - CONCLUSION: 1. No acute cardiopulmonary disease. 2. Previously noted nodular density is no longer visualized however there is no adjacent healing rib fracture with callus. There is no definite pulmonary nodule. Kelton Jacob MD Cervical Spine CT 04/27/172203 Signed Impressions: Service Date/Time: Friday, April 28, 2017 00:01 - CONCLUSION: Intact cervical spine. Multilevel degenerative changes are again noted. Sixto Goel MD Objective Remarks GENERAL: thin patient. No acute distress. No longer in restraints, alert and answers appropriately SKIN: Warm and dry. Mild cut over eye, no bleeding. also cuts on knees, etc after multiple recent falls EYES: No scleral icterus. No injection or drainage. PERRLA. EOMI. HENT: Normocephalic. Atraumatic. MMM. NECK: No visible JVD or lymphadenopathy. CARDIOVASCULAR: Regular rate and rhythm RESPIRATORY: Clear to auscultation bilaterally GASTROINTESTINAL: Abdomen nondistended. MUSCULOSKELETAL: Strength grossly WNL. BACK: Without obvious deformity. NEURO/PSYCH: Afocal. Awake, alert. moves all extremities with no facial droop or apparent focal weakness Medications and IVs Current Medications Medications (Trade) Dose Ordered Sig/Kiran Route Start Time Stop Time Status Last Admin (NS Flush) 2 ml BID IV FLUSH 04/28/17 09:00 05/05/17 08:50 (NS Flush) 2 ml UNSCH PRN IV FLUSH 04/28/17 01:30 (Tylenol) 650 mg Q6H PRN PO 04/28/17 01:30 (Zofran Inj) 4 mg Q6H PRN IV PUSH 04/28/17 01:30 (Protonix) 40 mg DAILY PO 04/28/17 09:00 05/05/17 08:50 (Romazicon Inj) 0.2 mg Q1M PRN IV PUSH 04/28/17 01:45 (Ativan) 1 mg Q4H PRN PO 04/28/17 01:45 05/01/17 15:06 (Ativan Inj) 1 mg Q4H PRN IV PUSH 04/28/17 01:45 05/03/17 16:32 (Ativan) 2 mg Q2H PRN PO 04/28/17 01:45 05/02/17 04:24 (Ativan Inj) 2 mg Q2H PRN IV PUSH 04/28/17 01:45 05/04/17 02:15 (Ativan Inj) 2 mg Q1H PRN IV PUSH 04/28/17 01:45 05/02/17 12:30 (Ativan Inj) 2 mg Q15M PRN IV PUSH 04/28/17 01:45 05/02/17 21:57 (Heparin Inj) 5,000 units Q8H SQ 04/28/17 02:00 05/05/17 08:51 (Vitamin B1) 100 mg DAILY PO 05/06/17 09:00 (Dilantin) 100 mg TID PO 04/28/17 09:00 05/05/17 08:50 (D50w (Vial) Inj) 50 ml UNSCH PRN IV PUSH 04/28/17 02:30 (Glucagon Inj) 1 mg UNSCH PRN OTHER 04/28/17 02:30 (NovoLOG SUPPLEMENTAL SCALE) 1 ACHS SLIDING SCALE SQ 04/28/17 08:00 05/03/17 21:00 (Apresoline Inj) 10 mg Q1H PRN IV PUSH 04/28/17 02:30 Miscellaneous Information Patient in critical care unit? Ass... Q361D .XX 04/28/17 07:00 (Theragran) 1 tab DAILY PO 04/30/17 09:00 05/05/17 08:50 (KCl) 40 meq Taper DAILY PO 05/01/17 21:00 05/07/17 20:59 05/05/17 08:50 (Haldol Inj) 2 mg Q4H PRN IM 05/02/17 21:45 05/03/17 02:43 (Chucky Velasquez MD, R3) A/P Assessment and Plan Patient is a 62-year-old man with a history of DM and HTN, Seizures, Alcohol- induced mood disorder, multiple psychiatric admissions who was found down at his home and presented to the ED with rhabdo, ENRRIQUE, elevated troponin, elevated ammonia and AST, and altered mental status. continue treatment as below Discharge Planning Anticipate discharge next 1-2 days to alf facility (Chucky Velasquez MD, R3) Attending Attestation Patient seen and examined. Case reviewed and discussed with the resident team. Agree with plan of care as discussed with me and documented in the resident note. he is much improved. agree with SNF placement (Jessica Noe MD) Problem List: (1) Altered mental status ICD Codes: R41.82 - Altered mental status, unspecified Status: Acute Plan: -Supportive care -Monitor vitals -Neuro checks -UDS, alcohol level done -Continue CIWA Protocol -PT, OT, ST -At time of discharge anticipate placement in alf facility as he is poor at caring for himself -Sitter placed as patient has a high risk for fall (2) Fall ICD Codes: W19.XXXA - Unspecified fall, initial encounter Status: Acute Plan: No new focal neurological change. However, given altered mental status did CT scan head, no changes or injury would likely need sitter when transferred to floor will need SNF at D/C unless something drastically improves (3) Alcohol withdrawal seizure ICD Codes: F10.239 - Alcohol dependence with withdrawal, unspecified; R56.9 - Unspecified convulsions Status: Acute Plan: Patient is currently going through alcohol withdrawal. He is on CIWA protocol. -Transferring out of the ICU to [facility] floor -Continue CIWA protocol patient is still requiring Ativan occasionally -Rally pack -Monitor vitals -bottling equipment sales representative/telemetry -Seizure precautions -Phenytoin low - patient has not been taking medication. Recheck level today (4) Rhabdomyolysis ICD Codes: M62.82 - Rhabdomyolysis Status: Resolved Plan: po fluids as he repeatedly and daily pulls out his iv, his rhabdo is nearly 100% better CK continues to improve (5) Elevated troponin ICD Codes: R74.8 - Abnormal levels of other serum enzymes Status: Resolved Plan: -Trend troponins and EKG every 6 hours: 0.42, 0.22, 0.17 -Aspirin 325 mg po (6) Diabetes mellitus type 2, diet-controlled ICD Codes: E11.9 - Diabetes mellitus type 2, diet-controlled Status: Acute Plan: -Low-dose sliding scale insulin and glucose monitor -Hold home metformin his glucoses are not extremely high can consider cutting them down in frequency (7) Hyperammonemia ICD Codes: E72.20 - Hyperammonemia Status: Acute Plan: Minimally elevated and unlikely to be the cause of his altered mental status. -Continue to monitor (8) HTN (hypertension) ICD Codes: I10 - Essential (primary) hypertension Status: Chronic Plan: -Continue lisinopril -Hydralazine when necessary for hypertension (9) FEN Status: Acute Plan: Fluids: NS Electrolytes: Monitor and replete as needed Nutrition: Diabetic Diet GI prophylaxis: Protonix with his alcohol history (10) No contraindication to deep vein thrombosis (DVT) prophylaxis ICD Codes: Z78.9 - Other specified health status Plan: -Heparin 5000 every 8 -SCDs/TEDs bilaterally (Chucky Velasquez MD, R3) Problem Qualifiers (1) Altered mental status: Qualified Codes: R41.0 - Disorientation, unspecified (2) Fall: Qualified Codes: W19.XXXA - Unspecified fall, initial encounter (3) Alcohol withdrawal seizure: Qualified Codes: F10.231 - Alcohol dependence with withdrawal delirium (4) Rhabdomyolysis: Qualified Codes: M62.82 - Rhabdomyolysis (5) HTN (hypertension): Qualified Codes: I10 - Essential (primary) hypertension Chucky Velasquez MD, R3 May 05, 2017 11:15 Jessica Noe MD May 06, 2017 11:04
[2017-05-06] VITALS: BP 105/58; PULSE 61; RESP 18; TEMP 97.6; O2SAT 96
[2017-05-06] MEDS: HEPARIN SODIUM - SQ 10,000 UNITS/ML VIAL SQ SCH ×2 (02:47→10:00)
[2017-05-06 04:00] VITALS: BP 117/63; PULSE 68; RESP 20; TEMP 97.4; O2SAT 97
[2017-05-06 08:00] VITALS: BP 113/58; PULSE 107; PULSE 74; RESP 20; TEMP 98.9; O2SAT 100
[2017-05-06] MEDS: INSULIN ASPART SUPPLEMENTAL SCALE SQ SCH ×2 (08:00→12:00)
[2017-05-06] MEDS ORDERED: THIAMINE HCL 100 MG TAB PO SCH (09:00)
[2017-05-06 09:15] VITALS: O2SAT 96
--- NOTE | 2017-05-06 09:56 | HHI.DCPOC ---
Discharge Care Plan Diagnosis: (1) Alcohol withdrawal seizure (2) Rhabdomyolysis Goals to Promote Your Health * To prevent worsening of your condition and complications * To maintain your health at the optimal level Directions to Meet Your Goals Take your medications as prescribed Follow your dietary instruction Follow activity as directed Keep your appointments as scheduled Take your immunizations and boosters as scheduled If your symptoms worsen call your PCP, if no PCP go to Urgent Care Center or Emergency Room Smoking is Dangerous to Your Health. Avoid second hand smoke Call the 24-hour hour crisis hotline for domestic abuse at Chucky Velasquez MD, R3 May 06, 2017 09:56
--- NOTE | 2017-05-06 10:25 | HHI.FPPN ---
Subjective Remarks Patient seen and examined this morning. Afebrile vital signs stable. Patient reports that he is ready to get out of the hospital and go to group home facility. He is hoping to improve his strength in the group home facility. Agree with this assessment and will discharge patient today to group home facility. Endorses: Mild generalized weakness from muscle decompensation from inactivity Denies: Fever, chills, nausea, vomiting, shortness of breath, chest pain, headache, abdominal pain, calf pain All other review of symptoms were negative (Chucky Velasquez MD, R3) Objective Vitals Vital Signs Date Time Temp Pulse Resp B/P (MAP) Pulse Ox O2 Delivery O2 Flow Rate FiO2 05/06/17 09:15 96 21 05/06/17 08:00 98.9 107 20 113/58 (76) 100 05/06/17 04:00 97.4 68 20 117/63 (81) 97 05/06/17 03:34 Room Air 05/06/17 00:00 97.6 61 18 105/58 (74) 96 05/05/17 20:00 99.0 87 18 118/62 (80) 96 05/05/17 20:00 84 05/05/17 16:00 98.5 86 20 142/70 (94) 98 05/05/17 12:00 98.1 90 20 133/76 (95) 97 I/O 05/05/17 05/05/17 05/05/17 05/06/17 05/06/17 05/06/17 07:00 15:00 23:00 07:00 15:00 23:00 Intake Total 940 ml 240 ml Output Total 420 ml 100 ml Balance -420 ml 940 ml 140 ml Intake Oral 940 ml 240 ml IV Total 0 ml Output Urine Total 420 ml 100 ml # Voids 3 # Bowel Movements 0 1 1 (Chucky Velasquez MD, R3) Result Diagram: 05/05/1770605/05/17706 Imaging Last Impressions Head CT 05/02/17 0000 Signed Impressions: Service Date/Time: Tuesday, May 02, 2017 09:29 - CONCLUSION: 1. No acute intracranial abnormality identified. Stable compared to previous examination. Mohan Gregory MD Renal Ultrasound 04/29/17 0000 Signed Impressions: Service Date/Time: April 16:26 - CONCLUSION: 1. No evidence hydronephrosis. 2. Incidental gallstones. Kelton Jacob MD Chest X-Ray 04/29/17 0000 Signed Impressions: Service Date/Time: April 08:32 - CONCLUSION: 1. No acute cardiopulmonary disease. 2. Previously noted nodular density is no longer visualized however there is no adjacent healing rib fracture with callus. There is no definite pulmonary nodule. Kelton Jacob MD Cervical Spine CT 04/27/174 Signed Impressions: Service Date/Time: Friday, April 28, 2017 00:01 - CONCLUSION: Intact cervical spine. Multilevel degenerative changes are again noted. Sixto Goel MD Objective Remarks GENERAL: thin patient. No acute distress. No longer in restraints, alert and answers appropriately SKIN: Warm and dry. Mild cut over eye, no bleeding. also cuts on knees, etc after multiple recent falls EYES: No scleral icterus. No injection or drainage. PERRLA. EOMI. HENT: Normocephalic. Atraumatic. MMM. NECK: No visible JVD or lymphadenopathy. CARDIOVASCULAR: Regular rate and rhythm 2/6 systolic murmur RESPIRATORY: Clear to auscultation bilaterally GASTROINTESTINAL: Abdomen nondistended. MUSCULOSKELETAL: Strength grossly WNL. BACK: Without obvious deformity. NEURO/PSYCH: Afocal. Awake, alert. moves all extremities with no facial droop or apparent focal weakness Medications and IVs Current Medications Medications (Trade) Dose Ordered Sig/Kiran Route Start Time Stop Time Status Last Admin (NS Flush) 2 ml BID IV FLUSH 04/28/17 09:00 05/05/17 21:13 (NS Flush) 2 ml UNSCH PRN IV FLUSH 04/28/17 01:30 (Tylenol) 650 mg Q6H PRN PO 04/28/17 01:30 (Zofran Inj) 4 mg Q6H PRN IV PUSH 04/28/17 01:30 (Protonix) 40 mg DAILY PO 04/28/17 09:00 05/05/17 08:50 (Romazicon Inj) 0.2 mg Q1M PRN IV PUSH 04/28/17 01:45 (Ativan) 1 mg Q4H PRN PO 04/28/17 01:45 05/01/17 15:06 (Ativan Inj) 1 mg Q4H PRN IV PUSH 04/28/17 01:45 05/03/17 16:32 (Ativan) 2 mg Q2H PRN PO 04/28/17 01:45 05/02/17 04:24 (Ativan Inj) 2 mg Q2H PRN IV PUSH 04/28/17 01:45 05/04/17 02:15 (Ativan Inj) 2 mg Q1H PRN IV PUSH 04/28/17 01:45 05/02/17 12:30 (Ativan Inj) 2 mg Q15M PRN IV PUSH 04/28/17 01:45 05/02/17 21:57 (Heparin Inj) 5,000 units Q8H SQ 04/28/17 02:00 05/06/17 02:47 (Vitamin B1) 100 mg DAILY PO 05/06/17 09:00 (Dilantin) 100 mg TID PO 04/28/17 09:00 05/05/17 18:14 (D50w (Vial) Inj) 50 ml UNSCH PRN IV PUSH 04/28/17 02:30 (Glucagon Inj) 1 mg UNSCH PRN OTHER 04/28/17 02:30 (NovoLOG SUPPLEMENTAL SCALE) 1 ACHS SLIDING SCALE SQ 04/28/17 08:00 05/05/17 21:00 (Apresoline Inj) 10 mg Q1H PRN IV PUSH 04/28/17 02:30 Miscellaneous Information Patient in critical care unit? Ass... Q361D .XX 04/28/17 07:00 (Theragran) 1 tab DAILY PO 04/30/17 09:00 05/05/17 08:50 (KCl) 40 meq Taper DAILY PO 05/01/17 21:00 05/07/17 20:59 05/05/17 08:50 (Haldol Inj) 2 mg Q4H PRN IM 05/02/17 21:45 05/03/17 02:43 (Chucky Velasquez MD, R3) A/P Assessment and Plan Patient is a 62-year-old man with a history of DM and HTN, Seizures, Alcohol- induced mood disorder, multiple psychiatric admissions who was found down at his home and presented to the ED with rhabdo, ENRRIQUE, elevated troponin, elevated ammonia and AST, and altered mental status. continue treatment as below Discharge Planning Anticipate discharge today to group home facility (Chucky Velasquez MD, R3) Attending Attestation Patient seen and examined. Case reviewed and discussed with the resident team. Agree with plan of care as discussed with me and documented in the resident note. he is much improved and ready for SNF (Jessica Noe MD) Problem List: (1) Altered mental status ICD Codes: R41.82 - Altered mental status, unspecified Status: Acute Plan: -Supportive care -Monitor vitals -Neuro checks -UDS, alcohol level done -Continue CIWA Protocol: Patient is no longer requiring Ativan -PT, OT, ST -At time of discharge anticipate placement in group home facility as he is poor at caring for himself -Sitter placed as patient has a high risk for fall (2) Fall ICD Codes: W19.XXXA - Unspecified fall, initial encounter Status: Acute Plan: No new focal neurological change. However, given altered mental status did CT scan head, no changes or injury would likely need sitter when transferred to floor will need SNF at D/C unless something drastically improves (3) Alcohol withdrawal seizure ICD Codes: F10.239 - Alcohol dependence with withdrawal, unspecified; R56.9 - Unspecified convulsions Status: Acute Plan: Patient is currently going through alcohol withdrawal. He is on CIWA protocol. -Transferring out of the ICU to [facility] floor -Continue CIWA protocol patient is no longer requiring Ativan -Rally pack -Monitor vitals -manager monitoring/telemetry -Seizure precautions (4) Rhabdomyolysis ICD Codes: M62.82 - Rhabdomyolysis Status: Resolved Plan: po fluids as he repeatedly and daily pulls out his iv, his rhabdo is nearly 100% better CK continues to improve (5) Elevated troponin ICD Codes: R74.8 - Abnormal levels of other serum enzymes Status: Resolved Plan: -Trend troponins and EKG every 6 hours: 0.42, 0.22, 0.17 -Aspirin 325 mg po (6) Diabetes mellitus type 2, diet-controlled ICD Codes: E11.9 - Diabetes mellitus type 2, diet-controlled Status: Acute Plan: -Low-dose sliding scale insulin and glucose monitor -Hold home metformin his glucoses are not extremely high can consider cutting them down in frequency (7) Hyperammonemia ICD Codes: E72.20 - Hyperammonemia Status: Acute Plan: Minimally elevated and unlikely to be the cause of his altered mental status. -Continue to monitor (8) HTN (hypertension) ICD Codes: I10 - Essential (primary) hypertension Status: Chronic Plan: -Continue lisinopril -Hydralazine when necessary for hypertension (9) FEN Status: Acute Plan: Fluids: NS Electrolytes: Monitor and replete as needed Nutrition: Diabetic Diet GI prophylaxis: Protonix with his alcohol history (10) No contraindication to deep vein thrombosis (DVT) prophylaxis ICD Codes: Z78.9 - Other specified health status Plan: -Heparin 5000 every 8 -SCDs/TEDs bilaterally (Chucky Velasquez MD, R3) Problem Qualifiers (1) Altered mental status: Qualified Codes: R41.0 - Disorientation, unspecified (2) Fall: Qualified Codes: W19.XXXA - Unspecified fall, initial encounter (3) Alcohol withdrawal seizure: Qualified Codes: F10.231 - Alcohol dependence with withdrawal delirium (4) Rhabdomyolysis: Qualified Codes: M62.82 - Rhabdomyolysis (5) HTN (hypertension): Qualified Codes: I10 - Essential (primary) hypertension Chucky Velasquez MD, R3 May 06, 2017 10:25 Jessica Noe MD May 06, 2017 11:10
--- NOTE | 2017-05-06 10:47 | HHI.DS ---
Discharge Summary Admission Date Apr 28, 2017 at 00:58 Discharge Date: May 06, 2017 Admitting Diagnosis ENRRIQUE, rhabdo, elevated trop, elevated ammonia (1) Altered mental status Diagnosis: Principal Plan: -Supportive care -Monitor vitals -Neuro checks -UDS, alcohol level done -Continue CIWA Protocol: Patient is no longer requiring Ativan -PT, OT, ST -At time of discharge anticipate placement in [facility] facility as he is poor at caring for himself -Sitter placed as patient has a high risk for fall ICD Codes: R41.82 - Altered mental status, unspecified Status: Acute (2) Fall Diagnosis: Principal Plan: No new focal neurological change. However, given altered mental status did CT scan head, no changes or injury would likely need sitter when transferred to floor will need SNF at D/C unless something drastically improves ICD Codes: W19.XXXA - Unspecified fall, initial encounter Status: Acute (3) Alcohol withdrawal seizure Diagnosis: Principal Plan: Patient is currently going through alcohol withdrawal. He is on CIWA protocol. -Transferring out of the ICU to [facility] floor -Continue CIWA protocol patient is no longer requiring Ativan -Rally pack -Monitor vitals -commercial attache/telemetry -Seizure precautions ICD Codes: F10.239 - Alcohol dependence with withdrawal, unspecified; R56.9 - Unspecified convulsions Status: Acute (4) Rhabdomyolysis Diagnosis: Principal Plan: po fluids as he repeatedly and daily pulls out his iv, his rhabdo is nearly 100% better CK continues to improve ICD Codes: M62.82 - Rhabdomyolysis Status: Resolved (5) Elevated troponin Diagnosis: Secondary Plan: -Trend troponins and EKG every 6 hours: 0.42, 0.22, 0.17 -Aspirin 325 mg po ICD Codes: R74.8 - Abnormal levels of other serum enzymes Status: Resolved (6) Diabetes mellitus type 2, diet-controlled Diagnosis: Secondary Plan: -Low-dose sliding scale insulin and glucose monitor -Hold home metformin his glucoses are not extremely high can consider cutting them down in frequency ICD Codes: E11.9 - Diabetes mellitus type 2, diet-controlled Status: Acute (7) Hyperammonemia Diagnosis: Secondary Plan: Minimally elevated and unlikely to be the cause of his altered mental status. -Continue to monitor ICD Codes: E72.20 - Hyperammonemia Status: Acute (8) HTN (hypertension) Diagnosis: Secondary Plan: -Continue lisinopril -Hydralazine when necessary for hypertension ICD Codes: I10 - Essential (primary) hypertension Status: Chronic (9) FEN Diagnosis: Secondary Plan: Fluids: NS Electrolytes: Monitor and replete as needed Nutrition: Diabetic Diet GI prophylaxis: Protonix with his alcohol history Status: Acute (10) No contraindication to deep vein thrombosis (DVT) prophylaxis Diagnosis: Secondary Plan: -Heparin 5000 every 8 -SCDs/TEDs bilaterally ICD Codes: Z78.9 - Other specified health status Consultants Critical care Procedures None Brief History Patient is a 62-year-old man with a history of DM and HTN, Seizures, Alcohol- induced mood disorder, multiple psychiatric admissions who was found down at his home and presented to the ED with rhabdo, ENRRIQUE, elevated troponin, elevated ammonia and AST. Patient was taken via ambulance to the ED after being found down in his home. Per ED provider note: The neighbors had not seen him for several days. They noticed that his mail was piling up. They called the authorities and the patient was found down in the prone position in his living room. The patient reported that he had been there for 15 minutes. EVAC reports that the house was filthy. The patient had been incontinent of urine, probably on several occasions. They found him to be hypotensive and treated him in route with IV fluids. Fingerstick blood sugar was acceptable. Patient has no other complaints. No modifying factors. For me, patient is asleep but wakes to voice or light touch, but he is mumbling incoherently. CBC/BMP: 05/05/17 0707 05/05/17 0707 Significant Findings Laboratory Tests Test 05/04/17 05:43 05/05/17 07:07 Red Blood Count 3.78 MIL/MM3 (4.50-5.90) 3.76 MIL/MM3 (4.50-5.90) Hemoglobin 12.4 GM/DL (13.0-17.0) 12.6 GM/DL (13.0-17.0) Hematocrit 37.2 % (39.0-51.0) 36.9 % (39.0-51.0) Blood Urea Nitrogen 20 MG/DL (7-18) 20 MG/DL (7-18) Random Glucose 115 MG/DL (74-106) 118 MG/DL (74-106) Estimat Glomerular Filtration Rate 80 ML/MIN (>89) 86 ML/MIN (>89) Total Creatine Kinase 421 U/L (39-308) Imaging Last Impressions Head CT 05/02/17 0000 Signed Impressions: Service Date/Time: Tuesday, May 02, 2017 09:29 - CONCLUSION: 1. No acute intracranial abnormality identified. Stable compared to previous examination. Mohan Gregory MD Renal Ultrasound 04/29/17 0000 Signed Impressions: Service Date/Time: April 16:26 - CONCLUSION: 1. No evidence hydronephrosis. 2. Incidental gallstones. Kelton Jacob MD Chest X-Ray 04/29/17 0000 Signed Impressions: Service Date/Time: April 08:32 - CONCLUSION: 1. No acute cardiopulmonary disease. 2. Previously noted nodular density is no longer visualized however there is no adjacent healing rib fracture with callus. There is no definite pulmonary nodule. Kelton Jacob MD Cervical Spine CT 04/27/172203 Signed Impressions: Service Date/Time: Friday, April 28, 2017 00:01 - CONCLUSION: Intact cervical spine. Multilevel degenerative changes are again noted. Sixto Goel MD PE at Discharge GENERAL: thin patient. No acute distress. No longer in restraints, alert and answers appropriately SKIN: Warm and dry. Mild cut over eye, no bleeding. also cuts on knees, etc after multiple recent falls EYES: No scleral icterus. No injection or drainage. PERRLA. EOMI. HENT: Normocephalic. Atraumatic. MMM. NECK: No visible JVD or lymphadenopathy. CARDIOVASCULAR: Regular rate and rhythm 2/6 systolic murmur RESPIRATORY: Clear to auscultation bilaterally GASTROINTESTINAL: Abdomen nondistended. MUSCULOSKELETAL: Strength grossly WNL. BACK: Without obvious deformity. NEURO/PSYCH: Afocal. Awake, alert. moves all extremities with no facial droop or apparent focal weakness Hospital Course Patient was admitted on 04/28/17 alcohol withdrawal resulting in seizures as well as rhabdomyolysis. It is believed that he been lying on his floor in his living room for a couple days. He progressively recovered with fluids and being placed on the CIWA protocol. It was determined that on 10/12/17 he had completed his alcohol withdrawal. His rhabdomyolysis had resolved. He was weak from muscle degeneration and is felt appropriate that he be discharged to [facility] facility. Pt Condition on Discharge: Stable Discharge Disposition: Discharge to SNF Discharge Instructions DIET: Follow Instructions for: As Tolerated, No Restrictions Speech Therapy-Diet Recommends: Soft Activities you can perform: Regular-No Restrictions Follow up Referrals: Neurology - 1 Week PCP Follow-up - 1 Week with Mary Sahu MD R3 Continued Medications: Hydrocodone-Acetaminophen (Hydrocodone-Acetaminophen) 10-325 mg Tab 1 TAB PO Q4H PRN for PAIN 6-10, #30 TAB 0 Refills Lisinopril (Lisinopril) 2.5 Mg Tab 2.5 MG PO DAILY, #30 TAB 5 Refills Metformin (Metformin) 500 Mg Tab 500 MG PO TIDPC for Blood Sugar Management, #90 TAB 5 Refills With meals Phenytoin Extended (Phenytoin Extended) 100 Mg Cap 100 MG PO TID for Control Seizures, #90 CAP 0 Refills Chucky Velasquez MD, R3 May 06, 2017 10:47
[2017-05-06] MEDS: MULTIVITAMIN TAB PO SCH (11:13)
[2017-05-06] MEDS: POTASSIUM CHLORIDE 10 MEQ CONTROLLED RELEASE TAB PO SCH (11:13)
[2017-05-06] MEDS: PANTOPRAZOLE SOD 40 MG DELAYED RELEASE TAB PO SCH (11:13)
[2017-05-06] MEDS: PHENYTOIN SODIUM 100 MG CAP PO SCH ×2 (11:13→14:16)
[2017-05-06 12:00] VITALS: BP 112/65; PULSE 84; RESP 20; TEMP 98.3; O2SAT 95
--- NOTE | 2017-05-09 10:56 | PQ ---
Physician Query Response Document PATIENT: LEE AMAYA : 1955 ADMIT DATE: 04/28/2017 12:58 AM DISCH DATE: 05/06/2017 3:39 PM RESPONDING PROVIDER #: Jocelyn QUERY TEXT: Clinical Significance The diagnosis documented below requires documentation to state the clinical significance: Altered me ntal status vs encephalopathy (Wernicke's, toxic metabolic, other specified) Please respond and also state in your next progress note whether the condition is: -- Clinically insignificant -- Clinically significant, and please also state why it is clinically significant -- Unable to determine clinical significance -- Other, please specify If you have any additional questions/comments and/or concerns, please do not hesitate to reach out to the CDI/Coding Hotline, Ext. [phone]. The patient's Clinical Indicators include: H -Admit to ICU for close monitoring -CIWA protocol -Rally pack IV, transition to by mouth when tolerated -IV thiamine for possible Wernicke encephalopathy Consultation Dr. Hernandez 04/28/17: Assessment and Plan : Altered mental status - Metabolic toxic Query created by: Mana Benavidez on 05/07/2017 11:52 AM RESPONSE TEXT: Mr Amaya had encephalopathy from seizures plus toxic metabolic encephalopathy plus alcohol withdraw al QUERY TEXT: Rule Out Sepsis Clarification Sepsis is documented in the Medical Record. Please clarify whether: -- Patient has sepsis - Please document confirmed, suspected or probable causative organism - Please document confirmed, suspected or probable localized infection - Please clarify if sepsis is related to a device - Please clarify if sepsis was present on admission -- Sepsis was ruled out (include corresponding diagnosis for patient?s clinical picture and treatment ) -- Patient had sepsis which is resolved -- Other, please specify If you have any additional questions/comments and/or concerns, please do not hesitate to reach out to the CDI/Coding Hotline, Ext. [phone]. The patient's Clinical Indicators include: H ICD Codes: A41.9 - Sepsis, unspecified organism H Progress Note 04/29/17: (2) Sepsis ICD Codes: A41.9 - Sepsis, unspecified organism Status: Resolved Neither sepsis nor SIRS was documented in Discharge Summary. Query created by: Mana Benavidez on 05/07/2017 11:59 AM RESPONSE TEXT: He was not septic but sick from his other medical problems Electronically signed by: Jessica Noe MD 05/09/2017 10:52 AM
== END 2017-05-06 15:39 | DRG 557 ==
LOC: NEPC 21:53 → NEDA 04-28 00:58 → HIMN 04-28 04:00 → N04B 05-04 17:06
PROVIDERS: ADMIT Family Medicine; ATTEND Family Medicine
DX: M62.82 Rhabdomyolysis (principal); G92 Toxic encephalopathy; N17.9 Acute kidney failure, unspecified; E46 Unspecified protein-calorie malnutrition; E72.20 Disorder of urea cycle metabolism, unspecified; R65.10 Systemic inflammatory response syndrome (SIRS) of non-infectious origin without acute organ dysfunction; I95.9 Hypotension, unspecified; F10.239 Alcohol dependence with withdrawal, unspecified; G40.89 Other seizures; Z68.1 Body mass index [BMI] 19.9 or less, adult; E83.39 Other disorders of phosphorus metabolism; Z78.1 Physical restraint status; R41.82 Altered mental status, unspecified; E86.0 Dehydration; E11.9 Type 2 diabetes mellitus without complications; I10 Essential (primary) hypertension; R74.8 Abnormal levels of other serum enzymes; Z79.84 Long term (current) use of oral hypoglycemic drugs; Z87.891 Personal history of nicotine dependence; Z91.81 History of falling; G40.909 Epilepsy, unspecified, not intractable, without status epilepticus; E87.6 Hypokalemia; Z23 Encounter for immunization
CPT/HCPCS: 36600; 51702; 70450; 71010; 72125; 76775; 76937; 80048; 80053; 80185; 80202; 80307; 81001; 82140; 82550; 82552; 82805; 82948; 83605; 83735; 84100; 84155; 84484; 85025; 85027; 85610; 85730; 86403; 87040; 87077; 87086; 87186; 87205; 87641; 90686; 90732; 93005; 96374; G0481; J1630; J1644; J1815; J2060; J2543; J3370; J3411; J3475; J7030; J7040; J7050; J7070; Q2038

== ENCOUNTER 2017-06-15 00:40 | Emergency (ER) | payer MEDICARE ==
[~2017-06-15] VITALS: Ht 182.9 cm; Wt 76.4 kg
[~2017-06-15 00:40] MED LIST changes: -HYDR-3583 PO; +LEVE500T8 PO; -LISI2.5T3 PO; -PHEN100C PO
[2017-06-15 00:42] VITALS: BP 183/99; PULSE 105; RESP 16; O2SAT 98
[2017-06-15] MEDS ORDERED: SODIUM CHLOR 0.9% 1000 ML INJ 1,000 ML IV ONE (00:44)
[2017-06-15] MEDS ORDERED: SODIUM CHLORIDE 0.9% FLUSH 10 ML FLUSH IVF PRN (00:45)
[2017-06-15 00:49] VITALS: BP 152/76; PULSE 103; RESP 16; TEMP 98.3; O2SAT 98
[2017-06-15 01:14] LABS: AUTOMATED NEUTROPHIL # 6.5 TH/MM3 (1.8-7.7); BASOPHIL # 0.1 TH/MM3 (0-0.2); EOSINOPHIL % 0.4 % (0.0-4.0); HEMATOCRIT 39.3 % (39.0-51.0); HEMO FLAGS DIFF FINAL; LYMPH % 18.9 % (9.0-44.0); LYMPHOCYTE # 1.8 TH/MM3 (1.0-4.8); MEAN CELL VOLUME 97.2 FL (80.0-100.0); MEAN CORPUSCULAR HEMOGLOBIN 33.5 PG (27.0-34.0); MEAN CORPUSCULAR HGB CONC 34.5 % (32.0-36.0); MONO % 9.7 % (0.0-8.0); PLATELET COUNT 219 TH/MM3 (150-450); RED BLOOD COUNT 4.05 MIL/MM3 (4.50-5.90); RED CELL DISTRIBUTION WIDTH 14.4 % (11.6-17.2); WHITE BLOOD COUNT 9.3 TH/MM3 (4.0-11.0)
[2017-06-15 01:27] LABS: BICARBONATE 26.4 MEQ/L (21.0-32.0)
--- NOTE | 2017-06-15 01:46 | RADRPT ---
EXAM DATE/TIME: 06/15/2017 01:18 [place] COMPARISON: CT BRAIN W/O CONTRAST, May 02, 2017, 9:29. INDICATIONS : Trauma, fell and hit side of head. RADIATION DOSE: 56.35 CTDIvol (mGy) MEDICAL HISTORY : Seizures. Diabetes mellitus type 2. SURGICAL HISTORY : None. ENCOUNTER: Initial ACUITY: 1 day PAIN SCALE: 5/10 LOCATION: cranial TECHNIQUE: Multiple contiguous axial images were obtained of the head. Using automated exposure control and adj ustment of the mA and/or kV according to patient size, radiation dose was kept as low as reasonably a chievable to obtain optimal diagnostic quality images. DICOM format image data is available electro nically for review and comparison. FINDINGS: CEREBRUM: The ventricles are normal for age. No evidence of midline shift, mass lesion, hemorrhage or acute in farction. No extra-axial fluid collections are seen. Chronic low attenuation again seen of the periv entricular white matter. POSTERIOR FOSSA: The cerebellum and brainstem are intact. The 4th ventricle is midline. The cerebellopontine angle i s unremarkable. EXTRACRANIAL: The visualized portion of the orbits is intact. SKULL: The calvaria is intact. No evidence of skull fracture. CONCLUSION: No bleed or other acute intracranial abnormality. Chronic white matter changes. Sixto Goel MD on June 15, 2017 at 1:44 Board Certified Radiologist. This report was verified electronically.
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
[2017-06-15 02:45] VITALS: BP 152/76
--- NOTE | 2017-06-15 18:25 | EKG ---
Date Performed: 06/15/2017 Time Performed: 01:08:32 PTAGE: 62 years EKG: Sinus rhythm NORMAL ECG PREVIOUS TRACING : 04/28/2017 17.40 T-waves are no longer flattened compared to the prior elinor ng. DOCTOR: Adrián Martin Interpretating Date/Time 06/15/2017 18:24:06
== END 2017-06-15 07:52 | disposition home or self-care (01) ==
LOC: NEPE 00:40
DX: R56.9 Unspecified convulsions (principal); F10.129 Alcohol abuse with intoxication, unspecified; S01.81XA Laceration without foreign body of other part of head, initial encounter; E11.9 Type 2 diabetes mellitus without complications; F41.9 Anxiety disorder, unspecified; W18.30XA Fall on same level, unspecified, initial encounter; Z79.899 Other long term (current) drug therapy; Z88.8 Allergy status to other drugs, medicaments and biological substances
CPT/HCPCS: 12013; 70450; 80048; 80307; 85025; 93005; 96360; 96361; 99285; J7030

== ENCOUNTER 2017-08-01 00:40 | Inpatient (IN) | payer MEDICARE ==
[~2017-08-01] VITALS: Ht 185.4 cm; Wt 89.0 kg
[2017-08-01] VITALS (14 sets, daily range): BP systolic 118–177; BP diastolic 63–92; PULSE 72–106; RESP 12–28; TEMP 98.1–99.7; O2SAT 96–100
[2017-08-01] MEDS ORDERED: SODIUM CHLORIDE 0.9% FLUSH 10 ML FLUSH IVF PRN (01:00)
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
[2017-08-01 02:20] LABS: AUTOMATED NEUTROPHIL # 11.4 TH/MM3 (1.8-7.7); BASOPHIL # 0.1 TH/MM3 (0-0.2); BASOPHIL % 0.5 % (0.0-2.0); EOSINOPHIL % 0.1 % (0.0-4.0); HEMATOCRIT 40.2 % (39.0-51.0); HEMOGLOBIN 13.8 GM/DL (13.0-17.0); LYMPH % 8.2 % (9.0-44.0); LYMPHOCYTE # 1.1 TH/MM3 (1.0-4.8); MEAN CELL VOLUME 94.5 FL (80.0-100.0); MEAN CORPUSCULAR HEMOGLOBIN 32.5 PG (27.0-34.0); MEAN CORPUSCULAR HGB CONC 34.4 % (32.0-36.0); MEAN PLATELET VOLUME 7.3 FL (7.0-11.0); MONO % 4.6 % (0.0-8.0); MONOCYTE # 0.6 TH/MM3 (0-0.9); NEUT % 86.6 % (16.0-70.0); PLATELET COUNT 330 TH/MM3 (150-450); RED BLOOD COUNT 4.25 MIL/MM3 (4.50-5.90); WHITE BLOOD COUNT 13.1 TH/MM3 (4.0-11.0)
[2017-08-01 02:29] LABS: ALBUMIN 3.8 GM/DL (3.4-5.0); ALT (GPT) 64 U/L (12-78); AST (GOT) 62 U/L (15-37); BICARBONATE 22.5 MEQ/L (21.0-32.0); BLOOD UREA NITROGEN 27 MG/DL (7-18); CALCIUM 8.7 MG/DL (8.5-10.1); CHLORIDE 96 MEQ/L (98-107); CREATININE 0.92 MG/DL (0.60-1.30); GLOMERULAR FILTRATION RATE 83 ML/MIN (>89); GLUCOSE,RANDOM 106 MG/DL (74-106); LIPASE 191 U/L (73-393); MAGNESIUM 1.3 MG/DL (1.5-2.5); SODIUM (NA) 131 MEQ/L (136-145)
[2017-08-01 02:31] LABS: PROTHROMBIN TIME - PATIENT 10.2 SEC (9.8-11.6)
[2017-08-01 02:33] LABS: ALKALINE PHOSPHATASE 77 U/L (45-117); TOTAL BILIRUBIN ADULT 0.5 MG/DL (0.2-1.0); TOTAL PROTEIN 8.6 GM/DL (6.4-8.2); TROPONIN I LESS THAN 0.02 NG/ML (0.02-0.05)
[2017-08-01] MEDS ORDERED: DIAZEPAM 2 MG TAB PO SCH (03:30)
[2017-08-01] MEDS ORDERED: SODIUM CHLORIDE 0.9% FLUSH 10 ML FLUSH IV FLUSH PRN (03:30)
[2017-08-01] MEDS ORDERED: ONDANSETRON HCL 4 MG/2 ML VIAL IV PUSH PRN (03:30)
[2017-08-01] MEDS ORDERED: MAGNESIUM HYDROXIDE SUSP 30 ML CUP PO PRN (03:30)
[2017-08-01] MEDS ORDERED: CHLORHEXIDINE GLUCONATE 2 % 1 PACK (2 CLOTHS) TOP PRN (03:30)
[2017-08-01] MEDS ORDERED: MISCELLANEOUS NURSING INFORMATION XX SCH (03:30)
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
[2017-08-01] MEDS: CHLORHEXIDINE GLUCONATE 2 % 1 PACK (2 CLOTHS) TOP SCH (04:00)
[2017-08-01] MEDS ORDERED: IBUPROFEN 800 MG TAB PO SCH (06:00)
[2017-08-01] MEDS: ENOXAPARIN SODIUM 30 MG/0.3 ML SYRINGE SQ SCH ×2 (06:22→18:10)
[2017-08-01] MEDS ORDERED: MORPHINE SULFATE 2 MG/ML INJ IV PUSH PRN (08:45)
[2017-08-01] MEDS ORDERED: levETIRAcetam 500 MG TAB PO SCH (09:00)
[2017-08-01] MEDS: LIDOCAINE HCL 5% PATCH T-DERMAL SCH (09:42)
[2017-08-01] MEDS: THIAMINE HCL 100 MG TAB PO SCH (09:43)
[2017-08-01] MEDS: metFORMIN HCL 500 MG TAB PO SCH ×2 (09:43→18:09)
[2017-08-01] MEDS: DOCUSATE SODIUM 100 MG CAP PO SCH ×2 (09:43→19:44)
[2017-08-01] MEDS: FOLIC ACID 1 MG TAB PO SCH (09:43)
[2017-08-01] MEDS ORDERED: DEXTROSE 50% IN WATER 50 ML SYRINGE IV PUSH PRN (10:15)
[2017-08-01] MEDS ORDERED: NALOXONE HCL 0.4 MG/ML AMP IV PUSH PRN ×2 (10:15→13:30)
[2017-08-01] MEDS ORDERED: GLUCAGON 1 MG/ML VIAL OTHER PRN (10:15)
[2017-08-01] MEDS ORDERED: diphenhydrAMINE HCL 50 MG/ML VIAL IV PUSH PRN ×2 (10:15→13:30)
[2017-08-01] MEDS ORDERED: HYDROmorphone HCL PCA 6 MG/30 ML IV SCH (10:15)
[2017-08-01] MEDS ORDERED: HYDROmorphone HCL PF 2 MG/ML VIAL IV PUSH ONE (10:30)
[2017-08-01] MEDS ORDERED: POTASSIUM CHLOR 40 MEQ PREMIX 100 ML IV PRN ×2 (10:30)
[2017-08-01] MEDS ORDERED: POTASSIUM CHLORIDE 25 MEQ EFFERVESCENT TAB PO PRN (10:30)
[2017-08-01] MEDS ORDERED: MAGNESIUM SULFATE INJ 2 GM in SODIUM CHLORIDE 0.9% INJ 96 ML IV PRN (10:30)
[2017-08-01] MEDS ORDERED: POTASSIUM PHOSPHATE MONOBASIC 500 MG TAB PO/TUBE PRN (10:30)
[2017-08-01] MEDS ORDERED: POTASSIUM PHOSPHATE INJ 30 MMOL in SODIUM CHLOR 0.9% 250 ML INJ 250 ML IV PRN (10:30)
[2017-08-01] MEDS ORDERED: POTASSIUM CHLOR 20 MEQ PREMIX 100 ML IV PRN ×2 (10:30)
[2017-08-01] MEDS ORDERED: MAGNESIUM SULFATE INJ 4 GM in SODIUM CHLORIDE 0.9% INJ 92 ML IV PRN (10:30)
[2017-08-01] MEDS ORDERED: POTASSIUM PHOSPHATE MONOBASIC 500 MG TAB PO PRN (10:30)
[2017-08-01] MEDS ORDERED: MAGNESIUM OXIDE 400 MG TAB PO PRN (10:30)
[2017-08-01] MEDS ORDERED: SODIUM PHOSPHATE INJ 30 MMOL in SODIUM CHLOR 0.9% 250 ML INJ 240 ML IV PRN (10:30)
[2017-08-01] MEDS: INSULIN ASPART SUPPLEMENTAL SCALE SQ SCH ×2 (12:00→18:00)
[2017-08-01] MEDS ORDERED: LORazepam 2 MG/ML VIAL IV PUSH PRN (12:30)
[2017-08-01] MEDS: KETOROLAC TROMETHAMINE 30 MG/ML (IVP) VIAL IV PUSH SCH ×2 (12:31→18:09)
[2017-08-01] MEDS ORDERED: levETIRAcetam INJ 100 ML IV ONE (12:45)
--- NOTE | 2017-08-01 12:47 | RADRPT ---
EXAM DATE/TIME: 08/01/2017 12:10 [facility] COMPARISON: CHEST SINGLE AP, April 29, 2017, 8:32. INDICATIONS : Evaluate left pneumothorax MEDICAL HISTORY : Diabetes mellitus type 2. Seizures. SURGICAL HISTORY : None. ENCOUNTER: Initial ACUITY: 2 days PAIN SCORE: 0/10 LOCATION: chest FINDINGS: Left basilar streakiness is noted consistent with atelectasis and/or mild infiltrate. The heart is st able. The right lung is clear. CONCLUSION: Left basilar streakiness consistent with atelectasis and/or mild infiltrate. Rafi Mireles MD on August 01, 2017 at 12:44 Board Certified Radiologist. This report was verified electronically.
--- NOTE | 2017-08-01 12:54 | EKG ---
Date Performed: 08/01/2017 Time Performed: 01:10:39 PTAGE: 62 years EKG: Sinus rhythm NORMAL ECG Since PREVIOUS TRACING , no significant change noted PREVIOUS TRACIN06/15/2017 [id number] DOCTOR: Castro Walls Interpretating Date/Time 08/01/2017 12:52:39
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
[2017-08-01] MEDS ORDERED: MORPHINE SULFATE 30 MG/30 ML PCA IV SCH (13:30)
[2017-08-01] MEDS: PCA - TOTAL MG MORPHINE DELIVERED PER SHIFT SCH ×2 (14:00→22:00)
[2017-08-01] MEDS ORDERED: PCA - TOTAL MG DILAUDID DELIVERED PER SHIFT OTHER SCH (14:00)
[2017-08-01] MEDS: METHOCARBAMOL 500 MG TAB PO SCH ×2 (14:25→21:46)
[2017-08-01] MEDS ORDERED: GADODIAMIDE PF 287 MG/ML 20 ML VIAL (for RAD MRI) IVCONTRAST ONE (15:38)
[2017-08-01] MEDS ORDERED: IOHEXOL 350 MG/ML 10 ML VIAL (for RAD DIAG) IVCONTRAST ONE (15:50)
--- NOTE | 2017-08-01 16:42 | RADRPT ---
EXAM DATE/TIME: 08/01/2017 15:22 [facility] COMPARISON: No previous studies available for comparison. INDICATIONS : Seizures. CONTRAST: 16 cc Omniscan (gadodiamide) IV MEDICAL HISTORY : Diabetes mellitus type 2. SURGICAL HISTORY : None. ENCOUNTER: Initial ACUITY: 1 day PAIN SCORE: 0/10 LOCATION: cranial TECHNIQUE: Multiplanar, multisequence MRI of the brain was performed both prior to and following the administrat ion of paramagnetic contrast. FINDINGS: MRI of the brain is performed in sagittal, axial and coronal planes. The craniocervical junction and midline structures are unremarkable. Diffusion weighted images demonstrate no abnormality. There is n o evidence of acute cortical infarction, acute hemorrhage, mass effect or midline shift is seen. Ther e is periventricular hyperintensity on the T2 weighted images consistent with small vessel vascular d isease significantly more than expected in a patient of this age. Following the administration of con trast no abnormal enhancement is identified. Posterior fossa structures are unremarkable. CONCLUSION: 1. Narinder Perez MD on August 01, 2017 at 16:38 Board Certified Radiologist. This report was verified electronically.
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
[2017-08-01] MEDS: levETIRAcetam 500 MG TAB PO SCH (18:09)
[2017-08-01] MEDS: REMOVE OLD LIDOCAINE PATCH T-DERMAL SCH (21:00)
[2017-08-02] VITALS (10 sets, daily range): BP systolic 97–134; BP diastolic 53–70; PULSE 68–88; RESP 10–24; TEMP 97.8–98.7; O2SAT 97–100
[2017-08-02] MEDS: KETOROLAC TROMETHAMINE 30 MG/ML (IVP) VIAL IV PUSH SCH ×5 (00:50→23:24)
[2017-08-02 03:28] LABS: AUTOMATED NEUTROPHIL # 5.3 TH/MM3 (1.8-7.7); BASOPHIL # 0.1 TH/MM3 (0-0.2); BASOPHIL % 0.7 % (0.0-2.0); EOSINOPHIL # 0.1 TH/MM3 (0-0.4); EOSINOPHIL % 1.5 % (0.0-4.0); HEMATOCRIT 35.4 % (39.0-51.0); HEMOGLOBIN 12.1 GM/DL (13.0-17.0); LYMPH % 18.4 % (9.0-44.0); LYMPHOCYTE # 1.4 TH/MM3 (1.0-4.8); MEAN CORPUSCULAR HEMOGLOBIN 32.8 PG (27.0-34.0); MEAN CORPUSCULAR HGB CONC 34.2 % (32.0-36.0); MEAN PLATELET VOLUME 7.3 FL (7.0-11.0); MONO % 11.7 % (0.0-8.0); MONOCYTE # 0.9 TH/MM3 (0-0.9); NEUT % 67.7 % (16.0-70.0); PLATELET COUNT 248 TH/MM3 (150-450); RED BLOOD COUNT 3.69 MIL/MM3 (4.50-5.90); RED CELL DISTRIBUTION WIDTH 14.4 % (11.6-17.2); WHITE BLOOD COUNT 7.8 TH/MM3 (4.0-11.0)
[2017-08-02 03:42] LABS: BICARBONATE 28.5 MEQ/L (21.0-32.0); CALCIUM 8.5 MG/DL (8.5-10.1); CREATININE 0.93 MG/DL (0.60-1.30)
[2017-08-02] MEDS: CHLORHEXIDINE GLUCONATE 2 % 1 PACK (2 CLOTHS) TOP SCH (04:00)
--- NOTE | 2017-08-02 05:16 | RADRPT ---
EXAM DATE/TIME: 08/02/2017 04:01 [facility] COMPARISON: CHEST SINGLE AP, August 01, 2017, 12:10. INDICATIONS : Evalute Pneumothorax, Follow up Rib Fractures MEDICAL HISTORY : Diabetes mellitus type II. Seizures SURGICAL HISTORY : None. ENCOUNTER: Subsequent ACUITY: 2 days PAIN SCORE: 8/10 LOCATION: Bilateral chest FINDINGS: The cardiac silhouette is enlarged in transverse diameter. There is left lower lobe atelectasis versu s pneumonia. Multiple leftward fractures are present. There is no evidence of pneumothorax. CONCLUSION: 1. Left lower lobe atelectasis versus pneumonia. 2. There is no evidence of pneumothorax. Narinder Perez MD on August 02, 2017 at 5:13 Board Certified Radiologist. This report was verified electronically.
--- NOTE | 2017-08-02 05:18 | MG ---
cc: CHANELL RG M.D. Lab No: 18-17 Date: 08/01/2017 Age: Sex: M Race: TECHNIQUE A 17-channel EEG. DESCRIPTION The background rhythm reveals symmetrical alpha rhythm. The frequency is roughly 8 Hz. Amplitude is 20-30 microvolts. There are no lateralizing features identified. There are no epileptiform features identified. There is some muscle artifact. Some beta activity is present, probably related to medication effect. Photic results in a fairly well-developed driving response. INTERPRETATION Normal EEG. MD ROYA Onofre/SHAWN /8:48 PM /5:00 AM
[2017-08-02] MEDS: PCA - TOTAL MG MORPHINE DELIVERED PER SHIFT SCH (06:00)
[2017-08-02] MEDS: INSULIN ASPART SUPPLEMENTAL SCALE SQ SCH ×5 (06:00→23:43)
[2017-08-02] MEDS: METHOCARBAMOL 500 MG TAB PO SCH ×3 (06:31→21:06)
[2017-08-02] MEDS: ENOXAPARIN SODIUM 30 MG/0.3 ML SYRINGE SQ SCH ×2 (06:32→17:57)
[2017-08-02] MEDS: DOCUSATE SODIUM 100 MG CAP PO SCH ×2 (08:37→20:01)
[2017-08-02] MEDS: LIDOCAINE HCL 5% PATCH T-DERMAL SCH (08:37)
[2017-08-02] MEDS: THIAMINE HCL 100 MG TAB PO SCH (08:37)
[2017-08-02] MEDS: levETIRAcetam 500 MG TAB PO SCH ×3 (08:37→17:57)
[2017-08-02] MEDS: FOLIC ACID 1 MG TAB PO SCH (08:38)
[2017-08-02] MEDS: metFORMIN HCL 500 MG TAB PO SCH ×2 (08:38→17:57)
[2017-08-02] MEDS ORDERED: NALOXONE HCL 0.4 MG/ML AMP IV PUSH PRN (09:45)
[2017-08-02] MEDS: PCA - TOTAL MG DILAUDID DELIVERED PER SHIFT OTHER SCH ×2 (14:00→22:00)
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
[2017-08-02] MEDS: GABAPENTIN 300 MG CAP PO SCH ×2 (14:17→17:57)
[2017-08-02] MEDS: HYDROmorphone HCL PCA 6 MG/30 ML IV SCH (14:32)
[2017-08-02] MEDS ORDERED: HYDROmorphone HCL PF 2 MG/ML VIAL IV PUSH ONE (15:00)
[2017-08-02] MEDS: REMOVE OLD LIDOCAINE PATCH T-DERMAL SCH (21:00)
[2017-08-03] VITALS: BP 142/75; PULSE 80; RESP 20; TEMP 98.9; O2SAT 98
--- NOTE | 2017-08-03 03:55 | RADRPT ---
EXAM DATE/TIME: 08/03/2017 03:10 [facility] COMPARISON: CHEST SINGLE AP, August 02, 2017, 4:01. INDICATIONS : Shortness of breath. MEDICAL HISTORY : Diabetes mellitus type II. Seizures. SURGICAL HISTORY : None. ENCOUNTER: Subsequent ACUITY: 2 days PAIN SCORE: Non-responsive. LOCATION: Bilateral chest FINDINGS: The cardiac silhouette is enlarged in transverse diameter. There is left lower lobe atelectasis versu s pneumonia. The right lung is free of acute parenchymal opacity. There has been no significant calero e when compared to the prior exam. CONCLUSION: 1. Left lower lobe atelectasis versus pneumonia. There has been no significant change when compared t o the prior exam. Narinder Perez MD on August 03, 2017 at 3:53 Board Certified Radiologist. This report was verified electronically.
[2017-08-03 04:00] VITALS: BP 110/58; PULSE 70; RESP 13; TEMP 98.8; O2SAT 96
[2017-08-03] MEDS: CHLORHEXIDINE GLUCONATE 2 % 1 PACK (2 CLOTHS) TOP SCH (04:00)
[2017-08-03 05:35] LABS: AUTOMATED NEUTROPHIL # 4.4 TH/MM3 (1.8-7.7); BASOPHIL % 0.5 % (0.0-2.0); EOSINOPHIL # 0.2 TH/MM3 (0-0.4); EOSINOPHIL % 2.3 % (0.0-4.0); HEMOGLOBIN 11.5 GM/DL (13.0-17.0); LYMPH % 19.4 % (9.0-44.0); LYMPHOCYTE # 1.3 TH/MM3 (1.0-4.8); MEAN CORPUSCULAR HEMOGLOBIN 33.5 PG (27.0-34.0); MEAN CORPUSCULAR HGB CONC 34.9 % (32.0-36.0); MEAN PLATELET VOLUME 7.9 FL (7.0-11.0); MONO % 13.1 % (0.0-8.0); MONOCYTE # 0.9 TH/MM3 (0-0.9); NEUT % 64.7 % (16.0-70.0); PLATELET COUNT 228 TH/MM3 (150-450); RED BLOOD COUNT 3.44 MIL/MM3 (4.50-5.90); RED CELL DISTRIBUTION WIDTH 13.9 % (11.6-17.2); WHITE BLOOD COUNT 6.8 TH/MM3 (4.0-11.0)
[2017-08-03] MEDS: KETOROLAC TROMETHAMINE 30 MG/ML (IVP) VIAL IV PUSH SCH ×3 (05:46→17:22)
[2017-08-03] MEDS: ENOXAPARIN SODIUM 30 MG/0.3 ML SYRINGE SQ SCH ×2 (05:47→17:22)
[2017-08-03] MEDS: METHOCARBAMOL 500 MG TAB PO SCH ×3 (05:47→21:31)
[2017-08-03] MEDS: PCA - TOTAL MG DILAUDID DELIVERED PER SHIFT OTHER SCH ×3 (06:00→21:33)
[2017-08-03] MEDS: INSULIN ASPART SUPPLEMENTAL SCALE SQ SCH ×3 (06:00→18:00)
[2017-08-03 06:02] LABS: ALKALINE PHOSPHATASE 66 U/L (45-117); ALT (GPT) 44 U/L (12-78); AST (GOT) 35 U/L (15-37); BICARBONATE 29.7 MEQ/L (21.0-32.0); BLOOD UREA NITROGEN 40 MG/DL (7-18); CALCIUM 8.2 MG/DL (8.5-10.1); CHLORIDE 99 MEQ/L (98-107); CREATININE 1.18 MG/DL (0.60-1.30); GLOMERULAR FILTRATION RATE 62 ML/MIN (>89); GLUCOSE,RANDOM 97 MG/DL (74-106); SODIUM (NA) 136 MEQ/L (136-145); TOTAL BILIRUBIN ADULT 0.3 MG/DL (0.2-1.0); TOTAL PROTEIN 6.9 GM/DL (6.4-8.2)
[2017-08-03 08:00] VITALS: BP 133/69; PULSE 71; RESP 28; TEMP 98.5; O2SAT 99
[2017-08-03] MEDS: levETIRAcetam 500 MG TAB PO SCH ×3 (08:16→17:22)
[2017-08-03] MEDS: THIAMINE HCL 100 MG TAB PO SCH (08:16)
[2017-08-03] MEDS: GABAPENTIN 300 MG CAP PO SCH ×3 (08:16→17:22)
[2017-08-03] MEDS: FOLIC ACID 1 MG TAB PO SCH (08:16)
[2017-08-03] MEDS: DOCUSATE SODIUM 100 MG CAP PO SCH ×2 (08:16→21:00)
[2017-08-03] MEDS: metFORMIN HCL 500 MG TAB PO SCH ×2 (08:16→17:22)
[2017-08-03] MEDS: LIDOCAINE HCL 5% PATCH T-DERMAL SCH (08:17)
[2017-08-03] MEDS: MAGNESIUM HYDROXIDE SUSP 30 ML CUP PO SCH ×2 (09:00→21:00)
[2017-08-03] MEDS: HYDROmorphone HCL PCA 6 MG/30 ML IV SCH (09:56)
[2017-08-03 12:00] VITALS: BP 134/67; PULSE 72; RESP 25; TEMP 97.6; O2SAT 98
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
[2017-08-03 16:00] VITALS: BP 129/68; PULSE 67; RESP 24; TEMP 98.1; O2SAT 100
[2017-08-03 20:00] VITALS: BP 120/58; PULSE 70; PULSE 75; RESP 18; TEMP 98.4; O2SAT 99
[2017-08-03] MEDS: REMOVE OLD LIDOCAINE PATCH T-DERMAL SCH (21:00)
--- NOTE | 2017-08-03 22:06 | HHI.PR ---
Review/Management Diagnosis seizure--stable on keppra Plan continue keppra 1000 mg tid Diagnosis/Plan: Subjective Subjective Comments No acute events reported No SZ Active Medications Current Medications Medications (Trade) Dose Ordered Sig/Kiran Route Start Time Stop Time Status Last Admin (NS Flush) 2 ml UNSCH PRN IV FLUSH 08/01/17 03:30 (Zofran Inj) 4 mg Q6H PRN IV PUSH 08/01/17 03:30 08/01/17 05:37 (Lovenox Inj) 30 mg Q12H SQ 08/01/17 06:00 08/03/17 17:22 (Folate) 1 mg DAILY PO 08/01/17 09:00 08/04/17 08:59 08/03/17 08:16 (Vitamin B1) 100 mg DAILY PO 08/01/17 09:00 08/04/17 08:59 08/03/17 08:16 (Colace) 100 mg BID PO 08/01/17 09:00 08/03/17 08:16 Miscellaneous Information 1 Q361D XX 08/01/17 03:30 (Chlorhexidine 2% Cloth) 3 pack Taper DAILY@04 TOP 08/01/17 04:00 07/28/18 03:59 (Chlorhexidine 2% Cloth) 3 pack UNSCH PRN TOP 08/01/17 03:30 (Glucophage) 500 mg BIDPC PO 08/01/17 09:00 08/03/17 17:22 (Lidoderm 5% Patch.12 Hr) 1 patch DAILY T-DERMAL 08/01/17 09:00 08/03/17 08:17 Miscellaneous Information 1 Q24H T-DERMAL 08/01/17 21:00 08/03/17 21:00 (Toradol Inj) 15 mg Q6HR IV PUSH 08/01/17 12:00 08/06/17 11:59 08/03/17 17:22 (Robaxin) 500 mg Q8HR PO 08/01/17 14:00 08/03/17 21:31 Potassium Chloride 100 ml @ 25 mls/hr Q2H PRN IV 08/01/17 10:30 Potassium Chloride 100 ml @ 50 mls/hr Q2H PRN IV 08/01/17 10:30 (K-Lyte Cl Eff) 50 meq UNSCH PRN PO 08/01/17 10:30 Potassium Chloride 100 ml @ 25 mls/hr UNSCH PRN IV 08/01/17 10:30 Potassium Chloride 100 ml @ 50 mls/hr Q2H PRN IV 08/01/17 10:30 Magnesium Sulfate 4 gm/Sodium Chloride 100 ml @ 50 mls/hr UNSCH PRN IV 08/01/17 10:30 (Mag-Ox) 800 mg UNSCH PRN PO 08/01/17 10:30 Magnesium Sulfate 2 gm/Sodium Chloride 100 ml @ 50 mls/hr UNSCH PRN IV 08/01/17 10:30 08/01/17 22:43 (K-Phos) 2,000 mg Q4H PRN PO 08/01/17 10:30 Sodium Phosphate 30 mmol/Sodium Chloride 250 ml @ 42 mls/hr UNSCH PRN IV 08/01/17 10:30 (K-Phos) 2,000 mg UNSCH PRN PO/TUBE 08/01/17 10:30 Potassium Phosphate 30 mmol/ Sodium Chloride 260 ml @ 42 mls/hr UNSCH PRN IV 08/01/17 10:30 (NovoLOG SUPPLEMENTAL SCALE) 1 Q6HR SQ 08/01/17 12:00 (D50w (Syr) Inj) 50 ml UNSCH PRN IV PUSH 08/01/17 10:15 (Glucagon Inj) 1 mg UNSCH PRN OTHER 08/01/17 10:15 (Keppra) 1,000 mg TID PO 08/01/17 18:00 08/03/17 17:22 (Ativan Inj) 1 mg Q4H PRN IV PUSH 08/01/17 12:30 08/03/17 09:19 (Narcan Inj) 0.4 mg UNSCH PRN IV PUSH 08/02/17 09:45 (Dilaudid TRASH COLLECTOR Inj) 6 mg UNSCH IV 08/02/17 09:45 08/03/17 09:56 TRASH COLLECTOR Dosage Infused (Pha) 1 Q8HR OTHER 08/02/17 14:00 08/03/17 21:33 (Neurontin) 300 mg TID PO 08/02/17 13:00 08/03/17 13:00 (Milk Of Magnesia Liq) 30 ml BID PO 08/03/17 09:00 Allergies Allergies Coded Allergies escitalopram (Verified Allergy, Severe, ITCHY, TREMORS, CONFUSION, 06/15/17) Sulfa (Sulfonamide Antibiotics) (Verified Allergy, Intermediate, MADE FINGERS SWELL, 06/15/17) phenytoin (Verified Allergy, Intermediate, rash and itching, 06/15/17) cephalexin (Verified Allergy, Mild, Diarrhea, 06/15/17) doxycycline (Verified Allergy, Unknown, TROUBLE BREATHING?, 06/15/17) minocycline (Verified Allergy, Unknown, TROUBLE BREATHING?, 06/15/17) tigecycline (Verified Allergy, Unknown, TROUBLE BREATHING?, 06/15/17) Exam I&O / VS 08/03/17 08/03/17 08/04/17 15:00 23:00 07:00 Intake Total 1920 ml Balance 1920 ml Intake Oral 1920 ml # Voids 5 # Bowel Movements 0 Vital Signs Date Time Temp Pulse Resp B/P (MAP) Pulse Ox O2 Delivery O2 Flow Rate FiO2 08/03/17 21:33 20 08/03/17 20:00 98.4 75 18 120/58 (78) 99 08/03/17 20:00 99 Room Air 08/03/17 16:00 67 08/03/17 16:00 98.1 67 24 129/68 (88) 100 08/03/17 14:45 20 08/03/17 12:00 72 08/03/17 12:00 97.6 72 25 134/67 (89) 98 08/03/17 09:56 24 08/03/17 08:59 21 08/03/17 08:00 71 08/03/17 08:00 98.5 71 28 133/69 (90) 99 08/03/17 07:00 99 Room Air 08/03/17 06:46 22 08/03/17 06:00 18 08/03/17 04:00 98.8 70 13 110/58 (75) 96 08/03/17 04:00 70 08/03/17 00:00 80 08/03/17 00:00 98.9 80 20 142/75 (97) 98 Exam Comments alert, follow commands, normal speech Cn intact MOTOR no focal deficits Objective Radiology Results MRI brain--normal Micro and Labs Laboratory Tests Test 08/03/17 04:02 White Blood Count 6.8 Red Blood Count 3.44 Hemoglobin 11.5 Hematocrit 33.0 Mean Corpuscular Volume 96.0 Mean Corpuscular Hemoglobin 33.5 Mean Corpuscular Hemoglobin Concent 34.9 Red Cell Distribution Width 13.9 Platelet Count 228 Mean Platelet Volume 7.9 Neutrophils (%) (Auto) 64.7 Lymphocytes (%) (Auto) 19.4 Monocytes (%) (Auto) 13.1 Eosinophils (%) (Auto) 2.3 Basophils (%) (Auto) 0.5 Neutrophils # (Auto) 4.4 Lymphocytes # (Auto) 1.3 Monocytes # (Auto) 0.9 Eosinophils # (Auto) 0.2 Basophils # (Auto) 0.0 CBC Comment DIFF FINAL Differential Comment Blood Urea Nitrogen 40 Creatinine 1.18 Random Glucose 97 Total Protein 6.9 Albumin 3.0 Calcium Level 8.2 Alkaline Phosphatase 66 Aspartate Amino Transf (AST/SGOT) 35 Alanine Aminotransferase (ALT/SGPT) 44 Total Bilirubin 0.3 Sodium Level 136 Potassium Level 4.0 Chloride Level 99 Carbon Dioxide Level 29.7 Anion Gap 7 Estimat Glomerular Filtration Rate 62 Diagnostic Tests EEG--normal Nitesh Tovar MD PhD Aug 03, 2017 22:06
[2017-08-04] VITALS (9 sets, daily range): BP systolic 126–162; BP diastolic 67–93; PULSE 66–91; RESP 13–20; TEMP 98.4–98.8; O2SAT 93–98
[2017-08-04] MEDS: HYDROmorphone HCL PCA 6 MG/30 ML IV SCH (01:18)
[2017-08-04] MEDS: CHLORHEXIDINE GLUCONATE 2 % 1 PACK (2 CLOTHS) TOP SCH (02:51)
[2017-08-04] MEDS: METHOCARBAMOL 500 MG TAB PO SCH ×3 (05:45→21:56)
[2017-08-04] MEDS: ENOXAPARIN SODIUM 30 MG/0.3 ML SYRINGE SQ SCH ×2 (05:45→17:18)
[2017-08-04] MEDS: KETOROLAC TROMETHAMINE 30 MG/ML (IVP) VIAL IV PUSH SCH ×5 (05:45→17:21)
--- NOTE | 2017-08-04 05:58 | RADRPT ---
EXAM DATE/TIME: 08/04/2017 04:35 [facility] COMPARISON: CHEST SINGLE AP, August 03, 2017, 3:10. INDICATIONS : Shortness of breath. MEDICAL HISTORY : Diabetes mellitus type II. Seizures SURGICAL HISTORY : None. ENCOUNTER: Subsequent ACUITY: 3 days PAIN SCORE: Non-responsive. LOCATION: Bilateral chest FINDINGS: The cardiac silhouette is enlarged in transverse diameter. There is left lower lobe atelectasis versu s pneumonia. The right lung is free of acute parenchymal opacity. CONCLUSION: 1. Left lower lobe atelectasis versus pneumonia. There has been no significant change when compared t o the prior exam. Narinder Perez MD on August 04, 2017 at 5:55 Board Certified Radiologist. This report was verified electronically.
[2017-08-04] MEDS: INSULIN ASPART SUPPLEMENTAL SCALE SQ SCH ×4 (06:00→17:27)
[2017-08-04 06:57] LABS: AUTOMATED NEUTROPHIL # 5.6 TH/MM3 (1.8-7.7); BASOPHIL # 0.1 TH/MM3 (0-0.2); BASOPHIL % 0.8 % (0.0-2.0); EOSINOPHIL # 0.1 TH/MM3 (0-0.4); EOSINOPHIL % 1.8 % (0.0-4.0); HEMATOCRIT 33.5 % (39.0-51.0); HEMOGLOBIN 11.8 GM/DL (13.0-17.0); LYMPH % 13.2 % (9.0-44.0); MEAN CELL VOLUME 93.6 FL (80.0-100.0); MEAN CORPUSCULAR HGB CONC 35.3 % (32.0-36.0); MEAN PLATELET VOLUME 7.9 FL (7.0-11.0); MONO % 12.3 % (0.0-8.0); NEUT % 71.9 % (16.0-70.0); PLATELET COUNT 208 TH/MM3 (150-450); RED BLOOD COUNT 3.58 MIL/MM3 (4.50-5.90); RED CELL DISTRIBUTION WIDTH 13.9 % (11.6-17.2); WHITE BLOOD COUNT 7.8 TH/MM3 (4.0-11.0)
[2017-08-04 07:11] LABS: ALBUMIN 3.1 GM/DL (3.4-5.0); ALT (GPT) 45 U/L (12-78); AST (GOT) 41 U/L (15-37); BICARBONATE 25.1 MEQ/L (21.0-32.0); BLOOD UREA NITROGEN 36 MG/DL (7-18); CALCIUM 8.3 MG/DL (8.5-10.1); CHLORIDE 103 MEQ/L (98-107); CREATININE 0.87 MG/DL (0.60-1.30); GLOMERULAR FILTRATION RATE 89 ML/MIN (>89); GLUCOSE,RANDOM 109 MG/DL (74-106); SODIUM (NA) 135 MEQ/L (136-145)
[2017-08-04 07:12] LABS: ALKALINE PHOSPHATASE 65 U/L (45-117); TOTAL BILIRUBIN ADULT 0.4 MG/DL (0.2-1.0); TOTAL PROTEIN 7.1 GM/DL (6.4-8.2)
[2017-08-04] MEDS: metFORMIN HCL 500 MG TAB PO SCH ×2 (08:33→17:18)
[2017-08-04] MEDS: GABAPENTIN 300 MG CAP PO SCH ×3 (08:33→17:18)
[2017-08-04] MEDS: levETIRAcetam 500 MG TAB PO SCH ×3 (08:33→17:18)
[2017-08-04] MEDS: LIDOCAINE HCL 5% PATCH T-DERMAL SCH (08:33)
[2017-08-04] MEDS: DOCUSATE SODIUM 100 MG CAP PO SCH ×2 (09:00→21:56)
[2017-08-04] MEDS: MAGNESIUM HYDROXIDE SUSP 30 ML CUP PO SCH ×2 (09:00→21:56)
[2017-08-04] MEDS: oxyCODONE/ACETAMINOPHEN 5 MG/325 MG TAB PO PRN ×4 (09:59→21:58)
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
[2017-08-04] MEDS: REMOVE OLD LIDOCAINE PATCH T-DERMAL SCH (21:00)
[2017-08-05] VITALS (10 sets, daily range): BP systolic 126–135; BP diastolic 60–76; PULSE 70–99; RESP 17–27; TEMP 98.3–99; O2SAT 95–99
[2017-08-05] MEDS: oxyCODONE/ACETAMINOPHEN 5 MG/325 MG TAB PO PRN ×4 (00:57→23:18)
[2017-08-05] MEDS: CHLORHEXIDINE GLUCONATE 2 % 1 PACK (2 CLOTHS) TOP SCH (04:00)
--- NOTE | 2017-08-05 04:16 | RADRPT ---
EXAM DATE/TIME: 08/05/2017 03:44 [facility] COMPARISON: CT THORAX W/O CONTRAST, August 01, 2017, 1:40. CHEST SINGLE AP, August 03, 2017, 3:10. CHEST SING LE AP, August 04, 2017, 4:35. INDICATIONS : Shortness of breath. MEDICAL HISTORY : Diabetes mellitus type II. Seizures SURGICAL HISTORY : None. ENCOUNTER: Subsequent ACUITY: 4 - 6 days PAIN SCORE: 2/10 LOCATION: Bilateral chest FINDINGS: The cardiac silhouette is enlarged in transverse diameter. There is left lower lobe atelectasis versu s pneumonia. No pleural effusions are identified. Tiny left apical pneumothorax is present CONCLUSION: 1. Left lower lobe atelectasis versus pneumonia. There has been no significant change when compared t o the prior exam. 2. Tiny left apical pneumothorax Narinder Perez MD on August 05, 2017 at 4:12 Board Certified Radiologist. This report was verified electronically.
[2017-08-05] MEDS: ENOXAPARIN SODIUM 30 MG/0.3 ML SYRINGE SQ SCH ×2 (05:16→17:17)
[2017-08-05] MEDS: KETOROLAC TROMETHAMINE 30 MG/ML (IVP) VIAL IV PUSH SCH ×5 (05:16→21:54)
[2017-08-05] MEDS: METHOCARBAMOL 500 MG TAB PO SCH ×3 (05:16→21:16)
[2017-08-05] MEDS: INSULIN ASPART SUPPLEMENTAL SCALE SQ SCH (05:55)
--- NOTE | 2017-08-05 07:40 | HHI.FF ---
Face to Face Verification Diagnosis: (1) Rib fractures (2) Pneumothorax Physical Therapy Order: Evaluate and Treat, Improve ambulation, Strength and gait training Home Health Nursing Order: Nursing assessment with vital signs I have seen patient Sheng Light on 08/05/17. My clinical findings support the need for the requested home health care services because: Limited ability to care for self High risk of falls I certify that my clinical findings support that this patient is homebound because: Unsteady gait/balance Mikhail Bar Aug 05, 2017 07:40
[2017-08-05] MEDS ORDERED: METH500T3 PO (07:42)
[2017-08-05] MEDS ORDERED: DOCU1CAP39 PO (07:42)
[2017-08-05] MEDS ORDERED: OXYC1TAB63 PO (07:42)
[2017-08-05] MEDS: levETIRAcetam 500 MG TAB PO SCH ×3 (08:42→17:18)
[2017-08-05] MEDS: DOCUSATE SODIUM 100 MG CAP PO SCH ×2 (08:42→21:16)
[2017-08-05] MEDS: metFORMIN HCL 500 MG TAB PO SCH ×2 (08:42→17:18)
[2017-08-05] MEDS: GABAPENTIN 300 MG CAP PO SCH ×3 (08:42→17:18)
[2017-08-05] MEDS: MAGNESIUM HYDROXIDE SUSP 30 ML CUP PO SCH ×2 (08:42→21:00)
[2017-08-05] MEDS: LIDOCAINE HCL 5% PATCH T-DERMAL SCH (08:42)
[2017-08-05] MEDS ORDERED: WALKER WHEELS/F1 MIS (09:09)
[2017-08-05] MEDS ORDERED: LEVE500 PO (09:44)
[2017-08-05] MEDS ORDERED: LACTULOSE SYRUP 20 GM/30 ML CUP PO ONE (09:45)
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
--- NOTE | 2017-08-05 20:17 | HHI.PR ---
Review/Management Diagnosis seizure--stable on keppra Plan continue keppra 1000 mg tid Diagnosis/Plan: Subjective Subjective Comments No acute events reported No sz Active Medications Current Medications Medications (Trade) Dose Ordered Sig/Kiran Route Start Time Stop Time Status Last Admin (NS Flush) 2 ml UNSCH PRN IV FLUSH 08/01/17 03:30 (Zofran Inj) 4 mg Q6H PRN IV PUSH 08/01/17 03:30 08/01/17 05:37 (Lovenox Inj) 30 mg Q12H SQ 08/01/17 06:00 08/05/17 17:17 (Colace) 100 mg BID PO 08/01/17 09:00 08/05/17 08:42 Miscellaneous Information 1 Q361D XX 08/01/17 03:30 (Chlorhexidine 2% Cloth) 3 pack Taper DAILY@04 TOP 08/01/17 04:00 07/28/18 03:59 (Chlorhexidine 2% Cloth) 3 pack UNSCH PRN TOP 08/01/17 03:30 (Lidoderm 5% Patch.12 Hr) 1 patch DAILY T-DERMAL 08/01/17 09:00 08/05/17 08:42 Miscellaneous Information 1 Q24H T-DERMAL 08/01/17 21:00 08/04/17 21:00 (Toradol Inj) 15 mg Q6HR IV PUSH 08/01/17 12:00 08/06/17 11:59 08/04/17 00:00 (Robaxin) 500 mg Q8HR PO 08/01/17 14:00 08/05/17 13:35 (Keppra) 1,000 mg TID PO 08/01/17 18:00 08/05/17 17:18 (Ativan Inj) 1 mg Q4H PRN IV PUSH 08/01/17 12:30 08/03/17 09:19 (Neurontin) 300 mg TID PO 08/02/17 13:00 08/05/17 17:18 (Milk Of Magnesia Liq) 30 ml BID PO 08/03/17 09:00 08/05/17 08:42 (Percocet 5-325 Mg) 1 tab Q4H PRN PO 08/04/17 02:30 08/04/17 13:27 (Percocet 5-325 Mg) 2 tab Q4H PRN PO 08/04/17 02:30 08/05/17 13:35 (Glucophage) 500 mg BIDPC PO 08/05/17 09:00 08/05/17 17:18 Allergies Allergies Coded Allergies escitalopram (Verified Allergy, Severe, ITCHY, TREMORS, CONFUSION, 06/15/17) Sulfa (Sulfonamide Antibiotics) (Verified Allergy, Intermediate, MADE FINGERS SWELL, 06/15/17) phenytoin (Verified Allergy, Intermediate, rash and itching, 06/15/17) cephalexin (Verified Allergy, Mild, Diarrhea, 06/15/17) doxycycline (Verified Allergy, Unknown, TROUBLE BREATHING?, 06/15/17) minocycline (Verified Allergy, Unknown, TROUBLE BREATHING?, 06/15/17) tigecycline (Verified Allergy, Unknown, TROUBLE BREATHING?, 06/15/17) Exam I&O / VS 08/05/17 08/05/17 08/06/17 15:00 23:00 07:00 Intake Total 960 ml Balance 960 ml Intake Oral 960 ml # Voids 5 # Bowel Movements 1 Vital Signs Date Time Temp Pulse Resp B/P (MAP) Pulse Ox O2 Delivery O2 Flow Rate FiO2 08/05/17 16:00 98.7 99 18 135/70 (91) 99 08/05/17 12:00 98.7 75 18 127/69 (88) 97 08/05/17 08:00 98.3 74 18 133/76 (95) 96 08/05/17 04:00 75 08/05/17 04:00 98.4 70 27 131/60 (83) 98 08/05/17 00:34 97 08/05/17 00:01 78 08/05/17 00:00 98.6 21 126/61 (82) 96 08/04/17 21:00 73 Exam Comments alert, follow commands, normal speech Cn intact MOTOR no focal deficits Nitesh Tovar MD PhD Aug 05, 2017 20:17
[2017-08-05] MEDS: REMOVE OLD LIDOCAINE PATCH T-DERMAL SCH (21:00)
[2017-08-06] VITALS: PULSE 79
[2017-08-06] MEDS: KETOROLAC TROMETHAMINE 30 MG/ML (IVP) VIAL IV PUSH SCH (00:59)
[2017-08-06] MEDS: CHLORHEXIDINE GLUCONATE 2 % 1 PACK (2 CLOTHS) TOP SCH (00:59)
[2017-08-06 04:00] VITALS: PULSE 75
[2017-08-06 04:13] VITALS: BP 104/65; PULSE 73; RESP 16; TEMP 98.3; O2SAT 97
[2017-08-06] MEDS: ENOXAPARIN SODIUM 30 MG/0.3 ML SYRINGE SQ SCH (06:07)
[2017-08-06] MEDS: METHOCARBAMOL 500 MG TAB PO SCH ×2 (06:07→13:20)
[2017-08-06 08:00] VITALS: BP 134/74; PULSE 80; RESP 24; TEMP 98.2; O2SAT 97
[2017-08-06] MEDS: GABAPENTIN 300 MG CAP PO SCH ×2 (08:18→13:20)
[2017-08-06] MEDS: levETIRAcetam 500 MG TAB PO SCH ×4 (08:18→13:22)
[2017-08-06] MEDS: DOCUSATE SODIUM 100 MG CAP PO SCH (08:19)
[2017-08-06] MEDS: metFORMIN HCL 500 MG TAB PO SCH (08:19)
[2017-08-06] MEDS: MAGNESIUM HYDROXIDE SUSP 30 ML CUP PO SCH (08:20)
[2017-08-06] MEDS: LIDOCAINE HCL 5% PATCH T-DERMAL SCH (08:21)
[2017-08-06 12:00] VITALS: BP 126/68; PULSE 83; RESP 22; TEMP 98.2; O2SAT 97
[2017-08-06] MEDS: oxyCODONE/ACETAMINOPHEN 5 MG/325 MG TAB PO PRN (15:57)
[2017-08-06] MEDS ORDERED: METF500T PO (16:04)
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
== END 2017-08-06 16:18 | DRG 200 ==
LOC: NEPE 00:40 → NEDA 03:13 → OBSVTOIN 03:26 → N03B 05:51
PROVIDERS: ADMIT Surgery; ATTEND Surgery
DX: S27.0XXA Traumatic pneumothorax, initial encounter (principal); S22.42XA Multiple fractures of ribs, left side, initial encounter for closed fracture; R56.1 Post traumatic seizures; S27.321A Contusion of lung, unilateral, initial encounter; E11.9 Type 2 diabetes mellitus without complications; F41.9 Anxiety disorder, unspecified; F32.9 Major depressive disorder, single episode, unspecified; V19.9XXA Pedal cyclist (driver) (passenger) injured in unspecified traffic accident, initial encounter; Y93.55 Activity, bike riding; Z79.84 Long term (current) use of oral hypoglycemic drugs; Z85.828 Personal history of other malignant neoplasm of skin; Z88.2 Allergy status to sulfonamides; Z88.1 Allergy status to other antibiotic agents; Z87.820 Personal history of traumatic brain injury; Z91.19 Patient's noncompliance with other medical treatment and regimen
CPT/HCPCS: 70553; 71045; 71100; 71250; 74177; 80048; 80053; 82550; 82552; 82948; 83690; 83735; 83880; 84100; 84484; 85025; 85610; 85730; 87641; 93005; 94150; 94640; 94667; 94668; 95819; 99285; A9579; J1170; J1650; J1885; J1953; J2060; J2270; J2405; J3475; Q9967

== ENCOUNTER 2018-01-08 23:37 | Emergency (ER) | payer MEDICARE ==
[~2018-01-08] VITALS: Ht 185.4 cm; Wt 84.0 kg
[~2018-01-08 23:37] MED LIST changes: +DOCU1CAP39 PO; +LEVE500 PO; -LEVE500T8 PO; +METH500T3 PO; +OXYC1TAB63 PO; +WALKER WHEELS/F1 MIS
[2018-01-08 23:40] VITALS: BP 141/68; PULSE 90; RESP 16; TEMP 98.9; O2SAT 94
[2018-01-08 23:50] VITALS: RESP 15; O2SAT 95
[2018-01-09] MEDS ORDERED: SODIUM CHLORIDE 0.9% FLUSH 10 ML FLUSH IVF PRN
--- NOTE | 2018-01-09 00:17 | RADRPT ---
EXAM DATE: 01/09/2018 12:12 AM EDT AGE/SEX: 62 years / Male INDICATIONS: Cough. CLINICAL DATA: This is the patient's initial encounter. Patient reports that signs and symptoms have been present for 1 day and indicates a pain score of 0/10. MEDICAL/SURGICAL HISTORY: Diabetes mellitus type II. Seizures None. COMPARISON: [facility] – [place]ST SINGLE AP, 08/05/2017. . FINDINGS: A single AP view of the chest demonstrates the minimal density left lower lobe. Right lung is clear. Heart normal in size. The cardiomediastinal contours are unremarkable. Osseous structures are intact . CONCLUSION: Minimal density left lower lobe could be atelectasis or infiltrate Electronically signed by: Oscar Dominique MD 01/09/2018 12:16 AM EDT
[2018-01-09 00:24] LABS: AUTOMATED NEUTROPHIL # 3.1 TH/MM3 (1.8-7.7); BASOPHIL # 0.1 TH/MM3 (0-0.2); EOSINOPHIL # 0.1 TH/MM3 (0-0.4); EOSINOPHIL % 2.5 % (0.0-4.0); HEMATOCRIT 35.7 % (39.0-51.0); HEMOGLOBIN 12.7 GM/DL (13.0-17.0); LYMPH % 22.5 % (9.0-44.0); LYMPHOCYTE # 1.3 TH/MM3 (1.0-4.8); MEAN CELL VOLUME 99.4 FL (80.0-100.0); MEAN CORPUSCULAR HEMOGLOBIN 35.3 PG (27.0-34.0); MEAN CORPUSCULAR HGB CONC 35.5 % (32.0-36.0); PLATELET COUNT 189 TH/MM3 (150-450); RED BLOOD COUNT 3.59 MIL/MM3 (4.50-5.90); RED CELL DISTRIBUTION WIDTH 13.7 % (11.6-17.2); WHITE BLOOD COUNT 5.6 TH/MM3 (4.0-11.0)
[2018-01-09 00:54] LABS: ALBUMIN 3.4 GM/DL (3.4-5.0); ALKALINE PHOSPHATASE 52 U/L (45-117); ALT (GPT) 73 U/L (12-78); AST (GOT) 121 U/L (15-37); BICARBONATE 24.1 MEQ/L (21.0-32.0); BLOOD UREA NITROGEN 17 MG/DL (7-18); CALCIUM 8.5 MG/DL (8.5-10.1); CHLORIDE 97 MEQ/L (98-107); CREATININE 1.21 MG/DL (0.60-1.30); GLOMERULAR FILTRATION RATE 61 ML/MIN (>89); GLUCOSE,RANDOM 129 MG/DL (74-106); SODIUM (NA) 138 MEQ/L (136-145); TOTAL BILIRUBIN ADULT 0.5 MG/DL (0.2-1.0); TOTAL PROTEIN 7.6 GM/DL (6.4-8.2); TROPONIN I LESS THAN 0.02 NG/ML (0.02-0.05)
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
[2018-01-09] MEDS ORDERED: levETIRAcetam 500 MG TAB PO ONE (06:00)
--- NOTE | 2018-01-09 14:04 | EKG ---
Date Performed: 01/09/2018 Time Performed: 00:08:35 PTAGE: 62 years EKG: Sinus rhythm NORMAL ECG PREVIOUS TRACING : 08/01/2017 01.10 Since the previous tracing, no significant change noted DOCTOR: Georges York Interpretating Date/Time 01/09/2018 14:04:33
== END 2018-01-09 07:13 | disposition home or self-care (01) ==
LOC: NEPC 23:37
DX: F10.129 Alcohol abuse with intoxication, unspecified (principal); S00.91XA Abrasion of unspecified part of head, initial encounter; G40.909 Epilepsy, unspecified, not intractable, without status epilepticus; M19.90 Unspecified osteoarthritis, unspecified site; F41.9 Anxiety disorder, unspecified; F32.9 Major depressive disorder, single episode, unspecified; E11.9 Type 2 diabetes mellitus without complications; Z88.2 Allergy status to sulfonamides; Z88.8 Allergy status to other drugs, medicaments and biological substances; Z79.899 Other long term (current) drug therapy; X58.XXXA Exposure to other specified factors, initial encounter; Y92.488 Other paved roadways as the place of occurrence of the external cause
CPT/HCPCS: 70450; 71045; 72125; 80053; 80307; 84484; 85025; 93005; 99285